=== PATIENT | male | born 1930 | race African-American/Black ===

== ENCOUNTER 2016-11-21 19:13 | Inpatient (IN) | payer MEDICARE, MEDICAID ==
[~2016-11-21] VITALS: Ht 185.4 cm; Wt 108.9 kg
[~2016-11-21 19:13] MED LIST: ASPIRIN-LOW81 MG PO; MVI WITH MINERALS ORAL; SIMVASTATIN20 MG PO; SYNTHROID100 MCG PO; TYLENOL325 MG PO; ZESTRIL10 MG PO
[2016-11-21 19:15] VITALS: BP 122/69
[2016-11-21] MEDS ORDERED: Piperacillin/Tazobactam 4.5 GM in NS 110 ML IV STA (19:21)
[2016-11-21] MEDS ORDERED: Vancomycin 1 GM in NS 275 ML IV ONE (19:30)
[2016-11-21] MEDS ORDERED: Acetaminophen 650 MG SUPP RECTAL ONE (19:30)
[2016-11-21] MEDS ORDERED: Zosyn 4.5gm inj ONE (19:49)
[2016-11-21 20:07] LABS: BASOPHILS % (AUTO) 1.2 % (0.0-2.0); LYMPHOCYTES % (AUTO) 17.6 % (20.0-45.0); MEAN CORPUSCULAR HEMOGLOBIN 28.3 PG (27.0-31.0); MEAN CORPUSCULAR HGB CONC 32.6 G/DL (32.0-36.0); MEAN CORPUSCULAR VOLUME 87 FL (80-99); MEAN PLATELET VOLUME 7.6 FL (6.5-10.1); MONOCYTES % (AUTO) 5.6 % (1.0-10.0); NEUTROPHILS % (AUTO) 74.6 % (45.0-75.0); PLATELET COUNT 204 K/UL (150-450); RED BLOOD COUNT 4.06 M/UL (4.70-6.10); RED CELL DISTRIBUTION WIDTH 18.1 % (11.6-14.8); WHITE BLOOD COUNT 8.3 K/UL (4.8-10.8)
[2016-11-21 20:16] LABS: APPEARANCE,URINE TURBID; KETONES,URINE 1+ (NEGATIVE); LEUKOCYTE ESTERASE ,URINE 3+ (NEGATIVE); NITRITE,URINE NEGATIVE (NEGATIVE); PH,URINE 5 (4.5-8.0); PROTEIN,URINE 3+ (NEGATIVE); UROBILINOGEN,URINE 1 MG/DL (0.0-1.0)
--- NOTE | 2016-11-21 20:18 | Emergency Room Report ---
History of Present Illness General Chief Complaint: Altered Level of Consciousness Source: EMS Present Illness HPI Patient brought in by paramedics. They were called because of altered mentation. They state that the last time this happened the patient was septic. The patient is unable to answer questions but does nod his head in recognition of his name. The patient has an indwelling Burton. Also has decubiti. He was last admitted here in 2010 with dehydration and UTI. Prostate CA. Functional quadriplegia. POLST states CPR but no PEG, Intubation. Limited treatment. No other history is available at this time. Allergies: Coded Allergies: No Known Allergies (Verified , 06/30/07) Patient History Past Medical History: see triage record Social History Narrative with family Reviewed Nursing Documentation: PMH: Agreed, PSxH: Agreed Nursing Documentation-PMH Hx Diabetes: Yes Review of Systems All Other Systems: limited Physical Exam Vital Signs Date Time Temp Pulse Resp B/P (MAP) Pulse Ox O2 Delivery O2 Flow Rate FiO2 11/21/16 19:10 101.5 88 30 97/57 88 Room Air Sp02 EP Interpretation: reviewed, abnormal - low as interpreted by me General Appearance: lethargic, Chronically Ill Head: normocephalic Eyes: bilateral eye normal inspection, bilateral eye PERRL ENT: moist mucus membranes Neck: supple Respiratory: lungs clear, normal breath sounds Cardiovascular #1: regular rate, rhythm Cardiovascular #2: 2+ radial (R) Gastrointestinal: normal inspection, normal bowel sounds, non tender, soft, no mass, non-distended, other - colostomy/ileostomy Genitourinary: other - burton Musculoskeletal: back normal Neurologic: alert, responsive, motor weakness - all extrem Psychiatric: depressed affect Skin: normal inspection, warm/dry Medical Decision Making Diagnostic Impression: Primary Impression: Severe sepsis Additional Impressions: Altered level of consciousness Hypoxia Renal insufficiency ER Course Patient presents with AMS and fever. Ddx; sepsis, pneumonia, UTI, AMI amongst others. Evaluation with BC, lactate, CXR, EKG and other labs. Complicated patient unable to give history. As febrile will treat with tylenol and initiate fluid bolus. EKG with strain. CXR increased frazier (not chf) with L effusion and atelectasis Hypoxia improved withoxygen. Urine with pyuria. Antibiotics started to cover this (as well as possible pneumonia). Labs with some renal insufficiency. Elevated BNP. Still needs fluids. Transiently low blood pressure. Better with fluids. Improved with treatment. Multiple organs involved with infection. Nature of hypoxia unclear. Possible infiltrate L. Elevated BNP but not significant on CXR. Admitted Telemetry Dr. Sanchez. Laboratory Tests Test 11/21/16 19:38 11/22/16 00:11 11/22/16 01:34 White Blood Count 8.3 K/UL (4.8-10.8) Red Blood Count 4.06 M/UL (4.70-6.10) L Hemoglobin 11.5 G/DL (14.2-18.0) L Hematocrit 35.2 % (42.0-52.0) L Mean Corpuscular Volume 87 FL (80-99) Mean Corpuscular Hemoglobin 28.3 PG (27.0-31.0) Mean Corpuscular Hemoglobin Concent 32.6 G/DL (32.0-36.0) Red Cell Distribution Width 18.1 % (11.6-14.8) H Platelet Count 204 K/UL (150-450) Mean Platelet Volume 7.6 FL (6.5-10.1) Neutrophils (%) (Auto) 74.6 % (45.0-75.0) Lymphocytes (%) (Auto) 17.6 % (20.0-45.0) L Monocytes (%) (Auto) 5.6 % (1.0-10.0) Eosinophils (%) (Auto) 1.0 % (0.0-3.0) Basophils (%) (Auto) 1.2 % (0.0-2.0) Prothrombin Time 11.4 SEC (9.30-11.50) Prothrombin Time INR 1.1 (0.9-1.1) PTT 32 SEC (23-33) Urine Color Yellow Urine Appearance Turbid Urine pH 5 (4.5-8.0) Urine Specific [place] 1.020 (1.005-1.035) Urine Protein 3+ (NEGATIVE) H Urine Glucose (UA) Negative (NEGATIVE) Urine Ketones 1+ (NEGATIVE) H Urine Occult Blood 5+ (NEGATIVE) H Urine Nitrite Negative (NEGATIVE) Urine Bilirubin 1+ (NEGATIVE) H Urine Ictotest Negative Urine Urobilinogen 1 MG/DL (0.0-1.0) H Urine Leukocyte Esterase 3+ (NEGATIVE) H Urine RBC 5-10 /HPF (0 - 0) H Urine WBC Tntc /HPF (0 - 0) H Urine Squamous Epithelial Cells None /LPF (NONE/OCC) Urine Bacteria Many /HPF (NONE) H Sodium Level 136 mEQ/L (135-145) Potassium Level 5.2 mEQ/L (3.4-4.9) H Chloride Level 100 mEQ/L (98-107) Carbon Dioxide Level 24 mEQ/L (20-30) Anion Gap 12 (5-15) Blood Urea Nitrogen 42 mg/dL (7-23) H Creatinine 1.4 mg/dL (0.7-1.2) H Estimate Glomerular Filtration Rate mL/min (>60) Glucose Level 177 mg/dL (74-106) H Lactic Acid Level 1.90 mmol/L (0.66-2.22) Calcium Level 8.7 mg/dL (8.6-10.2) Total Bilirubin 0.5 mg/dL (0.0-1.2) Aspartate Amino Transferase (AST) 19 U/L (5-40) Alanine Aminotransferase (ALT) 18 U/L (3-41) Alkaline Phosphatase 104 U/L (40-129) Total Creatine Kinase 17 U/L (38-174) L Troponin I < 0.30 ng/mL (<=0.30) Pro-B-Type Natriuretic Peptide 35967 pg/mL (0-450) H Total Protein 7.3 g/dL (6.6-8.7) Albumin 2.9 g/dL (3.5-5.2) L Globulin 4.4 g/dL Albumin/Globulin Ratio 0.6 (1.0-2.7) L Arterial Blood pH 7.160 (7.350-7.450) 7.180 (7.350-7.450) Arterial Blood Partial Pressure CO2 65.3 mmHg (35.0-45.0) *H 57.8 mmHg (35.0-45.0) *H Arterial Blood Partial Pressure O2 321.5 mmHg (75.0-100.0) H 106.8 mmHg (75.0-100.0) H Arterial Blood HCO3 22.8 mmol/L (22.0-26.0) 21.1 mmol/L (22.0-26.0) L Arterial Blood Oxygen Saturation 99.0 % (92.0-98.0) H 95.6 % (92.0-98.0) Arterial Blood Base Excess -6.4 -7.5 Han Test N/a N/a EKG Diagnostic Results Rate: normal Rhythm: NSR ST Segments: no acute changes Rhythm Strip Diag. Results EP Interpretation: yes Rhythm: NSR, no PVC's, no ectopy Chest X-Ray Diagnostic Results Chest X-Ray Diagnostic Results : Chest X-Ray Ordered: Yes # of Views/Limited/Complete: 1 View Indication: Other EP Interpretation: Yes Interpretation: no pneumothorax, other - increased frazier bilat, cor large, increase L base, possible effusion Impression: Other Interpreting ER Provider: Signed Omkar Marquis MD Last Vital Signs Date Time Temp Pulse Resp B/P (MAP) Pulse Ox O2 Delivery O2 Flow Rate FiO2 11/22/16 00:45 102 29 2.0 40 11/22/16 00:44 Facial 11/22/16 00:00 96.0 114/75 92 Status: improved Disposition: ADMITTED INPATIENT Condition: Serious Omkar Marquis M.D. Nov 21, 2016 20:18
[2016-11-21 20:20] LABS: ICTOTEST NEGATIVE
[2016-11-21 20:28] LABS: BACTERIA,URINE MANY /HPF; INR 1.1 (0.9-1.1); PROTHROMBIN TIME 11.4 SEC (9.30-11.50); WBC,URINE TNTC /HPF (0 - 0)
[2016-11-21 20:31] LABS: TROPONIN I < 0.30 ng/mL (<=0.30)
[2016-11-21 20:34] LABS: ALANINE AMINOTRANSFERASE 18 U/L (3-41); ALBUMIN/GLOBULIN RATIO 0.6 (1.0-2.7); ANION GAP 12 (5-15); ASPARTATE AMINO TRANSFERASE 19 U/L (5-40); CALCIUM 8.7 mg/dL (8.6-10.2); CARBON DIOXIDE 24 mEQ/L (20-30); CHLORIDE 100 mEQ/L (98-107); CREATININE 1.4 mg/dL (0.7-1.2); HEMOLYSIS 3; POTASSIUM 5.2 mEQ/L (3.4-4.9); SODIUM 136 mEQ/L (135-145); TOTAL PROTEIN 7.3 g/dL (6.6-8.7)
[2016-11-21 21:15] VITALS: BP 98/75
[2016-11-21] MEDS ORDERED: Milk of Magnesia 30ml Ud ORAL PRN (21:15)
[2016-11-21] MEDS ORDERED: Vancomycin 1gm inj IVPB ONE (21:56)
[2016-11-21] MEDS ORDERED: Lisinopril 10mg tab ORAL SCH (22:30)
[2016-11-21] MEDS ORDERED: D5NS 1,000 ML IV SCH (22:30)
[2016-11-21 22:37] VITALS: BP 93/76
[2016-11-22] VITALS (21 sets, daily range): BP systolic 77–163; BP diastolic 45–115
[2016-11-22 00:31] LABS: ABG BASE EXCESS -6.4; ABG PCO2 65.3 mmHg (35.0-45.0)
[2016-11-22 02:12] LABS: ABG BASE EXCESS -7.5; ABG PCO2 57.8 mmHg (35.0-45.0)
[2016-11-22] MEDS ORDERED: 1/2 NS IV SCH (02:30)
[2016-11-22] MEDS ORDERED: SODIUM ACETATE IV SCH (02:30)
[2016-11-22] MEDS ORDERED: Sodium Bicarbonate 50 ML in 1/2 NS 1000ml 1,000 ML IV ONE (05:00)
[2016-11-22 05:05] LABS: BASOPHILS % (AUTO) 0.9 % (0.0-2.0); EOSINOPHILS % (AUTO) 0.3 % (0.0-3.0); LYMPHOCYTES % (AUTO) 19.7 % (20.0-45.0); MEAN CORPUSCULAR HEMOGLOBIN 28.1 PG (27.0-31.0); MEAN CORPUSCULAR HGB CONC 30.6 G/DL (32.0-36.0); MEAN CORPUSCULAR VOLUME 92 FL (80-99); MEAN PLATELET VOLUME 7.1 FL (6.5-10.1); MONOCYTES % (AUTO) 8.4 % (1.0-10.0); NEUTROPHILS % (AUTO) 70.6 % (45.0-75.0); PLATELET COUNT 177 K/UL (150-450); RED BLOOD COUNT 4.01 M/UL (4.70-6.10); RED CELL DISTRIBUTION WIDTH 18.9 % (11.6-14.8)
[2016-11-22] MEDS ORDERED: Sodium Bicarbonate 50ml Carp ONE (05:12)
[2016-11-22 05:33] LABS: ALANINE AMINOTRANSFERASE 30 U/L (3-41); ALBUMIN/GLOBULIN RATIO 0.5 (1.0-2.7); ANION GAP 15 (5-15); ASPARTATE AMINO TRANSFERASE 40 U/L (5-40); CALCIUM 8.3 mg/dL (8.6-10.2); CARBON DIOXIDE 18 mEQ/L (20-30); CHLORIDE 107 mEQ/L (98-107); CREATININE 1.3 mg/dL (0.7-1.2); HEMOLYSIS 8; SODIUM 140 mEQ/L (135-145)
[2016-11-22] MEDS ORDERED: Zosyn 3.375gm inj ONE (05:36)
[2016-11-22] MEDS ORDERED: Piperacillin/Tazobactam 3.375 GM in D5W 110 ML IVPB SCH (06:00)
[2016-11-22] MEDS ORDERED: DuoNeb 0.5-3(2.5)mg/3ml neb HHN PRN (08:00)
[2016-11-22] MEDS: Aspirin EC 81mg tab ORAL SCH (08:50)
[2016-11-22] MEDS: Famotidine 20 MG/ 2ML VIAL IVP SCH ×2 (08:59→21:27)
[2016-11-22] MEDS: Heparin 5000 units/ml inj SUBQ SCH ×2 (09:04→21:28)
[2016-11-22 10:10] LABS: ABG BASE EXCESS -6.4; ABG PCO2 42.1 mmHg (35.0-45.0)
[2016-11-22 10:11] LABS: ABG ALLEN TEST POSITIVE
--- NOTE | 2016-11-22 11:03 | Wound Care Consultation ---
Wound Assessment Wound Assessment #1: Wound Number: 1 Wound Present on Admission: Yes New Wound: No Status Change of Wound: No Wound Location Body Site: other - sacrococcygeal Bradly Test: Does not Bradly Pressure Ulcer Stage: IV/unstageable - noted scattered stage 2 to surrounding tissue on left and right aspect of mid sacral wound. Wound Thickness: Full Thickness Wound Length: 6.0 Wound Width: 8.0 Wound Depth: utd Percent of Wound [place]/Red: 30 Percent of Wound Bed Yellow/Wh: 50 - scattered Percent of Wound Purple/Maroon: 20 Other Colors Identified: surrounding periwound noted with masceraated full thickness scar tissue. Wound Drainage Description: Serosanguineous Wound Drainage Amount: Moderate Wound Drainage Odor: None/Absent Tissue Surrounding Wound: Macerated Wound General Appearance: Reddened, Draining, Necrotic Wound Assessment #2: Wound Number: 2 Wound Present on Admission: Yes New Wound: No Status Change of Wound: No Wound Location Body Site: other - left aspect of sacral extending to left buttocks scattered stage 2 Wound Type: pressure ulcer Bradly Test: Does not Bradly Pressure Ulcer Stage: II Wound Thickness: Partial Thickness Percent of Wound [place]/Red: 100 - Scattered Wound Drainage Description: Serosanguineous Wound Drainage Amount: Moderate Wound Drainage Odor: None/Absent Tissue Surrounding Wound: Macerated Wound General Appearance: Reddened, Draining Wound Assessment #3: Wound Number: 3 Wound Present on Admission: Yes New Wound: No Status Change of Wound: No Wound Location Body Site Modif: left Wound Location Body Site: other - aspect of sacral extending to left buttocks Bradly Test: Does not Bradly Pressure Ulcer Stage: deep tissue injury - scattered. Wound Thickness: Full Thickness Percent of Wound Purple/Maroon: 100 Wound Drainage Amount: None Wound Drainage Odor: None/Absent Tissue Surrounding Wound: Erythemic - noted deep maroon color present. Wound Assessment #4: Wound Number: 5 Wound Present on Admission: Yes New Wound: No Status Change of Wound: No Wound Location Body Site: perineal area Wound Type: other - intertrigo Bradly Test: Does not Bradly Percent of Wound [place]/Red: 100 Wound Drainage Amount: None Wound Drainage Odor: None/Absent Tissue Surrounding Wound: Macerated - moist Wound General Appearance: Reddened, Open to air Wound Assessment #5: Wound Number: 6 Wound Present on Admission: Yes New Wound: No Status Change of Wound: No Wound Location Body Site Modif: left Wound Location Body Site: other - armpit fold Wound Type: other - intertrigo Bradly Test: Does not Bradly Percent of Wound [place]/Red: 100 Wound Drainage Amount: None Wound Drainage Odor: None/Absent Tissue Surrounding Wound: Macerated - moist Wound General Appearance: Reddened, Open to air Wound Assessment #6: Wound Number: 7 Wound Present on Admission: Yes New Wound: No Status Change of Wound: No Wound Location Body Site Modif: left, right Wound Location Body Site: breast fold Wound Type: other - intertrigo Bradly Test: Does not Bradly Percent of Wound [place]/Red: 100 Wound Drainage Amount: None Wound Drainage Odor: None/Absent Tissue Surrounding Wound: Macerated - moist Wound General Appearance: Reddened, Open to air Wound Comment #1 Sacrococcygeal pressure ulcer stage IV/unstageable , with left and right aspect of sacral scattered stage 2. #2 left aspect of sacral extending to left buttocks scattered stage 2. #3 left aspect of sacral extending to left buttocks scattered deep tissue injuries. #4 left under arm intertrigo. #5 left and right breast fold intertrigo. #6 perineal area intertrigo. Recommendation. -Local wound per protocol. -Keep skin folds clean and dry. -Apply low air loss p200 mattress for wound and skin management. -Turn and reposition. -Optimize nutrition. -Keep clean and dry. -Offload affected sites. -Offload heels and feet. -Heel protectors. -Avoid shear or friction. -Assess and follow up with MD for any further changes of condition noted to skin. YULIYA SALAZAR Nov 22, 2016 11:03
--- NOTE | 2016-11-22 11:28 | Diagnostic Imaging Report ---
Indication: Dyspnea Comparison: 11/21/2016 A single view chest radiograph was obtained. Findings: Heart is mildly enlarged but stable. Left basal atelectasis again demonstrated. 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
--- NOTE | 2016-11-22 12:39 | Infectious Diseases Prog Note ---
Assessment/Plan Assessment/Plan Full consult dictated: A) 1) uti, sepsis, ? pna, fevers, hx pna 2) pmh noted 3) allergies - negative P) 1) meropenem and vancomycin 2) check urine culture, labs and f/uc chest x-ray 3) thank you Subjective Allergies: Coded Allergies: No Known Allergies (Verified , 06/30/07) Objective Vital Signs Last 24 Hour Vital Signs Date Time Temp Pulse Resp B/P (MAP) Pulse Ox O2 Delivery O2 Flow Rate FiO2 11/22/16 12:00 30 11/22/16 12:00 97.4 72 22 80/62 100 Bi-pap 30 11/22/16 11:00 70 22 140/101 100 Bi-pap 30 11/22/16 10:55 64 14 Facial 30 11/22/16 10:00 63 20 153/95 100 Bi-pap 40 11/22/16 10:00 66 21 163/115 100 Bi-pap 40 11/22/16 09:15 62 24 Facial 40 11/22/16 09:00 65 20 129/115 100 Bi-pap 40 11/22/16 09:00 61 16 129/55 91 Bi-pap 40 11/22/16 08:00 62 11/22/16 08:00 97.4 68 16 114/96 90 Bi-pap 40 11/22/16 08:00 40 11/22/16 07:28 61 21 Facial 40 11/22/16 07:00 61 16 94/67 91 Bi-pap 40 11/22/16 06:00 72 16 99/45 91 Bi-pap 40 11/22/16 05:22 77 29 Facial 40 11/22/16 05:00 69 16 81/55 91 Bi-pap 40 11/22/16 04:53 40 11/22/16 04:00 81 11/22/16 04:00 60 16 94/75 91 Bi-pap 40 11/22/16 03:05 76 29 Facial 40 11/22/16 00:45 102 29 2.0 40 11/22/16 00:44 71 29 Facial 40 11/22/16 00:00 96.0 80 29 114/75 92 Bi-pap 11/21/16 22:37 97.9 102 32 93/76 95 Nasal Cannula 2.0 11/21/16 22:37 97.9 102 32 93/76 95 Nasal Cannula 2.0 11/21/16 22:30 65/36 11/21/16 21:15 98.0 105 28 98/75 95 Nasal Cannula 2.0 11/21/16 20:26 97.9 11/21/16 19:15 101.5 113 22 122/69 88 Room Air 11/21/16 19:10 101.5 88 30 97/57 88 Room Air Height (Feet): 6 Height (Inches): 1.00 Weight (Pounds): 220 Microbiology Date/Time Source Procedure Growth Status 11/21/16 19:38 Urine,Clean Catch Urine Culture - Preliminary Resulted 11/22/16 02:00 Sacral Wound Gram Stain - Final Resulted 11/22/16 02:00 Sacral Wound Wound Culture Pending Resulted Laboratory Tests Test 11/21/16 19:38 11/22/16 00:11 11/22/16 01:34 11/22/16 03:35 White Blood Count 8.3 K/UL (4.8-10.8) 9.0 K/UL (4.8-10.8) Red Blood Count 4.06 M/UL (4.70-6.10) L 4.01 M/UL (4.70-6.10) L Hemoglobin 11.5 G/DL (14.2-18.0) L 11.3 G/DL (14.2-18.0) L Hematocrit 35.2 % (42.0-52.0) L 36.8 % (42.0-52.0) L Mean Corpuscular Volume 87 FL (80-99) 92 FL (80-99) Mean Corpuscular Hemoglobin 28.3 PG (27.0-31.0) 28.1 PG (27.0-31.0) Mean Corpuscular Hemoglobin Concent 32.6 G/DL (32.0-36.0) 30.6 G/DL (32.0-36.0) L Red Cell Distribution Width 18.1 % (11.6-14.8) H 18.9 % (11.6-14.8) H Platelet Count 204 K/UL (150-450) 177 K/UL (150-450) Mean Platelet Volume 7.6 FL (6.5-10.1) 7.1 FL (6.5-10.1) Neutrophils (%) (Auto) 74.6 % (45.0-75.0) 70.6 % (45.0-75.0) Lymphocytes (%) (Auto) 17.6 % (20.0-45.0) L 19.7 % (20.0-45.0) L Monocytes (%) (Auto) 5.6 % (1.0-10.0) 8.4 % (1.0-10.0) Eosinophils (%) (Auto) 1.0 % (0.0-3.0) 0.3 % (0.0-3.0) Basophils (%) (Auto) 1.2 % (0.0-2.0) 0.9 % (0.0-2.0) Prothrombin Time 11.4 SEC (9.30-11.50) Prothromb Time International Ratio 1.1 (0.9-1.1) Activated Partial Thromboplast Time 32 SEC (23-33) Urine Color Yellow Urine Appearance Turbid Urine pH 5 (4.5-8.0) Urine Specific [place] 1.020 (1.005-1.035) Urine Protein 3+ (NEGATIVE) H Urine Glucose (UA) Negative (NEGATIVE) Urine Ketones 1+ (NEGATIVE) H Urine Occult Blood 5+ (NEGATIVE) H Urine Nitrite Negative (NEGATIVE) Urine Bilirubin 1+ (NEGATIVE) H Urine Ictotest Negative Urine Urobilinogen 1 MG/DL (0.0-1.0) H Urine Leukocyte Esterase 3+ (NEGATIVE) H Urine RBC 5-10 /HPF (0 - 0) H Urine WBC Tntc /HPF (0 - 0) H Urine Squamous Epithelial Cells None /LPF (NONE/OCC) Urine Bacteria Many /HPF (NONE) H Sodium Level 136 mEQ/L (135-145) 140 mEQ/L (135-145) Potassium Level 5.2 mEQ/L (3.4-4.9) H 5.0 mEQ/L (3.4-4.9) H Chloride Level 100 mEQ/L (98-107) 107 mEQ/L (98-107) Carbon Dioxide Level 24 mEQ/L (20-30) 18 mEQ/L (20-30) L Anion Gap 12 (5-15) 15 (5-15) Blood Urea Nitrogen 42 mg/dL (7-23) H 38 mg/dL (7-23) H Creatinine 1.4 mg/dL (0.7-1.2) H 1.3 mg/dL (0.7-1.2) H Estimat Glomerular Filtration Rate mL/min (>60) mL/min (>60) Glucose Level 177 mg/dL (74-106) H 146 mg/dL (74-106) H Lactic Acid Level 1.90 mmol/L (0.66-2.22) Calcium Level 8.7 mg/dL (8.6-10.2) 8.3 mg/dL (8.6-10.2) L Total Bilirubin 0.5 mg/dL (0.0-1.2) 0.4 mg/dL (0.0-1.2) Aspartate Amino Transf (AST/SGOT) 19 U/L (5-40) 40 U/L (5-40) Alanine Aminotransferase (ALT/SGPT) 18 U/L (3-41) 30 U/L (3-41) Alkaline Phosphatase 104 U/L (40-129) 103 U/L (40-129) Total Creatine Kinase 17 U/L (38-174) L Troponin I < 0.30 ng/mL (<=0.30) Pro-B-Type Natriuretic Peptide 35311 pg/mL (0-450) H Total Protein 7.3 g/dL (6.6-8.7) 7.0 g/dL (6.6-8.7) Albumin 2.9 g/dL (3.5-5.2) L 2.5 g/dL (3.5-5.2) L Globulin 4.4 g/dL 4.5 g/dL Albumin/Globulin Ratio 0.6 (1.0-2.7) L 0.5 (1.0-2.7) L Arterial Blood pH 7.160 (7.350-7.450) 7.180 (7.350-7.450) Arterial Blood Partial Pressure CO2 65.3 mmHg (35.0-45.0) *H 57.8 mmHg (35.0-45.0) *H Arterial Blood Partial Pressure O2 321.5 mmHg (75.0-100.0) H 106.8 mmHg (75.0-100.0) H Arterial Blood HCO3 22.8 mmol/L (22.0-26.0) 21.1 mmol/L (22.0-26.0) L Arterial Blood Oxygen Saturation 99.0 % (92.0-98.0) H 95.6 % (92.0-98.0) Arterial Blood Base Excess -6.4 -7.5 Han Test N/a N/a Thyroid Stimulating Hormone (TSH) 4.200 uIU/mL (0.300-4.500) Test 11/22/16 10:00 Arterial Blood pH 7.290 (7.350-7.450) Arterial Blood Partial Pressure CO2 42.1 mmHg (35.0-45.0) Arterial Blood Partial Pressure O2 205.0 mmHg (75.0-100.0) H Arterial Blood HCO3 19.8 mmol/L (22.0-26.0) L Arterial Blood Oxygen Saturation 98.6 % (92.0-98.0) H Arterial Blood Base Excess -6.4 Han Test Positive Current Medications Medications (Trade) Dose Ordered Sig/Jus Route PRN Reason Start Time Stop Time Status Last Admin Dose Admin Acetaminophen (Tylenol) 650 mg Q4H PRN ORAL Prn Headache/Temp > 101 11/21/16 21:15 12/21/16 21:14 Albuterol/ Ipratropium (DuoNeb 0.5-3(2.5)mg/3ml) 3 ml Q4H PRN HHN Shortness of Breath 11/22/16 08:00 11/27/16 07:59 Aspirin (Ecotrin) 81 mg DAILY ORAL 11/22/16 09:00 12/22/16 08:59 Atorvastatin Calcium (Lipitor) 10 mg BEDTIME ORAL 11/22/16 21:00 12/22/16 20:59 Famotidine (Pepcid I.v.) 20 mg Q12HR IVP 11/22/16 09:00 12/22/16 08:59 11/22/16 08:59 Heparin Sodium (Porcine) (Heparin 5000 units/ml) 5,000 units EVERY 12 HOURS SUBQ 11/22/16 09:00 12/22/16 08:59 11/22/16 09:04 Levothyroxine Sodium (Synthroid) 100 mcg ACBREAKFAST ORAL 11/22/16 06:30 12/22/16 06:29 Magnesium Hydroxide (Mom) 30 ml DAILYPRN PRN ORAL Constipation 11/21/16 21:15 12/21/16 21:14 Nystatin (Nystop Powder) 1 applic THREE TIMES A DAY TOPIC 11/22/16 13:00 12/22/16 12:59 Ondansetron HCl (Zofran) 4 mg Q6H PRN IVP Nausea & Vomiting 11/21/16 21:15 12/21/16 21:14 Piperacillin Sod/ Tazobactam Sod 3.375 gm/Dextrose 110 ml @ 27.5 mls/hr EVERY 8 HOURS IVPB 11/22/16 06:00 11/29/16 05:59 11/22/16 05:54 Sodium Bicarbonate 50 ml/ Sodium Chloride 1,050 ml @ 125 mls/hr Q8H24M ONCE IV 11/22/16 05:00 11/22/16 13:23 11/22/16 05:23 Vancomycin HCl (Vanco rx to dose) 1 ea DAILY PRN MISC Per rx protocol 11/21/16 21:15 12/21/16 21:14 Vancomycin HCl/ Dextrose 250 ml @ 125 mls/hr Q24H IVPB 11/22/16 22:00 11/27/16 21:59 KISHOR VALLE Nov 22, 2016 12:39
[2016-11-22] MEDS: Nystatin Powder 100,000 units/gm 15gm TOPIC SCH ×2 (13:12→17:27)
[2016-11-22] MEDS: Vancomycin 1.5gm/D5W 250ml 250 ML IVPB SCH (21:32)
[2016-11-23] VITALS (24 sets, daily range): BP systolic 95–145; BP diastolic 60–88
--- NOTE | 2016-11-23 | History and Physical Report ---
DATE OF ADMISSION: 11/22/2016 CHIEF COMPLAINT: Sepsis. HISTORY OF PRESENT ILLNESS: The patient is an 86-year-old male. He has a history of sepsis, renal insufficiency, hypothyroidism, and hypertension. He has prior history of an ileostomy. He is confused and unable to provide any history. The majority of his history is taken from review of the chart. The patient is an 86-year-old male who was brought in with complaints of altered mentation. He apparently was confused in the emergency room. He had an indwelling Rausch catheter, was also noted to have several wounds. He was diagnosed here with urinary tract infection and started on broad-spectrum IV antibiotics. He is now admitted for further evaluation and care. While on the floor, the patient became hypoxic and more short of breath, eventually required placement on BiPAP and he was transferred to intensive care unit. He opens his eyes, but does not follow any commands. I have left a message to the patient's son to get further history, but I have not received a call back yet. PAST MEDICAL HISTORY: As above. PAST SURGICAL HISTORY: Includes a history of an ileostomy. CURRENT MEDICATIONS: Reconciled and reviewed. ALLERGIES: None. SOCIAL HISTORY: There is no known history of tobacco, ethanol, or drugs. FAMILY HISTORY: Unknown. REVIEW OF SYSTEMS: From the patient is unobtainable as he is confused and lethargic. PHYSICAL EXAMINATION: VITAL SIGNS: Temperature 98 degrees, blood pressure 194/67, pulse 61, and respirations 20. GENERAL: The patient is well-developed male, in no apparent distress. He opens his eyes, but he does not follow commands. NECK: Supple. There is no jugular venous distention. HEART: Regular rate and rhythm. LUNGS: Clear. ABDOMEN: Soft, nontender, and nondistended. EXTREMITIES: Shows 1 to 2+ pitting edema. SKIN: The patient has a stage 3 to 4 sacral wound noted that appears mostly clean. LABORATORY DATA: Sodium is 136, potassium 5.2, chloride 100, bicarb 24, BUN 42, and creatinine 1.4. Lactic acid 1.9. Natriuretic peptide level 1200. CK was 71. White count 9, hemoglobin 11, hematocrit 36, and platelets 177,000. Coags are normal. UA showed too numerous to count WBCs. ASSESSMENT: This is an elderly male admitted with complaints of: 1. Sepsis secondary to urinary tract infection. 2. Respiratory failure. 3. Dehydration. 4. Sacral wounds. 5. He has a history of ileostomy. PLAN: 1. Intravenous hydration. 2. Followup chest x-ray and blood gas. 3. Continue BiPAP. 4. Broad-spectrum IV antibiotic therapy. 5. Followup pending cultures. 6. The patient's POLST from prior admission states the patient is DNI. 7. I left a message to the patient's son and awaiting the call back to update the patient's son on his status. Aamir Sanchez M.D. DR: GAEL JOB#: [id number] CC:
--- NOTE | 2016-11-23 00:30 | Consultation ---
DATE OF CONSULTATION: 11/22/2016 PULMONARY CONSULTATION CONSULTING PHYSICIAN: Atilio Salazar M.D. REFERRING PHYSICIAN: Aamir Sanchez M.D. REASON FOR CONSULTATION: Respiratory failure, BiPAP management. HISTORY OF PRESENT ILLNESS: This is an 86-year-old male, brought in by paramedics. The patient with noted with altered mental status. The patient is a limited code. The patient was seen and evaluated in the emergency room. He was noted to have concern for sepsis. Also, the patient noted to have abnormal lactic acid levels. Arterial blood gases also notable for significant acidemia with a pH of 7.18 and a pCO2 starting at 65, updated blood gases with minimal improvement at present. The patient's care discussed and reviewed. The patient also with a fever. The patient is at risk for impending respiratory failure. Further history is difficult to obtain at present. The patient is a CPR, but no plans for a gastrostomy tube or intubation. The patient had no other outstanding acute symptoms. The patient was started on intravenous antibiotics in the ICU currently and I was called to assist and evaluate. PAST MEDICAL HISTORY: Notable for UTI, functional quadriplegia, prostate cancer, and failure to thrive. MEDICATIONS: Reviewed. ALLERGIES: Reviewed. REVIEW OF SYSTEMS: Not obtainable. PHYSICAL EXAMINATION: GENERAL: A well-developed male, chronically ill. VITAL SIGNS: Blood pressure 114/96, pulse 90, respiratory rate is 16, oxygen saturation on 40% is 90%, and temperature is 97.4. HEENT: Negative. Pupils not reactive. The patient is on BiPAP mask. LUNGS: With scattered rhonchi. Moderate air entry. CARDIAC: Regular rate and rhythm. Distant without murmurs, rubs, or gallops. ABDOMEN: Soft, nontender, and nondistended. EXTREMITIES: No cyanosis or clubbing. NEUROLOGICAL: Significantly withdrawn at this time. Difficult to fully assess. SKIN: Noted. Reviewed. LABORATORY DATA: Reviewed. The pH is 7.18, pCO2 of 57, pO2 of 106, and bicarbonate 21. White count 9, hemoglobin 11.3, hematocrit 36, and platelets 177,000. Chemistries noted, potassium is 5, BUN 38, and creatinine 1.3. Albumin is 2.5. IMPRESSION: 1. Respiratory failure. 2. Acute on chronic respiratory acidosis. 3. Functional quadriplegia. 4. Prostate cancer. 5. Severe protein-calorie malnutrition. 6. As per code status, no intubation, no gastrostomy tube. 7. Possible urinary tract infection. 8. Possible sepsis. 9. Hypotension. RECOMMENDATIONS: Prognosis appears to be poor at this time. We will attempt to adjust BiPAP further and continue to monitor clinically and recommend further. The patient to receive ongoing management as outlined. We will recheck arterial blood gases in hope to see further improvement. We will also consider infusion of bicarbonate in hope to see changes in result. At present, the patient is critical and the prognosis appears to be poor. Atilio Salazar M.D. DR: SHAE JOB#: [id number] CC:
--- NOTE | 2016-11-23 04:46 | Progress Note ---
DATE: 11/22/2016 CARDIOLOGY PROGRESS NOTE SUBJECTIVE: The patient was transferred to the intensive care unit due to worsening respiratory distress. The patient continues to have episodes of hypotension. The patient did respond to fluid challenges yesterday evening. OBJECTIVE: VITAL SIGNS: Blood pressure 83/56, heart rate 58, and respiratory rate 23. GENERAL: The patient is afebrile. He is on BiPAP support. Poorly responsive. Accessory muscle use. LUNGS: Diminished breath sounds with rhonchi. HEART: Regular rhythm and rate. Normal S1 and S2 with a fourth heart sound. ABDOMEN: Soft. EXTREMITIES: There is no edema. LABORATORY DATA: White count 9 and hemoglobin 11. Sodium 140, potassium 5, bicarbonate 18, BUN 38, and creatinine is 1.3. Albumin 2.5. Lactic acid is now 1.9. ABG this morning 7.29, 42, and 205, earlier it was 7.18, 58, and 107. IMPRESSION: 1. Urinary tract infection with sepsis. 2. Shock. 3. Acute respiratory and metabolic acidosis. 4. Secondary sinus tachycardia. 5. History of prostate cancer. 6. Functional quadriplegia. 7. Dementia, recovered. 8. Lactic acidosis. 9. Severe protein-calorie malnutrition. PLAN: 1. Volume resuscitation. 2. May need pressors. 3. Do Not Intubate per POLST. 4. NG-tube for nutrition and protein supplement. 5. Broad-spectrum antibiotics. 6. BiPAP support. 7. DVT and stress ulcer prophylaxis. 8. Critical and guarded. Omkar Turk M.D. DR: EVONNE JOB#: [id number] CC:
[2016-11-23 05:11] LABS: ALANINE AMINOTRANSFERASE 28 U/L (3-41); ALBUMIN/GLOBULIN RATIO 0.6 (1.0-2.7); ANION GAP 14 (5-15); ASPARTATE AMINO TRANSFERASE 24 U/L (5-40); CALCIUM 8.5 mg/dL (8.6-10.2); CARBON DIOXIDE 21 mEQ/L (20-30); CHLORIDE 105 mEQ/L (98-107); CREATININE 1.2 mg/dL (0.7-1.2); HEMOLYSIS 1; SODIUM 140 mEQ/L (135-145); TOTAL PROTEIN 6.8 g/dL (6.6-8.7)
[2016-11-23 05:13] LABS: BASOPHILS % (AUTO) 0.9 % (0.0-2.0); EOSINOPHILS % (AUTO) 1.6 % (0.0-3.0); LYMPHOCYTES % (AUTO) 16.7 % (20.0-45.0); MEAN CORPUSCULAR HEMOGLOBIN 27.8 PG (27.0-31.0); MEAN CORPUSCULAR HGB CONC 31.3 G/DL (32.0-36.0); MEAN CORPUSCULAR VOLUME 89 FL (80-99); MEAN PLATELET VOLUME 6.8 FL (6.5-10.1); MONOCYTES % (AUTO) 7.8 % (1.0-10.0); PLATELET COUNT 189 K/UL (150-450); RED BLOOD COUNT 4.21 M/UL (4.70-6.10); RED CELL DISTRIBUTION WIDTH 19.2 % (11.6-14.8); WHITE BLOOD COUNT 7.7 K/UL (4.8-10.8)
--- NOTE | 2016-11-23 05:16 | Consultation ---
DATE OF CONSULTATION: 11/21/2016 CARDIOLOGY CONSULTATION CONSULTING PHYSICIAN: Omkar Turk M.D. REASON FOR CONSULTATION: Hypotension. HISTORY OF PRESENT ILLNESS: This is an 86-year-old male, who was brought into the emergency room by paramedics due to altered mentation. The patient was confused and altered and emergency room workup was notable for an abnormal blood gas. The patient also developed hypotension and was bolused several liters of saline. I have been asked to assist with further cardiovascular care. PAST MEDICAL HISTORY: Cerebrovascular disease with dementia, history of prostate cancer, functional quadriplegia, failure to thrive, and history of ileostomy. MEDICATIONS: Reviewed and reconciled. ALLERGIES: None known. SOCIAL HISTORY: No record of smoking, alcohol, or substance abuse. FAMILY HISTORY: Unknown. SYSTEMIC REVIEW: Not obtainable from the patient due to his lethargy. PHYSICAL EXAMINATION: VITAL SIGNS: He is afebrile and poorly responsive. Blood pressure is in 84/45 and respiratory rate 20 to 26. GENERAL: Withdrawn, lethargic, and accessory muscle use. LUNGS: Diminished breath sounds. HEART: Regular rhythm and rate. Normal S1 and S2. ABDOMEN: Soft and nontender. EXTREMITIES: With 1+ dependent edema. There is a sacral wound, stage III to IV. LABORATORY DATA: Sodium is 136, potassium 5.2, BUN 42, and creatinine 1.4. White count is 9 and hemoglobin 11. Natriuretic peptide is 1200. Urinalysis, too numerous to count white cells. Lactic acid is 1.9. DIAGNOSTIC DATA: EKG, sinus tachycardia with nonspecific ST changes. ABG, pH 7.16, pCO2, 65, and pO2 321. IMPRESSION: 1. Sepsis. 2. Shock. 3. Urinary tract infection. 4. Acute metabolic and respiratory acidosis. 5. Secondary sinus tachycardia. 6. Acute respiratory insufficiency. 7. Hypovolemia. 8. Dehydration. 9. Critical and guarded. 10. Chronic diastolic congestive heart failure. PLAN: Do not intubate. ICU monitoring. Volume resuscitation. May need pressors. Broad-spectrum antibiotics. Hold all antihypertensive. Deep venous thrombosis and stress ulcer prophylaxes. BiPAP support. Omkar Turk M.D. DR: Steven JOB#: [id number] CC:
--- NOTE | 2016-11-23 07:54 | General Progress Note ---
Assessment/Plan Problem List: (1) Sepsis ICD Codes: A41.9 - Sepsis, unspecified organism SNOMED: 85401021 (2) Renal insufficiency ICD Codes: N28.9 - Disorder of kidney and ureter, unspecified; R65.20 - Severe sepsis without septic shock SNOMED: 093208452 (3) Hypoxia ICD Codes: R09.02 - Hypoxemia; R65.20 - Severe sepsis without septic shock SNOMED: 589414126, 77703545 (4) Severe sepsis ICD Codes: A41.9 - Sepsis, unspecified organism; R65.20 - Severe sepsis without septic shock SNOMED: 63861346 (5) Altered level of consciousness ICD Codes: R40.4 - Transient alteration of awareness SNOMED: 5740476 Status: stable Assessment/Plan cont ivf monitor labs and fluid status swallow eval bipap wean per pulm wound care abx follow up cultures remains guarded DNI per son Subjective ROS Limited/Unobtainable: No Constitutional: Reports: malaise, weakness HEENT: Reports: no symptoms Cardiovascular: Reports: no symptoms Respiratory: Reports: shortness of breath, SOB at rest Gastrointestinal/Abdominal: Reports: difficulty swallowing Genitourinary: Reports: no symptoms Neurologic/Psychiatric: Reports: pre-existing deficit Endocrine: Reports: no symptoms Hematologic/Lymphatic: Reports: no symptoms Allergies: Coded Allergies: No Known Allergies (Verified , 06/30/07) All Systems: reviewed and negative except above Subjective no events. remains on bipap. BP better. no fevers. D/w son- pt has been on puree at home but has had progressive confusion for months- per son attributed to dementia. Objective Last 24 Hour Vital Signs Date Time Temp Pulse Resp B/P (MAP) Pulse Ox O2 Delivery O2 Flow Rate FiO2 11/23/16 07:00 65 19 117/79 98 Bi-pap 30 11/23/16 06:00 62 19 113/76 98 Bi-pap 30 11/23/16 05:21 59 18 Facial 30 11/23/16 05:00 59 17 116/80 98 Bi-pap 30 11/23/16 04:00 97.7 58 17 101/62 98 Bi-pap 30 11/23/16 04:00 58 11/23/16 04:00 30 11/23/16 03:00 58 21 125/74 100 Bi-pap 30 11/23/16 02:48 58 20 100 Facial 30 11/23/16 02:00 58 18 127/75 100 Bi-pap 30 11/23/16 01:29 57 18 100 Facial 30 11/23/16 01:00 58 15 110/63 100 Bi-pap 30 11/23/16 00:00 58 11/23/16 00:00 98.0 58 14 110/67 100 Bi-pap 30 11/23/16 00:00 30 11/22/16 23:20 77 18 100 Full Face 30 11/22/16 23:00 59 18 99/53 100 Bi-pap 30 11/22/16 22:00 68 17 110/73 100 Bi-pap 30 11/22/16 21:00 69 16 96/54 97 Bi-pap 30 11/22/16 20:39 66 20 100 Full Face 30 11/22/16 20:00 30 11/22/16 20:00 68 11/22/16 20:00 97.7 68 14 109/67 100 Bi-pap 30 11/22/16 19:00 71 25 102/74 98 Bi-pap 30 11/22/16 18:56 58 16 30 11/22/16 18:00 62 26 101/61 98 Bi-pap 30 11/22/16 17:00 77 26 100/70 98 Bi-pap 30 11/22/16 16:38 62 26 100 Full Face 30 11/22/16 16:00 30 11/22/16 16:00 60 23 83/56 100 Bi-pap 30 11/22/16 16:00 58 11/22/16 15:06 60 15 100 Full Face 30 11/22/16 15:00 66 23 145/90 99 Bi-pap 30 11/22/16 14:00 63 23 153/115 100 Bi-pap 30 11/22/16 13:10 69 17 Facial 30 11/22/16 13:00 67 22 77/53 100 Bi-pap 30 11/22/16 12:00 30 11/22/16 12:00 70 11/22/16 12:00 97.4 72 22 80/62 100 Bi-pap 30 11/22/16 11:00 70 22 140/101 100 Bi-pap 30 11/22/16 10:55 64 14 Facial 30 11/22/16 10:00 63 20 153/95 100 Bi-pap 40 11/22/16 10:00 66 21 163/115 100 Bi-pap 40 11/22/16 09:15 62 24 Facial 40 11/22/16 09:00 65 20 129/115 100 Bi-pap 40 11/22/16 09:00 61 16 129/55 91 Bi-pap 40 11/22/16 08:00 62 11/22/16 08:00 97.4 68 16 114/96 90 Bi-pap 40 11/22/16 08:00 40 Laboratory Tests 11/22/16 10:00: Arterial Blood pH 7.290L, Arterial Blood Partial Pressure CO2 42.1, Arterial Blood Partial Pressure O2 205.0H, Arterial Blood HCO3 19.8L, Arterial Blood Oxygen Saturation 98.6H, Arterial Blood Base Excess -6.4, Han Test Positive 11/23/16 03:55: White Blood Count 7.7, Red Blood Count 4.21L, Hemoglobin 11.7L, Hematocrit 37.4L , Mean Corpuscular Volume 89, Mean Corpuscular Hemoglobin 27.8, Mean Corpuscular Hemoglobin Concent 31.3L, Red Cell Distribution Width 19.2H, Platelet Count 189, Mean Platelet Volume 6.8, Neutrophils (%) (Auto) 73.0, Lymphocytes (%) (Auto) 16.7L, Monocytes (%) (Auto) 7.8, Eosinophils (%) (Auto) 1.6, Basophils (%) (Auto) 0.9, Sodium Level 140, Potassium Level 5.0H, Chloride Level 105, Carbon Dioxide Level 21, Anion Gap 14, Blood Urea Nitrogen 37H, Creatinine 1.2, Estimat Glomerular Filtration Rate , Glucose Level 84, Calcium Level 8.5L, Total Bilirubin 0.7, Aspartate Amino Transf (AST/SGOT) 24, Alanine Aminotransferase (ALT/SGPT) 28, Alkaline Phosphatase 73, Total Protein 6.8, Albumin 2.6L, Globulin 4.2, Albumin/Globulin Ratio 0.6L Height (Feet): 6 Height (Inches): 1.00 Weight (Pounds): 230 General Appearance: WD/WN, lethargic, confused Neck: supple Cardiovascular: normal rate, regular rhythm Respiratory/Chest: chest wall non-tender, lungs clear, normal breath sounds, no respiratory distress, no accessory muscle use Abdomen: normal bowel sounds, non tender, soft, no organomegaly Edema: mild edema Neurologic: disoriented SAM BARDALES Nov 23, 2016 07:54
--- NOTE | 2016-11-23 07:56 | Diagnostic Imaging Report ---
Indication: Dyspnea Comparison: 04/24/10 A single view chest radiograph was obtained. Findings: Mild basilar atelectasis noted on the left. Heart is enlarged. The bones are osteopenic. Impression: Mild left basal atelectasis
[2016-11-23] MEDS: Aspirin EC 81mg tab ORAL SCH (09:00)
[2016-11-23] MEDS: Heparin 5000 units/ml inj SUBQ SCH (09:00)
[2016-11-23] MEDS: Famotidine 20 MG/ 2ML VIAL IVP SCH ×2 (09:15→21:06)
[2016-11-23] MEDS: Enoxaparin 80mg Inj SUBQ SCH ×2 (09:21→21:07)
[2016-11-23] MEDS: Nystatin Powder 100,000 units/gm 15gm TOPIC SCH ×3 (09:24→18:03)
[2016-11-23 10:39] LABS: ABG ALLEN TEST POSITIVE
--- NOTE | 2016-11-23 11:58 | Diagnostic Imaging Report ---
Indication: Mental status Technique: Contiguous 5 mm thick transaxial imaging of the head obtained in a Siemens Sensation [address] scanner. Soft tissue and bone windows generated. Total Dose length Product (DLP): Seen [address] Dose Index Volume (CTDIvol): 70.38, 0.15 mGy Comparison: 10/25/2008 Findings: There is mild prominence of the ventricles, basal cisterns, and cerebral sulci consistent with atrophy. Mild, nonspecific, white matter hypoattenuation is noted throughout the brain consistent with chronic small vessel disease. There is no midline shift, edema, acute hemorrhage, mass effect, or abnormal extra-axial fluid collections. Bones and extra osseous soft tissues are unremarkable. Impression: No acute intracranial bleed, mass effect or edema. Mild atrophy of the brain. Nonspecific white matter hypoattenuation probably due to chronic small vessel disease. The CT scanner at [facility] is accredited by the [employer] and the scans are performed using dose optimization techniques as appropriate to a performed exam including Automatic Exposure control.
--- NOTE | 2016-11-23 15:07 | Infectious Diseases Prog Note ---
Assessment/Plan Assessment/Plan Full consult dictated: A) 1) gram neg, uti, sepsis, atx, fevers, hx pna, ? gram neg sacral wound infection 2) pmh noted 3) allergies - negative P) 1) meropenem and vancomycin 2) check culture and f/u labs 3) wound culture per protocol Subjective Allergies: Coded Allergies: No Known Allergies (Verified , 06/30/07) Objective Vital Signs Last 24 Hour Vital Signs Date Time Temp Pulse Resp B/P (MAP) Pulse Ox O2 Delivery O2 Flow Rate FiO2 11/23/16 14:00 79 19 128/82 100 Bi-pap 30 11/23/16 13:29 87 15 100 11/23/16 13:00 72 19 112/69 100 Bi-pap 30 11/23/16 13:00 Venturi Mask 4.0 30 11/23/16 13:00 100 Venturi Mask 4.0 30 11/23/16 12:00 87 11/23/16 12:00 98.0 87 18 145/83 100 Bi-pap 30 11/23/16 12:00 30 11/23/16 11:05 81 23 Facial 30 11/23/16 11:00 86 19 105/78 100 Bi-pap 30 11/23/16 10:00 73 19 105/65 100 Bi-pap 30 11/23/16 09:25 79 17 Facial 30 11/23/16 09:00 79 19 102/88 100 Bi-pap 30 11/23/16 08:00 97.8 78 18 112/64 100 Bi-pap 30 11/23/16 08:00 30 11/23/16 08:00 79 11/23/16 07:11 59 18 Facial 30 11/23/16 07:00 65 19 117/79 98 Bi-pap 30 11/23/16 06:00 62 19 113/76 98 Bi-pap 30 11/23/16 05:21 59 18 Facial 30 11/23/16 05:00 59 17 116/80 98 Bi-pap 30 11/23/16 04:00 97.7 58 17 101/62 98 Bi-pap 30 11/23/16 04:00 58 11/23/16 04:00 30 11/23/16 03:00 58 21 125/74 100 Bi-pap 30 11/23/16 02:48 58 20 100 Facial 30 11/23/16 02:00 58 18 127/75 100 Bi-pap 30 11/23/16 01:29 57 18 100 Facial 30 11/23/16 01:00 58 15 110/63 100 Bi-pap 30 11/23/16 00:00 58 11/23/16 00:00 98.0 58 14 110/67 100 Bi-pap 30 11/23/16 00:00 30 11/22/16 23:20 77 18 100 Full Face 30 11/22/16 23:00 59 18 99/53 100 Bi-pap 30 11/22/16 22:00 68 17 110/73 100 Bi-pap 30 11/22/16 21:00 69 16 96/54 97 Bi-pap 30 11/22/16 20:39 66 20 100 Full Face 30 11/22/16 20:00 30 11/22/16 20:00 68 11/22/16 20:00 97.7 68 14 109/67 100 Bi-pap 30 11/22/16 19:00 71 25 102/74 98 Bi-pap 30 11/22/16 18:56 58 16 30 11/22/16 18:00 62 26 101/61 98 Bi-pap 30 11/22/16 17:00 77 26 100/70 98 Bi-pap 30 11/22/16 16:38 62 26 100 Full Face 30 11/22/16 16:00 30 11/22/16 16:00 60 23 83/56 100 Bi-pap 30 11/22/16 16:00 58 11/22/16 15:06 60 15 100 Full Face 30 Height (Feet): 6 Height (Inches): 1.00 Weight (Pounds): 230 Microbiology Date/Time Source Procedure Growth Status 11/21/16 19:45 Blood Blood Culture - Preliminary NO GROWTH AFTER 24 HOURS Resulted 11/21/16 19:30 Blood Blood Culture - Preliminary NO GROWTH AFTER 24 HOURS Resulted 11/21/16 19:38 Urine,Clean Catch Urine Culture - Preliminary Gram Negative Bacillus 1 Resulted 11/22/16 02:00 Sacral Wound Gram Stain - Final Resulted 11/22/16 02:00 Wound Culture - Preliminary Gram Negative Bacillus 1 Resulted Laboratory Tests Test 11/23/16 03:55 11/23/16 10:28 White Blood Count 7.7 K/UL (4.8-10.8) Red Blood Count 4.21 M/UL (4.70-6.10) L Hemoglobin 11.7 G/DL (14.2-18.0) L Hematocrit 37.4 % (42.0-52.0) L Mean Corpuscular Volume 89 FL (80-99) Mean Corpuscular Hemoglobin 27.8 PG (27.0-31.0) Mean Corpuscular Hemoglobin Concent 31.3 G/DL (32.0-36.0) L Red Cell Distribution Width 19.2 % (11.6-14.8) H Platelet Count 189 K/UL (150-450) Mean Platelet Volume 6.8 FL (6.5-10.1) Neutrophils (%) (Auto) 73.0 % (45.0-75.0) Lymphocytes (%) (Auto) 16.7 % (20.0-45.0) L Monocytes (%) (Auto) 7.8 % (1.0-10.0) Eosinophils (%) (Auto) 1.6 % (0.0-3.0) Basophils (%) (Auto) 0.9 % (0.0-2.0) Sodium Level 140 mEQ/L (135-145) Potassium Level 5.0 mEQ/L (3.4-4.9) H Chloride Level 105 mEQ/L (98-107) Carbon Dioxide Level 21 mEQ/L (20-30) Anion Gap 14 (5-15) Blood Urea Nitrogen 37 mg/dL (7-23) H Creatinine 1.2 mg/dL (0.7-1.2) Estimat Glomerular Filtration Rate mL/min (>60) Glucose Level 84 mg/dL (74-106) Calcium Level 8.5 mg/dL (8.6-10.2) L Total Bilirubin 0.7 mg/dL (0.0-1.2) Aspartate Amino Transf (AST/SGOT) 24 U/L (5-40) Alanine Aminotransferase (ALT/SGPT) 28 U/L (3-41) Alkaline Phosphatase 73 U/L (40-129) Total Protein 6.8 g/dL (6.6-8.7) Albumin 2.6 g/dL (3.5-5.2) L Globulin 4.2 g/dL Albumin/Globulin Ratio 0.6 (1.0-2.7) L Arterial Blood pH 7.390 (7.350-7.450) Arterial Blood Partial Pressure CO2 34.0 mmHg (35.0-45.0) L Arterial Blood Partial Pressure O2 120.7 mmHg (75.0-100.0) H Arterial Blood HCO3 20.3 mmol/L (22.0-26.0) L Arterial Blood Oxygen Saturation 97.5 % (92.0-98.0) Arterial Blood Base Excess -4.0 Han Test Positive Current Medications Medications (Trade) Dose Ordered Sig/Jus Route PRN Reason Start Time Stop Time Status Last Admin Dose Admin Acetaminophen (Tylenol) 650 mg Q4H PRN ORAL Prn Headache/Temp > 101 11/21/16 21:15 12/21/16 21:14 Albuterol/ Ipratropium (DuoNeb 0.5-3(2.5)mg/3ml) 3 ml Q4H PRN HHN Shortness of Breath 11/22/16 08:00 11/27/16 07:59 Aspirin (Ecotrin) 81 mg DAILY ORAL 11/22/16 09:00 12/22/16 08:59 Atorvastatin Calcium (Lipitor) 10 mg BEDTIME ORAL 11/22/16 21:00 12/22/16 20:59 Enoxaparin Sodium (Lovenox) 80 mg EVERY 12 HOURS SUBQ 11/23/16 09:15 12/23/16 09:14 11/23/16 09:21 Famotidine (Pepcid I.v.) 20 mg Q12HR IVP 11/22/16 09:00 12/22/16 08:59 11/23/16 09:15 Levothyroxine Sodium (Synthroid) 100 mcg ACBREAKFAST ORAL 11/22/16 06:30 12/22/16 06:29 Magnesium Hydroxide (Mom) 30 ml DAILYPRN PRN ORAL Constipation 11/21/16 21:15 12/21/16 21:14 Meropenem 1 gm/ Sodium Chloride 100 ml @ 200 mls/hr EVERY 12 HOURS IVPB 11/22/16 21:00 11/27/16 20:59 11/23/16 09:15 Nystatin (Nystop Powder) 1 applic THREE TIMES A DAY TOPIC 11/22/16 13:00 12/22/16 12:59 11/23/16 12:06 Ondansetron HCl (Zofran) 4 mg Q6H PRN IVP Nausea & Vomiting 11/21/16 21:15 12/21/16 21:14 Vancomycin HCl (Vanco rx to dose) 1 ea DAILY PRN MISC Per rx protocol 11/21/16 21:15 12/21/16 21:14 Vancomycin HCl/ Dextrose 250 ml @ 125 mls/hr Q24H IVPB 11/22/16 22:00 11/27/16 21:59 11/22/16 21:32 KISHOR VALLE Nov 23, 2016 15:07
--- NOTE | 2016-11-23 16:20 | Critical Care Progress Note ---
Assessment/Plan Assessment/Plan IMPRESSION: 1. Respiratory failure. 2. Acute on chronic respiratory acidosis. 3. Functional quadriplegia. 4. Prostate cancer. 5. Severe protein-calorie malnutrition. 6. As per code status, no intubation, no gastrostomy tube. 7. Possible urinary tract infection. 8. Possible sepsis. 9. Hypotension. 10. sacral wound PLAN care noted IV antibiotics noted respiratory care BIPAP as able off care noted; monitor oxygen needs SNF meds supportive care suction aspiration precautions oxygen therapy prognosis guarded still needs ICU medications/laboratory data/nursing notes/ICU care reviewed in detail note reviewed and edited care discussed with RN and RT ICU time spent 35 minutes Critical Care - Subjective Interval Events: care noted overall improved acid base reviewed and improved ROS Limited/Unobtainable: Yes Condition: critical EKG Rhythm: Sinus Rhythm I&O: Intake and Output 11/23/16 11/24/16 19:00 07:00 Intake Total 0 ml Balance 0 ml Intake Oral 0 ml # Voids 330 Critical Care - Objective CXR: reviewed Last 24 Hour Vital Signs Date Time Temp Pulse Resp B/P (MAP) Pulse Ox O2 Delivery O2 Flow Rate FiO2 11/23/16 16:00 78 19 106/61 100 Venturi Mask 30 11/23/16 15:25 74 20 100 11/23/16 15:00 78 19 104/71 100 Venturi Mask 30 11/23/16 14:00 79 19 128/82 100 Bi-pap 30 11/23/16 13:29 87 15 100 11/23/16 13:00 72 19 112/69 100 Bi-pap 30 11/23/16 13:00 Venturi Mask 4.0 30 11/23/16 13:00 100 Venturi Mask 4.0 30 11/23/16 12:00 87 11/23/16 12:00 98.0 87 18 145/83 100 Bi-pap 30 11/23/16 12:00 30 11/23/16 11:05 81 23 Facial 30 11/23/16 11:00 86 19 105/78 100 Bi-pap 30 11/23/16 10:00 73 19 105/65 100 Bi-pap 30 11/23/16 09:25 79 17 Facial 30 11/23/16 09:00 79 19 102/88 100 Bi-pap 30 11/23/16 08:00 97.8 78 18 112/64 100 Bi-pap 30 11/23/16 08:00 30 11/23/16 08:00 79 11/23/16 07:11 59 18 Facial 30 11/23/16 07:00 65 19 117/79 98 Bi-pap 30 11/23/16 06:00 62 19 113/76 98 Bi-pap 30 11/23/16 05:21 59 18 Facial 30 11/23/16 05:00 59 17 116/80 98 Bi-pap 30 11/23/16 04:00 97.7 58 17 101/62 98 Bi-pap 30 11/23/16 04:00 58 11/23/16 04:00 30 11/23/16 03:00 58 21 125/74 100 Bi-pap 30 11/23/16 02:48 58 20 100 Facial 30 11/23/16 02:00 58 18 127/75 100 Bi-pap 30 11/23/16 01:29 57 18 100 Facial 30 11/23/16 01:00 58 15 110/63 100 Bi-pap 30 11/23/16 00:00 58 11/23/16 00:00 98.0 58 14 110/67 100 Bi-pap 30 11/23/16 00:00 30 11/22/16 23:20 77 18 100 Full Face 30 11/22/16 23:00 59 18 99/53 100 Bi-pap 30 11/22/16 22:00 68 17 110/73 100 Bi-pap 30 11/22/16 21:00 69 16 96/54 97 Bi-pap 30 11/22/16 20:39 66 20 100 Full Face 30 11/22/16 20:00 30 11/22/16 20:00 68 11/22/16 20:00 97.7 68 14 109/67 100 Bi-pap 30 11/22/16 19:00 71 25 102/74 98 Bi-pap 30 11/22/16 18:56 58 16 30 11/22/16 18:00 62 26 101/61 98 Bi-pap 30 11/22/16 17:00 77 26 100/70 98 Bi-pap 30 11/22/16 16:38 62 26 100 Full Face 30 Labs: Labs Test 11/21/16 19:38 11/22/16 00:11 11/22/16 01:34 11/22/16 03:35 White Blood Count 8.3 K/UL (4.8-10.8) 9.0 K/UL (4.8-10.8) Red Blood Count 4.06 M/UL (4.70-6.10) 4.01 M/UL (4.70-6.10) Hemoglobin 11.5 G/DL (14.2-18.0) 11.3 G/DL (14.2-18.0) Hematocrit 35.2 % (42.0-52.0) 36.8 % (42.0-52.0) Mean Corpuscular Volume 87 FL (80-99) 92 FL (80-99) Mean Corpuscular Hemoglobin 28.3 PG (27.0-31.0) 28.1 PG (27.0-31.0) Mean Corpuscular Hemoglobin Concent 32.6 G/DL (32.0-36.0) 30.6 G/DL (32.0-36.0) Red Cell Distribution Width 18.1 % (11.6-14.8) 18.9 % (11.6-14.8) Platelet Count 204 K/UL (150-450) 177 K/UL (150-450) Mean Platelet Volume 7.6 FL (6.5-10.1) 7.1 FL (6.5-10.1) Neutrophils (%) (Auto) 74.6 % (45.0-75.0) 70.6 % (45.0-75.0) Lymphocytes (%) (Auto) 17.6 % (20.0-45.0) 19.7 % (20.0-45.0) Monocytes (%) (Auto) 5.6 % (1.0-10.0) 8.4 % (1.0-10.0) Eosinophils (%) (Auto) 1.0 % (0.0-3.0) 0.3 % (0.0-3.0) Basophils (%) (Auto) 1.2 % (0.0-2.0) 0.9 % (0.0-2.0) Prothrombin Time 11.4 SEC (9.30-11.50) Prothromb Time International Ratio 1.1 (0.9-1.1) Activated Partial Thromboplast Time 32 SEC (23-33) Urine Color Yellow Urine Appearance Turbid Urine pH 5 (4.5-8.0) Urine Specific [place] 1.020 (1.005-1.035) Urine Protein 3+ (NEGATIVE) Urine Glucose (UA) Negative (NEGATIVE) Urine Ketones 1+ (NEGATIVE) Urine Occult Blood 5+ (NEGATIVE) Urine Nitrite Negative (NEGATIVE) Urine Bilirubin 1+ (NEGATIVE) Urine Ictotest Negative Urine Urobilinogen 1 MG/DL (0.0-1.0) Urine Leukocyte Esterase 3+ (NEGATIVE) Urine RBC 5-10 /HPF (0 - 0) Urine WBC Tntc /HPF (0 - 0) Urine Squamous Epithelial Cells None /LPF (NONE/OCC) Urine Bacteria Many /HPF (NONE) Sodium Level 136 mEQ/L (135-145) 140 mEQ/L (135-145) Potassium Level 5.2 mEQ/L (3.4-4.9) 5.0 mEQ/L (3.4-4.9) Chloride Level 100 mEQ/L (98-107) 107 mEQ/L (98-107) Carbon Dioxide Level 24 mEQ/L (20-30) 18 mEQ/L (20-30) Anion Gap 12 (5-15) 15 (5-15) Blood Urea Nitrogen 42 mg/dL (7-23) 38 mg/dL (7-23) Creatinine 1.4 mg/dL (0.7-1.2) 1.3 mg/dL (0.7-1.2) Estimat Glomerular Filtration Rate mL/min (>60) mL/min (>60) Glucose Level 177 mg/dL (74-106) 146 mg/dL (74-106) Lactic Acid Level 1.90 mmol/L (0.66-2.22) Calcium Level 8.7 mg/dL (8.6-10.2) 8.3 mg/dL (8.6-10.2) Total Bilirubin 0.5 mg/dL (0.0-1.2) 0.4 mg/dL (0.0-1.2) Aspartate Amino Transf (AST/SGOT) 19 U/L (5-40) 40 U/L (5-40) Alanine Aminotransferase (ALT/SGPT) 18 U/L (3-41) 30 U/L (3-41) Alkaline Phosphatase 104 U/L (40-129) 103 U/L (40-129) Total Creatine Kinase 17 U/L (38-174) Troponin I < 0.30 ng/mL (<=0.30) Pro-B-Type Natriuretic Peptide 63422 pg/mL (0-450) Total Protein 7.3 g/dL (6.6-8.7) 7.0 g/dL (6.6-8.7) Albumin 2.9 g/dL (3.5-5.2) 2.5 g/dL (3.5-5.2) Globulin 4.4 g/dL 4.5 g/dL Albumin/Globulin Ratio 0.6 (1.0-2.7) 0.5 (1.0-2.7) Arterial Blood pH 7.160 (7.350-7.450) 7.180 (7.350-7.450) Arterial Blood Partial Pressure CO2 65.3 mmHg (35.0-45.0) 57.8 mmHg (35.0-45.0) Arterial Blood Partial Pressure O2 321.5 mmHg (75.0-100.0) 106.8 mmHg (75.0-100.0) Arterial Blood HCO3 22.8 mmol/L (22.0-26.0) 21.1 mmol/L (22.0-26.0) Arterial Blood Oxygen Saturation 99.0 % (92.0-98.0) 95.6 % (92.0-98.0) Arterial Blood Base Excess -6.4 -7.5 Han Test N/a N/a Thyroid Stimulating Hormone (TSH) 4.200 uIU/mL (0.300-4.500) Test 11/22/16 10:00 11/23/16 03:55 11/23/16 10:28 Arterial Blood pH 7.290 (7.350-7.450) 7.390 (7.350-7.450) Arterial Blood Partial Pressure CO2 42.1 mmHg (35.0-45.0) 34.0 mmHg (35.0-45.0) Arterial Blood Partial Pressure O2 205.0 mmHg (75.0-100.0) 120.7 mmHg (75.0-100.0) Arterial Blood HCO3 19.8 mmol/L (22.0-26.0) 20.3 mmol/L (22.0-26.0) Arterial Blood Oxygen Saturation 98.6 % (92.0-98.0) 97.5 % (92.0-98.0) Arterial Blood Base Excess -6.4 -4.0 Han Test Positive Positive White Blood Count 7.7 K/UL (4.8-10.8) Red Blood Count 4.21 M/UL (4.70-6.10) Hemoglobin 11.7 G/DL (14.2-18.0) Hematocrit 37.4 % (42.0-52.0) Mean Corpuscular Volume 89 FL (80-99) Mean Corpuscular Hemoglobin 27.8 PG (27.0-31.0) Mean Corpuscular Hemoglobin Concent 31.3 G/DL (32.0-36.0) Red Cell Distribution Width 19.2 % (11.6-14.8) Platelet Count 189 K/UL (150-450) Mean Platelet Volume 6.8 FL (6.5-10.1) Neutrophils (%) (Auto) 73.0 % (45.0-75.0) Lymphocytes (%) (Auto) 16.7 % (20.0-45.0) Monocytes (%) (Auto) 7.8 % (1.0-10.0) Eosinophils (%) (Auto) 1.6 % (0.0-3.0) Basophils (%) (Auto) 0.9 % (0.0-2.0) Sodium Level 140 mEQ/L (135-145) Potassium Level 5.0 mEQ/L (3.4-4.9) Chloride Level 105 mEQ/L (98-107) Carbon Dioxide Level 21 mEQ/L (20-30) Anion Gap 14 (5-15) Blood Urea Nitrogen 37 mg/dL (7-23) Creatinine 1.2 mg/dL (0.7-1.2) Estimat Glomerular Filtration Rate mL/min (>60) Glucose Level 84 mg/dL (74-106) Calcium Level 8.5 mg/dL (8.6-10.2) Total Bilirubin 0.7 mg/dL (0.0-1.2) Aspartate Amino Transf (AST/SGOT) 24 U/L (5-40) Alanine Aminotransferase (ALT/SGPT) 28 U/L (3-41) Alkaline Phosphatase 73 U/L (40-129) Total Protein 6.8 g/dL (6.6-8.7) Albumin 2.6 g/dL (3.5-5.2) Globulin 4.2 g/dL Albumin/Globulin Ratio 0.6 (1.0-2.7) Objective: GENERAL: A well-developed male, chronically ill. HEENT: Negative. Pupils not reactive. The patient is on BiPAP mask. LUNGS: With some rhonchi. Moderate air entry. no wheeze CARDIAC: Regular rate and rhythm. Distant without murmurs, rubs, or gallops. ABDOMEN: Soft, nontender, and nondistended. no HSM EXTREMITIES: No cyanosis or clubbing. NEUROLOGICAL: Significantly withdrawn at this time. Difficult to fully assess. SKIN: Noted. Reviewed. Micro: Microbiology Date/Time Source Procedure Growth Status 11/21/16 19:45 Blood Blood Culture - Preliminary NO GROWTH AFTER 24 HOURS Resulted 11/21/16 19:30 Blood Blood Culture - Preliminary NO GROWTH AFTER 24 HOURS Resulted 11/21/16 19:38 Urine,Clean Catch Urine Culture - Preliminary Gram Negative Bacillus 1 Resulted 11/22/16 02:00 Sacral Wound Gram Stain - Final Resulted 11/22/16 02:00 Wound Culture - Preliminary Gram Negative Bacillus 1 Resulted NICHOLAS ROJAS Nov 23, 2016 16:20
[2016-11-23] MEDS ORDERED: 1/2 NS 1000ml IV ONE (18:04)
[2016-11-23] MEDS ORDERED: NS 275ml ONE (18:04)
[2016-11-23] MEDS ORDERED: Tubing IV Secondary IV ONE (18:04)
[2016-11-23] MEDS: Vancomycin 1.5gm/D5W 250ml 250 ML IVPB SCH (22:01)
--- NOTE | 2016-11-23 23:45 | Progress Note ---
DATE: 11/23/2016 CARDIOLOGY PROGRESS NOTE SUBJECTIVE: The patient's blood pressure has improved. He is on maintenance intravenous fluids. He continues to have respiratory distress and is on BiPAP support. OBJECTIVE: VITALS: Blood pressure 117/79, pulse 65, respirations 19, and afebrile. GENERAL: Poorly interactive. LUNGS: Diminished breath sounds. HEART: Regular rhythm and rate. Normal S1 and S2. ABDOMEN: Soft. EXTREMITIES: No edema. LABORATORY DATA: White count 7.7 and hemoglobin 11.7. Potassium 5, BUN 37, and creatinine 1.2. Albumin 2.6. ABG, pH 7.39, pCO2 34, and pO2 120. Urine culture, gram-negative bacillus. IMPRESSION: 1. Sepsis. 2. Urinary tract infection. 3. Wound infection. 4. Acute respiratory acidosis. 5. Metabolic acidosis. 6. Shock, recovered. 7. Hypovolemia, improved. PLAN: 1. Continue hydration. 2. Antimicrobials. 3. Respiratory hygiene. 4. Swallow evaluation will follow. 5. DNI per advanced directives. Omkar Turk M.D. DR: ARJUN JOB#: [id number] CC:
[2016-11-24] VITALS (20 sets, daily range): BP systolic 95–138; BP diastolic 58–100
[2016-11-24 05:14] LABS: BASOPHILS % (AUTO) 1.1 % (0.0-2.0); EOSINOPHILS % (AUTO) 2.3 % (0.0-3.0); LYMPHOCYTES % (AUTO) 16.3 % (20.0-45.0); MEAN CORPUSCULAR HEMOGLOBIN 27.4 PG (27.0-31.0); MEAN CORPUSCULAR HGB CONC 30.7 G/DL (32.0-36.0); MEAN CORPUSCULAR VOLUME 89 FL (80-99); MEAN PLATELET VOLUME 7.7 FL (6.5-10.1); MONOCYTES % (AUTO) 6.6 % (1.0-10.0); NEUTROPHILS % (AUTO) 73.7 % (45.0-75.0); PLATELET COUNT 198 K/UL (150-450); RED BLOOD COUNT 3.93 M/UL (4.70-6.10); RED CELL DISTRIBUTION WIDTH 18.5 % (11.6-14.8); WHITE BLOOD COUNT 7.2 K/UL (4.8-10.8)
[2016-11-24 05:48] LABS: ALANINE AMINOTRANSFERASE 18 U/L (3-41); ALBUMIN/GLOBULIN RATIO 0.6 (1.0-2.7); ANION GAP 13 (5-15); ASPARTATE AMINO TRANSFERASE 16 U/L (5-40); CALCIUM 8.7 mg/dL (8.6-10.2); CARBON DIOXIDE 22 mEQ/L (20-30); CHLORIDE 107 mEQ/L (98-107); CREATININE 0.9 mg/dL (0.7-1.2); HEMOLYSIS 0; POTASSIUM 4.5 mEQ/L (3.4-4.9); SODIUM 142 mEQ/L (135-145); TOTAL PROTEIN 6.2 g/dL (6.6-8.7)
--- NOTE | 2016-11-24 08:19 | General Progress Note ---
Assessment/Plan Problem List: (1) Sepsis ICD Codes: A41.9 - Sepsis, unspecified organism SNOMED: 91546236 (2) Renal insufficiency ICD Codes: N28.9 - Disorder of kidney and ureter, unspecified; R65.20 - Severe sepsis without septic shock SNOMED: 242615345 (3) Hypoxia ICD Codes: R09.02 - Hypoxemia; R65.20 - Severe sepsis without septic shock SNOMED: 507611406, 77653124 (4) Severe sepsis ICD Codes: A41.9 - Sepsis, unspecified organism; R65.20 - Severe sepsis without septic shock SNOMED: 24276671 (5) Altered level of consciousness ICD Codes: R40.4 - Transient alteration of awareness SNOMED: 8240466 Status: stable, progressing Assessment/Plan cont ivf ngt- son ok with ngt monitor labs and fluid status swallow eval resp rx follow up abg wound care abx follow up cultures remains guarded DNI per son Subjective ROS Limited/Unobtainable: Yes Constitutional: Reports: malaise, weakness HEENT: Reports: no symptoms Cardiovascular: Reports: no symptoms Respiratory: Reports: shortness of breath, sputum Gastrointestinal/Abdominal: Reports: difficulty swallowing Genitourinary: Reports: no symptoms Neurologic/Psychiatric: Reports: pre-existing deficit Endocrine: Reports: no symptoms Hematologic/Lymphatic: Reports: no symptoms Allergies: Coded Allergies: No Known Allergies (Verified , 06/30/07) All Systems: reviewed and negative except above Subjective no events. off bipap. remains lethargic. family feels pt was more alert yesterday. unable to do swallow eval due to lethargy. Objective Last 24 Hour Vital Signs Date Time Temp Pulse Resp B/P (MAP) Pulse Ox O2 Delivery O2 Flow Rate FiO2 11/24/16 08:00 58 11/24/16 07:16 4.0 30 11/24/16 07:15 100 Venturi Mask 4.0 30 11/24/16 07:00 63 17 123/71 100 Venturi Mask 30 11/24/16 06:00 60 14 132/77 100 Venturi Mask 30 11/24/16 05:33 58 11/24/16 05:00 67 30 99/58 100 Venturi Mask 30 11/24/16 04:00 30 11/24/16 04:00 98.5 55 30 121/77 100 Venturi Mask 30 11/24/16 03:00 60 28 97/59 100 Venturi Mask 30 11/24/16 02:00 67 17 110/78 100 Venturi Mask 30 11/24/16 01:00 76 17 95/62 100 Venturi Mask 30 11/24/16 00:00 30 11/24/16 00:00 63 11/24/16 00:00 97.8 67 17 111/76 100 Venturi Mask 30 11/23/16 23:00 72 17 120/74 100 Venturi Mask 30 11/23/16 22:00 65 19 109/61 100 Venturi Mask 30 11/23/16 21:00 73 21 97/67 100 Venturi Mask 30 11/23/16 20:04 100 Venturi Mask 4.0 30 11/23/16 20:04 Venturi Mask 4.0 30 11/23/16 20:00 78 11/23/16 20:00 98.5 78 29 95/60 100 Venturi Mask 30 11/23/16 20:00 30 11/23/16 19:00 72 20 109/61 100 Venturi Mask 30 11/23/16 18:00 97.8 73 39 111/73 100 Venturi Mask 30 11/23/16 17:00 67 34 107/70 100 Venturi Mask 30 11/23/16 16:50 73 16 100 11/23/16 16:00 78 19 106/61 100 Venturi Mask 30 11/23/16 16:00 30 11/23/16 16:00 79 11/23/16 15:25 74 20 100 11/23/16 15:00 78 19 104/71 100 Venturi Mask 30 11/23/16 14:00 79 19 128/82 100 Bi-pap 30 11/23/16 13:29 87 15 100 11/23/16 13:00 72 19 112/69 100 Bi-pap 30 11/23/16 13:00 Venturi Mask 4.0 30 11/23/16 13:00 100 Venturi Mask 4.0 30 11/23/16 13:00 72 19 112/69 100 Bi-pap 30 11/23/16 12:00 87 11/23/16 12:00 98.0 87 18 145/83 100 Bi-pap 30 11/23/16 12:00 30 11/23/16 11:05 81 23 Facial 30 11/23/16 11:00 86 19 105/78 100 Bi-pap 30 11/23/16 10:00 73 19 105/65 100 Bi-pap 30 11/23/16 09:25 79 17 Facial 30 11/23/16 09:00 79 19 102/88 100 Bi-pap 30 Intake and Output 11/24/16 11/25/16 19:00 07:00 Intake Total 0 ml Balance 0 ml Intake Oral 0 ml # Voids 50 # Bowel Movements 1 Laboratory Tests 11/23/16 10:28: Arterial Blood pH 7.390, Arterial Blood Partial Pressure CO2 34.0L, Arterial Blood Partial Pressure O2 120.7H, Arterial Blood HCO3 20.3L, Arterial Blood Oxygen Saturation 97.5, Arterial Blood Base Excess -4.0, Han Test Positive 11/24/16 05:00: White Blood Count 7.2, Red Blood Count 3.93L, Hemoglobin 10.8L, Hematocrit 35.1L , Mean Corpuscular Volume 89, Mean Corpuscular Hemoglobin 27.4, Mean Corpuscular Hemoglobin Concent 30.7L, Red Cell Distribution Width 18.5H, Platelet Count 198, Mean Platelet Volume 7.7, Neutrophils (%) (Auto) 73.7, Lymphocytes (%) (Auto) 16.3L, Monocytes (%) (Auto) 6.6, Eosinophils (%) (Auto) 2.3, Basophils (%) (Auto) 1.1, Sodium Level 142, Potassium Level 4.5, Chloride Level 107, Carbon Dioxide Level 22, Anion Gap 13, Blood Urea Nitrogen 31H, Creatinine 0.9, Estimat Glomerular Filtration Rate , Glucose Level 72L, Calcium Level 8.7, Total Bilirubin 0.6, Aspartate Amino Transf (AST/SGOT) 16, Alanine Aminotransferase (ALT/SGPT) 18, Alkaline Phosphatase 63, Total Protein 6.2L, Albumin 2.4L, Globulin 3.8, Albumin/Globulin Ratio 0.6L, Vancomycin Level Trough 24.0H Height (Feet): 6 Height (Inches): 1.00 Weight (Pounds): 232 Objective General Appearance: WD/WN, lethargic, confused Neck: supple Cardiovascular: normal rate, regular rhythm Respiratory/Chest: chest wall non-tender, lungs clear, normal breath sounds, no respiratory distress, no accessory muscle use Abdomen: normal bowel sounds, non tender, soft, no organomegaly Edema: mild edema Neurologic: disoriented and lethargic SAM BARDALES Nov 24, 2016 08:19
[2016-11-24 08:27] LABS: ABG ALLEN TEST POSITIVE; ABG BASE EXCESS -2.6; ABG PCO2 42.3 mmHg (35.0-45.0)
[2016-11-24] MEDS ORDERED: D5NS 1000ml IV ONE ×2 (08:40→16:20)
[2016-11-24] MEDS: Famotidine 20 MG/ 2ML VIAL IVP SCH ×2 (08:45→21:05)
[2016-11-24] MEDS: Nystatin Powder 100,000 units/gm 15gm TOPIC SCH ×3 (08:46→17:44)
[2016-11-24] MEDS: Enoxaparin 80mg Inj SUBQ SCH ×2 (08:47→21:13)
[2016-11-24] MEDS ORDERED: D5NS 1,000 ML IV SCH (09:00)
[2016-11-24] MEDS ORDERED: NS 275ml ONE (09:17)
[2016-11-24] MEDS ORDERED: Tubing IV Secondary IV ONE (09:17)
--- NOTE | 2016-11-24 09:30 | Critical Care Progress Note ---
Assessment/Plan Assessment/Plan IMPRESSION: 1. Respiratory failure. 2. Acute on chronic respiratory acidosis. 3. Functional quadriplegia. 4. Prostate cancer. 5. Severe protein-calorie malnutrition. 6. As per code status, no intubation, no gastrostomy tube. 7. Possible urinary tract infection. 8. Possible sepsis. 9. Hypotension. 10. sacral wound PLAN care noted IV antibiotics reviewed respiratory care BIPAP as able off and taper care noted; monitor oxygen needs SNF meds supportive care suction aspiration precautions oxygen therapy prognosis guarded still needs ICU for close monitoring medications/laboratory data/nursing notes/ICU care reviewed in detail note reviewed and edited care discussed with RN and RT ICU time spent 35 minutes Critical Care - Subjective Interval Events: off BIPAP stable no distress care noted and reviewed ROS Limited/Unobtainable: Yes Condition: critical I&O: Intake and Output 11/24/16 11/25/16 19:00 07:00 Intake Total 0 ml Balance 0 ml Intake Oral 0 ml # Voids 50 # Bowel Movements 1 Critical Care - Objective CXR: minimal atelectasis Last 24 Hour Vital Signs Date Time Temp Pulse Resp B/P (MAP) Pulse Ox O2 Delivery O2 Flow Rate FiO2 11/24/16 08:00 58 11/24/16 08:00 30 11/24/16 08:00 97.9 62 17 132/81 100 Venturi Mask 30 11/24/16 07:16 4.0 30 11/24/16 07:15 100 Venturi Mask 4.0 30 11/24/16 07:00 63 17 123/71 100 Venturi Mask 30 11/24/16 06:00 60 14 132/77 100 Venturi Mask 30 11/24/16 05:33 58 11/24/16 05:00 67 30 99/58 100 Venturi Mask 30 11/24/16 04:00 30 11/24/16 04:00 98.5 55 30 121/77 100 Venturi Mask 30 11/24/16 03:00 60 28 97/59 100 Venturi Mask 30 11/24/16 02:00 67 17 110/78 100 Venturi Mask 30 11/24/16 01:00 76 17 95/62 100 Venturi Mask 30 11/24/16 00:00 30 11/24/16 00:00 63 11/24/16 00:00 97.8 67 17 111/76 100 Venturi Mask 30 11/23/16 23:00 72 17 120/74 100 Venturi Mask 30 11/23/16 22:00 65 19 109/61 100 Venturi Mask 30 11/23/16 21:00 73 21 97/67 100 Venturi Mask 30 11/23/16 20:04 100 Venturi Mask 4.0 30 11/23/16 20:04 Venturi Mask 4.0 30 11/23/16 20:00 78 11/23/16 20:00 98.5 78 29 95/60 100 Venturi Mask 30 11/23/16 20:00 30 11/23/16 19:00 72 20 109/61 100 Venturi Mask 30 11/23/16 18:00 97.8 73 39 111/73 100 Venturi Mask 30 11/23/16 17:00 67 34 107/70 100 Venturi Mask 30 11/23/16 16:50 73 16 100 11/23/16 16:00 78 19 106/61 100 Venturi Mask 30 11/23/16 16:00 30 11/23/16 16:00 79 11/23/16 15:25 74 20 100 11/23/16 15:00 78 19 104/71 100 Venturi Mask 30 11/23/16 14:00 79 19 128/82 100 Bi-pap 30 11/23/16 13:29 87 15 100 11/23/16 13:00 72 19 112/69 100 Bi-pap 30 11/23/16 13:00 Venturi Mask 4.0 30 11/23/16 13:00 100 Venturi Mask 4.0 30 11/23/16 13:00 72 19 112/69 100 Bi-pap 30 11/23/16 12:00 87 11/23/16 12:00 98.0 87 18 145/83 100 Bi-pap 30 11/23/16 12:00 30 11/23/16 11:05 81 23 Facial 30 11/23/16 11:00 86 19 105/78 100 Bi-pap 30 11/23/16 10:00 73 19 105/65 100 Bi-pap 30 Labs: Labs Test 11/21/16 19:38 11/22/16 00:11 11/22/16 01:34 11/22/16 03:35 White Blood Count 8.3 K/UL (4.8-10.8) 9.0 K/UL (4.8-10.8) Red Blood Count 4.06 M/UL (4.70-6.10) 4.01 M/UL (4.70-6.10) Hemoglobin 11.5 G/DL (14.2-18.0) 11.3 G/DL (14.2-18.0) Hematocrit 35.2 % (42.0-52.0) 36.8 % (42.0-52.0) Mean Corpuscular Volume 87 FL (80-99) 92 FL (80-99) Mean Corpuscular Hemoglobin 28.3 PG (27.0-31.0) 28.1 PG (27.0-31.0) Mean Corpuscular Hemoglobin Concent 32.6 G/DL (32.0-36.0) 30.6 G/DL (32.0-36.0) Red Cell Distribution Width 18.1 % (11.6-14.8) 18.9 % (11.6-14.8) Platelet Count 204 K/UL (150-450) 177 K/UL (150-450) Mean Platelet Volume 7.6 FL (6.5-10.1) 7.1 FL (6.5-10.1) Neutrophils (%) (Auto) 74.6 % (45.0-75.0) 70.6 % (45.0-75.0) Lymphocytes (%) (Auto) 17.6 % (20.0-45.0) 19.7 % (20.0-45.0) Monocytes (%) (Auto) 5.6 % (1.0-10.0) 8.4 % (1.0-10.0) Eosinophils (%) (Auto) 1.0 % (0.0-3.0) 0.3 % (0.0-3.0) Basophils (%) (Auto) 1.2 % (0.0-2.0) 0.9 % (0.0-2.0) Prothrombin Time 11.4 SEC (9.30-11.50) Prothromb Time International Ratio 1.1 (0.9-1.1) Activated Partial Thromboplast Time 32 SEC (23-33) Urine Color Yellow Urine Appearance Turbid Urine pH 5 (4.5-8.0) Urine Specific Riddle 1.020 (1.005-1.035) Urine Protein 3+ (NEGATIVE) Urine Glucose (UA) Negative (NEGATIVE) Urine Ketones 1+ (NEGATIVE) Urine Occult Blood 5+ (NEGATIVE) Urine Nitrite Negative (NEGATIVE) Urine Bilirubin 1+ (NEGATIVE) Urine Ictotest Negative Urine Urobilinogen 1 MG/DL (0.0-1.0) Urine Leukocyte Esterase 3+ (NEGATIVE) Urine RBC 5-10 /HPF (0 - 0) Urine WBC Tntc /HPF (0 - 0) Urine Squamous Epithelial Cells None /LPF (NONE/OCC) Urine Bacteria Many /HPF (NONE) Sodium Level 136 mEQ/L (135-145) 140 mEQ/L (135-145) Potassium Level 5.2 mEQ/L (3.4-4.9) 5.0 mEQ/L (3.4-4.9) Chloride Level 100 mEQ/L (98-107) 107 mEQ/L (98-107) Carbon Dioxide Level 24 mEQ/L (20-30) 18 mEQ/L (20-30) Anion Gap 12 (5-15) 15 (5-15) Blood Urea Nitrogen 42 mg/dL (7-23) 38 mg/dL (7-23) Creatinine 1.4 mg/dL (0.7-1.2) 1.3 mg/dL (0.7-1.2) Estimat Glomerular Filtration Rate mL/min (>60) mL/min (>60) Glucose Level 177 mg/dL (74-106) 146 mg/dL (74-106) Lactic Acid Level 1.90 mmol/L (0.66-2.22) Calcium Level 8.7 mg/dL (8.6-10.2) 8.3 mg/dL (8.6-10.2) Total Bilirubin 0.5 mg/dL (0.0-1.2) 0.4 mg/dL (0.0-1.2) Aspartate Amino Transf (AST/SGOT) 19 U/L (5-40) 40 U/L (5-40) Alanine Aminotransferase (ALT/SGPT) 18 U/L (3-41) 30 U/L (3-41) Alkaline Phosphatase 104 U/L (40-129) 103 U/L (40-129) Total Creatine Kinase 17 U/L (38-174) Troponin I < 0.30 ng/mL (<=0.30) Pro-B-Type Natriuretic Peptide 38570 pg/mL (0-450) Total Protein 7.3 g/dL (6.6-8.7) 7.0 g/dL (6.6-8.7) Albumin 2.9 g/dL (3.5-5.2) 2.5 g/dL (3.5-5.2) Globulin 4.4 g/dL 4.5 g/dL Albumin/Globulin Ratio 0.6 (1.0-2.7) 0.5 (1.0-2.7) Arterial Blood pH 7.160 (7.350-7.450) 7.180 (7.350-7.450) Arterial Blood Partial Pressure CO2 65.3 mmHg (35.0-45.0) 57.8 mmHg (35.0-45.0) Arterial Blood Partial Pressure O2 321.5 mmHg (75.0-100.0) 106.8 mmHg (75.0-100.0) Arterial Blood HCO3 22.8 mmol/L (22.0-26.0) 21.1 mmol/L (22.0-26.0) Arterial Blood Oxygen Saturation 99.0 % (92.0-98.0) 95.6 % (92.0-98.0) Arterial Blood Base Excess -6.4 -7.5 Han Test N/a N/a Thyroid Stimulating Hormone (TSH) 4.200 uIU/mL (0.300-4.500) Test 11/22/16 10:00 11/23/16 03:55 11/23/16 10:28 11/24/16 05:00 Arterial Blood pH 7.290 (7.350-7.450) 7.390 (7.350-7.450) Arterial Blood Partial Pressure CO2 42.1 mmHg (35.0-45.0) 34.0 mmHg (35.0-45.0) Arterial Blood Partial Pressure O2 205.0 mmHg (75.0-100.0) 120.7 mmHg (75.0-100.0) Arterial Blood HCO3 19.8 mmol/L (22.0-26.0) 20.3 mmol/L (22.0-26.0) Arterial Blood Oxygen Saturation 98.6 % (92.0-98.0) 97.5 % (92.0-98.0) Arterial Blood Base Excess -6.4 -4.0 Han Test Positive Positive White Blood Count 7.7 K/UL (4.8-10.8) 7.2 K/UL (4.8-10.8) Red Blood Count 4.21 M/UL (4.70-6.10) 3.93 M/UL (4.70-6.10) Hemoglobin 11.7 G/DL (14.2-18.0) 10.8 G/DL (14.2-18.0) Hematocrit 37.4 % (42.0-52.0) 35.1 % (42.0-52.0) Mean Corpuscular Volume 89 FL (80-99) 89 FL (80-99) Mean Corpuscular Hemoglobin 27.8 PG (27.0-31.0) 27.4 PG (27.0-31.0) Mean Corpuscular Hemoglobin Concent 31.3 G/DL (32.0-36.0) 30.7 G/DL (32.0-36.0) Red Cell Distribution Width 19.2 % (11.6-14.8) 18.5 % (11.6-14.8) Platelet Count 189 K/UL (150-450) 198 K/UL (150-450) Mean Platelet Volume 6.8 FL (6.5-10.1) 7.7 FL (6.5-10.1) Neutrophils (%) (Auto) 73.0 % (45.0-75.0) 73.7 % (45.0-75.0) Lymphocytes (%) (Auto) 16.7 % (20.0-45.0) 16.3 % (20.0-45.0) Monocytes (%) (Auto) 7.8 % (1.0-10.0) 6.6 % (1.0-10.0) Eosinophils (%) (Auto) 1.6 % (0.0-3.0) 2.3 % (0.0-3.0) Basophils (%) (Auto) 0.9 % (0.0-2.0) 1.1 % (0.0-2.0) Sodium Level 140 mEQ/L (135-145) 142 mEQ/L (135-145) Potassium Level 5.0 mEQ/L (3.4-4.9) 4.5 mEQ/L (3.4-4.9) Chloride Level 105 mEQ/L (98-107) 107 mEQ/L (98-107) Carbon Dioxide Level 21 mEQ/L (20-30) 22 mEQ/L (20-30) Anion Gap 14 (5-15) 13 (5-15) Blood Urea Nitrogen 37 mg/dL (7-23) 31 mg/dL (7-23) Creatinine 1.2 mg/dL (0.7-1.2) 0.9 mg/dL (0.7-1.2) Estimat Glomerular Filtration Rate mL/min (>60) mL/min (>60) Glucose Level 84 mg/dL (74-106) 72 mg/dL (74-106) Calcium Level 8.5 mg/dL (8.6-10.2) 8.7 mg/dL (8.6-10.2) Total Bilirubin 0.7 mg/dL (0.0-1.2) 0.6 mg/dL (0.0-1.2) Aspartate Amino Transf (AST/SGOT) 24 U/L (5-40) 16 U/L (5-40) Alanine Aminotransferase (ALT/SGPT) 28 U/L (3-41) 18 U/L (3-41) Alkaline Phosphatase 73 U/L (40-129) 63 U/L (40-129) Total Protein 6.8 g/dL (6.6-8.7) 6.2 g/dL (6.6-8.7) Albumin 2.6 g/dL (3.5-5.2) 2.4 g/dL (3.5-5.2) Globulin 4.2 g/dL 3.8 g/dL Albumin/Globulin Ratio 0.6 (1.0-2.7) 0.6 (1.0-2.7) Vancomycin Level Trough 24.0 ug/mL (5.0-12.0) Test 11/24/16 08:20 Arterial Blood pH 7.336 (7.350-7.450) Arterial Blood Partial Pressure CO2 42.3 mmHg (35.0-45.0) Arterial Blood Partial Pressure O2 87.7 mmHg (75.0-100.0) Arterial Blood HCO3 22.2 mmol/L (22.0-26.0) Arterial Blood Oxygen Saturation 95.2 % (92.0-98.0) Arterial Blood Base Excess -2.6 Han Test Positive Objective: GENERAL: A well-developed male, chronically ill. HEENT: Negative. Pupils not reactive. The patient is currently off BiPAP mask. LUNGS: With minimal rhonchi. Moderate air entry. no wheeze CARDIAC: Regular rate and rhythm. Distant without murmurs, rubs, or gallops. ABDOMEN: Soft, nontender, and nondistended. no HSM EXTREMITIES: No cyanosis or clubbing. NEUROLOGICAL: Significantly withdrawn at this time. Difficult to fully assess. SKIN: Noted. Reviewed. reviewed and edited Micro: Microbiology Date/Time Source Procedure Growth Status 11/21/16 19:45 Blood Blood Culture - Preliminary NO GROWTH AFTER 24 HOURS Resulted 11/21/16 19:30 Blood Blood Culture - Preliminary NO GROWTH AFTER 24 HOURS Resulted 11/21/16 19:38 Urine,Clean Catch Urine Culture - Final Escherichia Coli Complete 11/22/16 02:00 Sacral Wound Gram Stain - Final Resulted 11/22/16 02:00 Wound Culture - Preliminary Pseudomonas Aeruginosa Resulted NICHOLAS ROJAS Nov 24, 2016 09:30
[2016-11-24] MEDS ORDERED: Aspirin Baby 81mg GT SCH (09:45)
[2016-11-24] MEDS ORDERED: Milk of Magnesia 30ml Ud ORAL PRN (19:00)
[2016-11-24] MEDS ORDERED: DuoNeb 0.5-3(2.5)mg/3ml neb HHN PRN (19:00)
[2016-11-24] MEDS: D5NS 1,000 ML IV SCH (19:35)
[2016-11-24] MEDS ORDERED: Milk of Magnesia 30ml Ud NG PRN (20:15)
[2016-11-24] MEDS ORDERED: Acetaminophen 650mg/20.3ml NG PRN (20:15)
[2016-11-24] MEDS ORDERED: Vancomycin 1.5gm/D5W 250ml 250 ML IVPB SCH (22:00)
[2016-11-24] MEDS: Vancomycin 1250mg/D5W 250ml IVPB SCH (23:31)
[2016-11-25] VITALS: BP 128/73
[2016-11-25 04:00] VITALS: BP 143/86
[2016-11-25 07:49] LABS: EOSINOPHILS % (AUTO) 2.3 % (0.0-3.0); LYMPHOCYTES % (AUTO) 20.5 % (20.0-45.0); MEAN CORPUSCULAR HEMOGLOBIN 28.2 PG (27.0-31.0); MEAN CORPUSCULAR HGB CONC 31.1 G/DL (32.0-36.0); MEAN CORPUSCULAR VOLUME 91 FL (80-99); MONOCYTES % (AUTO) 11.2 % (1.0-10.0); PLATELET COUNT 200 K/UL (150-450); RED BLOOD COUNT 3.77 M/UL (4.70-6.10); WHITE BLOOD COUNT 8.2 K/UL (4.8-10.8)
[2016-11-25 08:00] VITALS: BP 133/93
[2016-11-25 08:10] LABS: ALANINE AMINOTRANSFERASE 16 U/L (3-41); ALBUMIN/GLOBULIN RATIO 0.6 (1.0-2.7); ANION GAP 14 (5-15); ASPARTATE AMINO TRANSFERASE 13 U/L (5-40); CALCIUM 8.6 mg/dL (8.6-10.2); CARBON DIOXIDE 23 mEQ/L (20-30); CHLORIDE 108 mEQ/L (98-107); CREATININE 0.8 mg/dL (0.7-1.2); HEMOLYSIS 3; POTASSIUM 4.1 mEQ/L (3.4-4.9); SODIUM 145 mEQ/L (135-145); TOTAL PROTEIN 6.8 g/dL (6.6-8.7)
--- NOTE | 2016-11-25 08:10 | General Progress Note ---
Assessment/Plan Problem List: (1) Sepsis ICD Codes: A41.9 - Sepsis, unspecified organism SNOMED: 23266116 (2) Renal insufficiency ICD Codes: N28.9 - Disorder of kidney and ureter, unspecified; R65.20 - Severe sepsis without septic shock SNOMED: 002099763 (3) Hypoxia ICD Codes: R09.02 - Hypoxemia; R65.20 - Severe sepsis without septic shock SNOMED: 305187788, 64508425 (4) Severe sepsis ICD Codes: A41.9 - Sepsis, unspecified organism; R65.20 - Severe sepsis without septic shock SNOMED: 17291259 (5) Altered level of consciousness ICD Codes: R40.4 - Transient alteration of awareness SNOMED: 7972205 Assessment/Plan cont ivf ngt- son ok with ngt monitor labs and fluid status retry swallow eval. pt more alert resp rx ecoli uti- on amaya wound care abx follow up cultures remains guarded DNI per son Subjective ROS Limited/Unobtainable: Yes Constitutional: Reports: malaise, weakness HEENT: Reports: no symptoms Cardiovascular: Reports: no symptoms Respiratory: Reports: cough Gastrointestinal/Abdominal: Reports: difficulty swallowing Genitourinary: Reports: no symptoms Neurologic/Psychiatric: Reports: pre-existing deficit Endocrine: Reports: no symptoms Hematologic/Lymphatic: Reports: no symptoms Allergies: Coded Allergies: No Known Allergies (Verified , 06/30/07) All Systems: reviewed and negative except above Subjective no events. off bipap. more alert now. follows simple commands,. has ngt in place ,. Objective Last 24 Hour Vital Signs Date Time Temp Pulse Resp B/P (MAP) Pulse Ox O2 Delivery O2 Flow Rate FiO2 11/25/16 07:33 65 20 Nasal Cannula 3.0 32 11/25/16 07:32 98 Nasal Cannula 3.0 32 11/25/16 07:32 3.0 32 11/25/16 04:00 97.2 78 21 143/86 95 Nasal Cannula 2.0 11/25/16 04:00 64 11/25/16 04:00 97.2 78 21 143/86 95 Nasal Cannula 2.0 32 11/25/16 00:00 97.0 68 19 128/73 90 Nasal Cannula 2.0 11/25/16 00:00 60 11/24/16 20:00 85 11/24/16 20:00 97.0 87 20 103/66 61 Nasal Cannula 2.0 11/24/16 19:32 98 Nasal Cannula 3.0 32 11/24/16 19:32 3.0 32 11/24/16 17:00 67 23 110/66 100 Nasal Cannula 2.0 11/24/16 16:00 97.9 70 24 126/83 100 Nasal Cannula 2.0 11/24/16 16:00 65 11/24/16 15:00 70 24 126/83 100 Nasal Cannula 2.0 11/24/16 14:00 61 22 130/85 100 Nasal Cannula 2.0 11/24/16 13:00 68 17 138/83 100 Nasal Cannula 2.0 11/24/16 12:00 77 11/24/16 12:00 98.2 77 16 128/88 100 Nasal Cannula 2.0 11/24/16 11:00 76 20 135/100 100 Venturi Mask 30 11/24/16 10:00 61 22 129/79 100 Venturi Mask 30 11/24/16 09:00 58 22 110/71 100 Venturi Mask 30 Laboratory Tests 11/24/16 08:20: Arterial Blood pH 7.336L, Arterial Blood Partial Pressure CO2 42.3, Arterial Blood Partial Pressure O2 87.7, Arterial Blood HCO3 22.2, Arterial Blood Oxygen Saturation 95.2, Arterial Blood Base Excess -2.6, Han Test Positive 11/24/16 21:10: Vancomycin Level Trough 17.3H 11/25/16 06:35: White Blood Count 8.2, Red Blood Count 3.77L, Hemoglobin 10.6L, Hematocrit 34.1L , Mean Corpuscular Volume 91, Mean Corpuscular Hemoglobin 28.2, Mean Corpuscular Hemoglobin Concent 31.1L, Red Cell Distribution Width 19.0H, Platelet Count 200, Mean Platelet Volume 7.0, Neutrophils (%) (Auto) 65.0, Lymphocytes (%) (Auto) 20.5, Monocytes (%) (Auto) 11.2H, Eosinophils (%) (Auto) 2.3, Basophils (%) (Auto) 1.0, Sodium Level [Pending], Potassium Level [Pending] , Chloride Level [Pending], Carbon Dioxide Level [Pending], Blood Urea Nitrogen [Pending], Creatinine [Pending], Estimat Glomerular Filtration Rate [Pending], Glucose Level [Pending], Calcium Level [Pending], Total Bilirubin [Pending], Aspartate Amino Transf (AST/SGOT) [Pending], Alanine Aminotransferase (ALT/SGPT ) [Pending], Alkaline Phosphatase [Pending], Total Protein [Pending], Albumin [ Pending], Globulin [Pending] Height (Feet): 6 Height (Inches): 1.00 Weight (Pounds): 255 Objective General Appearance: WD/WN, lethargic, confused Neck: supple Cardiovascular: normal rate, regular rhythm Respiratory/Chest: chest wall non-tender, lungs clear, normal breath sounds, no respiratory distress, no accessory muscle use Abdomen: normal bowel sounds, non tender, soft, no organomegaly Edema: mild edema Neurologic: disoriented and lethargic SAM BARDALES Nov 25, 2016 08:10
[2016-11-25] MEDS ORDERED: Aspirin Baby 81mg GT SCH (09:00)
[2016-11-25] MEDS: Famotidine 20 MG/ 2ML VIAL IVP SCH ×2 (09:12→21:15)
[2016-11-25] MEDS: Aspirin Baby 81mg NG SCH ×2 (09:12→10:12)
[2016-11-25] MEDS: Enoxaparin 80mg Inj SUBQ SCH ×2 (09:14→21:20)
[2016-11-25] MEDS: Nystatin Powder 100,000 units/gm 15gm TOPIC SCH ×3 (09:47→18:40)
--- NOTE | 2016-11-25 09:47 | Diagnostic Imaging Report ---
Indication: Pain Technique: One view of the chest Comparison: 11/22/2016 Findings: Interim placement of a nasogastric tube, proximal port level of the gastroesophageal junction, tip at the level of the gastric fundus. Patient's chin obscures the upper mediastinum and right lung apex. There is increasing atelectasis and possibly some consolidation or pleural fluid at the left lung base. There is persistent minimal right basilar atelectasis. Heart remains borderline enlarged. Impression: Increasing left basilar pleural fluid and/or parenchymal disease, over 2 days. This agrees with the preliminary interpretation provided overnight by [facility] teleradiology service. Nasogastric tube in place, proximal port at level of the at esophageal junction. Advancement recommended. Patient's nurse notified at the time of interpretation
[2016-11-25] MEDS: Meropenem 1 GM in NS 110 ML IVPB SCH ×2 (09:48→21:17)
--- NOTE | 2016-11-25 10:38 | Critical Care Progress Note ---
Assessment/Plan Assessment/Plan IMPRESSION: 1. Respiratory failure. 2. Acute on chronic respiratory acidosis. 3. Functional quadriplegia. 4. Prostate cancer. 5. Severe protein-calorie malnutrition. 6. As per code status, no intubation, no gastrostomy tube. 7. Possible urinary tract infection. 8. Possible sepsis. 9. Hypotension. 10. sacral wound PLAN care noted IV antibiotics reviewed respiratory care BIPAP presently not needed care noted; monitor oxygen needs SNF meds supportive care suction as needed aspiration precautions oxygen therapy prognosis improved medications/laboratory data/nursing notes reviewed in detail note reviewed and edited care discussed with RN and RT Critical Care - Subjective Interval Events: transferred to [facility] care noted stable and improved o2 needs improved ROS Limited/Unobtainable: Yes EKG Rhythm: Sinus Rhythm Critical Care - Objective Last 24 Hour Vital Signs Date Time Temp Pulse Resp B/P (MAP) Pulse Ox O2 Delivery O2 Flow Rate FiO2 11/25/16 08:00 97.0 77 20 133/93 100 Nasal Cannula 3.0 11/25/16 07:33 65 20 Nasal Cannula 3.0 32 11/25/16 07:32 98 Nasal Cannula 3.0 32 11/25/16 07:32 3.0 32 11/25/16 04:00 97.2 78 21 143/86 95 Nasal Cannula 2.0 11/25/16 04:00 64 11/25/16 04:00 97.2 78 21 143/86 95 Nasal Cannula 2.0 32 11/25/16 00:00 97.0 68 19 128/73 90 Nasal Cannula 2.0 11/25/16 00:00 60 11/24/16 20:00 85 11/24/16 20:00 97.0 87 20 103/66 61 Nasal Cannula 2.0 11/24/16 19:32 98 Nasal Cannula 3.0 32 11/24/16 19:32 3.0 32 11/24/16 17:00 67 23 110/66 100 Nasal Cannula 2.0 11/24/16 16:00 97.9 70 24 126/83 100 Nasal Cannula 2.0 11/24/16 16:00 65 11/24/16 15:00 70 24 126/83 100 Nasal Cannula 2.0 11/24/16 14:00 61 22 130/85 100 Nasal Cannula 2.0 11/24/16 13:00 68 17 138/83 100 Nasal Cannula 2.0 11/24/16 12:00 77 11/24/16 12:00 98.2 77 16 128/88 100 Nasal Cannula 2.0 11/24/16 11:00 76 20 135/100 100 Venturi Mask 30 Labs: Labs Test 11/23/16 03:55 11/23/16 10:28 11/24/16 05:00 11/24/16 08:20 White Blood Count 7.7 K/UL (4.8-10.8) 7.2 K/UL (4.8-10.8) Red Blood Count 4.21 M/UL (4.70-6.10) 3.93 M/UL (4.70-6.10) Hemoglobin 11.7 G/DL (14.2-18.0) 10.8 G/DL (14.2-18.0) Hematocrit 37.4 % (42.0-52.0) 35.1 % (42.0-52.0) Mean Corpuscular Volume 89 FL (80-99) 89 FL (80-99) Mean Corpuscular Hemoglobin 27.8 PG (27.0-31.0) 27.4 PG (27.0-31.0) Mean Corpuscular Hemoglobin Concent 31.3 G/DL (32.0-36.0) 30.7 G/DL (32.0-36.0) Red Cell Distribution Width 19.2 % (11.6-14.8) 18.5 % (11.6-14.8) Platelet Count 189 K/UL (150-450) 198 K/UL (150-450) Mean Platelet Volume 6.8 FL (6.5-10.1) 7.7 FL (6.5-10.1) Neutrophils (%) (Auto) 73.0 % (45.0-75.0) 73.7 % (45.0-75.0) Lymphocytes (%) (Auto) 16.7 % (20.0-45.0) 16.3 % (20.0-45.0) Monocytes (%) (Auto) 7.8 % (1.0-10.0) 6.6 % (1.0-10.0) Eosinophils (%) (Auto) 1.6 % (0.0-3.0) 2.3 % (0.0-3.0) Basophils (%) (Auto) 0.9 % (0.0-2.0) 1.1 % (0.0-2.0) Sodium Level 140 mEQ/L (135-145) 142 mEQ/L (135-145) Potassium Level 5.0 mEQ/L (3.4-4.9) 4.5 mEQ/L (3.4-4.9) Chloride Level 105 mEQ/L (98-107) 107 mEQ/L (98-107) Carbon Dioxide Level 21 mEQ/L (20-30) 22 mEQ/L (20-30) Anion Gap 14 (5-15) 13 (5-15) Blood Urea Nitrogen 37 mg/dL (7-23) 31 mg/dL (7-23) Creatinine 1.2 mg/dL (0.7-1.2) 0.9 mg/dL (0.7-1.2) Estimat Glomerular Filtration Rate mL/min (>60) mL/min (>60) Glucose Level 84 mg/dL (74-106) 72 mg/dL (74-106) Calcium Level 8.5 mg/dL (8.6-10.2) 8.7 mg/dL (8.6-10.2) Total Bilirubin 0.7 mg/dL (0.0-1.2) 0.6 mg/dL (0.0-1.2) Aspartate Amino Transf (AST/SGOT) 24 U/L (5-40) 16 U/L (5-40) Alanine Aminotransferase (ALT/SGPT) 28 U/L (3-41) 18 U/L (3-41) Alkaline Phosphatase 73 U/L (40-129) 63 U/L (40-129) Total Protein 6.8 g/dL (6.6-8.7) 6.2 g/dL (6.6-8.7) Albumin 2.6 g/dL (3.5-5.2) 2.4 g/dL (3.5-5.2) Globulin 4.2 g/dL 3.8 g/dL Albumin/Globulin Ratio 0.6 (1.0-2.7) 0.6 (1.0-2.7) Arterial Blood pH 7.390 (7.350-7.450) 7.336 (7.350-7.450) Arterial Blood Partial Pressure CO2 34.0 mmHg (35.0-45.0) 42.3 mmHg (35.0-45.0) Arterial Blood Partial Pressure O2 120.7 mmHg (75.0-100.0) 87.7 mmHg (75.0-100.0) Arterial Blood HCO3 20.3 mmol/L (22.0-26.0) 22.2 mmol/L (22.0-26.0) Arterial Blood Oxygen Saturation 97.5 % (92.0-98.0) 95.2 % (92.0-98.0) Arterial Blood Base Excess -4.0 -2.6 Han Test Positive Positive Vancomycin Level Trough 24.0 ug/mL (5.0-12.0) Test 11/24/16 21:10 11/25/16 06:35 Vancomycin Level Trough 17.3 ug/mL (5.0-12.0) White Blood Count 8.2 K/UL (4.8-10.8) Red Blood Count 3.77 M/UL (4.70-6.10) Hemoglobin 10.6 G/DL (14.2-18.0) Hematocrit 34.1 % (42.0-52.0) Mean Corpuscular Volume 91 FL (80-99) Mean Corpuscular Hemoglobin 28.2 PG (27.0-31.0) Mean Corpuscular Hemoglobin Concent 31.1 G/DL (32.0-36.0) Red Cell Distribution Width 19.0 % (11.6-14.8) Platelet Count 200 K/UL (150-450) Mean Platelet Volume 7.0 FL (6.5-10.1) Neutrophils (%) (Auto) 65.0 % (45.0-75.0) Lymphocytes (%) (Auto) 20.5 % (20.0-45.0) Monocytes (%) (Auto) 11.2 % (1.0-10.0) Eosinophils (%) (Auto) 2.3 % (0.0-3.0) Basophils (%) (Auto) 1.0 % (0.0-2.0) Sodium Level 145 mEQ/L (135-145) Potassium Level 4.1 mEQ/L (3.4-4.9) Chloride Level 108 mEQ/L (98-107) Carbon Dioxide Level 23 mEQ/L (20-30) Anion Gap 14 (5-15) Blood Urea Nitrogen 25 mg/dL (7-23) Creatinine 0.8 mg/dL (0.7-1.2) Estimat Glomerular Filtration Rate mL/min (>60) Glucose Level 122 mg/dL (74-106) Calcium Level 8.6 mg/dL (8.6-10.2) Total Bilirubin 0.5 mg/dL (0.0-1.2) Aspartate Amino Transf (AST/SGOT) 13 U/L (5-40) Alanine Aminotransferase (ALT/SGPT) 16 U/L (3-41) Alkaline Phosphatase 66 U/L (40-129) Total Protein 6.8 g/dL (6.6-8.7) Albumin 2.7 g/dL (3.5-5.2) Globulin 4.1 g/dL Albumin/Globulin Ratio 0.6 (1.0-2.7) Objective: GENERAL: A well-developed male, chronically ill. HEENT: Negative. Pupils not reactive. The patient is currently on NC mask. LUNGS: With minimal rhonchi. Moderate air entry. no wheeze CARDIAC: Regular rate and rhythm. Distant without murmurs, rubs, or gallops. ABDOMEN: Soft, nontender, and nondistended. no HSM EXTREMITIES: No cyanosis or clubbing. NEUROLOGICAL: Significantly withdrawn at this time. Difficult to fully assess. SKIN: Noted. Reviewed. reviewed and edited NICHOLAS ROJAS Nov 25, 2016 10:38
[2016-11-25 12:00] VITALS: BP 136/86
--- NOTE | 2016-11-25 12:57 | Diagnostic Imaging Report ---
Indication: Post nasogastric tube placement Technique: Supine view of the abdomen Comparison: 10/17/2008 Findings: There is a nasogastric tube in place, tip projected at the level gastric body, in good position. Bowel gas pattern is unremarkable. There are degenerative changes of the lumbar spine. There are surgical clips in the pelvis. Impression: Satisfactory nasogastric tube placement No acute process
[2016-11-25] MEDS: D5NS 1,000 ML IV SCH (14:32)
[2016-11-25] MEDS ORDERED: Sterile Water Irrig 1000ml IRRIG ONE (15:31)
[2016-11-25] MEDS ORDERED: Tubing IV Secondary IV ONE (15:31)
[2016-11-25] MEDS ORDERED: NS 275ml ONE (15:31)
[2016-11-25] MEDS ORDERED: D5NS 1000ml IV ONE (15:31)
--- NOTE | 2016-11-25 15:31 | Infectious Diseases Prog Note ---
Assessment/Plan Assessment/Plan A) 1) e.coli uti, sepsis, atx, fevers, hx pna, pseudomonas/e.coli sacral wound infection, ? aspiration pna/hap pna - clinically improved 2) htn, hypothyroidism, ileostomy, cva, dementia, prostate ca, qp, ftt 3) allergies - negative, fh-nc, sh-negative, mar noted, 4) notes and records reviewed 5) d/w RN and son P) 1) meropenem and vancomycin for now 2) watch labs, check sc, chest f/u chest x-ray 3) wound culture per protocol 4) continue treatment per primary and consultants 5) orders entered and noted Subjective Constitutional: Denies: fever HEENT: Denies: congestion Respiratory: Denies: shortness of breath Cardiovascular: Denies: chest pain Gastrointestinal/Abdominal: Reports: other - + burton, Denies: nausea, vomiting , diarrhea Genitourinary: Reports: other Neurologic: Denies: headache Psychiatric: Reports: no symptoms Skin: Denies: rash Hematologic: Denies: bleeding Musculoskeletal: Denies: pain Allergies: Coded Allergies: No Known Allergies (Verified , 06/30/07) Objective Vital Signs Last 24 Hour Vital Signs Date Time Temp Pulse Resp B/P (MAP) Pulse Ox O2 Delivery O2 Flow Rate FiO2 11/25/16 12:00 97.2 78 21 136/86 99 Nasal Cannula 3.0 11/25/16 08:00 97.0 77 20 133/93 100 Nasal Cannula 3.0 11/25/16 08:00 60 11/25/16 07:33 65 20 Nasal Cannula 3.0 32 11/25/16 07:32 98 Nasal Cannula 3.0 32 11/25/16 07:32 3.0 32 11/25/16 04:00 97.2 78 21 143/86 95 Nasal Cannula 2.0 11/25/16 04:00 64 11/25/16 04:00 97.2 78 21 143/86 95 Nasal Cannula 2.0 32 11/25/16 00:00 97.0 68 19 128/73 90 Nasal Cannula 2.0 11/25/16 00:00 60 11/24/16 20:00 85 11/24/16 20:00 97.0 87 20 103/66 61 Nasal Cannula 2.0 11/24/16 19:32 98 Nasal Cannula 3.0 32 11/24/16 19:32 3.0 32 11/24/16 17:00 67 23 110/66 100 Nasal Cannula 2.0 11/24/16 16:00 97.9 70 24 126/83 100 Nasal Cannula 2.0 11/24/16 16:00 65 Height (Feet): 6 Height (Inches): 1.00 Weight (Pounds): 255 General Appearance: no acute distress HEENT: normocephalic, atraumatic, anicteric, mucous membranes moist, EOMI, pharynx normal, supple, no JVD Respiratory/Chest: crackles/rales, rhonchi - bilaterally Cardiovascular: normal rate, regular rhythm, no gallop/murmur, no JVD Abdomen: normal bowel sounds, soft, non tender, no organomegaly, non distended , other - ileostomy Genitourinary: other - + burton - urine cloudy Extremities: no cyanosis Skin: no rash 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 This agrees with the preliminary interpretation provided overnight by [facility] teleradiology service. Microbiology Date/Time Source Procedure Growth Status 11/21/16 19:45 Blood Blood Culture - Preliminary NO GROWTH AFTER 72 HOURS Resulted 11/21/16 21:30 Nasal Nares MRSA Culture - Final NO METHICILLIN RESISTANT STAPH AUREUS... Complete 11/21/16 19:38 Urine,Clean Catch Urine Culture - Final Escherichia Coli Complete 11/22/16 02:00 Sacral Wound Gram Stain - Final Complete 11/22/16 02:00 Wound Culture - Final Pseudomonas Aeruginosa Escherichia Coli Diphtheroids Complete Laboratory Tests Test 11/24/16 21:10 11/25/16 06:35 Vancomycin Level Trough 17.3 ug/mL (5.0-12.0) H White Blood Count 8.2 K/UL (4.8-10.8) Red Blood Count 3.77 M/UL (4.70-6.10) L Hemoglobin 10.6 G/DL (14.2-18.0) L Hematocrit 34.1 % (42.0-52.0) L Mean Corpuscular Volume 91 FL (80-99) Mean Corpuscular Hemoglobin 28.2 PG (27.0-31.0) Mean Corpuscular Hemoglobin Concent 31.1 G/DL (32.0-36.0) L Red Cell Distribution Width 19.0 % (11.6-14.8) H Platelet Count 200 K/UL (150-450) Mean Platelet Volume 7.0 FL (6.5-10.1) Neutrophils (%) (Auto) 65.0 % (45.0-75.0) Lymphocytes (%) (Auto) 20.5 % (20.0-45.0) Monocytes (%) (Auto) 11.2 % (1.0-10.0) H Eosinophils (%) (Auto) 2.3 % (0.0-3.0) Basophils (%) (Auto) 1.0 % (0.0-2.0) Sodium Level 145 mEQ/L (135-145) Potassium Level 4.1 mEQ/L (3.4-4.9) Chloride Level 108 mEQ/L (98-107) H Carbon Dioxide Level 23 mEQ/L (20-30) Anion Gap 14 (5-15) Blood Urea Nitrogen 25 mg/dL (7-23) H Creatinine 0.8 mg/dL (0.7-1.2) Estimat Glomerular Filtration Rate mL/min (>60) Glucose Level 122 mg/dL (74-106) H Calcium Level 8.6 mg/dL (8.6-10.2) Total Bilirubin 0.5 mg/dL (0.0-1.2) Aspartate Amino Transf (AST/SGOT) 13 U/L (5-40) Alanine Aminotransferase (ALT/SGPT) 16 U/L (3-41) Alkaline Phosphatase 66 U/L (40-129) Total Protein 6.8 g/dL (6.6-8.7) Albumin 2.7 g/dL (3.5-5.2) L Globulin 4.1 g/dL Albumin/Globulin Ratio 0.6 (1.0-2.7) L Current Medications Medications (Trade) Dose Ordered Sig/Jus Route PRN Reason Start Time Stop Time Status Last Admin Dose Admin Acetaminophen (Tylenol) 650 mg Q4HR PRN NG Mild Pain/Temp > 100.5 11/24/16 20:15 12/24/16 20:14 Albuterol/ Ipratropium (DuoNeb 0.5-3(2.5)mg/3ml) 3 ml Q4H PRN HHN Shortness of Breath 11/24/16 19:00 11/27/16 18:59 Aspirin (ASA) 81 mg DAILY NG 11/25/16 09:00 12/25/16 08:59 11/25/16 09:12 Atorvastatin Calcium (Lipitor) 10 mg BEDTIME NG 11/24/16 21:00 12/24/16 20:59 11/24/16 21:06 Dextrose/Sodium Chloride 1,000 ml @ 50 mls/hr Q20H IV 11/24/16 18:00 12/24/16 08:59 11/25/16 14:32 Enoxaparin Sodium (Lovenox) 80 mg EVERY 12 HOURS SUBQ 11/24/16 21:00 12/23/16 09:14 11/25/16 09:14 Famotidine (Pepcid I.v.) 20 mg Q12HR IVP 11/24/16 21:00 12/22/16 08:59 11/25/16 09:12 Levothyroxine Sodium (Synthroid) 100 mcg ACBREAKFAST NG 11/25/16 06:30 12/25/16 06:29 11/25/16 06:06 Magnesium Hydroxide (Mom) 30 ml DAILYPRN PRN NG Constipation 11/24/16 20:15 12/24/16 20:14 Meropenem 1 gm/ Sodium Chloride 110 ml @ 220 mls/hr EVERY 12 HOURS IVPB 11/25/16 10:00 11/30/16 09:59 11/25/16 09:48 Nystatin (Nystop Powder) 1 applic THREE TIMES A DAY TOPIC 11/25/16 09:00 12/25/16 08:59 11/25/16 13:18 Ondansetron HCl (Zofran) 4 mg Q6H PRN IVP Nausea & Vomiting 11/24/16 19:00 12/21/16 18:59 Vancomycin HCl (Vanco rx to dose) 1 ea DAILY PRN MISC Per rx protocol 11/24/16 19:00 12/24/16 18:59 Vancomycin HCl/ Dextrose 250 ml @ 166.667 mls/hr Q24H IVPB 11/24/16 23:00 11/29/16 22:59 11/24/16 23:31 KISHOR VALLE Nov 25, 2016 15:31
[2016-11-25 16:00] VITALS: BP 136/92
--- NOTE | 2016-11-25 16:52 | Diagnostic Imaging Report ---
APPROVED REPORT CPT Code: 13460 Present Symptoms Shortness of breath Comments: R/O DVT. BILATERAL: Imaging reveals a patent deep venous system bilaterally. There is no evidence of thrombus within the femoral, popliteal or tibial segments. The greater saphenous veins are also within normal limits. Doppler indicates normal spontaneous flow within these segments.
[2016-11-25 20:04] VITALS: BP 150/89
[2016-11-25] MEDS: Vancomycin 1250mg/D5W 250ml IVPB SCH (23:33)
[2016-11-25] MEDS: NovoLOG Insulin Flexpen SUBQ SCH (23:51)
[2016-11-26] VITALS (7 sets, daily range): BP systolic 130–150; BP diastolic 71–116
[2016-11-26] MEDS: NovoLOG Insulin Flexpen SUBQ SCH ×3 (05:58→17:56)
[2016-11-26 06:56] LABS: BASOPHILS % (AUTO) 1.6 % (0.0-2.0); EOSINOPHILS % (AUTO) 3.2 % (0.0-3.0); LYMPHOCYTES % (AUTO) 23.4 % (20.0-45.0); MEAN CORPUSCULAR HEMOGLOBIN 27.5 PG (27.0-31.0); MEAN CORPUSCULAR HGB CONC 30.1 G/DL (32.0-36.0); MEAN CORPUSCULAR VOLUME 91 FL (80-99); MEAN PLATELET VOLUME 7.6 FL (6.5-10.1); MONOCYTES % (AUTO) 10.1 % (1.0-10.0); NEUTROPHILS % (AUTO) 61.6 % (45.0-75.0); PLATELET COUNT 197 K/UL (150-450); RED BLOOD COUNT 4.43 M/UL (4.70-6.10); RED CELL DISTRIBUTION WIDTH 19.3 % (11.6-14.8); WHITE BLOOD COUNT 6.1 K/UL (4.8-10.8)
[2016-11-26 07:19] LABS: ALANINE AMINOTRANSFERASE 15 U/L (3-41); ALBUMIN/GLOBULIN RATIO 0.5 (1.0-2.7); ANION GAP 13 (5-15); ASPARTATE AMINO TRANSFERASE 17 U/L (5-40); CALCIUM 9.1 mg/dL (8.6-10.2); CARBON DIOXIDE 24 mEQ/L (20-30); CHLORIDE 107 mEQ/L (98-107); CREATININE 0.6 mg/dL (0.7-1.2); HEMOLYSIS 17; POTASSIUM 4.5 mEQ/L (3.4-4.9); SODIUM 144 mEQ/L (135-145); TOTAL PROTEIN 7.8 g/dL (6.6-8.7)
[2016-11-26] MEDS: Famotidine 20 MG/ 2ML VIAL IVP SCH (08:43)
[2016-11-26] MEDS: Meropenem 1 GM in NS 110 ML IVPB SCH ×2 (08:44→20:43)
[2016-11-26] MEDS: Nystatin Powder 100,000 units/gm 15gm TOPIC SCH ×3 (08:44→17:57)
[2016-11-26] MEDS: Enoxaparin 80mg Inj SUBQ SCH ×2 (08:47→20:46)
[2016-11-26] MEDS: D5NS 1,000 ML IV SCH ×2 (10:15→20:07)
--- NOTE | 2016-11-26 11:17 | Infectious Diseases Prog Note ---
Assessment/Plan Assessment/Plan A) 1) e.coli uti, sepsis, atx, fevers, hx pna, pseudomonas/e.coli sacral wound infection, ? aspiration pna/hap pna - clinically improved - last chest x-ray worse 2) htn, hypothyroidism, ileostomy, cva, dementia, prostate ca, qp, ftt 3) allergies - negative, fh-nc, sh-negative, mar noted, 4) notes and records reviewed 5) d/w RN and son P) 1) meropenem and vancomycin for now 2) watch labs, check sc, chest f/u chest x-ray 3) wound culture per protocol 4) continue treatment per primary and consultants 5) orders entered and noted 6) telemetry care Subjective Constitutional: Denies: fever HEENT: Denies: congestion Respiratory: Denies: shortness of breath Cardiovascular: Denies: chest pain Gastrointestinal/Abdominal: Denies: nausea, vomiting, diarrhea Genitourinary: Reports: other - + burton Neurologic: Denies: confusion Psychiatric: Denies: depression Skin: Denies: rash Hematologic: Denies: bleeding Musculoskeletal: Denies: pain Allergies: Coded Allergies: No Known Allergies (Verified , 06/30/07) Objective Vital Signs Last 24 Hour Vital Signs Date Time Temp Pulse Resp B/P (MAP) Pulse Ox O2 Delivery O2 Flow Rate FiO2 11/26/16 08:41 97.2 75 22 134/86 92 Bi-pap 11/26/16 08:10 58 16 100 3.0 11/26/16 08:00 40 11/26/16 08:00 58 11/26/16 06:44 Bi-pap 40 11/26/16 06:44 100 Bi-pap 40 11/26/16 06:44 66 17 40 11/26/16 06:44 66 17 100 Facial 40 11/26/16 04:38 58 16 100 Facial 40 11/26/16 04:30 40 11/26/16 04:00 97.5 49 22 140/90 74 Nasal Cannula 2.0 11/26/16 04:00 65 11/26/16 00:00 68 11/26/16 00:00 97.5 75 21 130/75 96 Nasal Cannula 3.0 32 11/26/16 00:00 97.5 75 21 130/75 91 Nasal Cannula 3.0 11/25/16 20:04 97.0 78 17 150/89 97 Nasal Cannula 3.0 11/25/16 20:00 68 11/25/16 19:30 72 20 Nasal Cannula 3.0 32 11/25/16 19:30 96 Nasal Cannula 3.0 32 11/25/16 19:30 Nasal Cannula 3.0 32 11/25/16 16:00 76 11/25/16 16:00 97.0 77 22 136/92 99 Nasal Cannula 3.0 11/25/16 12:00 97.2 78 21 136/86 99 Nasal Cannula 3.0 11/25/16 12:00 70 Height (Feet): 6 Height (Inches): 1.00 Weight (Pounds): 249 General Appearance: no acute distress HEENT: normocephalic, atraumatic, anicteric, mucous membranes moist, EOMI, pharynx normal, supple, no JVD Respiratory/Chest: no respiratory distress, no accessory muscle use, crackles/ rales, rhonchi - bilaterally Cardiovascular: normal rate, regular rhythm, no gallop/murmur, no JVD Abdomen: normal bowel sounds, soft, non tender, no organomegaly, non distended Genitourinary: other - + burton - urine clearer Extremities: no cyanosis Skin: no rash 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 This agrees with the preliminary interpretation provided overnight by [facility] teleradiology service. Microbiology Date/Time Source Procedure Growth Status 11/21/16 19:45 Blood Blood Culture - Preliminary NO GROWTH AFTER 4 DAYS Resulted 11/21/16 21:30 Nasal Nares MRSA Culture - Final NO METHICILLIN RESISTANT STAPH AUREUS... Complete 11/21/16 19:38 Urine,Clean Catch Urine Culture - Final Escherichia Coli Complete 11/22/16 02:00 Sacral Wound Gram Stain - Final Complete 11/22/16 02:00 Wound Culture - Final Pseudomonas Aeruginosa Escherichia Coli Diphtheroids Complete Laboratory Tests Test 11/26/16 06:10 White Blood Count 6.1 K/UL (4.8-10.8) Red Blood Count 4.43 M/UL (4.70-6.10) L Hemoglobin 12.2 G/DL (14.2-18.0) L Hematocrit 40.5 % (42.0-52.0) L Mean Corpuscular Volume 91 FL (80-99) Mean Corpuscular Hemoglobin 27.5 PG (27.0-31.0) Mean Corpuscular Hemoglobin Concent 30.1 G/DL (32.0-36.0) L Red Cell Distribution Width 19.3 % (11.6-14.8) H Platelet Count 197 K/UL (150-450) Mean Platelet Volume 7.6 FL (6.5-10.1) Neutrophils (%) (Auto) 61.6 % (45.0-75.0) Lymphocytes (%) (Auto) 23.4 % (20.0-45.0) Monocytes (%) (Auto) 10.1 % (1.0-10.0) H Eosinophils (%) (Auto) 3.2 % (0.0-3.0) H Basophils (%) (Auto) 1.6 % (0.0-2.0) Sodium Level 144 mEQ/L (135-145) Potassium Level 4.5 mEQ/L (3.4-4.9) Chloride Level 107 mEQ/L (98-107) Carbon Dioxide Level 24 mEQ/L (20-30) Anion Gap 13 (5-15) Blood Urea Nitrogen 20 mg/dL (7-23) Creatinine 0.6 mg/dL (0.7-1.2) L Estimat Glomerular Filtration Rate mL/min (>60) Glucose Level 112 mg/dL (74-106) H Calcium Level 9.1 mg/dL (8.6-10.2) Total Bilirubin 0.5 mg/dL (0.0-1.2) Aspartate Amino Transf (AST/SGOT) 17 U/L (5-40) Alanine Aminotransferase (ALT/SGPT) 15 U/L (3-41) Alkaline Phosphatase 77 U/L (40-129) Total Protein 7.8 g/dL (6.6-8.7) Albumin 2.9 g/dL (3.5-5.2) L Globulin 4.9 g/dL Albumin/Globulin Ratio 0.5 (1.0-2.7) L Current Medications Medications (Trade) Dose Ordered Sig/Jus Route PRN Reason Start Time Stop Time Status Last Admin Dose Admin Acetaminophen (Tylenol) 650 mg Q4HR PRN NG Mild Pain/Temp > 100.5 11/24/16 20:15 12/24/16 20:14 Albuterol/ Ipratropium (DuoNeb 0.5-3(2.5)mg/3ml) 3 ml Q4H PRN HHN Shortness of Breath 11/24/16 19:00 11/27/16 18:59 Aspirin (ASA) 81 mg DAILY NG 11/25/16 09:00 12/25/16 08:59 11/25/16 09:12 Atorvastatin Calcium (Lipitor) 10 mg BEDTIME NG 11/24/16 21:00 12/24/16 20:59 11/25/16 21:15 Dextrose (Dextrose 50%) STAT PRN IV Hypoglycemia 11/25/16 20:15 12/25/16 20:14 Dextrose/Sodium Chloride 1,000 ml @ 50 mls/hr Q20H IV 11/24/16 18:00 12/24/16 08:59 11/26/16 10:15 Enoxaparin Sodium (Lovenox) 80 mg EVERY 12 HOURS SUBQ 11/24/16 21:00 12/23/16 09:14 11/26/16 08:47 Famotidine (Pepcid I.v.) 20 mg Q12HR IVP 11/24/16 21:00 12/22/16 08:59 11/26/16 08:43 Insulin Aspart (NovoLOG) EVERY 6 HOURS SUBQ 11/26/16 00:00 12/26/16 00:00 Levothyroxine Sodium (Synthroid) 100 mcg ACBREAKFAST NG 11/25/16 06:30 12/25/16 06:29 11/26/16 06:53 Magnesium Hydroxide (Mom) 30 ml DAILYPRN PRN NG Constipation 11/24/16 20:15 12/24/16 20:14 Meropenem 1 gm/ Sodium Chloride 110 ml @ 220 mls/hr EVERY 12 HOURS IVPB 11/25/16 10:00 11/30/16 09:59 11/26/16 08:44 Nystatin (Nystop Powder) 1 applic THREE TIMES A DAY TOPIC 11/25/16 09:00 12/25/16 08:59 11/26/16 08:44 Ondansetron HCl (Zofran) 4 mg Q6H PRN IVP Nausea & Vomiting 11/24/16 19:00 12/21/16 18:59 Vancomycin HCl (Vanco rx to dose) 1 ea DAILY PRN MISC Per rx protocol 11/24/16 19:00 12/24/16 18:59 Vancomycin HCl/ Dextrose 250 ml @ 166.667 mls/hr Q24H IVPB 11/24/16 23:00 11/29/16 22:59 11/25/16 23:33 KISHOR VALLE Nov 26, 2016 11:17
--- NOTE | 2016-11-26 12:27 | Critical Care Progress Note ---
Assessment/Plan Assessment/Plan IMPRESSION: 1. Respiratory failure. 2. Acute on chronic respiratory acidosis. 3. Functional quadriplegia. 4. Prostate cancer. 5. Severe protein-calorie malnutrition. 6. As per code status, no intubation, no gastrostomy tube. 7. Possible urinary tract infection. 8. Possible sepsis. 9. Hypotension. 10. sacral wound PLAN care noted IV antibiotics reviewed respiratory care BIPAP presently not needed and comfortable off care noted; monitor oxygen needs SNF meds supportive care suction as needed aspiration precautions oxygen therapy taper to off prognosis improved and hope to dc to snf soon medications/laboratory data/nursing notes reviewed in detail note reviewed and edited care discussed with RN and RT Critical Care - Subjective Interval Events: care noted and reviewed no distress EKG Rhythm: Sinus Rhythm I&O: Intake and Output 11/26/16 11/27/16 19:00 07:00 Intake Total 50 ml Balance 50 ml IV Total 50 ml # Bowel Movements 1 Critical Care - Objective Last 24 Hour Vital Signs Date Time Temp Pulse Resp B/P (MAP) Pulse Ox O2 Delivery O2 Flow Rate FiO2 11/26/16 11:31 97.5 58 18 150/116 100 Nasal Cannula 11/26/16 08:41 97.2 75 22 134/86 92 Bi-pap 11/26/16 08:10 58 16 100 3.0 11/26/16 08:00 40 11/26/16 08:00 58 11/26/16 06:44 Bi-pap 40 11/26/16 06:44 100 Bi-pap 40 11/26/16 06:44 66 17 40 11/26/16 06:44 66 17 100 Facial 40 11/26/16 04:38 58 16 100 Facial 40 11/26/16 04:30 40 11/26/16 04:00 97.5 49 22 140/90 74 Nasal Cannula 2.0 11/26/16 04:00 65 11/26/16 00:00 68 11/26/16 00:00 97.5 75 21 130/75 96 Nasal Cannula 3.0 32 11/26/16 00:00 97.5 75 21 130/75 91 Nasal Cannula 3.0 11/25/16 20:04 97.0 78 17 150/89 97 Nasal Cannula 3.0 11/25/16 20:00 68 11/25/16 19:30 72 20 Nasal Cannula 3.0 32 11/25/16 19:30 96 Nasal Cannula 3.0 32 11/25/16 19:30 Nasal Cannula 3.0 32 11/25/16 16:00 76 11/25/16 16:00 97.0 77 22 136/92 99 Nasal Cannula 3.0 Labs: Labs Test 11/24/16 05:00 11/24/16 08:20 11/24/16 21:10 11/25/16 06:35 White Blood Count 7.2 K/UL (4.8-10.8) 8.2 K/UL (4.8-10.8) Red Blood Count 3.93 M/UL (4.70-6.10) 3.77 M/UL (4.70-6.10) Hemoglobin 10.8 G/DL (14.2-18.0) 10.6 G/DL (14.2-18.0) Hematocrit 35.1 % (42.0-52.0) 34.1 % (42.0-52.0) Mean Corpuscular Volume 89 FL (80-99) 91 FL (80-99) Mean Corpuscular Hemoglobin 27.4 PG (27.0-31.0) 28.2 PG (27.0-31.0) Mean Corpuscular Hemoglobin Concent 30.7 G/DL (32.0-36.0) 31.1 G/DL (32.0-36.0) Red Cell Distribution Width 18.5 % (11.6-14.8) 19.0 % (11.6-14.8) Platelet Count 198 K/UL (150-450) 200 K/UL (150-450) Mean Platelet Volume 7.7 FL (6.5-10.1) 7.0 FL (6.5-10.1) Neutrophils (%) (Auto) 73.7 % (45.0-75.0) 65.0 % (45.0-75.0) Lymphocytes (%) (Auto) 16.3 % (20.0-45.0) 20.5 % (20.0-45.0) Monocytes (%) (Auto) 6.6 % (1.0-10.0) 11.2 % (1.0-10.0) Eosinophils (%) (Auto) 2.3 % (0.0-3.0) 2.3 % (0.0-3.0) Basophils (%) (Auto) 1.1 % (0.0-2.0) 1.0 % (0.0-2.0) Sodium Level 142 mEQ/L (135-145) 145 mEQ/L (135-145) Potassium Level 4.5 mEQ/L (3.4-4.9) 4.1 mEQ/L (3.4-4.9) Chloride Level 107 mEQ/L (98-107) 108 mEQ/L (98-107) Carbon Dioxide Level 22 mEQ/L (20-30) 23 mEQ/L (20-30) Anion Gap 13 (5-15) 14 (5-15) Blood Urea Nitrogen 31 mg/dL (7-23) 25 mg/dL (7-23) Creatinine 0.9 mg/dL (0.7-1.2) 0.8 mg/dL (0.7-1.2) Estimat Glomerular Filtration Rate mL/min (>60) mL/min (>60) Glucose Level 72 mg/dL (74-106) 122 mg/dL (74-106) Calcium Level 8.7 mg/dL (8.6-10.2) 8.6 mg/dL (8.6-10.2) Total Bilirubin 0.6 mg/dL (0.0-1.2) 0.5 mg/dL (0.0-1.2) Aspartate Amino Transf (AST/SGOT) 16 U/L (5-40) 13 U/L (5-40) Alanine Aminotransferase (ALT/SGPT) 18 U/L (3-41) 16 U/L (3-41) Alkaline Phosphatase 63 U/L (40-129) 66 U/L (40-129) Total Protein 6.2 g/dL (6.6-8.7) 6.8 g/dL (6.6-8.7) Albumin 2.4 g/dL (3.5-5.2) 2.7 g/dL (3.5-5.2) Globulin 3.8 g/dL 4.1 g/dL Albumin/Globulin Ratio 0.6 (1.0-2.7) 0.6 (1.0-2.7) Vancomycin Level Trough 24.0 ug/mL (5.0-12.0) 17.3 ug/mL (5.0-12.0) Arterial Blood pH 7.336 (7.350-7.450) Arterial Blood Partial Pressure CO2 42.3 mmHg (35.0-45.0) Arterial Blood Partial Pressure O2 87.7 mmHg (75.0-100.0) Arterial Blood HCO3 22.2 mmol/L (22.0-26.0) Arterial Blood Oxygen Saturation 95.2 % (92.0-98.0) Arterial Blood Base Excess -2.6 Han Test Positive Test 11/26/16 06:10 White Blood Count 6.1 K/UL (4.8-10.8) Red Blood Count 4.43 M/UL (4.70-6.10) Hemoglobin 12.2 G/DL (14.2-18.0) Hematocrit 40.5 % (42.0-52.0) Mean Corpuscular Volume 91 FL (80-99) Mean Corpuscular Hemoglobin 27.5 PG (27.0-31.0) Mean Corpuscular Hemoglobin Concent 30.1 G/DL (32.0-36.0) Red Cell Distribution Width 19.3 % (11.6-14.8) Platelet Count 197 K/UL (150-450) Mean Platelet Volume 7.6 FL (6.5-10.1) Neutrophils (%) (Auto) 61.6 % (45.0-75.0) Lymphocytes (%) (Auto) 23.4 % (20.0-45.0) Monocytes (%) (Auto) 10.1 % (1.0-10.0) Eosinophils (%) (Auto) 3.2 % (0.0-3.0) Basophils (%) (Auto) 1.6 % (0.0-2.0) Sodium Level 144 mEQ/L (135-145) Potassium Level 4.5 mEQ/L (3.4-4.9) Chloride Level 107 mEQ/L (98-107) Carbon Dioxide Level 24 mEQ/L (20-30) Anion Gap 13 (5-15) Blood Urea Nitrogen 20 mg/dL (7-23) Creatinine 0.6 mg/dL (0.7-1.2) Estimat Glomerular Filtration Rate mL/min (>60) Glucose Level 112 mg/dL (74-106) Calcium Level 9.1 mg/dL (8.6-10.2) Total Bilirubin 0.5 mg/dL (0.0-1.2) Aspartate Amino Transf (AST/SGOT) 17 U/L (5-40) Alanine Aminotransferase (ALT/SGPT) 15 U/L (3-41) Alkaline Phosphatase 77 U/L (40-129) Total Protein 7.8 g/dL (6.6-8.7) Albumin 2.9 g/dL (3.5-5.2) Globulin 4.9 g/dL Albumin/Globulin Ratio 0.5 (1.0-2.7) Objective: GENERAL: A well-developed male, chronically ill. HEENT: Negative. Pupils not reactive. The patient is currently on NC mask. LUNGS: With minimal rhonchi. Moderate air entry. no wheeze CARDIAC: Regular rate and rhythm. Distant without murmurs, rubs, or gallops. ABDOMEN: Soft, nontender, and nondistended. no HSM EXTREMITIES: No cyanosis or clubbing. NEUROLOGICAL: Significantly withdrawn at this time. Difficult to fully assess. SKIN: Noted. Reviewed. reviewed and edited Accucheck: 80 NICHOLAS ROJAS Nov 26, 2016 12:27
--- NOTE | 2016-11-26 19:27 | General Progress Note ---
Assessment/Plan Problem List: (1) Sepsis ICD Codes: A41.9 - Sepsis, unspecified organism SNOMED: 39399104 (2) Renal insufficiency ICD Codes: N28.9 - Disorder of kidney and ureter, unspecified; R65.20 - Severe sepsis without septic shock SNOMED: 105118311 (3) Hypoxia ICD Codes: R09.02 - Hypoxemia; R65.20 - Severe sepsis without septic shock SNOMED: 308363583, 99717885 (4) Severe sepsis ICD Codes: A41.9 - Sepsis, unspecified organism; R65.20 - Severe sepsis without septic shock SNOMED: 46130796 (5) Altered level of consciousness ICD Codes: R40.4 - Transient alteration of awareness SNOMED: 7536009 Status: stable, progressing Assessment/Plan improving ngt/feeds, monitor residuals monitor labs and fluid status retry swallow eval. pt more alert resp rx ecoli uti- on amaya/vanco wound care abx follow up cultures remains guarded DNI per son Subjective ROS Limited/Unobtainable: Yes Constitutional: Reports: malaise, weakness HEENT: Reports: no symptoms Cardiovascular: Reports: no symptoms Respiratory: Reports: cough Gastrointestinal/Abdominal: Reports: difficulty swallowing Genitourinary: Reports: no symptoms Neurologic/Psychiatric: Reports: pre-existing deficit Endocrine: Reports: no symptoms Hematologic/Lymphatic: Reports: anemia Allergies: Coded Allergies: No Known Allergies (Verified , 06/30/07) All Systems: reviewed and negative except above Subjective no events. off bipap. no sob. alert. still with ngt. tolerating feeds. on iv abx. getting wound care. Objective Last 24 Hour Vital Signs Date Time Temp Pulse Resp B/P (MAP) Pulse Ox O2 Delivery O2 Flow Rate FiO2 11/26/16 16:00 40 11/26/16 16:00 62 11/26/16 15:34 98.1 66 18 138/71 98 Nasal Cannula 11/26/16 14:23 147/72 11/26/16 12:52 60 11/26/16 12:00 40 11/26/16 11:31 97.5 58 18 150/116 100 Nasal Cannula 11/26/16 08:41 97.2 75 22 134/86 92 Bi-pap 11/26/16 08:10 58 16 100 3.0 11/26/16 08:00 40 11/26/16 08:00 58 11/26/16 06:44 Bi-pap 40 11/26/16 06:44 100 Bi-pap 40 11/26/16 06:44 66 17 40 11/26/16 06:44 66 17 100 Facial 40 11/26/16 04:38 58 16 100 Facial 40 11/26/16 04:30 40 11/26/16 04:00 97.5 49 22 140/90 74 Nasal Cannula 2.0 11/26/16 04:00 65 11/26/16 00:00 68 11/26/16 00:00 97.5 75 21 130/75 96 Nasal Cannula 3.0 32 11/26/16 00:00 97.5 75 21 130/75 91 Nasal Cannula 3.0 11/25/16 20:04 97.0 78 17 150/89 97 Nasal Cannula 3.0 11/25/16 20:00 68 11/25/16 19:30 72 20 Nasal Cannula 3.0 32 11/25/16 19:30 96 Nasal Cannula 3.0 32 11/25/16 19:30 Nasal Cannula 3.0 32 Intake and Output 11/26/16 11/27/16 19:00 07:00 Intake Total 820 ml Balance 820 ml Free Water 100 ml IV Total 620 ml Tube Feeding 100 ml # Bowel Movements 1 Laboratory Tests 11/26/16 06:10: White Blood Count 6.1, Red Blood Count 4.43L, Hemoglobin 12.2L, Hematocrit 40.5L , Mean Corpuscular Volume 91, Mean Corpuscular Hemoglobin 27.5, Mean Corpuscular Hemoglobin Concent 30.1L, Red Cell Distribution Width 19.3H, Platelet Count 197, Mean Platelet Volume 7.6, Neutrophils (%) (Auto) 61.6, Lymphocytes (%) (Auto) 23.4, Monocytes (%) (Auto) 10.1H, Eosinophils (%) (Auto) 3.2H, Basophils (%) (Auto) 1.6, Sodium Level 144, Potassium Level 4.5, Chloride Level 107, Carbon Dioxide Level 24, Anion Gap 13, Blood Urea Nitrogen 20, Creatinine 0.6L, Estimat Glomerular Filtration Rate , Glucose Level 112H, Calcium Level 9.1, Total Bilirubin 0.5, Aspartate Amino Transf (AST/SGOT) 17, Alanine Aminotransferase (ALT/SGPT) 15, Alkaline Phosphatase 77, Total Protein 7.8, Albumin 2.9L, Globulin 4.9, Albumin/Globulin Ratio 0.5L Height (Feet): 6 Height (Inches): 1.00 Weight (Pounds): 249 Objective General Appearance: WD/WN, lethargic, confused Neck: supple Cardiovascular: normal rate, regular rhythm Respiratory/Chest: chest wall non-tender, lungs clear, normal breath sounds, no respiratory distress, no accessory muscle use Abdomen: normal bowel sounds, non tender, soft, no organomegaly Edema: mild edema Neurologic: disoriented and lethargic SAM BARDALES Nov 26, 2016 19:27
[2016-11-26] MEDS: Vancomycin 1250mg/D5W 250ml IVPB SCH (23:18)
[2016-11-27 00:20] VITALS: BP 122/83
--- NOTE | 2016-11-27 04:15 | Progress Note ---
DATE: 11/26/2016 CARDIOLOGY PROGRESS NOTE SUBJECTIVE: The patient's blood pressure remained stable. He is off BiPAP support. NG-tube feedings are ongoing. A repeat swallow evaluation is planned. OBJECTIVE: VITAL SIGNS: Blood pressure 138/71, pulse 66, and respirations 18. Monitored rhythm sinus with rare atrial ectopy. LUNGS: Few rhonchi. Good breath sounds. HEART: Regular rhythm and rate. Normal S1 and S2 with a fourth heart sound. ABDOMEN: Soft. EXTREMITIES: No edema. LABORATORY DATA: White count 6.1 and hemoglobin 12.2. Sodium 144, potassium 4.5, bicarbonate 24, BUN 20, creatinine 0.6, and glucose 112. Albumin 2.9. IMPRESSION: 1. Sepsis with shock. 2. Acute respiratory failure, resolved. 3. Acute on chronic respiratory and metabolic acidosis, recovered. 4. Toxic and metabolic encephalopathies, improving. 5. Paroxysmal atrial ectopy. 6. Dementia. PLAN: 1. Nutrition by NG tube. 2. Repeat swallow evaluation. 3. Continue antibiotics. 4. DVT and stress ulcer prophylaxes. 5. Aspiration precautions. 6. Monitor volume status and cardiorenal parameters. Omkar Turk M.D. DR: ARJUN JOB#: [id number] CC:
[2016-11-27 04:25] VITALS: BP 148/81
[2016-11-27] MEDS: NovoLOG Insulin Flexpen SUBQ SCH ×5 (05:59→23:39)
[2016-11-27 08:39] VITALS: BP 159/111
[2016-11-27] MEDS: Meropenem 1 GM in NS 110 ML IVPB SCH ×2 (09:05→20:53)
[2016-11-27] MEDS: Aspirin Baby 81mg NG SCH (09:07)
[2016-11-27] MEDS: Enoxaparin 80mg Inj SUBQ SCH ×2 (09:09→20:54)
[2016-11-27] MEDS: Nystatin Powder 100,000 units/gm 15gm TOPIC SCH ×3 (09:09→17:34)
--- NOTE | 2016-11-27 10:15 | Consultation ---
DATE OF CONSULTATION: 11/23/2016 INFECTIOUS DISEASES CONSULTATION ATTENDING PHYSICIAN: Aamir Sanchez M.D. REASON FOR CONSULTATION: Gram-negative UTI, sepsis, fevers, possible gram-negative sacral wound infection, questionable pneumonia. CHIEF COMPLAINT: The patient's chief complaint coming into the hospital is sepsis. HISTORY OF PRESENT ILLNESS: This is an 86-year-old male, who comes in to [facility] and was noted to have hypoxia and sepsis. The patient was febrile with altered mental status. The patient is in the ICU. The patient also had renal insufficiency. Source of sepsis is possibly multifactorial. Infectious Diseases consultation is requested. The patient was started on meropenem and vancomycin yesterday. MAR was noted. Orders were noted. Notes were reviewed. Case discussed with RN. PAST MEDICAL HISTORY: Includes history of the following: The patient has a past medical history of renal insufficiency and hypothyroidism. He has hypertension. He has history of ileostomy, anemia, elevated creatinine, and acute kidney injury. The patient has hypoxia, history of decubitus, history of dementia, prostate cancer, quadriplegia as functional, failure to thrive, history of already mentioned ileostomy and already mentioned hypertension also. History of tachycardia. Hyperlipidemia. Please see past medical history in medical order. MEDICATIONS: Upon reviewing the MAR, he is on following medications: Lovenox and Lipitor. He is on meropenem, vancomycin, and Ecotrin. He is on Pepcid, levothyroxine, acetaminophen, Zofran, and magnesium hydroxide. Please see medications in medical order. Outside medications were noted and reconciliated. ALLERGIES: No known drug allergies. No antibiotic allergies. SOCIAL HISTORY: Negative for smoking, alcohol, or drug abuse at this time. FAMILY HISTORY: Noncontributory per the records. No mention of exposure to tuberculosis or cancer. REVIEW OF SYSTEMS: Constitutional: The patient has generalized weakness and fatigue. He has a Rausch. He is currently not on pressors. He is more alert, less short of breath, still has some breathing mask. Head And Neck: No head pain or neck pain. He is overall more responsive. Pulmonary: No hemoptysis or secretions. Cardiac: No chest pain or pressure. Gastrointestinal: No nausea, vomiting, or diarrhea. Genitourinary: He has a Rausch. Urine is cloudy. Lines: Line sites are without phlebitis. Neurologic: Generalized weakness. He is responsive. He has no seizures. Extremities: No extremity pain. Skin: No rash or itching. PHYSICAL EXAMINATION: VITAL SIGNS: Temperature is 98.0 degrees, pulse rate 79, respiratory rate 19, saturation 100%, blood pressure 120/82, and FiO2 30% on BiPAP. He seemed less short of breath today. He is more alert. HEAD AND NECK: Oral exam, no thrush. Eye exam, no icterus. Normocephalic. No facial droop. No neck stiffness. Neck is supple. LUNGS: A few bilateral rhonchi. Decreased breath sounds. Questionable rales. HEART: Regular. No gallop or murmur. No friction rub. ABDOMEN: Soft. Positive bowel sounds. He has ileostomy. MUSCULOSKELETAL: No effusion, fractures. Legs without cellulitis. PERIPHERAL VASCULAR: No gangrene. SKIN: No other rash. Sacral wound is reviewed. It is mostly red, but there is some slough. LINES: Line sites without phlebitis. GENITOURINARY: He has a Rausch. Urine is cloudy. NEUROLOGIC: Generalized weakness. Opens eyes. More responsive. LABORATORY AND DIAGNOSTIC DATA: Laboratory data is as follows: Creatinine was 1.3, now it is 1.2. His LFTs were noted. The patient's white count 7.7 and hemoglobin 11.7. Urinalysis, 3+ leukocyte esterase and too many to count white blood cells. Cultures, wound culture of the sacral area has gram-negative. Blood culture is negative. Urine culture greater than 100,000 gram-negatives. Imaging studies, a CT scan has been ordered. The chest x-ray shows atelectasis in the left basilar area. ASSESSMENT AND PLAN: 1. The patient is septic with altered mental status, fevers, and systemic inflammatory response syndrome criteria. The patient had a temperature of 101 degrees, altered mental status. The patient also had elevated heart rate. The patient also has what looks like looks like gram-negative urinary tract infection and sepsis with fevers. Also, possible aspiration pneumonia with sepsis. Also, possible gram-negative sacral wound infection with sepsis. Continue antibiotics, meropenem, and vancomycin to cover sepsis and gram-negative urinary tract infection. Check final cultures. Check followup labs and chest x-ray. Continue wound care protocol. Continue antibiotics, meropenem and vancomycin pending workup. 2. Pulmonary treatment, breathing mask in the CICU care. 3. CT scan has been ordered to the chest per the RN. 4. Anemia. 5. Acute kidney injury, elevated creatinine. 6. Hypertension. 7. Hypothyroidism. 8. Hyperlipidemia. 9. No history of diabetes. 10. Ileostomy. 11. Renal insufficiency. 12. Cerebrovascular accident. 13. Dementia. 14. Prostate cancer. 15. Quadriplegia. 16. Failure to thrive. 17. Allergies are negative. 18. Family history is noncontributory. 19. Social history is negative. 20. MAR is noted. 21. Case discussed with RN. 22. Notes are reviewed. 23. Skin care protocol. 24. Continue treatment per primary consultants. Anya Luu M.D. DR: Ramon JOB#: [id number] CC:
--- NOTE | 2016-11-27 10:26 | Cardiology Report ---
APPROVED REPORT EXAM: Two-dimensional and M-mode echocardiogram with Doppler and color Doppler. INDICATION CAD M-Mode DIMENSIONS IVSd1.9 (0.7-1.1cm)Left Atrium (MM)3.4 (1.6-4.0cm) LVDd4.2 (3.5-5.6cm)Aortic Root2.0 (2.0-3.7cm) PWd1.4 (0.7-1.1cm)Aortic Cusp Exc.1.4 (1.5-2.0cm) LVDs3.2 (2.5-4.0cm) PWs0.9 cm Technically difficult study due to poor acoustical windows. Normal left ventricular chamber size, systolic function to extent visualized. Diastolic septal flattening susgestive of Right Ventricular pressure overload. Left ventricular ejection fraction grossly estimated to be 55 %. Study quality precludes accurate assessment of regional wall motion. Moderate left ventricular hypertrophy by 2-D. No evidence of pericardial effusion. Mild left atrial enlargement. Severe right atrial enlargement. Right ventricular enlargement. Focal aortic valve sclerosis with adequate cusp excursion. Thickened mitral valve leaflets with normal excursion. Mitral annulus and aortic root calcification. Pulmonic valve not well visualized. Normal tricuspid valve structure. IVC dilated at 2.8 cm without physiologic collapse suggestive of increased RA pressure. A color flow and spectral Doppler study was performed and revealed: Mild mitral regurgitation. Severe tricuspid regurgitation. Tricuspid systolic velocities suggests peak right ventricular systolic pressure of 107 mmHg, consistent with severe pulmonary hypertension.
--- NOTE | 2016-11-27 10:36 | Critical Care Progress Note ---
Assessment/Plan Assessment/Plan IMPRESSION: 1. Respiratory failure. 2. Acute on chronic respiratory acidosis. 3. Functional quadriplegia. 4. Prostate cancer. 5. Severe protein-calorie malnutrition. 6. As per code status, no intubation, no gastrostomy tube. 7. Possible urinary tract infection. 8. Possible sepsis. 9. Hypotension. 10. sacral wound PLAN care noted all noted respiratory care BIPAP presently not needed and comfortable off care noted; monitor oxygen needs SNF meds noted supportive care suction as needed aspiration precautions oxygen therapy taper to off dc planning medications/laboratory data/nursing notes reviewed in detail note reviewed and edited care discussed with RN and RT Critical Care - Subjective Interval Events: CARE REVIEWED AND DISCUSSED CONTINUED MONITORING REVIEWED ROS Limited/Unobtainable: Yes I&O: Intake and Output 11/27/16 11/28/16 19:00 07:00 Intake Total 50 ml Balance 50 ml IV Total 50 ml # Bowel Movements 1 Critical Care - Objective Last 24 Hour Vital Signs Date Time Temp Pulse Resp B/P (MAP) Pulse Ox O2 Delivery O2 Flow Rate FiO2 11/27/16 08:39 97.5 78 20 159/111 98 Nasal Cannula 4.0 11/27/16 08:00 64 11/27/16 07:38 99 Nasal Cannula 3.0 32 11/27/16 07:37 Nasal Cannula 3.0 32 11/27/16 07:37 77 18 Nasal Cannula 3.0 32 11/27/16 04:25 98.0 77 20 148/81 93 Nasal Cannula 22.0 11/27/16 04:00 64 11/27/16 00:20 97.8 75 20 122/83 98 Nasal Cannula 11/27/16 00:00 70 11/26/16 20:15 97.3 69 20 144/82 98 Nasal Cannula 2.0 11/26/16 20:10 Nasal Cannula 3.0 32 11/26/16 20:10 97 Nasal Cannula 3.0 32 11/26/16 20:09 62 18 Nasal Cannula 3.0 32 11/26/16 20:00 66 11/26/16 16:00 40 11/26/16 16:00 62 11/26/16 15:34 98.1 66 18 138/71 98 Nasal Cannula 11/26/16 14:23 147/72 11/26/16 12:52 60 11/26/16 12:00 40 11/26/16 11:31 97.5 58 18 150/116 100 Nasal Cannula Labs: Labs Test 11/24/16 21:10 11/25/16 06:35 11/26/16 06:10 Vancomycin Level Trough 17.3 ug/mL (5.0-12.0) White Blood Count 8.2 K/UL (4.8-10.8) 6.1 K/UL (4.8-10.8) Red Blood Count 3.77 M/UL (4.70-6.10) 4.43 M/UL (4.70-6.10) Hemoglobin 10.6 G/DL (14.2-18.0) 12.2 G/DL (14.2-18.0) Hematocrit 34.1 % (42.0-52.0) 40.5 % (42.0-52.0) Mean Corpuscular Volume 91 FL (80-99) 91 FL (80-99) Mean Corpuscular Hemoglobin 28.2 PG (27.0-31.0) 27.5 PG (27.0-31.0) Mean Corpuscular Hemoglobin Concent 31.1 G/DL (32.0-36.0) 30.1 G/DL (32.0-36.0) Red Cell Distribution Width 19.0 % (11.6-14.8) 19.3 % (11.6-14.8) Platelet Count 200 K/UL (150-450) 197 K/UL (150-450) Mean Platelet Volume 7.0 FL (6.5-10.1) 7.6 FL (6.5-10.1) Neutrophils (%) (Auto) 65.0 % (45.0-75.0) 61.6 % (45.0-75.0) Lymphocytes (%) (Auto) 20.5 % (20.0-45.0) 23.4 % (20.0-45.0) Monocytes (%) (Auto) 11.2 % (1.0-10.0) 10.1 % (1.0-10.0) Eosinophils (%) (Auto) 2.3 % (0.0-3.0) 3.2 % (0.0-3.0) Basophils (%) (Auto) 1.0 % (0.0-2.0) 1.6 % (0.0-2.0) Sodium Level 145 mEQ/L (135-145) 144 mEQ/L (135-145) Potassium Level 4.1 mEQ/L (3.4-4.9) 4.5 mEQ/L (3.4-4.9) Chloride Level 108 mEQ/L (98-107) 107 mEQ/L (98-107) Carbon Dioxide Level 23 mEQ/L (20-30) 24 mEQ/L (20-30) Anion Gap 14 (5-15) 13 (5-15) Blood Urea Nitrogen 25 mg/dL (7-23) 20 mg/dL (7-23) Creatinine 0.8 mg/dL (0.7-1.2) 0.6 mg/dL (0.7-1.2) Estimat Glomerular Filtration Rate mL/min (>60) mL/min (>60) Glucose Level 122 mg/dL (74-106) 112 mg/dL (74-106) Calcium Level 8.6 mg/dL (8.6-10.2) 9.1 mg/dL (8.6-10.2) Total Bilirubin 0.5 mg/dL (0.0-1.2) 0.5 mg/dL (0.0-1.2) Aspartate Amino Transf (AST/SGOT) 13 U/L (5-40) 17 U/L (5-40) Alanine Aminotransferase (ALT/SGPT) 16 U/L (3-41) 15 U/L (3-41) Alkaline Phosphatase 66 U/L (40-129) 77 U/L (40-129) Total Protein 6.8 g/dL (6.6-8.7) 7.8 g/dL (6.6-8.7) Albumin 2.7 g/dL (3.5-5.2) 2.9 g/dL (3.5-5.2) Globulin 4.1 g/dL 4.9 g/dL Albumin/Globulin Ratio 0.6 (1.0-2.7) 0.5 (1.0-2.7) Objective: GENERAL: A well-developed male, chronically ill. HEENT: Negative. Pupils not reactive. The patient is currently on NC mask. LUNGS: With minimal rhonchi without change. Moderate air entry. no wheeze CARDIAC: Regular rate and rhythm. Distant without murmurs, rubs, or gallops. ABDOMEN: Soft, nontender, and nondistended. no HSM EXTREMITIES: No cyanosis or clubbing. mild edema NEUROLOGICAL: Significantly withdrawn at this time. Difficult to fully assess. SKIN: Noted. Reviewed. reviewed and edited Accucheck: 77 NICHOLAS ROJAS Nov 27, 2016 10:36
--- NOTE | 2016-11-27 11:33 | General Progress Note ---
Assessment/Plan Problem List: (1) Sepsis ICD Codes: A41.9 - Sepsis, unspecified organism SNOMED: 80225510 (2) Renal insufficiency ICD Codes: N28.9 - Disorder of kidney and ureter, unspecified; R65.20 - Severe sepsis without septic shock SNOMED: 541486189 (3) Hypoxia ICD Codes: R09.02 - Hypoxemia; R65.20 - Severe sepsis without septic shock SNOMED: 186462216, 03198242 (4) Severe sepsis ICD Codes: A41.9 - Sepsis, unspecified organism; R65.20 - Severe sepsis without septic shock SNOMED: 81812048 (5) Altered level of consciousness ICD Codes: R40.4 - Transient alteration of awareness SNOMED: 3861682 Status: stable, progressing Assessment/Plan improving ngt/feeds, monitor residuals monitor labs and fluid status retry swallow eval. pt more alert resp rx ecoli uti- on amaya/vanco wound care abx follow up cultures improving remains guarded DNI per son Subjective ROS Limited/Unobtainable: No Constitutional: Reports: malaise, weakness HEENT: Reports: no symptoms Cardiovascular: Reports: no symptoms Respiratory: Reports: cough, shortness of breath, sputum Gastrointestinal/Abdominal: Reports: difficulty swallowing Genitourinary: Reports: no symptoms Neurologic/Psychiatric: Reports: pre-existing deficit Endocrine: Reports: no symptoms Hematologic/Lymphatic: Reports: anemia Allergies: Coded Allergies: No Known Allergies (Verified , 06/30/07) All Systems: reviewed and negative except above Subjective no events. off bipap. no sob. alert. still with ngt. tolerating feeds. on iv abx. getting wound care. pulm and id noted. Objective Last 24 Hour Vital Signs Date Time Temp Pulse Resp B/P (MAP) Pulse Ox O2 Delivery O2 Flow Rate FiO2 11/27/16 11:04 78 167/100 11/27/16 08:39 97.5 78 20 159/111 98 Nasal Cannula 4.0 11/27/16 08:00 64 11/27/16 07:38 99 Nasal Cannula 3.0 32 11/27/16 07:37 Nasal Cannula 3.0 32 11/27/16 07:37 77 18 Nasal Cannula 3.0 32 11/27/16 04:25 98.0 77 20 148/81 93 Nasal Cannula 22.0 11/27/16 04:00 64 11/27/16 00:20 97.8 75 20 122/83 98 Nasal Cannula 11/27/16 00:00 70 11/26/16 20:15 97.3 69 20 144/82 98 Nasal Cannula 2.0 11/26/16 20:10 Nasal Cannula 3.0 32 11/26/16 20:10 97 Nasal Cannula 3.0 32 11/26/16 20:09 62 18 Nasal Cannula 3.0 32 11/26/16 20:00 66 11/26/16 16:00 40 11/26/16 16:00 62 11/26/16 15:34 98.1 66 18 138/71 98 Nasal Cannula 11/26/16 14:23 147/72 11/26/16 12:52 60 11/26/16 12:00 40 Intake and Output 11/27/16 11/28/16 19:00 07:00 Intake Total 50 ml Balance 50 ml IV Total 50 ml # Bowel Movements 1 Height (Feet): 6 Height (Inches): 1.00 Weight (Pounds): 256 Objective General Appearance: WD/WN, lethargic, confused Neck: supple Cardiovascular: normal rate, regular rhythm Respiratory/Chest: chest wall non-tender, lungs clear, normal breath sounds, no respiratory distress, no accessory muscle use Abdomen: normal bowel sounds, non tender, soft, no organomegaly Edema: mild edema Neurologic: disoriented and lethargic SAM BARDALES Nov 27, 2016 11:33
[2016-11-27 11:45] VITALS: BP 157/95
--- NOTE | 2016-11-27 12:33 | Diagnostic Imaging Report ---
Indication: Dyspnea Comparison: November 24, 2016 A single view chest radiograph was obtained. Findings: Interstitial edema suspected. Heart is enlarged. There is a retrocardiac opacification again noted. Nasogastric tube is in good position. Impression: Suspect mild interstitial edema. Left basilar density nonspecific.
--- NOTE | 2016-11-27 13:35 | Wound Care Consultation ---
Wound Assessment Wound Assessment #1: Wound Number: 1 Wound Present on Admission: Yes New Wound: No Status Change of Wound: No Wound Location Body Site Modif: other - sacrococcygeal Wound Type: pressure ulcer Bradly Test: Does not Bradly Pressure Ulcer Stage: IV/unstageable Wound Thickness: Full Thickness Wound Length: 6.0 Wound Width: 8.0 Wound Depth: utd Percent of Wound [place]/Red: 50 Percent of Wound Bed Yellow/Wh: 40 - scattered Percent of Wound Purple/Maroon: 10 Wound Drainage Description: Serosanguineous Wound Drainage Amount: Moderate Wound Drainage Odor: None/Absent Tissue Surrounding Wound: Macerated Wound General Appearance: Reddened, Draining, Necrotic Wound Assessment #2: Wound Number: 2 Wound Present on Admission: Yes New Wound: No Status Change of Wound: No Wound Location Body Site Modif: left Wound Location Body Site: sacral - aspect of sacral extending to left buttocks scattered stage 2 Wound Type: pressure ulcer Bradly Test: Does not Bradly Pressure Ulcer Stage: II Wound Thickness: Partial Thickness Percent of Wound [place]/Red: 100 - scattered Wound Drainage Description: Serosanguineous Wound Drainage Amount: Moderate Wound Drainage Odor: None/Absent Tissue Surrounding Wound: Macerated Wound General Appearance: Reddened, Draining Wound Assessment #3: Wound Number: 3 Wound Present on Admission: Yes New Wound: No Status Change of Wound: No Wound Location Body Site Modif: left Wound Location Body Site: other - aspect of sacral extending to left buttocks Bradly Test: Does not Bradly Pressure Ulcer Stage: deep tissue injury Wound Thickness: Full Thickness Percent of Wound Purple/Maroon: 100 - supervisor malted milk in color appearing emerson Wound Drainage Amount: None Wound Drainage Odor: None/Absent Tissue Surrounding Wound: Intact Wound General Appearance: Reddened Wound Assessment #4: Wound Number: 4 Wound Present on Admission: Yes New Wound: No Status Change of Wound: No Wound Location Body Site: perineal area Wound Type: other - intertrigo Bradly Test: Does not Bradly Percent of Wound [place]/Red: 100 - noted supervisor malted milk in color decrease in redness Wound Drainage Amount: None Wound Drainage Odor: None/Absent Tissue Surrounding Wound: Intact Wound General Appearance: Reddened, Open to air Wound Assessment #5: Wound Number: 5 Wound Present on Admission: Yes New Wound: No Status Change of Wound: No Wound Location Body Site Modif: left Wound Location Body Site: other - armpit fold Wound Type: other - intertrigo Bradly Test: Does not Bradly Percent of Wound [place]/Red: 100 - noted skin supervisor malted milk in color,decrease in redness Wound Drainage Amount: None Wound Drainage Odor: None/Absent Tissue Surrounding Wound: Intact Wound General Appearance: Reddened, Open to air Wound Assessment #6: Wound Number: 6 Wound Present on Admission: Yes New Wound: No Status Change of Wound: No Wound Location Body Site Modif: left, right Wound Location Body Site: breast fold Wound Type: other - intertrigo Bradly Test: Does not Bradly Percent of Wound [place]/Red: 100 - decrease in redness noted ,decrease in masceration noted Wound Drainage Amount: None Wound Drainage Odor: None/Absent Tissue Surrounding Wound: Intact Wound General Appearance: Reddened, Open to air Wound Assessment #7: Wound Number: 7 Wound Present on Admission: No - patient does however have full thickness scar tissue to left malleolus site. New Wound: Yes Status Change of Wound: No Wound Location Body Site Modif: left, lateral Wound Location Body Site: malleolus/ankle Wound Type: pressure ulcer - resurfaced wound Bradly Test: Does not Bradly Pressure Ulcer Stage: IV/unstageable - unstageable. Wound Thickness: Full Thickness Wound Length: 1.0 Wound Width: 1.0 Wound Depth: utd Percent of Wound Bed Yellow/Wh: 100 Other Colors Identified: surrounding skin noted with scabs Wound Drainage Description: Serosanguineous Wound Drainage Amount: Scant Wound Drainage Odor: None/Absent Tissue Surrounding Wound: Erythemic Wound General Appearance: Reddened, Necrotic Wound Comment #1 Sacrococcygeal pressure ulcer stage IV/unstageable , with left and right aspect of sacral scattered stage 2.- noted good progress decrease in slough present increase in pink tissue to wound bed. no further deterioration. #2 left aspect of sacral extending to left buttocks scattered stage 2.- noted good progress remains pink wound bed no further deterioration. #3 left aspect of sacral extending to left buttocks scattered deep tissue injuries.- remains intact noted supervisor malted milk in color emerson color appearing. #4 left under arm intertrigo.- noted good progress decrease in redness and masceration, no further deterioration. #5 left and right breast fold intertrigo.-noted good progress decrease in redness and masceration, no further deterioration. #6 perineal area intertrigo.-noted good progress decrease in redness and masceration, no further deterioration. #7 Resurfaced unstageable pressure ulcer wound to left lateral malleolus. #8 left and right foot hyperpigmentation, dry crust to toes - keep skin clean and dry , notify MD for any changes of condition to skin. Recommendation. -Local wound per protocol. -Keep skin folds clean and dry. -Apply low air loss p200 mattress for wound and skin management. -Turn and reposition. -Optimize nutrition. -Keep clean and dry. -Offload affected sites. -Offload heels and feet. -Heel protectors. -Avoid shear or friction. -Assess and follow up with MD for any further changes of condition noted to skin. YULIYA SALAZAR Nov 27, 2016 13:35
--- NOTE | 2016-11-27 14:15 | Infectious Diseases Prog Note ---
Assessment/Plan Assessment/Plan A) 1) e.coli uti, sepsis, atx, fevers, hx pna, pseudomonas/e.coli sacral wound infection, ? aspiration pna/hap pna - clinically improved - last chest x-ray noted 2) htn, hypothyroidism, ileostomy, cva, dementia, prostate ca, qp, ftt 3) allergies - negative, fh-nc, sh-negative, mar noted, 4) notes and records reviewed 5) d/w RN and son P) 1) meropenem and vancomycin 2) watch labs, check sc if possible, check f/u chest x-ray 3) wound culture per protocol 4) continue treatment per primary and consultants 5) orders entered and noted 6) telemetry care Subjective Constitutional: Denies: fever HEENT: Denies: congestion Respiratory: Denies: shortness of breath Cardiovascular: Denies: chest pain Gastrointestinal/Abdominal: Denies: nausea, vomiting, diarrhea Genitourinary: Reports: other - + burton, Denies: dysuria, hematuria Neurologic: Denies: headache, numbness, weakness Psychiatric: Denies: depression Skin: Denies: rash Hematologic: Denies: bleeding Musculoskeletal: Denies: pain Allergies: Coded Allergies: No Known Allergies (Verified , 06/30/07) Objective Vital Signs Last 24 Hour Vital Signs Date Time Temp Pulse Resp B/P (MAP) Pulse Ox O2 Delivery O2 Flow Rate FiO2 11/27/16 12:00 64 11/27/16 11:45 97.3 68 20 157/95 100 Nasal Cannula 4.0 11/27/16 11:04 78 167/100 11/27/16 08:39 97.5 78 20 159/111 98 Nasal Cannula 4.0 11/27/16 08:00 64 11/27/16 07:38 99 Nasal Cannula 3.0 32 11/27/16 07:37 Nasal Cannula 3.0 32 11/27/16 07:37 77 18 Nasal Cannula 3.0 32 11/27/16 04:25 98.0 77 20 148/81 93 Nasal Cannula 22.0 11/27/16 04:00 64 11/27/16 00:20 97.8 75 20 122/83 98 Nasal Cannula 11/27/16 00:00 70 11/26/16 20:15 97.3 69 20 144/82 98 Nasal Cannula 2.0 11/26/16 20:10 Nasal Cannula 3.0 32 11/26/16 20:10 97 Nasal Cannula 3.0 32 11/26/16 20:09 62 18 Nasal Cannula 3.0 32 11/26/16 20:00 66 11/26/16 16:00 40 11/26/16 16:00 62 11/26/16 15:34 98.1 66 18 138/71 98 Nasal Cannula 11/26/16 14:23 147/72 Height (Feet): 6 Height (Inches): 1.00 Weight (Pounds): 256 General Appearance: no acute distress HEENT: normocephalic, atraumatic, anicteric, mucous membranes moist, EOMI, pharynx normal, supple, no JVD Respiratory/Chest: lungs clear, normal breath sounds, no respiratory distress, no accessory muscle use Cardiovascular: normal rate, regular rhythm, no gallop/murmur, no JVD Abdomen: normal bowel sounds, soft, non tender, no organomegaly, non distended Genitourinary: other - + folely - urine slt cloudy Extremities: no cyanosis Skin: no rash Neurologic/Psychiatric: 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 This agrees with the preliminary interpretation provided overnight by [facility] teleradiology service. 11/27 - Chest x-ray: Impression: Suspect mild interstitial edema. Left basilar density nonspecific. Microbiology Date/Time Source Procedure Growth Status 11/21/16 19:45 Blood Blood Culture - Final NO GROWTH AFTER 5 DAYS Complete 11/21/16 21:30 Nasal Nares MRSA Culture - Final NO METHICILLIN RESISTANT STAPH AUREUS... Complete 11/21/16 19:38 Urine,Clean Catch Urine Culture - Final Escherichia Coli Complete 11/22/16 02:00 Sacral Wound Gram Stain - Final Complete 11/22/16 02:00 Wound Culture - Final Pseudomonas Aeruginosa Escherichia Coli Diphtheroids Complete Labs Test 11/24/16 21:10 11/25/16 06:35 11/26/16 06:10 Vancomycin Level Trough 17.3 ug/mL (5.0-12.0) White Blood Count 8.2 K/UL (4.8-10.8) 6.1 K/UL (4.8-10.8) Red Blood Count 3.77 M/UL (4.70-6.10) 4.43 M/UL (4.70-6.10) Hemoglobin 10.6 G/DL (14.2-18.0) 12.2 G/DL (14.2-18.0) Hematocrit 34.1 % (42.0-52.0) 40.5 % (42.0-52.0) Mean Corpuscular Volume 91 FL (80-99) 91 FL (80-99) Mean Corpuscular Hemoglobin 28.2 PG (27.0-31.0) 27.5 PG (27.0-31.0) Mean Corpuscular Hemoglobin Concent 31.1 G/DL (32.0-36.0) 30.1 G/DL (32.0-36.0) Red Cell Distribution Width 19.0 % (11.6-14.8) 19.3 % (11.6-14.8) Platelet Count 200 K/UL (150-450) 197 K/UL (150-450) Mean Platelet Volume 7.0 FL (6.5-10.1) 7.6 FL (6.5-10.1) Neutrophils (%) (Auto) 65.0 % (45.0-75.0) 61.6 % (45.0-75.0) Lymphocytes (%) (Auto) 20.5 % (20.0-45.0) 23.4 % (20.0-45.0) Monocytes (%) (Auto) 11.2 % (1.0-10.0) 10.1 % (1.0-10.0) Eosinophils (%) (Auto) 2.3 % (0.0-3.0) 3.2 % (0.0-3.0) Basophils (%) (Auto) 1.0 % (0.0-2.0) 1.6 % (0.0-2.0) Sodium Level 145 mEQ/L (135-145) 144 mEQ/L (135-145) Potassium Level 4.1 mEQ/L (3.4-4.9) 4.5 mEQ/L (3.4-4.9) Chloride Level 108 mEQ/L (98-107) 107 mEQ/L (98-107) Carbon Dioxide Level 23 mEQ/L (20-30) 24 mEQ/L (20-30) Anion Gap 14 (5-15) 13 (5-15) Blood Urea Nitrogen 25 mg/dL (7-23) 20 mg/dL (7-23) Creatinine 0.8 mg/dL (0.7-1.2) 0.6 mg/dL (0.7-1.2) Estimat Glomerular Filtration Rate mL/min (>60) mL/min (>60) Glucose Level 122 mg/dL (74-106) 112 mg/dL (74-106) Calcium Level 8.6 mg/dL (8.6-10.2) 9.1 mg/dL (8.6-10.2) Total Bilirubin 0.5 mg/dL (0.0-1.2) 0.5 mg/dL (0.0-1.2) Aspartate Amino Transf (AST/SGOT) 13 U/L (5-40) 17 U/L (5-40) Alanine Aminotransferase (ALT/SGPT) 16 U/L (3-41) 15 U/L (3-41) Alkaline Phosphatase 66 U/L (40-129) 77 U/L (40-129) Total Protein 6.8 g/dL (6.6-8.7) 7.8 g/dL (6.6-8.7) Albumin 2.7 g/dL (3.5-5.2) 2.9 g/dL (3.5-5.2) Globulin 4.1 g/dL 4.9 g/dL Albumin/Globulin Ratio 0.6 (1.0-2.7) 0.5 (1.0-2.7) Current Medications Medications (Trade) Dose Ordered Sig/Jus Route PRN Reason Start Time Stop Time Status Last Admin Dose Admin Acetaminophen (Tylenol) 650 mg Q4HR PRN NG Mild Pain/Temp > 100.5 11/24/16 20:15 12/24/16 20:14 Albuterol/ Ipratropium (DuoNeb 0.5-3(2.5)mg/3ml) 3 ml Q4H PRN HHN Shortness of Breath 11/24/16 19:00 11/27/16 18:59 Amlodipine Besylate (Norvasc) 5 mg Q12HR NG 11/27/16 12:00 12/27/16 11:59 11/27/16 11:04 Aspirin (ASA) 81 mg DAILY NG 11/25/16 09:00 12/25/16 08:59 11/27/16 09:07 Atorvastatin Calcium (Lipitor) 10 mg BEDTIME NG 11/24/16 21:00 12/24/16 20:59 11/26/16 20:42 Clonidine HCl (Catapres) 0.1 mg Q4H PRN NG SBP > 160mmHg 11/27/16 10:15 12/27/16 10:14 Dextrose (Dextrose 50%) STAT PRN IV Hypoglycemia 11/25/16 20:15 12/25/16 20:14 11/27/16 12:07 Enoxaparin Sodium (Lovenox) 80 mg EVERY 12 HOURS SUBQ 11/24/16 21:00 12/23/16 09:14 11/27/16 09:09 Insulin Aspart (NovoLOG) EVERY 6 HOURS SUBQ 11/26/16 00:00 12/26/16 00:00 Levothyroxine Sodium (Synthroid) 100 mcg ACBREAKFAST NG 11/25/16 06:30 12/25/16 06:29 11/27/16 06:37 Magnesium Hydroxide (Mom) 30 ml DAILYPRN PRN NG Constipation 11/24/16 20:15 12/24/16 20:14 Meropenem 1 gm/ Sodium Chloride 110 ml @ 220 mls/hr EVERY 12 HOURS IVPB 11/25/16 10:00 11/30/16 09:59 11/27/16 09:05 Nystatin (Nystop Powder) 1 applic THREE TIMES A DAY TOPIC 11/25/16 09:00 12/25/16 08:59 11/27/16 12:48 Ondansetron HCl (Zofran) 4 mg Q6H PRN IVP Nausea & Vomiting 11/24/16 19:00 12/21/16 18:59 Ranitidine HCl (Zantac) 150 mg Q12HR NG 11/26/16 21:00 12/26/16 20:59 11/27/16 09:08 Vancomycin HCl (Vanco rx to dose) 1 ea DAILY PRN MISC Per rx protocol 11/24/16 19:00 12/24/16 18:59 Vancomycin HCl/ Dextrose 250 ml @ 166.667 mls/hr Q24H IVPB 11/24/16 23:00 11/29/16 22:59 11/26/16 23:18 KISHOR VALLE Nov 27, 2016 14:15
[2016-11-27 15:38] VITALS: BP 140/77
[2016-11-27 20:00] VITALS: BP 162/92
[2016-11-27] MEDS: Vancomycin 1250mg/D5W 250ml 250 ML IVPB SCH (22:42)
[2016-11-28] VITALS (7 sets, daily range): BP systolic 124–167; BP diastolic 68–96
[2016-11-28] MEDS: NovoLOG Insulin Flexpen SUBQ SCH ×3 (05:13→17:29)
[2016-11-28 07:16] LABS: BASOPHILS % (AUTO) 0.8 % (0.0-2.0); EOSINOPHILS % (AUTO) 5.2 % (0.0-3.0); LYMPHOCYTES % (AUTO) 20.2 % (20.0-45.0); MEAN CORPUSCULAR HEMOGLOBIN 27.1 PG (27.0-31.0); MEAN CORPUSCULAR HGB CONC 30.2 G/DL (32.0-36.0); MEAN CORPUSCULAR VOLUME 90 FL (80-99); MEAN PLATELET VOLUME 7.3 FL (6.5-10.1); MONOCYTES % (AUTO) 9.5 % (1.0-10.0); NEUTROPHILS % (AUTO) 64.4 % (45.0-75.0); PLATELET COUNT 205 K/UL (150-450); RED BLOOD COUNT 4.03 M/UL (4.70-6.10); RED CELL DISTRIBUTION WIDTH 18.5 % (11.6-14.8); WHITE BLOOD COUNT 6.9 K/UL (4.8-10.8)
--- NOTE | 2016-11-28 07:30 | Progress Note ---
DATE: 11/27/2016 CARDIOLOGY PROGRESS NOTE SUBJECTIVE: The patient has less congestion and shortness of breath and is more alert. He is on IV antibiotics. Blood pressure trend is increasing. OBJECTIVE: VITAL SIGNS: Blood pressure 167/100, pulse 78, and respirations 20. Monitored rhythm sinus. Rare atrial ectopy. LUNGS: Coarse breath sounds. No wheezing. CARDIAC: Regular rhythm and rate. Normal S1 and S2. ABDOMEN: Soft. EXTREMITIES: No edema. DIAGNOSTIC DATA: Chest x-ray today, left basilar density with mild interstitial edema. IMPRESSION: 1. Polymicrobial sacral wound infection. 2. Escherichia coli urinary tract infection. 3. Sepsis with shock, recovered. 4. Hypertensive heart disease with accelerated blood pressure. 5. Acute on chronic diastolic congestive heart failure. 6. Acute pulmonary embolism. PLAN: 1. Full anticoagulation. 2. Diuresis. 3. Titrate antihypertensives. 4. Antimicrobials. 5. Respiratory hygiene. Omkar Turk M.D. DR: ARJUN JOB#: [id number] CC:
[2016-11-28 07:33] LABS: ANION GAP 8 (5-15); CALCIUM 8.9 mg/dL (8.6-10.2); CARBON DIOXIDE 31 mEQ/L (20-30); CHLORIDE 101 mEQ/L (98-107); CREATININE 0.6 mg/dL (0.7-1.2); HEMOLYSIS 1; POTASSIUM 3.9 mEQ/L (3.4-4.9); SODIUM 140 mEQ/L (135-145)
[2016-11-28 08:07] LABS: MAGNESIUM 2.2 mg/dL (1.7-2.5)
[2016-11-28] MEDS: Nystatin Powder 100,000 units/gm 15gm TOPIC SCH ×3 (08:38→17:29)
[2016-11-28] MEDS: Enoxaparin 80mg Inj SUBQ SCH ×2 (08:40→21:11)
[2016-11-28] MEDS: Aspirin Baby 81mg NG SCH (08:45)
[2016-11-28] MEDS: Meropenem 1 GM in NS 110 ML IVPB SCH ×2 (08:46→21:00)
--- NOTE | 2016-11-28 09:51 | Critical Care Progress Note ---
Assessment/Plan Assessment/Plan IMPRESSION: 1. Respiratory failure. 2. Acute on chronic respiratory acidosis. 3. Functional quadriplegia. 4. Prostate cancer. 5. Severe protein-calorie malnutrition. 6. As per code status, no intubation, no gastrostomy tube. 7. Possible urinary tract infection. 8. Possible sepsis. 9. Hypotension. 10. sacral wound PLAN care noted all noted respiratory care BIPAP presently not needed and comfortable off care noted; monitor oxygen needs SNF meds noted supportive care suction as needed aspiration precautions oxygen therapy taper to off dc planning ok per pulmonary medications/laboratory data/nursing notes reviewed in detail note reviewed and edited care discussed with RN and RT Critical Care - Subjective Condition: stable EKG Rhythm: Sinus Rhythm I&O: care noted no distress no acute changes Critical Care - Objective Last 24 Hour Vital Signs Date Time Temp Pulse Resp B/P (MAP) Pulse Ox O2 Delivery O2 Flow Rate FiO2 11/28/16 08:42 70 133/86 11/28/16 08:34 97.5 70 20 133/86 100 Nasal Cannula 4.0 11/28/16 06:26 97.8 78 18 134/91 100 Nasal Cannula 4.0 32 11/28/16 04:00 77 11/28/16 04:00 97.5 76 18 167/96 100 Nasal Cannula 4.0 32 11/28/16 03:58 167/92 11/28/16 00:11 67 11/28/16 00:00 97.5 57 20 148/84 100 Nasal Cannula 4.0 32 11/27/16 20:55 69 162/74 11/27/16 20:00 97.5 69 20 162/92 100 Nasal Cannula 4.0 32 11/27/16 20:00 59 11/27/16 19:30 70 16 Nasal Cannula 3.0 32 11/27/16 19:30 97 Nasal Cannula 3.0 32 11/27/16 19:30 Nasal Cannula 3.0 32 11/27/16 16:00 64 11/27/16 15:38 97.5 63 20 140/77 99 Nasal Cannula 4.0 11/27/16 12:00 64 11/27/16 11:45 97.3 68 20 157/95 100 Nasal Cannula 4.0 11/27/16 11:04 78 167/100 Labs: Labs Test 11/26/16 06:10 11/28/16 04:35 White Blood Count 6.1 K/UL (4.8-10.8) 6.9 K/UL (4.8-10.8) Red Blood Count 4.43 M/UL (4.70-6.10) 4.03 M/UL (4.70-6.10) Hemoglobin 12.2 G/DL (14.2-18.0) 10.9 G/DL (14.2-18.0) Hematocrit 40.5 % (42.0-52.0) 36.3 % (42.0-52.0) Mean Corpuscular Volume 91 FL (80-99) 90 FL (80-99) Mean Corpuscular Hemoglobin 27.5 PG (27.0-31.0) 27.1 PG (27.0-31.0) Mean Corpuscular Hemoglobin Concent 30.1 G/DL (32.0-36.0) 30.2 G/DL (32.0-36.0) Red Cell Distribution Width 19.3 % (11.6-14.8) 18.5 % (11.6-14.8) Platelet Count 197 K/UL (150-450) 205 K/UL (150-450) Mean Platelet Volume 7.6 FL (6.5-10.1) 7.3 FL (6.5-10.1) Neutrophils (%) (Auto) 61.6 % (45.0-75.0) 64.4 % (45.0-75.0) Lymphocytes (%) (Auto) 23.4 % (20.0-45.0) 20.2 % (20.0-45.0) Monocytes (%) (Auto) 10.1 % (1.0-10.0) 9.5 % (1.0-10.0) Eosinophils (%) (Auto) 3.2 % (0.0-3.0) 5.2 % (0.0-3.0) Basophils (%) (Auto) 1.6 % (0.0-2.0) 0.8 % (0.0-2.0) Sodium Level 144 mEQ/L (135-145) 140 mEQ/L (135-145) Potassium Level 4.5 mEQ/L (3.4-4.9) 3.9 mEQ/L (3.4-4.9) Chloride Level 107 mEQ/L (98-107) 101 mEQ/L (98-107) Carbon Dioxide Level 24 mEQ/L (20-30) 31 mEQ/L (20-30) Anion Gap 13 (5-15) 8 (5-15) Blood Urea Nitrogen 20 mg/dL (7-23) 15 mg/dL (7-23) Creatinine 0.6 mg/dL (0.7-1.2) 0.6 mg/dL (0.7-1.2) Estimat Glomerular Filtration Rate mL/min (>60) mL/min (>60) Glucose Level 112 mg/dL (74-106) 109 mg/dL (74-106) Calcium Level 9.1 mg/dL (8.6-10.2) 8.9 mg/dL (8.6-10.2) Total Bilirubin 0.5 mg/dL (0.0-1.2) Aspartate Amino Transf (AST/SGOT) 17 U/L (5-40) Alanine Aminotransferase (ALT/SGPT) 15 U/L (3-41) Alkaline Phosphatase 77 U/L (40-129) Total Protein 7.8 g/dL (6.6-8.7) Albumin 2.9 g/dL (3.5-5.2) Globulin 4.9 g/dL Albumin/Globulin Ratio 0.5 (1.0-2.7) Magnesium Level 2.2 mg/dL (1.7-2.5) Pro-B-Type Natriuretic Peptide 3288 pg/mL (0-450) Objective: GENERAL: A well-developed male, chronically ill. HEENT: Negative. Pupils not reactive. The patient is currently on NC mask. LUNGS: With minimal rhonchi without change. Moderate air entry. no wheeze CARDIAC: Regular rate and rhythm. Distant without murmurs, rubs, or gallops. ABDOMEN: Soft, nontender, and nondistended. no HSM EXTREMITIES: No cyanosis or clubbing. mild edema NEUROLOGICAL: Significantly withdrawn at this time. Difficult to fully assess. SKIN: Noted. Reviewed. reviewed and edited Accucheck: 91 NICHOLAS ROJAS Nov 28, 2016 09:51
--- NOTE | 2016-11-28 20:16 | General Progress Note ---
Assessment/Plan Problem List: (1) Sepsis ICD Codes: A41.9 - Sepsis, unspecified organism SNOMED: 78307296 (2) Renal insufficiency ICD Codes: N28.9 - Disorder of kidney and ureter, unspecified; R65.20 - Severe sepsis without septic shock SNOMED: 183071782 (3) Hypoxia ICD Codes: R09.02 - Hypoxemia; R65.20 - Severe sepsis without septic shock SNOMED: 575457848, 86739416 (4) Severe sepsis ICD Codes: A41.9 - Sepsis, unspecified organism; R65.20 - Severe sepsis without septic shock SNOMED: 41543406 (5) Altered level of consciousness ICD Codes: R40.4 - Transient alteration of awareness SNOMED: 8743766 Status: stable, not improved Assessment/Plan improving ngt/feeds, monitor residuals monitor labs and fluid status retry video swallow when pt more alert resp rx ecoli uti- on amaya/vanco wound care abx follow up cultures improving remains guarded d/w son. believes pt would not want gt if needed. he will come to the hospital to discuss options with pt wished to continue NGT feeds. he is aware pt cant be dcd home or to snf with ngt. Subjective ROS Limited/Unobtainable: Yes Constitutional: Reports: malaise, weakness HEENT: Reports: no symptoms Cardiovascular: Reports: no symptoms Respiratory: Reports: cough Gastrointestinal/Abdominal: Reports: difficulty swallowing Genitourinary: Reports: no symptoms Neurologic/Psychiatric: Reports: pre-existing deficit Endocrine: Reports: no symptoms Hematologic/Lymphatic: Reports: anemia Allergies: Coded Allergies: No Known Allergies (Verified , 06/30/07) All Systems: reviewed and negative except above Subjective no events. off bipap. no sob. alert. still with ngt. tolerating feeds. on iv abx. getting wound care. pulm and id noted. pt remains too sleepy and lethargic to cooperate with video swallow Objective Last 24 Hour Vital Signs Date Time Temp Pulse Resp B/P (MAP) Pulse Ox O2 Delivery O2 Flow Rate FiO2 11/28/16 20:10 97.4 72 21 142/85 100 Nasal Cannula 4.0 11/28/16 20:02 Nasal Cannula 3.0 32 11/28/16 20:02 98 Nasal Cannula 3.0 32 11/28/16 20:01 72 18 Nasal Cannula 3.0 32 11/28/16 16:05 97.3 78 20 137/86 99 Nasal Cannula 4.0 11/28/16 16:00 61 11/28/16 12:29 97.7 60 20 124/68 99 Nasal Cannula 4.0 11/28/16 12:00 60 11/28/16 08:42 70 133/86 11/28/16 08:34 97.5 70 20 133/86 100 Nasal Cannula 4.0 11/28/16 08:00 70 11/28/16 07:35 Nasal Cannula 4.0 36 11/28/16 07:34 100 Nasal Cannula 4.0 36 11/28/16 07:33 67 16 Nasal Cannula 4.0 36 11/28/16 06:26 97.8 78 18 134/91 100 Nasal Cannula 4.0 32 11/28/16 04:00 77 11/28/16 04:00 97.5 76 18 167/96 100 Nasal Cannula 4.0 32 11/28/16 03:58 167/92 11/28/16 00:11 67 11/28/16 00:00 97.5 57 20 148/84 100 Nasal Cannula 4.0 32 11/27/16 20:55 69 162/74 Intake and Output 11/28/16 11/29/16 19:00 07:00 Intake Total 630 ml Output Total 1200 ml Balance -570 ml Free Water 300 ml IV Total 110 ml Tube Feeding 220 ml Output Urine Total 700 ml Stool Total 500 ml # Bowel Movements 1 Laboratory Tests 11/28/16 04:35: White Blood Count 6.9, Red Blood Count 4.03L, Hemoglobin 10.9L, Hematocrit 36.3L , Mean Corpuscular Volume 90, Mean Corpuscular Hemoglobin 27.1, Mean Corpuscular Hemoglobin Concent 30.2L, Red Cell Distribution Width 18.5H, Platelet Count 205, Mean Platelet Volume 7.3, Neutrophils (%) (Auto) 64.4, Lymphocytes (%) (Auto) 20.2, Monocytes (%) (Auto) 9.5, Eosinophils (%) (Auto) 5.2H, Basophils (%) (Auto) 0.8, Sodium Level 140, Potassium Level 3.9, Chloride Level 101, Carbon Dioxide Level 31H, Anion Gap 8, Blood Urea Nitrogen 15, Creatinine 0.6L, Estimat Glomerular Filtration Rate , Glucose Level 109H, Calcium Level 8.9, Magnesium Level 2.2, Pro-B-Type Natriuretic Peptide 3288H Height (Feet): 6 Height (Inches): 1.00 Weight (Pounds): 254 Objective General Appearance: WD/WN, lethargic, confused Neck: supple Cardiovascular: normal rate, regular rhythm Respiratory/Chest: chest wall non-tender, lungs clear, normal breath sounds, no respiratory distress, no accessory muscle use Abdomen: normal bowel sounds, non tender, soft, no organomegaly Edema: mild edema Neurologic: disoriented and lethargic SAM BARDALES Nov 28, 2016 20:16
[2016-11-29] VITALS: BP 134/81
[2016-11-29] MEDS: Vancomycin 1250mg/D5W 250ml 250 ML IVPB SCH (00:31)
--- NOTE | 2016-11-29 03:45 | Progress Note ---
DATE: 11/28/2016 CARDIOLOGY PROGRESS NOTE SUBJECTIVE: The patient is on NG-tube feedings. He has not been able to participate in a swallow evaluation. The patient's blood pressure remains stable. OBJECTIVE: VITAL SIGNS: Blood pressure 142/85, pulse 72, respirations 21, and afebrile. LUNGS: Few rhonchi. HEART: Regular rhythm and rate. Normal S1 and S2. ABDOMEN: Soft. EXTREMITIES: No edema. IMPRESSION: 1. Sepsis with shock, recovered. 2. Dysphagia. 3. Acute renal failure, resolved. 4. Chronic diastolic congestive heart failure. 5. Hypertensive heart disease. 6. Metabolic encephalopathy. PLAN: 1. NG-tube feedings. 2. Family considering G-tube versus conservative management. 3. Complete antibiotics. 4. Respiratory hygiene. 5. Monitor cardiorenal parameters and volume status. Adjust accordingly with hydration as needed. 6. No additional antihypertensives presently planned. Would prefer loose blood pressure control at this time. Omkar Turk M.D. DR: ARJUN JOB#: [id number] CC:
[2016-11-29 04:00] VITALS: BP 130/80
[2016-11-29] MEDS: NovoLOG Insulin Flexpen SUBQ SCH ×5 (05:51→21:00)
[2016-11-29 08:00] VITALS: BP 149/88
[2016-11-29] MEDS: Meropenem 1 GM in NS 110 ML IVPB SCH ×2 (08:36→21:20)
[2016-11-29] MEDS: Enoxaparin 80mg Inj SUBQ SCH ×2 (08:36→21:27)
[2016-11-29] MEDS: Aspirin Baby 81mg NG SCH (08:37)
[2016-11-29] MEDS: Nystatin Powder 100,000 units/gm 15gm TOPIC SCH ×3 (08:37→17:23)
--- NOTE | 2016-11-29 08:41 | General Progress Note ---
Assessment/Plan Problem List: (1) Sepsis ICD Codes: A41.9 - Sepsis, unspecified organism SNOMED: 54926956 (2) Renal insufficiency ICD Codes: N28.9 - Disorder of kidney and ureter, unspecified; R65.20 - Severe sepsis without septic shock SNOMED: 477363928 (3) Hypoxia ICD Codes: R09.02 - Hypoxemia; R65.20 - Severe sepsis without septic shock SNOMED: 995992250, 27202310 (4) Severe sepsis ICD Codes: A41.9 - Sepsis, unspecified organism; R65.20 - Severe sepsis without septic shock SNOMED: 14881486 (5) Altered level of consciousness ICD Codes: R40.4 - Transient alteration of awareness SNOMED: 1771734 Assessment/Plan stable. lethargy not improved ngt/feeds, monitor residuals monitor labs and fluid status retry video swallow when pt more alert resp rx ecoli uti- on amaya/vanco wound care abx follow up cultures improving remains guarded d/w son. believes pt would not want gt if needed. he will come to the hospital to discuss options with pt wished to continue NGT feeds. he is aware pt cant be dcd home or to snf with ngt. Subjective ROS Limited/Unobtainable: Yes Constitutional: Reports: malaise, weakness HEENT: Reports: no symptoms Cardiovascular: Reports: no symptoms Respiratory: Reports: no symptoms Gastrointestinal/Abdominal: Reports: difficulty swallowing Genitourinary: Reports: no symptoms Neurologic/Psychiatric: Reports: pre-existing deficit Endocrine: Reports: no symptoms Hematologic/Lymphatic: Reports: anemia Allergies: Coded Allergies: No Known Allergies (Verified , 06/30/07) All Systems: reviewed and negative except above Subjective no events. no change. remains sleepy. off bipap. no sob. alert. still with ngt. tolerating feeds. on iv abx. getting wound care. pulm and id noted. pt remains too sleepy and lethargic to cooperate with video swallow. Objective Last 24 Hour Vital Signs Date Time Temp Pulse Resp B/P (MAP) Pulse Ox O2 Delivery O2 Flow Rate FiO2 11/29/16 08:36 76 149/88 11/29/16 08:00 97.0 76 18 149/88 99 Nasal Cannula 4.0 11/29/16 04:00 97.6 75 20 130/80 99 Nasal Cannula 4.0 11/29/16 04:00 75 11/29/16 00:00 97.9 76 20 134/81 100 Nasal Cannula 4.0 11/29/16 00:00 56 11/28/16 21:01 72 142/85 11/28/16 20:10 97.4 72 21 142/85 100 Nasal Cannula 4.0 11/28/16 20:02 Nasal Cannula 3.0 32 11/28/16 20:02 98 Nasal Cannula 3.0 32 11/28/16 20:01 72 18 Nasal Cannula 3.0 32 11/28/16 20:00 75 11/28/16 16:05 97.3 78 20 137/86 99 Nasal Cannula 4.0 11/28/16 16:00 61 11/28/16 12:29 97.7 60 20 124/68 99 Nasal Cannula 4.0 11/28/16 12:00 60 11/28/16 08:42 70 133/86 Height (Feet): 6 Height (Inches): 1.00 Weight (Pounds): 255 Objective General Appearance: WD/WN, lethargic, confused Neck: supple Cardiovascular: normal rate, regular rhythm Respiratory/Chest: chest wall non-tender, lungs clear, normal breath sounds, no respiratory distress, no accessory muscle use Abdomen: normal bowel sounds, non tender, soft, no organomegaly Edema: mild edema Neurologic: disoriented and lethargic SAM BARDALES Nov 29, 2016 08:41
[2016-11-29 08:51] LABS: BASOPHILS % (AUTO) 1.2 % (0.0-2.0); EOSINOPHILS % (AUTO) 5.2 % (0.0-3.0); LYMPHOCYTES % (AUTO) 21.6 % (20.0-45.0); MEAN CORPUSCULAR HEMOGLOBIN 28.4 PG (27.0-31.0); MEAN CORPUSCULAR VOLUME 92 FL (80-99); MEAN PLATELET VOLUME 7.3 FL (6.5-10.1); MONOCYTES % (AUTO) 9.2 % (1.0-10.0); NEUTROPHILS % (AUTO) 62.8 % (45.0-75.0); PLATELET COUNT 177 K/UL (150-450); RED BLOOD COUNT 3.84 M/UL (4.70-6.10); RED CELL DISTRIBUTION WIDTH 18.8 % (11.6-14.8); WHITE BLOOD COUNT 6.5 K/UL (4.8-10.8)
--- NOTE | 2016-11-29 08:55 | Critical Care Progress Note ---
Assessment/Plan Assessment/Plan IMPRESSION: 1. Respiratory failure. 2. Acute on chronic respiratory acidosis. 3. Functional quadriplegia. 4. Prostate cancer. 5. Severe protein-calorie malnutrition. 6. As per code status, no intubation, no gastrostomy tube. 7. Possible urinary tract infection. 8. Possible sepsis. 9. Hypotension. 10. sacral wound PLAN care noted all noted respiratory care BIPAP presently not needed and comfortable off care noted; monitor oxygen needs SNF meds noted supportive care suction as needed aspiration precautions oxygen therapy taper to off dc planning ok per pulmonary medications/laboratory data/nursing notes reviewed in detail note reviewed and edited care discussed with RN and RT Critical Care - Subjective Interval Events: no change overall ROS Limited/Unobtainable: Yes Critical Care - Objective Last 24 Hour Vital Signs Date Time Temp Pulse Resp B/P (MAP) Pulse Ox O2 Delivery O2 Flow Rate FiO2 11/29/16 08:36 76 149/88 11/29/16 08:00 97.0 76 18 149/88 99 Nasal Cannula 4.0 11/29/16 04:00 97.6 75 20 130/80 99 Nasal Cannula 4.0 11/29/16 04:00 75 11/29/16 00:00 97.9 76 20 134/81 100 Nasal Cannula 4.0 11/29/16 00:00 56 11/28/16 21:01 72 142/85 11/28/16 20:10 97.4 72 21 142/85 100 Nasal Cannula 4.0 11/28/16 20:02 Nasal Cannula 3.0 32 11/28/16 20:02 98 Nasal Cannula 3.0 32 11/28/16 20:01 72 18 Nasal Cannula 3.0 32 11/28/16 20:00 75 11/28/16 16:05 97.3 78 20 137/86 99 Nasal Cannula 4.0 11/28/16 16:00 61 11/28/16 12:29 97.7 60 20 124/68 99 Nasal Cannula 4.0 11/28/16 12:00 60 Objective: GENERAL: A well-developed male, chronically ill. HEENT: Negative. Pupils not reactive. The patient is currently on NC mask. LUNGS: With minimal rhonchi without change. Moderate air entry. no wheeze CARDIAC: Regular rate and rhythm. Distant without murmurs, rubs, or gallops. ABDOMEN: Soft, nontender, and nondistended. no HSM EXTREMITIES: No cyanosis or clubbing. mild edema NEUROLOGICAL: Significantly withdrawn at this time. Difficult to fully assess. SKIN: Noted. Reviewed. reviewed and edited Accucheck: 80 NICHOLAS ROJAS Nov 29, 2016 08:55
[2016-11-29 09:08] LABS: ALANINE AMINOTRANSFERASE 9 U/L (3-41); ALBUMIN/GLOBULIN RATIO 0.6 (1.0-2.7); ANION GAP 6 (5-15); ASPARTATE AMINO TRANSFERASE 11 U/L (5-40); CALCIUM 8.9 mg/dL (8.6-10.2); CARBON DIOXIDE 33 mEQ/L (20-30); CHLORIDE 101 mEQ/L (98-107); CREATININE 0.5 mg/dL (0.7-1.2); HEMOLYSIS 1; POTASSIUM 3.6 mEQ/L (3.4-4.9); SODIUM 140 mEQ/L (135-145); TOTAL PROTEIN 6.5 g/dL (6.6-8.7)
[2016-11-29 12:00] VITALS: BP 152/99
--- NOTE | 2016-11-29 12:18 | Neurology Progress Note ---
Interim History Interim History ROS Limited/Unobtainable: Yes Objective Physical Exam Last Vital Signs Date Time Temp Pulse Resp B/P (MAP) Pulse Ox O2 Delivery O2 Flow Rate FiO2 11/29/16 08:36 76 149/88 11/29/16 08:00 97.0 18 99 Nasal Cannula 4.0 11/28/16 20:02 32 Laboratory Tests Test 11/29/16 07:45 White Blood Count 6.5 K/UL (4.8-10.8) Red Blood Count 3.84 M/UL (4.70-6.10) L Hemoglobin 10.9 G/DL (14.2-18.0) L Hematocrit 35.2 % (42.0-52.0) L Mean Corpuscular Volume 92 FL (80-99) Mean Corpuscular Hemoglobin 28.4 PG (27.0-31.0) Mean Corpuscular Hemoglobin Concent 31.0 G/DL (32.0-36.0) L Red Cell Distribution Width 18.8 % (11.6-14.8) H Platelet Count 177 K/UL (150-450) Mean Platelet Volume 7.3 FL (6.5-10.1) Neutrophils (%) (Auto) 62.8 % (45.0-75.0) Lymphocytes (%) (Auto) 21.6 % (20.0-45.0) Monocytes (%) (Auto) 9.2 % (1.0-10.0) Eosinophils (%) (Auto) 5.2 % (0.0-3.0) H Basophils (%) (Auto) 1.2 % (0.0-2.0) Sodium Level 140 mEQ/L (135-145) Potassium Level 3.6 mEQ/L (3.4-4.9) Chloride Level 101 mEQ/L (98-107) Carbon Dioxide Level 33 mEQ/L (20-30) H Anion Gap 6 (5-15) Blood Urea Nitrogen 12 mg/dL (7-23) Creatinine 0.5 mg/dL (0.7-1.2) L Estimat Glomerular Filtration Rate mL/min (>60) Glucose Level 112 mg/dL (74-106) H Calcium Level 8.9 mg/dL (8.6-10.2) Total Bilirubin 0.5 mg/dL (0.0-1.2) Aspartate Amino Transf (AST/SGOT) 11 U/L (5-40) Alanine Aminotransferase (ALT/SGPT) 9 U/L (3-41) Alkaline Phosphatase 62 U/L (40-129) Total Protein 6.5 g/dL (6.6-8.7) L Albumin 2.5 g/dL (3.5-5.2) L Globulin 4.0 g/dL Albumin/Globulin Ratio 0.6 (1.0-2.7) L Impression/Recommendations Status: stable, not improved Recommendations # [id number] UNIQUE HERNANDEZ Nov 29, 2016 12:18
[2016-11-29] MEDS ORDERED: NS 275ml ONE (15:05)
[2016-11-29 16:00] VITALS: BP 146/100
--- NOTE | 2016-11-29 16:26 | Infectious Diseases Prog Note ---
Assessment/Plan Assessment/Plan A) 1) e.coli uti, sepsis, atx, fevers, hx pna, pseudomonas/e.coli sacral wound infection, ? aspiration pna/hap pna - clinically improved and stable 2) htn, hypothyroidism, ileostomy, cva, dementia, prostate ca, qp, ftt 3) allergies - negative, fh-nc, sh-negative, mar noted, 4) notes and records reviewed 5) d/w RN and son P) 1) meropenem and vancomycin x 5 days 2) watch labs and check f/u chest x-ray 3) wound culture per protocol 4) continue treatment per primary and consultants 5) orders entered and noted 6) telemetry care Subjective Constitutional: Denies: fever HEENT: Denies: congestion Respiratory: Denies: shortness of breath Cardiovascular: Denies: chest pain Gastrointestinal/Abdominal: Denies: nausea, vomiting, diarrhea Genitourinary: Reports: other - + burton Neurologic: Denies: headache Psychiatric: Denies: depression Skin: Denies: rash Hematologic: Denies: bleeding Allergies: Coded Allergies: No Known Allergies (Verified , 06/30/07) Objective Vital Signs Last 24 Hour Vital Signs Date Time Temp Pulse Resp B/P (MAP) Pulse Ox O2 Delivery O2 Flow Rate FiO2 11/29/16 12:00 69 11/29/16 12:00 96.8 77 18 152/99 99 Nasal Cannula 4.0 11/29/16 08:36 76 149/88 11/29/16 08:00 70 11/29/16 08:00 97.0 76 18 149/88 99 Nasal Cannula 4.0 11/29/16 06:47 76 17 Nasal Cannula 4.0 11/29/16 06:47 99 Nasal Cannula 4.0 11/29/16 06:47 Nasal Cannula 4.0 11/29/16 04:00 97.6 75 20 130/80 99 Nasal Cannula 4.0 11/29/16 04:00 75 11/29/16 00:00 97.9 76 20 134/81 100 Nasal Cannula 4.0 11/29/16 00:00 56 11/28/16 21:01 72 142/85 11/28/16 20:10 97.4 72 21 142/85 100 Nasal Cannula 4.0 11/28/16 20:02 Nasal Cannula 3.0 32 11/28/16 20:02 98 Nasal Cannula 3.0 32 11/28/16 20:01 72 18 Nasal Cannula 3.0 32 11/28/16 20:00 75 Height (Feet): 6 Height (Inches): 1.00 Weight (Pounds): 255 General Appearance: no acute distress HEENT: normocephalic, atraumatic, anicteric, mucous membranes moist, EOMI, pharynx normal, supple, no JVD Respiratory/Chest: lungs clear, normal breath sounds, no respiratory distress, no accessory muscle use, rhonchi - bilaterally Cardiovascular: normal rate, regular rhythm, no gallop/murmur, no JVD Abdomen: normal bowel sounds, soft, non tender, no organomegaly, non distended Genitourinary: other - + burton - urine slt cloudy Extremities: no cyanosis Skin: no rash 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 This agrees with the preliminary interpretation provided overnight by [facility] teleradiology service. 11/27 - Chest x-ray: Impression: Suspect mild interstitial edema. Left basilar density nonspecific. 11/27 - chest x-ray Impression: Suspect mild interstitial edema. Left basilar density nonspecific. Microbiology Date/Time Source Procedure Growth Status 11/21/16 19:45 Blood Blood Culture - Final NO GROWTH AFTER 5 DAYS Complete 11/21/16 21:30 Nasal Nares MRSA Culture - Final NO METHICILLIN RESISTANT STAPH AUREUS... Complete 11/21/16 19:38 Urine,Clean Catch Urine Culture - Final Escherichia Coli Complete 11/22/16 02:00 Sacral Wound Gram Stain - Final Complete 11/22/16 02:00 Wound Culture - Final Pseudomonas Aeruginosa Escherichia Coli Diphtheroids Complete Laboratory Tests Test 11/29/16 07:45 White Blood Count 6.5 K/UL (4.8-10.8) Red Blood Count 3.84 M/UL (4.70-6.10) L Hemoglobin 10.9 G/DL (14.2-18.0) L Hematocrit 35.2 % (42.0-52.0) L Mean Corpuscular Volume 92 FL (80-99) Mean Corpuscular Hemoglobin 28.4 PG (27.0-31.0) Mean Corpuscular Hemoglobin Concent 31.0 G/DL (32.0-36.0) L Red Cell Distribution Width 18.8 % (11.6-14.8) H Platelet Count 177 K/UL (150-450) Mean Platelet Volume 7.3 FL (6.5-10.1) Neutrophils (%) (Auto) 62.8 % (45.0-75.0) Lymphocytes (%) (Auto) 21.6 % (20.0-45.0) Monocytes (%) (Auto) 9.2 % (1.0-10.0) Eosinophils (%) (Auto) 5.2 % (0.0-3.0) H Basophils (%) (Auto) 1.2 % (0.0-2.0) Sodium Level 140 mEQ/L (135-145) Potassium Level 3.6 mEQ/L (3.4-4.9) Chloride Level 101 mEQ/L (98-107) Carbon Dioxide Level 33 mEQ/L (20-30) H Anion Gap 6 (5-15) Blood Urea Nitrogen 12 mg/dL (7-23) Creatinine 0.5 mg/dL (0.7-1.2) L Estimat Glomerular Filtration Rate mL/min (>60) Glucose Level 112 mg/dL (74-106) H Calcium Level 8.9 mg/dL (8.6-10.2) Total Bilirubin 0.5 mg/dL (0.0-1.2) Aspartate Amino Transf (AST/SGOT) 11 U/L (5-40) Alanine Aminotransferase (ALT/SGPT) 9 U/L (3-41) Alkaline Phosphatase 62 U/L (40-129) Total Protein 6.5 g/dL (6.6-8.7) L Albumin 2.5 g/dL (3.5-5.2) L Globulin 4.0 g/dL Albumin/Globulin Ratio 0.6 (1.0-2.7) L Current Medications Medications (Trade) Dose Ordered Sig/Jus Route PRN Reason Start Time Stop Time Status Last Admin Dose Admin Acetaminophen (Tylenol) 650 mg Q4HR PRN NG Mild Pain/Temp > 100.5 11/24/16 20:15 12/24/16 20:14 Amlodipine Besylate (Norvasc) 5 mg Q12HR NG 11/27/16 12:00 12/27/16 11:59 11/29/16 08:36 Aspirin (ASA) 81 mg DAILY NG 11/25/16 09:00 12/25/16 08:59 11/29/16 08:37 Atorvastatin Calcium (Lipitor) 10 mg BEDTIME NG 11/24/16 21:00 12/24/16 20:59 11/28/16 21:00 Clonidine HCl (Catapres) 0.1 mg Q4H PRN NG SBP > 160mmHg 11/27/16 10:15 12/27/16 10:14 11/28/16 03:58 Dextrose (Dextrose 50%) STAT PRN IV Hypoglycemia 11/25/16 20:15 12/25/16 20:14 11/27/16 12:07 Enoxaparin Sodium (Lovenox) 80 mg EVERY 12 HOURS SUBQ 11/24/16 21:00 12/23/16 09:14 11/29/16 08:36 Insulin Aspart (NovoLOG) EVERY 6 HOURS SUBQ 11/26/16 00:00 12/26/16 00:00 Levothyroxine Sodium (Synthroid) 100 mcg ACBREAKFAST NG 11/25/16 06:30 12/25/16 06:29 11/29/16 05:26 Magnesium Hydroxide (Mom) 30 ml DAILYPRN PRN NG Constipation 11/24/16 20:15 12/24/16 20:14 Meropenem 1 gm/ Sodium Chloride 110 ml @ 220 mls/hr EVERY 12 HOURS IVPB 11/25/16 10:00 12/04/16 09:59 11/29/16 08:36 Nystatin (Nystop Powder) 1 applic THREE TIMES A DAY TOPIC 11/25/16 09:00 12/25/16 08:59 11/29/16 12:04 Ondansetron HCl (Zofran) 4 mg Q6H PRN IVP Nausea & Vomiting 11/24/16 19:00 12/21/16 18:59 Ranitidine HCl (Zantac) 150 mg Q12HR NG 11/26/16 21:00 12/26/16 20:59 11/29/16 08:36 Vancomycin HCl (Vanco rx to dose) 1 ea DAILY PRN MISC Per rx protocol 11/24/16 19:00 12/24/16 18:59 Vancomycin HCl/ Dextrose 250 ml @ 166.667 mls/hr Q24H IVPB 11/27/16 23:00 12/02/16 22:59 11/29/16 00:31 KISHOR VALLE Nov 29, 2016 16:26
[2016-11-29 20:00] VITALS: BP 158/78
[2016-11-30] VITALS: BP 145/91
[2016-11-30 04:00] VITALS: BP 129/79
--- NOTE | 2016-11-30 04:45 | Progress Note ---
DATE: 11/29/2016 CARDIOLOGY PROGRESS NOTE SUBJECTIVE: The patient remains more comfortable. He is off BiPAP support with no respiratory distress. Monitored rhythm sinus with occasional atrial ectopics. OBJECTIVE: VITAL SIGNS: Blood pressure 140/88, pulse 76, and respirations 18, and afebrile. LUNGS: With diminished breath sounds. CARDIAC: Regular rhythm and rate. Normal S1 and S2. ABDOMEN: Soft. No edema. NG tube remains in place. IMPRESSION: 1. Dysphagia, recovered. 2. Shock due to sepsis from urinary tract infection. 3. Hypertensive heart disease with rising blood pressure trend. 4. Cerebrovascular disease with dementia. 5. Recovering encephalopathy. PLAN: 1. Await final decision regarding G-tube feeding. Consider pureed diet with one-to-one feeding if family declines G-tube. 2. Hold additional antihypertensives for now but continue p.r.n. therapy for blood pressure spikes. 3. Respiratory hygiene. 4. Monitor volume status. 5. Adjust IV hydration as needed. 6. DVT prophylaxis. Omkar Turk M.D. DR: ROBEL JOB#: [id number] CC:
--- NOTE | 2016-11-30 05:00 | Consultation ---
DATE OF CONSULTATION: 11/29/2016 CONSULTING PHYSICIAN: Larry Julio M.D. REFERRING PHYSICIAN: Aamir Sanchez M.D. REASON FOR CONSULTATION: Evaluation of urinary retention. HISTORY OF PRESENT ILLNESS: This is an 86-year-old gentleman who is known to me from outpatient evaluation number of years ago. He has a history of BPH, neurogenic bladder, and chronic Rausch. The patient was admitted to the hospital because of sepsis. He has a history of BPH, neurogenic bladder, and chronic Rausch catheter. Apparently, the Rausch catheter has been changed on a regular basis by home health nurses. He uses a 20-Salvadorean Rausch to prevent leakage and it is apparently changed once a week. His son requested my evaluation to see his father. Most of the history was obtained from the chart. PAST MEDICAL HISTORY: Significant for above. Also, history of hypothyroidism and hypertension. He has a history of dementia and gastroesophageal reflux disease. PAST SURGICAL HISTORY: He has a colostomy. Other surgeries are unknown. CURRENT MEDICATIONS: Here in the hospital, the patient is on insulin, Norvasc, Catapres, Zantac, meropenem, statin, aspirin, Synthroid, Lovenox, Lipitor, MOM, and Zofran. ALLERGIES: NO KNOWN DRUG ALLERGIES. SOCIAL HISTORY: Smoking history is unknown. FAMILY HISTORY: Unable to obtain. REVIEW OF SYSTEMS: Unable to obtain. PHYSICAL EXAMINATION: GENERAL: This is an elderly male, confused, in no acute distress. VITAL SIGNS: Temperature is 98.5 degrees, blood pressure 146/100, pulse 79, and respirations 18. HEENT: Normocephalic. NECK: Supple. ABDOMEN: Soft. Colostomy is in place. GENITOURINARY: Exam revealed penile edema. There is a 20-Salvadorean Rausch. Urine is na. EXTREMITIES: No clubbing or cyanosis. LABORATORY DATA: White count is 6.5, hemoglobin 10.9, and platelets are 177,000. BUN 12 and creatinine 0.5. UA showed 3+ protein, 5 to 10 RBCs, too numerous to count WBCs, many bacteria. Urine culture showed E. coli. Sensitivities were noted. DIAGNOSTIC IMAGING STUDIES: The patient's recent chest x-ray and abdominal films were reviewed. IMPRESSION: 1. Urinary retention with chronic Rausch. 2. Benign prostatic hypertrophy history. 3. Probable neurogenic bladder. 4. Hematuria. 5. Urinary tract infection and colonization. 6. Proteinuria. 7. Penile edema. PLAN AND DISCUSSION: Again as noted above, the patient does have a chronic Rausch changed on a weekly basis. I talked to the patient's son, apparently was last change about 10 days ago and is requesting to be changed again specifically with a 20-Salvadorean. As such, I personally removed the old Rausch and I placed a new 20-Salvadorean Rausch catheter. It appears to be in good position. I irrigated and it irrigates well with left gravity drainage. He is to continue with antibiotics, per recommendation of ID. Thank you, Dr. Sanchez, for asking me to see this patient in consultation. Larry Julio M.D. DR: mAauri JOB#: [id number] CC: Micah Ch M.D. Salam Alkasspooles, M.D.; Fax#: [phone] Salazar M.D.; Fax#: [phone]
[2016-11-30] MEDS: NovoLOG Insulin Flexpen SUBQ SCH ×4 (06:30→21:00)
[2016-11-30 08:00] VITALS: BP 143/85
[2016-11-30] MEDS: Aspirin Baby 81mg NG SCH (08:42)
[2016-11-30] MEDS: Nystatin Powder 100,000 units/gm 15gm TOPIC SCH ×3 (08:47→18:42)
[2016-11-30] MEDS: Meropenem 1 GM in NS 110 ML IVPB SCH ×2 (08:49→21:19)
[2016-11-30] MEDS: Enoxaparin 80mg Inj SUBQ SCH (08:50)
--- NOTE | 2016-11-30 08:53 | Critical Care Progress Note ---
Assessment/Plan Assessment/Plan IMPRESSION: 1. Respiratory failure. 2. Acute on chronic respiratory acidosis. 3. Functional quadriplegia. 4. Prostate cancer. 5. Severe protein-calorie malnutrition. 6. As per code status, no intubation, no gastrostomy tube. 7. Possible urinary tract infection. 8. Possible sepsis. 9. Hypotension. 10. sacral wound PLAN care noted all noted respiratory care pulmonary same low flow oxygen as needed SNF meds noted supportive care suction as needed aspiration precautions dc planning ok per pulmonary exam reviewed medications/laboratory data/nursing notes reviewed in detail note reviewed and edited care discussed with RN and RT Critical Care - Subjective ROS Limited/Unobtainable: Yes Condition: stable EKG Rhythm: Sinus Rhythm I&O: care noted all noted no respiratory distress Critical Care - Objective Last 24 Hour Vital Signs Date Time Temp Pulse Resp B/P (MAP) Pulse Ox O2 Delivery O2 Flow Rate FiO2 11/30/16 08:45 63 143/85 11/30/16 08:00 97.2 63 20 143/85 94 Nasal Cannula 4.0 11/30/16 04:00 79 11/30/16 04:00 98.1 83 18 129/79 97 Nasal Cannula 3.0 11/30/16 00:00 97.4 76 20 145/91 99 Nasal Cannula 3.0 11/30/16 00:00 86 11/29/16 21:23 76 139/76 11/29/16 20:00 97.3 79 20 158/78 99 Nasal Cannula 3.0 11/29/16 20:00 76 11/29/16 19:48 97 Nasal Cannula 4.0 36 11/29/16 19:48 Nasal Cannula 4.0 36 11/29/16 16:00 76 11/29/16 16:00 98.5 79 18 146/100 97 Nasal Cannula 4.0 11/29/16 12:00 69 11/29/16 12:00 96.8 77 18 152/99 99 Nasal Cannula 4.0 Objective: GENERAL: A well-developed male, chronically ill. HEENT: Negative. Pupils not reactive. The patient is currently on NC mask. LUNGS: With occasional rhonchi without change. Moderate air entry. no wheeze CARDIAC: Regular rate and rhythm. Distant without murmurs, rubs, or gallops. ABDOMEN: Soft, nontender, and nondistended. no HSM EXTREMITIES: No cyanosis or clubbing. mild edema NEUROLOGICAL: Significantly withdrawn at this time. Difficult to fully assess. SKIN: Noted. Reviewed. reviewed and edited Accucheck: 73 NICHOLAS ROJAS Nov 30, 2016 08:53
--- NOTE | 2016-11-30 09:20 | General Progress Note ---
Assessment/Plan Problem List: (1) Sepsis ICD Codes: A41.9 - Sepsis, unspecified organism SNOMED: 87408343 (2) Renal insufficiency ICD Codes: N28.9 - Disorder of kidney and ureter, unspecified; R65.20 - Severe sepsis without septic shock SNOMED: 666126665 (3) Hypoxia ICD Codes: R09.02 - Hypoxemia; R65.20 - Severe sepsis without septic shock SNOMED: 621031256, 76303375 (4) Severe sepsis ICD Codes: A41.9 - Sepsis, unspecified organism; R65.20 - Severe sepsis without septic shock SNOMED: 49748804 (5) Altered level of consciousness ICD Codes: R40.4 - Transient alteration of awareness SNOMED: 8716315 Status: stable, progressing Assessment/Plan stable. lethargy not improved encourage pos. monitor for aspiration monitor labs and fluid status resp rx ecoli uti- on amaya/vanco wound care abx improving remains guarded dc planning when abx complete. stable for snf if family agreeable Subjective ROS Limited/Unobtainable: No Constitutional: Reports: malaise, weakness HEENT: Reports: no symptoms Cardiovascular: Reports: no symptoms Respiratory: Reports: cough Gastrointestinal/Abdominal: Reports: difficulty swallowing Genitourinary: Reports: no symptoms Neurologic/Psychiatric: Reports: pre-existing deficit Endocrine: Reports: no symptoms Hematologic/Lymphatic: Reports: no symptoms Allergies: Coded Allergies: No Known Allergies (Verified , 06/30/07) All Systems: reviewed and negative except above Subjective able to complete video swallow. ST noted. NGT out. diet ordered. remains on iv abx. Objective Last 24 Hour Vital Signs Date Time Temp Pulse Resp B/P (MAP) Pulse Ox O2 Delivery O2 Flow Rate FiO2 11/30/16 08:45 63 143/85 11/30/16 08:00 97.2 63 20 143/85 94 Nasal Cannula 4.0 11/30/16 04:00 79 11/30/16 04:00 98.1 83 18 129/79 97 Nasal Cannula 3.0 11/30/16 00:00 97.4 76 20 145/91 99 Nasal Cannula 3.0 11/30/16 00:00 86 11/29/16 21:23 76 139/76 11/29/16 20:00 97.3 79 20 158/78 99 Nasal Cannula 3.0 11/29/16 20:00 76 11/29/16 19:48 97 Nasal Cannula 4.0 36 11/29/16 19:48 Nasal Cannula 4.0 36 11/29/16 16:00 76 11/29/16 16:00 98.5 79 18 146/100 97 Nasal Cannula 4.0 11/29/16 12:00 69 11/29/16 12:00 96.8 77 18 152/99 99 Nasal Cannula 4.0 Laboratory Tests 11/29/16 22:30: Vancomycin Level Trough 22.5H Height (Feet): 6 Height (Inches): 1.00 Weight (Pounds): 240 Objective General Appearance: WD/WN, lethargic, confused Neck: supple Cardiovascular: normal rate, regular rhythm Respiratory/Chest: chest wall non-tender, lungs clear, normal breath sounds, no respiratory distress, no accessory muscle use Abdomen: normal bowel sounds, non tender, soft, no organomegaly Edema: mild edema Neurologic: disoriented and lethargic SAM BARDALES Nov 30, 2016 09:20
--- NOTE | 2016-11-30 10:45 | Consultation ---
DATE OF CONSULTATION: 11/29/2016 NEUROLOGICAL CONSULTATION CONSULTING PHYSICIAN: Julian Aguilera M.D. REQUESTING PHYSICIAN: Aamir Sanchez M.D. HISTORY OF PRESENT ILLNESS: This is an 86-year-old man, seen in neurological consultation to evaluate new changes in mental status. According to the patient's son, who was present during this examination noted his baseline as being awake, alert, and talking coherently, responding to command, and asking questions. He became increasingly lethargic and was brought to this facility. The patient was on indwelling Rausch and had decubitus noted, a fever to 101.5 degrees, and blood pressure down to 97/57. He appeared to be lethargic and chronically ill. Diagnosed with severe sepsis, hypoxia, and renal failure. His blood work on admission included a CBC study with hemoglobin 11.5 and hematocrit 35.2. Coagulation panel was normal. Urinalysis with WBCs too numerous to count, leukocyte esterase 3+, ketones 1+, and protein 3+. Toxicology panel with vancomycin 24.0. Chemistry panel included a BUN of 42, creatinine 1.4, and blood sugar 177. BNP of 12,133. Normal TSH. Following admission, the patient was maintained on IV fluids, antibiotics, described being intermittently lethargic, and unresponsive. His imaging studies included a CAT scan of the brain, which revealed mild prominence of ventricles and sulci consistent with atrophy, mild white matter hypoattenuation, no evidence of acute intracranial abnormalities, no midline shift, and no hemorrhage. His initial chest x-ray, mild left basal atelectasis. His latest repeat chest x-ray suspecting mild interstitial edema, left basilar density noted being nonspecific. Echocardiogram, 55%, no mural thrombi noted. He has evidence of dysphagia, maintained on NG-tube feeding. He was unable to participate with the swallow evaluation. With this, family was considering to place him on G-tube feeding. PAST MEDICAL HISTORY: The patient has extensive medical history. This would include prostate CA with surgery 10 years ago, following which he colectomy. He remained bedridden since, being unable to move his lower extremities, and limited strength in both upper extremities. He described as being able to squeeze the hands, but not lift arms. He was diagnosed with functional quadriplegia. He has chronic respiratory failure, prostate CA, chronic anemia, CHF, and decubitus. He has ileostomy in place, kyphoscoliosis, failure to thrive, and what seems cognitive decline. MEDICATIONS: His treatment prior to admission included aspirin, Tylenol, lisinopril, Synthroid, and Zocor. SOCIAL HISTORY: The patient lives at home with the family and his daughter, who is caregiver. No evidence of alcohol or drug abuse. Nonsmoker. FAMILY HISTORY: Noncontributory. REVIEW OF SYSTEMS: Unable to obtain due to the patient's status. PHYSICAL EXAMINATION: GENERAL: A well-developed, cachectic, ill-appearing man, lying in bed with eyes closed, and with significant right neck torticollis. EXTREMITIES: Puffiness in both ankles, deformities in both feet. Arthritic changes in both knees with acute tenderness on palpation. PERIPHERAL PULSES: 1+ symmetric. NEUROLOGIC: Mental Status: The patient is arousable, opens eyes, was able to say his name, occasionally yes or no, able to follow a few simple commands. Remaining predominantly with very limited verbal output. Cranial Nerves CRANIAL NERVE II: Pupils are both responding to light and accommodation. Extraocular movement full range. Fundi poorly visualized. CRANIAL NERVE V: Normal corneal responses. CRANIAL NERVE VII: No gross asymmetry. CRANIAL NERVE VIII: Normal hearing. CRANIAL NERVES IX THROUGH XII: Tongue is in midline. Reduced gag response. MOTOR EXAMINATION: There is severe rigidity to both upper and lower extremities. No spontaneous movements noted in both lower extremities, but was able to move his hands with hand fitness director of 3/5 bilaterally. Deep tendon reflexes depressed bilaterally both biceps, triceps, and brachioradialis. Plantar response is mute. SENSORY EXAMINATION: Withdrawing to pin stimulation in both upper and lower extremities. The patient was unable to sit or stand up. IMPRESSION: 1. Chronic quadriplegia, rule out severe cervical or thoracic myelopathy. 2. Cognitive loss. 3. Transient lethargy, secondary to underlying toxic metabolic encephalopathy contributed by urosepsis and metabolic derangement. 4. Acute on chronic respiratory acidosis. 5. History of prostate cancer. 6. Dysphagia. DISCUSSION: 1. The patient presents with chronic quadriplegia with no changes in his baseline. This new event represents mental status changes, lethargy, most likely related to underlying urosepsis and metabolic derangement. 2. His mental status expected to gradually improve with the current treatment, which includes IV fluids and antibiotics. Issue of swallowing remained and a swallow study will be obtained when fully awake. 3. Hold all unessential treatment, get PT/OT for range of motion protocol. 4. At this time, I find no acute neurological abnormality. He is stable for proper placement. I discussed the patient's status with his son. Thank you for allowing me to see this interesting patient in neurological consultation. Julian Aguilera M.D. DR: Jez JOB#: [id number] CC:
--- NOTE | 2016-11-30 11:24 | Urology Progress Note ---
Assessment/Plan Assessment/Plan 1. Urinary retention with chronic Burton. 2. Benign prostatic hypertrophy history. 3. Probable neurogenic bladder. 4. Hematuria. 5. Urinary tract infection and colonization. 6. Proteinuria. 7. Penile edema. keep burton, last changed 11/29 hand irrigate PRN abx as ordered cysto later d/w pt's son Subjective Allergies: Coded Allergies: No Known Allergies (Verified , 06/30/07) Subjective all noted, new burton draining well Objective Last 24 Hour Vital Signs Date Time Temp Pulse Resp B/P (MAP) Pulse Ox O2 Delivery O2 Flow Rate FiO2 11/30/16 08:45 63 143/85 11/30/16 08:06 Nasal Cannula 4.0 36 11/30/16 08:06 98 Nasal Cannula 4.0 36 11/30/16 08:00 76 11/30/16 08:00 97.2 63 20 143/85 94 Nasal Cannula 4.0 11/30/16 04:00 79 11/30/16 04:00 98.1 83 18 129/79 97 Nasal Cannula 3.0 11/30/16 00:00 97.4 76 20 145/91 99 Nasal Cannula 3.0 11/30/16 00:00 86 11/29/16 21:23 76 139/76 11/29/16 20:00 97.3 79 20 158/78 99 Nasal Cannula 3.0 11/29/16 20:00 76 11/29/16 19:48 97 Nasal Cannula 4.0 36 11/29/16 19:48 Nasal Cannula 4.0 36 11/29/16 16:00 76 11/29/16 16:00 98.5 79 18 146/100 97 Nasal Cannula 4.0 11/29/16 12:00 69 11/29/16 12:00 96.8 77 18 152/99 99 Nasal Cannula 4.0 Intake and Output 11/30/16 12/01/16 19:00 07:00 # Bowel Movements 1 Microbiology Date/Time Source Procedure Growth Status 11/21/16 19:45 Blood Blood Culture - Final NO GROWTH AFTER 5 DAYS Complete 11/21/16 21:30 Nasal Nares MRSA Culture - Final NO METHICILLIN RESISTANT STAPH AUREUS... Complete 11/21/16 19:38 Urine,Clean Catch Urine Culture - Final Escherichia Coli Complete 11/22/16 02:00 Sacral Wound Gram Stain - Final Complete 11/22/16 02:00 Wound Culture - Final Pseudomonas Aeruginosa Escherichia Coli Diphtheroids Complete Current Medications Medications (Trade) Dose Ordered Sig/Jus Route PRN Reason Start Time Stop Time Status Last Admin Dose Admin Acetaminophen (Tylenol) 650 mg Q4HR PRN NG Mild Pain/Temp > 100.5 11/24/16 20:15 12/24/16 20:14 Amlodipine Besylate (Norvasc) 5 mg Q12HR NG 11/27/16 12:00 12/27/16 11:59 11/30/16 08:45 Aspirin (ASA) 81 mg DAILY NG 11/25/16 09:00 12/25/16 08:59 11/30/16 08:42 Atorvastatin Calcium (Lipitor) 10 mg BEDTIME NG 11/24/16 21:00 12/24/16 20:59 11/29/16 21:20 Clonidine HCl (Catapres) 0.1 mg Q4H PRN NG SBP > 160mmHg 11/27/16 10:15 12/27/16 10:14 11/28/16 03:58 Dextrose (Dextrose 50%) STAT PRN IV Hypoglycemia 11/25/16 20:15 12/25/16 20:14 11/27/16 12:07 Enoxaparin Sodium (Lovenox) 80 mg EVERY 12 HOURS SUBQ 11/24/16 21:00 12/23/16 09:14 11/30/16 08:50 Insulin Aspart (NovoLOG) AC+HS SUBQ 11/29/16 21:00 12/26/16 00:00 Levothyroxine Sodium (Synthroid) 100 mcg ACBREAKFAST NG 11/25/16 06:30 12/25/16 06:29 11/30/16 06:43 Magnesium Hydroxide (Mom) 30 ml DAILYPRN PRN NG Constipation 11/24/16 20:15 12/24/16 20:14 Meropenem 1 gm/ Sodium Chloride 110 ml @ 220 mls/hr EVERY 12 HOURS IVPB 11/25/16 10:00 12/04/16 09:59 11/30/16 08:49 Nystatin (Nystop Powder) 1 applic THREE TIMES A DAY TOPIC 11/25/16 09:00 12/25/16 08:59 11/30/16 08:47 Ondansetron HCl (Zofran) 4 mg Q6H PRN IVP Nausea & Vomiting 11/24/16 19:00 12/21/16 18:59 Ranitidine HCl (Zantac) 150 mg Q12HR NG 11/26/16 21:00 12/26/16 20:59 11/30/16 08:41 Vancomycin HCl (Vanco rx to dose) 1 ea DAILY PRN MISC Per rx protocol 11/24/16 19:00 12/24/16 18:59 Laboratory Tests 11/29/16 22:30: Vancomycin Level Trough 22.5H Height (Feet): 6 Height (Inches): 1.00 Weight (Pounds): 240 Objective exam stable TRISTIAN RIOS Nov 30, 2016 11:24
[2016-11-30 12:00] VITALS: BP 149/86
[2016-11-30 16:00] VITALS: BP 138/87
[2016-11-30 20:25] VITALS: BP 128/77
[2016-11-30] MEDS: Vancomycin 1gm/D5W 275ml IVPB SCH ×2 (23:19)
[2016-12-01] VITALS (7 sets, daily range): BP systolic 116–155; BP diastolic 76–96
--- NOTE | 2016-12-01 00:45 | Progress Note ---
DATE: 11/30/2016 CARDIOLOGY PROGRESS NOTE SUBJECTIVE: The patient was able to complete a video swallow study and is cleared for oral intake. He continues on antimicrobials for acute infection. OBJECTIVE: VITAL SIGNS: Blood pressure 143/85, pulse 63, and respiratory rate 20. No fevers. NECK: Supple. LUNGS: Clear. CARDIAC: Regular rhythm and rate. Normal S1 and S2. ABDOMEN: Soft. EXTREMITIES: No edema. LABORATORY DATA: From 11/29/2016 were reviewed. IMPRESSION: 1. Severe sepsis. 2. Urinary tract infection. 3. Dysphagia. 4. Recovered shock. 5. Hypertensive heart disease, now with stable blood pressure range. 6. Recovering encephalopathy. PLAN: 1. Oral intake. 2. Continue current antihypertensives. 3. Maintain adequate fluid hydration by oral route. 4. DVT prophylaxis. Omkar Turk M.D. DR: Eriberto JOB#: [id number] CC:
[2016-12-01] MEDS: NovoLOG Insulin Flexpen SUBQ SCH ×4 (06:23→21:00)
[2016-12-01 07:45] LABS: BASOPHILS % (AUTO) 1.1 % (0.0-2.0); EOSINOPHILS % (AUTO) 3.4 % (0.0-3.0); LYMPHOCYTES % (AUTO) 27.5 % (20.0-45.0); MEAN CORPUSCULAR HEMOGLOBIN 28.5 PG (27.0-31.0); MEAN CORPUSCULAR HGB CONC 31.9 G/DL (32.0-36.0); MEAN CORPUSCULAR VOLUME 89 FL (80-99); MEAN PLATELET VOLUME 9.4 FL (6.5-10.1); MONOCYTES % (AUTO) 9.4 % (1.0-10.0); NEUTROPHILS % (AUTO) 58.7 % (45.0-75.0); PLATELET COUNT 206 K/UL (150-450); RED BLOOD COUNT 3.93 M/UL (4.70-6.10); RED CELL DISTRIBUTION WIDTH 18.2 % (11.6-14.8); WHITE BLOOD COUNT 6.2 K/UL (4.8-10.8)
[2016-12-01 08:44] LABS: ANION GAP 8 (5-15); CARBON DIOXIDE 34 mEQ/L (20-30); CHLORIDE 100 mEQ/L (98-107); CREATININE 0.5 mg/dL (0.7-1.2); HEMOLYSIS 1; POTASSIUM 3.6 mEQ/L (3.4-4.9); SODIUM 142 mEQ/L (135-145)
--- NOTE | 2016-12-01 08:53 | General Progress Note ---
Assessment/Plan Problem List: (1) Sepsis ICD Codes: A41.9 - Sepsis, unspecified organism SNOMED: 20082384 (2) Renal insufficiency ICD Codes: N28.9 - Disorder of kidney and ureter, unspecified; R65.20 - Severe sepsis without septic shock SNOMED: 425543734 (3) Hypoxia ICD Codes: R09.02 - Hypoxemia; R65.20 - Severe sepsis without septic shock SNOMED: 716426472, [id number] (4) Severe sepsis ICD Codes: A41.9 - Sepsis, unspecified organism; R65.20 - Severe sepsis without septic shock SNOMED: 37294001 (5) Altered level of consciousness ICD Codes: R40.4 - Transient alteration of awareness SNOMED: 0732218 Status: stable, progressing Assessment/Plan stable. lethargy not improved. ?chronic encourage pos. monitor for aspiration monitor labs and fluid status resp rx ecoli uti- on amaya/vanco wound care abx improving remains guarded dc planning when abx complete. Subjective ROS Limited/Unobtainable: No Constitutional: Reports: malaise, weakness HEENT: Reports: no symptoms Cardiovascular: Reports: no symptoms Respiratory: Reports: no symptoms Gastrointestinal/Abdominal: Reports: no symptoms Genitourinary: Reports: no symptoms Neurologic/Psychiatric: Reports: pre-existing deficit Endocrine: Reports: no symptoms Hematologic/Lymphatic: Reports: anemia Allergies: Coded Allergies: No Known Allergies (Verified , 06/30/07) All Systems: reviewed and negative except above Subjective no events. resting. poor po's <25%. no sob. remains sleepy/lethargic Objective Last 24 Hour Vital Signs Date Time Temp Pulse Resp B/P (MAP) Pulse Ox O2 Delivery O2 Flow Rate FiO2 12/01/16 08:38 97.0 68 20 116/76 100 Nasal Cannula 4.0 12/01/16 04:00 97.0 75 18 146/89 100 Nasal Cannula 2.0 12/01/16 04:00 58 12/01/16 00:28 97.2 76 20 145/84 100 Nasal Cannula 2.0 12/01/16 00:00 58 11/30/16 21:19 78 147/90 11/30/16 20:25 97.2 80 20 128/77 98 Room Air 11/30/16 20:00 84 11/30/16 19:51 98 Nasal Cannula 4.0 36 11/30/16 19:51 Nasal Cannula 4.0 36 11/30/16 19:10 97 Nasal Cannula 4.0 36 11/30/16 19:10 Nasal Cannula 4.0 36 11/30/16 16:00 97.0 77 20 138/87 98 Nasal Cannula 4.0 11/30/16 16:00 77 11/30/16 12:00 97.6 62 21 149/86 98 Nasal Cannula 4.0 11/30/16 12:00 56 Intake and Output 12/01/16 12/02/16 19:00 07:00 Intake Total 120 ml Balance 120 ml Intake Oral 120 ml Laboratory Tests 12/01/16 05:25: White Blood Count 6.2, Red Blood Count 3.93L, Hemoglobin 11.2L, Hematocrit 35.1L , Mean Corpuscular Volume 89, Mean Corpuscular Hemoglobin 28.5, Mean Corpuscular Hemoglobin Concent 31.9L, Red Cell Distribution Width 18.2H, Platelet Count 206, Mean Platelet Volume 9.4, Neutrophils (%) (Auto) 58.7, Lymphocytes (%) (Auto) 27.5, Monocytes (%) (Auto) 9.4, Eosinophils (%) (Auto) 3.4H, Basophils (%) (Auto) 1.1, Sodium Level 142, Potassium Level 3.6, Chloride Level 100, Carbon Dioxide Level 34H, Anion Gap 8, Blood Urea Nitrogen 8, Creatinine 0.5L, Estimat Glomerular Filtration Rate , Glucose Level 82, Calcium Level 9.0 Height (Feet): 6 Height (Inches): 1.00 Weight (Pounds): 245 Objective General Appearance: WD/WN, lethargic, confused Neck: supple Cardiovascular: normal rate, regular rhythm Respiratory/Chest: chest wall non-tender, lungs clear, normal breath sounds, no respiratory distress, no accessory muscle use Abdomen: normal bowel sounds, non tender, soft, no organomegaly Edema: mild edema Neurologic: disoriented and lethargic SAM BARDALES Dec 01, 2016 08:53
--- NOTE | 2016-12-01 08:57 | Diagnostic Imaging Report ---
Indication: SOB Technique: XRAY CHEST 1 V. Comparison: 11/27/2016 Findings: The heart remains enlarged. Aorta is calcified. No new infiltrates are identified. There is opacification of the left lung base. Calcified nodes are noted in the aortopulmonary window. A nasogastric tube has been removed. Impression: Cardiomegaly. Removal of the nasogastric tube. Left lower lobe volume loss or infiltrate.
[2016-12-01] MEDS: Meropenem 1 GM in NS 110 ML IVPB SCH ×2 (09:21→21:11)
[2016-12-01] MEDS: Aspirin Baby 81mg NG SCH (09:21)
[2016-12-01] MEDS: Heparin 5000 units/ml inj SUBQ SCH ×2 (09:28→21:16)
[2016-12-01] MEDS: Nystatin Powder 100,000 units/gm 15gm TOPIC SCH ×3 (09:32→18:12)
--- NOTE | 2016-12-01 09:47 | Urology Progress Note ---
Assessment/Plan Assessment/Plan 1. Urinary retention with chronic Burton. 2. Benign prostatic hypertrophy history. 3. Probable neurogenic bladder. 4. Hematuria. 5. Urinary tract infection and colonization. 6. Proteinuria. 7. Penile edema. keep burton, last changed 11/29 hand irrigate PRN abx as ordered cysto later Subjective Allergies: Coded Allergies: No Known Allergies (Verified , 06/30/07) Subjective all noted Objective Last 24 Hour Vital Signs Date Time Temp Pulse Resp B/P (MAP) Pulse Ox O2 Delivery O2 Flow Rate FiO2 12/01/16 09:22 68 116/76 12/01/16 08:38 97.0 68 20 116/76 100 Nasal Cannula 4.0 12/01/16 08:04 Nasal Cannula 4.0 36 12/01/16 08:03 99 Nasal Cannula 4.0 36 12/01/16 04:00 97.0 75 18 146/89 100 Nasal Cannula 2.0 12/01/16 04:00 58 12/01/16 00:28 97.2 76 20 145/84 100 Nasal Cannula 2.0 12/01/16 00:00 58 11/30/16 21:19 78 147/90 11/30/16 20:25 97.2 80 20 128/77 98 Room Air 11/30/16 20:00 84 11/30/16 19:51 98 Nasal Cannula 4.0 36 11/30/16 19:51 Nasal Cannula 4.0 36 11/30/16 19:10 97 Nasal Cannula 4.0 36 11/30/16 19:10 Nasal Cannula 4.0 36 11/30/16 16:00 97.0 77 20 138/87 98 Nasal Cannula 4.0 11/30/16 16:00 77 11/30/16 12:00 97.6 62 21 149/86 98 Nasal Cannula 4.0 11/30/16 12:00 56 Intake and Output 12/01/16 12/02/16 19:00 07:00 Intake Total 120 ml Balance 120 ml Intake Oral 120 ml Microbiology Date/Time Source Procedure Growth Status 11/21/16 19:45 Blood Blood Culture - Final NO GROWTH AFTER 5 DAYS Complete 11/21/16 21:30 Nasal Nares MRSA Culture - Final NO METHICILLIN RESISTANT STAPH AUREUS... Complete 11/21/16 19:38 Urine,Clean Catch Urine Culture - Final Escherichia Coli Complete 11/22/16 02:00 Sacral Wound Gram Stain - Final Complete 11/22/16 02:00 Wound Culture - Final Pseudomonas Aeruginosa Escherichia Coli Diphtheroids Complete Current Medications Medications (Trade) Dose Ordered Sig/Jus Route PRN Reason Start Time Stop Time Status Last Admin Dose Admin Acetaminophen (Tylenol) 650 mg Q4HR PRN NG Mild Pain/Temp > 100.5 11/24/16 20:15 12/24/16 20:14 Amlodipine Besylate (Norvasc) 5 mg Q12HR NG 11/27/16 12:00 12/27/16 11:59 12/01/16 09:22 Aspirin (ASA) 81 mg DAILY NG 11/25/16 09:00 12/25/16 08:59 12/01/16 09:21 Atorvastatin Calcium (Lipitor) 10 mg BEDTIME NG 11/24/16 21:00 12/24/16 20:59 11/30/16 21:18 Clonidine HCl (Catapres) 0.1 mg Q4H PRN NG SBP > 160mmHg 11/27/16 10:15 12/27/16 10:14 11/28/16 03:58 Dextrose (Dextrose 50%) STAT PRN IV Hypoglycemia 11/25/16 20:15 12/25/16 20:14 11/30/16 11:38 Heparin Sodium (Porcine) (Heparin 5000 units/ml) 5,000 units EVERY 12 HOURS SUBQ 12/01/16 09:00 12/31/16 08:59 12/01/16 09:28 Insulin Aspart (NovoLOG) AC+HS SUBQ 11/29/16 21:00 12/26/16 00:00 Levothyroxine Sodium (Synthroid) 100 mcg ACBREAKFAST NG 11/25/16 06:30 12/25/16 06:29 12/01/16 06:21 Magnesium Hydroxide (Mom) 30 ml DAILYPRN PRN NG Constipation 11/24/16 20:15 12/24/16 20:14 Meropenem 1 gm/ Sodium Chloride 110 ml @ 220 mls/hr EVERY 12 HOURS IVPB 11/25/16 10:00 12/04/16 09:59 12/01/16 09:21 Nystatin (Nystop Powder) 1 applic THREE TIMES A DAY TOPIC 11/25/16 09:00 12/25/16 08:59 12/01/16 09:32 Ondansetron HCl (Zofran) 4 mg Q6H PRN IVP Nausea & Vomiting 11/24/16 19:00 12/21/16 18:59 Ranitidine HCl (Zantac) 150 mg Q12HR NG 11/26/16 21:00 12/26/16 20:59 12/01/16 09:21 Vancomycin HCl (Vanco rx to dose) 1 ea DAILY PRN MISC Per rx protocol 11/24/16 19:00 12/24/16 18:59 Vancomycin HCl 1 gm/Dextrose 275 ml @ 183.708 mls/hr Q24H IVPB 11/30/16 23:00 12/05/16 22:59 11/30/16 23:19 Laboratory Tests 12/01/16 05:25: White Blood Count 6.2, Red Blood Count 3.93L, Hemoglobin 11.2L, Hematocrit 35.1L , Mean Corpuscular Volume 89, Mean Corpuscular Hemoglobin 28.5, Mean Corpuscular Hemoglobin Concent 31.9L, Red Cell Distribution Width 18.2H, Platelet Count 206, Mean Platelet Volume 9.4, Neutrophils (%) (Auto) 58.7, Lymphocytes (%) (Auto) 27.5, Monocytes (%) (Auto) 9.4, Eosinophils (%) (Auto) 3.4H, Basophils (%) (Auto) 1.1, Sodium Level 142, Potassium Level 3.6, Chloride Level 100, Carbon Dioxide Level 34H, Anion Gap 8, Blood Urea Nitrogen 8, Creatinine 0.5L, Estimat Glomerular Filtration Rate , Glucose Level 82, Calcium Level 9.0 Height (Feet): 6 Height (Inches): 1.00 Weight (Pounds): 245 Objective exam stable TRISTIAN RIOS Dec 01, 2016 09:47
--- NOTE | 2016-12-01 10:55 | Critical Care Progress Note ---
Assessment/Plan Assessment/Plan IMPRESSION: 1. Respiratory failure. 2. Acute on chronic respiratory acidosis. 3. Functional quadriplegia. 4. Prostate cancer. 5. Severe protein-calorie malnutrition. 6. As per code status, no intubation, no gastrostomy tube. 7. Possible urinary tract infection. 8. Possible sepsis. 9. Hypotension. 10. sacral wound PLAN care noted all noted and reviewed respiratory care pulmonary same low flow oxygen as needed SNF meds noted supportive care suction as needed aspiration precautions dc planning ok per pulmonary exam reviewed medications/laboratory data/nursing notes reviewed in detail note reviewed and edited care discussed with RN and RT Critical Care - Subjective Interval Events: care noted and reviewed respiratory care noted findings reviewed Condition: stable EKG Rhythm: Sinus Rhythm I&O: Intake and Output 12/01/16 12/02/16 19:00 07:00 Intake Total 120 ml Balance 120 ml Intake Oral 120 ml # Bowel Movements 1 Critical Care - Objective Last 24 Hour Vital Signs Date Time Temp Pulse Resp B/P (MAP) Pulse Ox O2 Delivery O2 Flow Rate FiO2 12/01/16 09:22 68 116/76 12/01/16 08:38 97.0 68 20 116/76 100 Nasal Cannula 4.0 12/01/16 08:04 Nasal Cannula 4.0 36 12/01/16 08:03 99 Nasal Cannula 4.0 36 12/01/16 04:00 97.0 75 18 146/89 100 Nasal Cannula 2.0 12/01/16 04:00 58 12/01/16 00:28 97.2 76 20 145/84 100 Nasal Cannula 2.0 12/01/16 00:00 58 11/30/16 21:19 78 147/90 11/30/16 20:25 97.2 80 20 128/77 98 Room Air 11/30/16 20:00 84 11/30/16 19:51 98 Nasal Cannula 4.0 36 11/30/16 19:51 Nasal Cannula 4.0 36 11/30/16 19:10 97 Nasal Cannula 4.0 36 11/30/16 19:10 Nasal Cannula 4.0 36 11/30/16 16:00 97.0 77 20 138/87 98 Nasal Cannula 4.0 11/30/16 16:00 77 11/30/16 12:00 97.6 62 21 149/86 98 Nasal Cannula 4.0 11/30/16 12:00 56 Labs: Labs Test 11/29/16 07:45 11/29/16 22:30 12/01/16 05:25 White Blood Count 6.5 K/UL (4.8-10.8) 6.2 K/UL (4.8-10.8) Red Blood Count 3.84 M/UL (4.70-6.10) 3.93 M/UL (4.70-6.10) Hemoglobin 10.9 G/DL (14.2-18.0) 11.2 G/DL (14.2-18.0) Hematocrit 35.2 % (42.0-52.0) 35.1 % (42.0-52.0) Mean Corpuscular Volume 92 FL (80-99) 89 FL (80-99) Mean Corpuscular Hemoglobin 28.4 PG (27.0-31.0) 28.5 PG (27.0-31.0) Mean Corpuscular Hemoglobin Concent 31.0 G/DL (32.0-36.0) 31.9 G/DL (32.0-36.0) Red Cell Distribution Width 18.8 % (11.6-14.8) 18.2 % (11.6-14.8) Platelet Count 177 K/UL (150-450) 206 K/UL (150-450) Mean Platelet Volume 7.3 FL (6.5-10.1) 9.4 FL (6.5-10.1) Neutrophils (%) (Auto) 62.8 % (45.0-75.0) 58.7 % (45.0-75.0) Lymphocytes (%) (Auto) 21.6 % (20.0-45.0) 27.5 % (20.0-45.0) Monocytes (%) (Auto) 9.2 % (1.0-10.0) 9.4 % (1.0-10.0) Eosinophils (%) (Auto) 5.2 % (0.0-3.0) 3.4 % (0.0-3.0) Basophils (%) (Auto) 1.2 % (0.0-2.0) 1.1 % (0.0-2.0) Sodium Level 140 mEQ/L (135-145) 142 mEQ/L (135-145) Potassium Level 3.6 mEQ/L (3.4-4.9) 3.6 mEQ/L (3.4-4.9) Chloride Level 101 mEQ/L (98-107) 100 mEQ/L (98-107) Carbon Dioxide Level 33 mEQ/L (20-30) 34 mEQ/L (20-30) Anion Gap 6 (5-15) 8 (5-15) Blood Urea Nitrogen 12 mg/dL (7-23) 8 mg/dL (7-23) Creatinine 0.5 mg/dL (0.7-1.2) 0.5 mg/dL (0.7-1.2) Estimat Glomerular Filtration Rate mL/min (>60) mL/min (>60) Glucose Level 112 mg/dL (74-106) 82 mg/dL (74-106) Calcium Level 8.9 mg/dL (8.6-10.2) 9.0 mg/dL (8.6-10.2) Total Bilirubin 0.5 mg/dL (0.0-1.2) Aspartate Amino Transf (AST/SGOT) 11 U/L (5-40) Alanine Aminotransferase (ALT/SGPT) 9 U/L (3-41) Alkaline Phosphatase 62 U/L (40-129) Total Protein 6.5 g/dL (6.6-8.7) Albumin 2.5 g/dL (3.5-5.2) Globulin 4.0 g/dL Albumin/Globulin Ratio 0.6 (1.0-2.7) Vancomycin Level Trough 22.5 ug/mL (5.0-12.0) Objective: GENERAL: A well-developed male, chronically ill. HEENT: Negative. Pupils not reactive. The patient is currently on NC mask. LUNGS: With occasional rhonchi without change. Moderate air entry. no wheeze CARDIAC: Regular rate and rhythm. Distant without murmurs, rubs, or gallops. ABDOMEN: Soft, nontender, and nondistended. no HSM EXTREMITIES: No cyanosis or clubbing. mild edema NEUROLOGICAL: Significantly withdrawn at this time. Difficult to fully assess. SKIN: Noted. Reviewed. reviewed and edited Accucheck: 73 NICHOLAS ROJAS Dec 01, 2016 10:55
--- NOTE | 2016-12-01 14:31 | Infectious Diseases Prog Note ---
Assessment/Plan Assessment/Plan A) 1) e.coli uti, sepsis, atx, fevers, hx pna, pseudomonas/e.coli sacral wound infection, ? aspiration pna/hap pna, ?onychomycosis of toes - clinically improved and stable - consider podiatry evaluation of toes 2) htn, hypothyroidism, ileostomy, cva, dementia, prostate ca, qp, ftt 3) allergies - negative, fh-nc, sh-negative, mar noted, 4) notes and records reviewed 5) d/w RN and son P) 1) meropenem and vancomycin x 3 days more 2) watch labs and check f/u chest x-ray 3) wound culture per protocol 4) continue treatment per primary and consultants 5) orders entered and noted 6) telemetry care 7) d/w pharmacy Subjective Constitutional: Denies: fever HEENT: Denies: congestion Respiratory: Denies: shortness of breath Cardiovascular: Denies: chest pain Gastrointestinal/Abdominal: Denies: nausea, vomiting, diarrhea Genitourinary: Reports: other - + burton Neurologic: Denies: headache Psychiatric: Denies: depression Skin: Denies: rash Hematologic: Denies: bleeding Musculoskeletal: Reports: pain Allergies: Coded Allergies: No Known Allergies (Verified , 06/30/07) Objective Vital Signs Last 24 Hour Vital Signs Date Time Temp Pulse Resp B/P (MAP) Pulse Ox O2 Delivery O2 Flow Rate FiO2 12/01/16 12:36 97.2 63 20 137/87 100 Nasal Cannula 4.0 12/01/16 12:00 54 12/01/16 09:22 68 116/76 12/01/16 08:38 97.0 68 20 116/76 100 Nasal Cannula 4.0 12/01/16 08:04 Nasal Cannula 4.0 36 12/01/16 08:03 99 Nasal Cannula 4.0 36 12/01/16 08:00 59 12/01/16 04:00 97.0 75 18 146/89 100 Nasal Cannula 2.0 12/01/16 04:00 58 12/01/16 00:28 97.2 76 20 145/84 100 Nasal Cannula 2.0 12/01/16 00:00 58 11/30/16 21:19 78 147/90 11/30/16 20:25 97.2 80 20 128/77 98 Room Air 11/30/16 20:00 84 11/30/16 19:51 98 Nasal Cannula 4.0 36 11/30/16 19:51 Nasal Cannula 4.0 36 11/30/16 19:10 97 Nasal Cannula 4.0 36 11/30/16 19:10 Nasal Cannula 4.0 36 11/30/16 16:00 97.0 77 20 138/87 98 Nasal Cannula 4.0 11/30/16 16:00 77 Height (Feet): 6 Height (Inches): 1.00 Weight (Pounds): 245 General Appearance: no acute distress HEENT: normocephalic, atraumatic, anicteric, EOMI, supple, no JVD Respiratory/Chest: lungs clear, normal breath sounds, no respiratory distress, no accessory muscle use Cardiovascular: normal rate, regular rhythm, no gallop/murmur, no JVD Abdomen: normal bowel sounds, soft, non tender, no organomegaly, non distended Genitourinary: other - + burton - urine slt cloudy Extremities: other - toes noted, ? 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 This agrees with the preliminary interpretation provided overnight by [facility] teleradiology service. 11/27 - Chest x-ray: Impression: Suspect mild interstitial edema. Left basilar density nonspecific. 11/27 - chest x-ray Impression: Suspect mild interstitial edema. Left basilar density nonspecific. 12/01 - chest x-ray: Impression: Cardiomegaly. Removal of the nasogastric tube. Left lower lobe volume loss or infiltrate. Microbiology Date/Time Source Procedure Growth Status 11/21/16 19:45 Blood Blood Culture - Final NO GROWTH AFTER 5 DAYS Complete 11/21/16 21:30 Nasal Nares MRSA Culture - Final NO METHICILLIN RESISTANT STAPH AUREUS... Complete 11/21/16 19:38 Urine,Clean Catch Urine Culture - Final Escherichia Coli Complete 11/22/16 02:00 Sacral Wound Gram Stain - Final Complete 11/22/16 02:00 Wound Culture - Final Pseudomonas Aeruginosa Escherichia Coli Diphtheroids Complete Laboratory Tests Test 12/01/16 05:25 White Blood Count 6.2 K/UL (4.8-10.8) Red Blood Count 3.93 M/UL (4.70-6.10) L Hemoglobin 11.2 G/DL (14.2-18.0) L Hematocrit 35.1 % (42.0-52.0) L Mean Corpuscular Volume 89 FL (80-99) Mean Corpuscular Hemoglobin 28.5 PG (27.0-31.0) Mean Corpuscular Hemoglobin Concent 31.9 G/DL (32.0-36.0) L Red Cell Distribution Width 18.2 % (11.6-14.8) H Platelet Count 206 K/UL (150-450) Mean Platelet Volume 9.4 FL (6.5-10.1) Neutrophils (%) (Auto) 58.7 % (45.0-75.0) Lymphocytes (%) (Auto) 27.5 % (20.0-45.0) Monocytes (%) (Auto) 9.4 % (1.0-10.0) Eosinophils (%) (Auto) 3.4 % (0.0-3.0) H Basophils (%) (Auto) 1.1 % (0.0-2.0) Sodium Level 142 mEQ/L (135-145) Potassium Level 3.6 mEQ/L (3.4-4.9) Chloride Level 100 mEQ/L (98-107) Carbon Dioxide Level 34 mEQ/L (20-30) H Anion Gap 8 (5-15) Blood Urea Nitrogen 8 mg/dL (7-23) Creatinine 0.5 mg/dL (0.7-1.2) L Estimat Glomerular Filtration Rate mL/min (>60) Glucose Level 82 mg/dL (74-106) Calcium Level 9.0 mg/dL (8.6-10.2) Current Medications Medications (Trade) Dose Ordered Sig/Jus Route PRN Reason Start Time Stop Time Status Last Admin Dose Admin Acetaminophen (Tylenol) 650 mg Q4HR PRN NG Mild Pain/Temp > 100.5 11/24/16 20:15 12/24/16 20:14 Amlodipine Besylate (Norvasc) 5 mg Q12HR NG 11/27/16 12:00 12/27/16 11:59 12/01/16 09:22 Aspirin (ASA) 81 mg DAILY NG 11/25/16 09:00 12/25/16 08:59 12/01/16 09:21 Atorvastatin Calcium (Lipitor) 10 mg BEDTIME NG 11/24/16 21:00 12/24/16 20:59 11/30/16 21:18 Clonidine HCl (Catapres) 0.1 mg Q4H PRN NG SBP > 160mmHg 11/27/16 10:15 12/27/16 10:14 11/28/16 03:58 Dextrose (Dextrose 50%) STAT PRN IV Hypoglycemia 11/25/16 20:15 12/25/16 20:14 11/30/16 11:38 Heparin Sodium (Porcine) (Heparin 5000 units/ml) 5,000 units EVERY 12 HOURS SUBQ 12/01/16 09:00 12/31/16 08:59 12/01/16 09:28 Insulin Aspart (NovoLOG) AC+HS SUBQ 11/29/16 21:00 12/26/16 00:00 Levothyroxine Sodium (Synthroid) 100 mcg ACBREAKFAST NG 11/25/16 06:30 12/25/16 06:29 12/01/16 06:21 Magnesium Hydroxide (Mom) 30 ml DAILYPRN PRN NG Constipation 11/24/16 20:15 12/24/16 20:14 Meropenem 1 gm/ Sodium Chloride 110 ml @ 220 mls/hr EVERY 12 HOURS IVPB 11/25/16 10:00 12/04/16 09:59 12/01/16 09:21 Nystatin (Nystop Powder) 1 applic THREE TIMES A DAY TOPIC 11/25/16 09:00 12/25/16 08:59 12/01/16 09:32 Ondansetron HCl (Zofran) 4 mg Q6H PRN IVP Nausea & Vomiting 11/24/16 19:00 12/21/16 18:59 Ranitidine HCl (Zantac) 150 mg Q12HR NG 11/26/16 21:00 12/26/16 20:59 12/01/16 09:21 Vancomycin HCl (Vanco rx to dose) 1 ea DAILY PRN MISC Per rx protocol 11/24/16 19:00 12/24/16 18:59 Vancomycin HCl 1 gm/Dextrose 275 ml @ 183.708 mls/hr Q24H IVPB 11/30/16 23:00 12/05/16 22:59 11/30/16 23:19 KISHOR VALLE Dec 01, 2016 14:31
[2016-12-01] MEDS ORDERED: Tubing IV Secondary IV ONE (15:39)
[2016-12-01] MEDS ORDERED: D5NS 1000ml IV ONE (15:39)
[2016-12-01] MEDS ORDERED: NS 275ml ONE (15:39)
[2016-12-01] MEDS ORDERED: Sterile Water Irrig 1000ml IRRIG ONE (15:39)
[2016-12-01] MEDS: Vancomycin 1gm/D5W 275ml IVPB SCH ×2 (22:59)
--- NOTE | 2016-12-02 03:00 | Progress Note ---
DATE: 12/01/2016 CARDIOLOGY PROGRESS NOTE SUBJECTIVE: The patient has poor oral intake. No shortness of breath. He is frequently lethargic and sleepy. He continues on antibiotics. Monitored rhythm, sinus with rare atrial ectopics. OBJECTIVE: VITAL SIGNS: Blood pressure is 116/76, pulse 68, respiratory rate 20, and afebrile. NECK: Supple. LUNGS: Clear other than few rhonchi. CARDIAC: Regular rhythm and rate. Normal S1 and S2 with a fourth heart sound. ABDOMEN: Soft. EXTREMITIES: There is no edema. LABORATORY DATA: White count is 6.2 and hemoglobin 11.2. Sodium is 142, potassium 3.6, bicarbonate 34, BUN 8, and creatinine 0.5. DIAGNOSTIC DATA: Chest x-ray today reveals cardiomegaly, left lower lobe infiltrate versus atelectasis. IMPRESSION: 1. Sepsis. 2. Urinary tract infection, possible nosocomial pneumonia. 3. Hypertensive heart disease. 4. Ileostomy. 5. Cerebrovascular accident with dementia. 6. Hypothyroidism, on replacement therapy. 7. Metabolic and toxic encephalopathy, slowly improving. PLAN: 1. Continue antibiotics. 2. Respiratory hygiene. 3. Volume support. 4. Encourage oral intake. 5. Respiratory hygiene. 6. Deep venous thrombosis and stress ulcer prophylaxes. 7. Discontinue cardiac monitoring. Omkar Turk M.D. DR: Steven JOB#: [id number] CC:
[2016-12-02 03:47] VITALS: BP 152/88
[2016-12-02] MEDS: NovoLOG Insulin Flexpen SUBQ SCH ×4 (06:30→20:52)
[2016-12-02 08:34] VITALS: BP 138/78
[2016-12-02] MEDS ORDERED: Nystatin Powder 100,000 units/gm 15gm TOPIC SCH (09:00)
[2016-12-02] MEDS: Nystatin Powder 100,000 units/gm 15gm TOPIC SCH ×3 (09:00→17:11)
[2016-12-02] MEDS ORDERED: Heparin 5000 units/ml inj SUBQ SCH (09:00)
[2016-12-02] MEDS ORDERED: Meropenem 1 GM in NS 110 ML IVPB SCH (09:00)
[2016-12-02] MEDS ORDERED: Aspirin Baby 81mg NG SCH (09:00)
[2016-12-02] MEDS ORDERED: Acetaminophen 650mg/20.3ml NG PRN ×2 (09:00)
--- NOTE | 2016-12-02 09:10 | Urology Progress Note ---
Assessment/Plan Assessment/Plan 1. Urinary retention with chronic Burton. 2. Benign prostatic hypertrophy history. 3. Probable neurogenic bladder. 4. Hematuria. 5. Urinary tract infection and colonization. 6. Proteinuria. 7. Penile edema. keep burton, last changed 11/29 hand irrigate PRN abx as ordered cysto later consider recheck urine cx Subjective Allergies: Coded Allergies: No Known Allergies (Verified , 06/30/07) Subjective all noted Objective Last 24 Hour Vital Signs Date Time Temp Pulse Resp B/P (MAP) Pulse Ox O2 Delivery O2 Flow Rate FiO2 12/02/16 08:34 97.3 57 20 138/78 98 Nasal Cannula 3.0 12/02/16 08:00 77 12/02/16 04:00 78 12/02/16 03:47 98.1 78 22 152/88 94 Room Air 4.0 12/02/16 00:00 77 12/01/16 23:57 98.6 77 20 155/96 98 Nasal Cannula 4.0 12/01/16 21:13 80 139/86 12/01/16 20:15 97.8 79 21 151/89 97 Nasal Cannula 4.0 12/01/16 20:00 78 12/01/16 19:50 97 Nasal Cannula 4.0 36 12/01/16 19:50 Nasal Cannula 4.0 36 12/01/16 16:00 60 12/01/16 15:53 97.0 63 20 135/82 99 Nasal Cannula 4.0 12/01/16 12:36 97.2 63 20 137/87 100 Nasal Cannula 4.0 12/01/16 12:00 54 12/01/16 09:22 68 116/76 Intake and Output 12/02/16 12/03/16 19:00 07:00 Intake Total 25 ml Balance 25 ml Intake Oral 25 ml Microbiology Date/Time Source Procedure Growth Status 11/21/16 19:45 Blood Blood Culture - Final NO GROWTH AFTER 5 DAYS Complete 11/21/16 21:30 Nasal Nares MRSA Culture - Final NO METHICILLIN RESISTANT STAPH AUREUS... Complete 11/21/16 19:38 Urine,Clean Catch Urine Culture - Final Escherichia Coli Complete 11/22/16 02:00 Sacral Wound Gram Stain - Final Complete 11/22/16 02:00 Wound Culture - Final Pseudomonas Aeruginosa Escherichia Coli Diphtheroids Complete Current Medications Medications (Trade) Dose Ordered Sig/Jus Route PRN Reason Start Time Stop Time Status Last Admin Dose Admin Acetaminophen (Tylenol) 650 mg Q4HR PRN NG Mild Pain/Temp > 100.5 12/02/16 09:00 12/24/16 20:14 Amlodipine Besylate (Norvasc) 5 mg Q12HR NG 12/02/16 09:00 12/27/16 11:59 Aspirin (ASA) 81 mg DAILY NG 12/02/16 09:00 12/25/16 08:59 Atorvastatin Calcium (Lipitor) 10 mg BEDTIME NG 12/02/16 21:00 12/24/16 20:59 Clonidine HCl (Catapres) 0.1 mg Q4H PRN NG SBP > 160mmHg 12/02/16 10:15 12/27/16 10:14 Dextrose (Dextrose 50%) STAT PRN IV Hypoglycemia 12/02/16 20:15 12/25/16 20:14 Heparin Sodium (Porcine) (Heparin 5000 units/ml) 5,000 units EVERY 12 HOURS SUBQ 12/02/16 09:00 12/31/16 08:59 Insulin Aspart (NovoLOG) AC+HS SUBQ 12/02/16 11:30 12/26/16 00:00 Levothyroxine Sodium (Synthroid) 100 mcg ACBREAKFAST NG 12/03/16 06:30 12/25/16 06:29 Magnesium Hydroxide (Mom) 30 ml DAILYPRN PRN NG Constipation 12/02/16 20:15 12/24/16 20:14 Meropenem 1 gm/ Sodium Chloride 110 ml @ 220 mls/hr EVERY 12 HOURS IVPB 12/02/16 09:00 12/04/16 09:59 Nystatin (Nystop Powder) 1 applic THREE TIMES A DAY TOPIC 12/02/16 09:00 12/25/16 08:59 Ondansetron HCl (Zofran) 4 mg Q6H PRN IVP Nausea & Vomiting 12/02/16 13:00 12/21/16 18:59 Ranitidine HCl (Zantac) 150 mg Q12HR NG 12/02/16 09:00 12/26/16 20:59 Vancomycin HCl (Vanco rx to dose) 1 ea DAILY PRN MISC Per rx protocol 12/02/16 09:00 12/24/16 18:59 Vancomycin HCl 1 gm/Dextrose 275 ml @ 183.708 mls/hr Q24H IVPB 12/02/16 23:00 12/05/16 22:59 Height (Feet): 6 Height (Inches): 1.00 Weight (Pounds): 240 Objective exam stable TRISTIAN RIOS Dec 02, 2016 09:10
[2016-12-02 09:13] VITALS: BP 133/81
[2016-12-02] MEDS: Meropenem 1 GM in NS 110 ML IVPB SCH ×2 (09:24→20:35)
--- NOTE | 2016-12-02 09:32 | General Progress Note ---
Assessment/Plan Problem List: (1) Sepsis ICD Codes: A41.9 - Sepsis, unspecified organism SNOMED: 90630793 (2) Renal insufficiency ICD Codes: N28.9 - Disorder of kidney and ureter, unspecified; R65.20 - Severe sepsis without septic shock SNOMED: 675371963 (3) Hypoxia ICD Codes: R09.02 - Hypoxemia; R65.20 - Severe sepsis without septic shock SNOMED: 704504868, 15458582 (4) Severe sepsis ICD Codes: A41.9 - Sepsis, unspecified organism; R65.20 - Severe sepsis without septic shock SNOMED: 64708785 (5) Altered level of consciousness ICD Codes: R40.4 - Transient alteration of awareness SNOMED: 9866818 Status: stable, unchanged Assessment/Plan stable. lethargy improving encourage pos. monitor for aspiration monitor labs and fluid status resp rx ecoli uti- on amaya/vanco 2 more days wound care abx improving remains guarded podiatry consult called d/w dtr at the bedside. refusing gt or snf placement dc planning when abx complete- saturday Subjective ROS Limited/Unobtainable: Yes Constitutional: Reports: malaise, weakness HEENT: Reports: no symptoms Cardiovascular: Reports: no symptoms Respiratory: Reports: no symptoms Gastrointestinal/Abdominal: Reports: poor appetite Genitourinary: Reports: no symptoms Neurologic/Psychiatric: Reports: pre-existing deficit Endocrine: Reports: no symptoms Hematologic/Lymphatic: Reports: anemia Allergies: Coded Allergies: No Known Allergies (Verified , 06/30/07) All Systems: reviewed and negative except above Subjective no events. resting. poor po's <25%. no sob. more alert. denies cp/sob. not hungry Objective Last 24 Hour Vital Signs Date Time Temp Pulse Resp B/P (MAP) Pulse Ox O2 Delivery O2 Flow Rate FiO2 12/02/16 09:13 97.3 69 21 133/81 100 Nasal Cannula 2.0 12/02/16 08:34 97.3 57 20 138/78 98 Nasal Cannula 3.0 12/02/16 08:00 77 12/02/16 04:00 78 12/02/16 03:47 98.1 78 22 152/88 94 Room Air 4.0 12/02/16 00:00 77 12/01/16 23:57 98.6 77 20 155/96 98 Nasal Cannula 4.0 12/01/16 21:13 80 139/86 12/01/16 20:15 97.8 79 21 151/89 97 Nasal Cannula 4.0 12/01/16 20:00 78 12/01/16 19:50 97 Nasal Cannula 4.0 36 12/01/16 19:50 Nasal Cannula 4.0 36 12/01/16 16:00 60 12/01/16 15:53 97.0 63 20 135/82 99 Nasal Cannula 4.0 12/01/16 12:36 97.2 63 20 137/87 100 Nasal Cannula 4.0 12/01/16 12:00 54 Intake and Output 12/02/16 12/03/16 19:00 07:00 Intake Total 25 ml Balance 25 ml Intake Oral 25 ml Height (Feet): 6 Height (Inches): 1.00 Weight (Pounds): 240 Objective General Appearance: WD/WN, confused Neck: supple Cardiovascular: normal rate, regular rhythm Respiratory/Chest: chest wall non-tender, lungs clear, normal breath sounds, no respiratory distress, no accessory muscle use Abdomen: normal bowel sounds, non tender, soft, no organomegaly Edema: mild edema. dystrophic nails Neurologic: disoriented and lethargic SAM BARDALES Dec 02, 2016 09:32
[2016-12-02] MEDS: Aspirin Baby 81mg NG SCH (09:39)
[2016-12-02] MEDS: Heparin 5000 units/ml inj SUBQ SCH ×2 (09:47→20:51)
[2016-12-02 11:30] VITALS: BP 121/76
[2016-12-02] MEDS ORDERED: NovoLOG Insulin Flexpen SUBQ SCH (11:30)
[2016-12-02 15:56] VITALS: BP 146/86
[2016-12-02 20:00] VITALS: BP 133/74
[2016-12-02] MEDS ORDERED: Milk of Magnesia 30ml Ud NG PRN ×2 (20:15)
--- NOTE | 2016-12-02 20:30 | Progress Note ---
DATE: 12/02/2016 CARDIOLOGY PROGRESS NOTE SUBJECTIVE: The patient still has poor intake. No nausea, vomiting, or shortness of breath. Family members are planning to take him home for long-term care. OBJECTIVE: VITAL SIGNS: Afebrile, blood pressure 133/81, heart rate 69, and respiratory rate 21. NECK: Supple. LUNGS: Clear. CARDIAC: Regular. Normal S1, S2. ABDOMEN: Soft. EXTREMITIES: No edema. LABORATORY DATA: Labs from 12/01/2016 were reviewed. IMPRESSION: 1. Severe protein-calorie malnutrition. 2. Sepsis. 3. Urinary tract infection. 4. Possible nosocomial pneumonia. 5. Hypertensive heart disease. 6. Ileostomy. 7. Cerebrovascular accident with dementia. 8. Recovering encephalopathy, both metabolic and toxic. PLAN OF CARE: 1. Maintain adequate intake. 2. Hydration. 3. Complete antimicrobials. 4. Skin care. 5. Respiratory hygiene. 6. Titrate antihypertensives. 7. Follow up laboratory studies. Omkar Turk M.D. DR: Yari JOB#: [id number] CC:
[2016-12-02] MEDS ORDERED: Vancomycin 1 GM in D5W 275 ML IVPB SCH (23:00)
[2016-12-02] MEDS: Vancomycin 1 GM in D5W 275 ML IVPB SCH (23:11)
[2016-12-03] VITALS: BP 150/89
[2016-12-03 04:00] VITALS: BP 137/82
[2016-12-03] MEDS: NovoLOG Insulin Flexpen SUBQ SCH ×5 (06:17→20:40)
[2016-12-03 07:28] LABS: EOSINOPHILS % (AUTO) 2.5 % (0.0-3.0); MEAN CORPUSCULAR HEMOGLOBIN 27.5 PG (27.0-31.0); MEAN CORPUSCULAR HGB CONC 31.1 G/DL (32.0-36.0); MEAN CORPUSCULAR VOLUME 88 FL (80-99); MONOCYTES % (AUTO) 9.9 % (1.0-10.0); NEUTROPHILS % (AUTO) 58.7 % (45.0-75.0); PLATELET COUNT 177 K/UL (150-450); RED BLOOD COUNT 3.97 M/UL (4.70-6.10); RED CELL DISTRIBUTION WIDTH 18.2 % (11.6-14.8); WHITE BLOOD COUNT 5.5 K/UL (4.8-10.8)
[2016-12-03 07:57] LABS: MAGNESIUM 1.4 mg/dL (1.7-2.5)
[2016-12-03 07:59] LABS: ALANINE AMINOTRANSFERASE 6 U/L (3-41); ALBUMIN/GLOBULIN RATIO 0.6 (1.0-2.7); ANION GAP 8 (5-15); ASPARTATE AMINO TRANSFERASE 14 U/L (5-40); CALCIUM 8.8 mg/dL (8.6-10.2); CARBON DIOXIDE 35 mEQ/L (20-30); CHLORIDE 98 mEQ/L (98-107); CREATININE 0.5 mg/dL (0.7-1.2); HEMOLYSIS 2; POTASSIUM 3.5 mEQ/L (3.4-4.9); SODIUM 141 mEQ/L (135-145); TOTAL PROTEIN 6.7 g/dL (6.6-8.7)
--- NOTE | 2016-12-03 08:13 | Consultation ---
Consult Note Consult Note DATE OF CONSULTATION: 12/03/16 REASON FOR CONSULT: NAIL CARE COVERING FOR: BRENDA GALVAN DPM HPI: Patient is alert but not oriented. Has difficulty providing history. Per nursing staff no overnight events. No vomiting or fevers PAST MEDICAL HISTORY: Sepsis, altered level of consciousness, renal insufficiency, CHF, PROSTATE CA Last 24 Hour Vital Signs Date Time Temp Pulse Resp B/P (MAP) Pulse Ox O2 Delivery O2 Flow Rate FiO2 12/03/16 04:00 97.9 76 20 137/82 100 Room Air 12/03/16 00:00 97.5 76 20 150/89 100 Nasal Cannula 2.0 12/02/16 20:34 80 133/74 12/02/16 20:00 97.6 80 20 133/74 98 Nasal Cannula 2.0 12/02/16 19:48 Nasal Cannula 4.0 36 12/02/16 19:48 99 Nasal Cannula 4.0 36 12/02/16 15:56 97.4 84 21 146/86 100 Nasal Cannula 2.0 12/02/16 11:30 97.5 88 21 121/76 97 Nasal Cannula 2.0 12/02/16 09:39 69 133/81 12/02/16 09:13 97.3 69 21 133/81 100 Nasal Cannula 2.0 12/02/16 08:34 97.3 57 20 138/78 98 Nasal Cannula 3.0 Laboratory Tests Test 12/03/16 05:40 White Blood Count 5.5 K/UL (4.8-10.8) Red Blood Count 3.97 M/UL (4.70-6.10) L Hemoglobin 10.9 G/DL (14.2-18.0) L Hematocrit 35.1 % (42.0-52.0) L Mean Corpuscular Volume 88 FL (80-99) Mean Corpuscular Hemoglobin 27.5 PG (27.0-31.0) Mean Corpuscular Hemoglobin Concent 31.1 G/DL (32.0-36.0) L Red Cell Distribution Width 18.2 % (11.6-14.8) H Platelet Count 177 K/UL (150-450) Mean Platelet Volume 9.0 FL (6.5-10.1) Neutrophils (%) (Auto) 58.7 % (45.0-75.0) Lymphocytes (%) (Auto) 28.0 % (20.0-45.0) Monocytes (%) (Auto) 9.9 % (1.0-10.0) Eosinophils (%) (Auto) 2.5 % (0.0-3.0) Basophils (%) (Auto) 1.0 % (0.0-2.0) Sodium Level 141 mEQ/L (135-145) Potassium Level 3.5 mEQ/L (3.4-4.9) Chloride Level 98 mEQ/L (98-107) Carbon Dioxide Level 35 mEQ/L (20-30) H Anion Gap 8 (5-15) Blood Urea Nitrogen 9 mg/dL (7-23) Creatinine 0.5 mg/dL (0.7-1.2) L Estimat Glomerular Filtration Rate mL/min (>60) Glucose Level 80 mg/dL (74-106) Calcium Level 8.8 mg/dL (8.6-10.2) Magnesium Level 1.4 mg/dL (1.7-2.5) L Total Bilirubin 0.6 mg/dL (0.0-1.2) Aspartate Amino Transf (AST/SGOT) 14 U/L (5-40) Alanine Aminotransferase (ALT/SGPT) 6 U/L (3-41) Alkaline Phosphatase 62 U/L (40-129) Pro-B-Type Natriuretic Peptide 1197 pg/mL (0-450) H Total Protein 6.7 g/dL (6.6-8.7) Albumin 2.7 g/dL (3.5-5.2) L Globulin 4.0 g/dL Albumin/Globulin Ratio 0.6 (1.0-2.7) L Microbiology Date/Time Source Procedure Growth Status 11/21/16 19:45 Blood Blood Culture - Final NO GROWTH AFTER 5 DAYS Complete 11/21/16 21:30 Nasal Nares MRSA Culture - Final NO METHICILLIN RESISTANT STAPH AUREUS... Complete 11/21/16 19:38 Urine,Clean Catch Urine Culture - Final Escherichia Coli Complete 11/22/16 02:00 Sacral Wound Gram Stain - Final Complete 11/22/16 02:00 Wound Culture - Final Pseudomonas Aeruginosa Escherichia Coli Diphtheroids Complete SOCIAL AND FAMILY HISTORY: Unable to obtain Allergies: No known Medications: Reviewed PHYSICAL EXAM: DERM: Bilateral foot with gryphotic and painful toenails with bilateral hallux nails being the worst. Patient also has a stable wound on the lateral left ankle with clean dressings NEURO: Patient reacts to sharp stimulus VASC: Pedal pulses lightly palpable MSK: Bilateral lower extremity with weakness . Assessment/Plan ASSESSMENT: - Painful mycotic toenails bilaterally - Bilateral lower extremity weakness - Left lateral ankle stable ulcer PLAN: - Debrided toenails x 10 without complications - Recommend regular nail care to avoid grossly enlarged nails that can result in complications such as ulcerations - Continue wound care for left lateral ankle ulcer - Offload heels Tejas Luevano DPM Dec 03, 2016 08:13
[2016-12-03 08:15] VITALS: BP 143/78
--- NOTE | 2016-12-03 08:40 | Critical Care Progress Note ---
Assessment/Plan Assessment/Plan IMPRESSION: 1. Respiratory failure. 2. Acute on chronic respiratory acidosis. 3. Functional quadriplegia. 4. Prostate cancer. 5. Severe protein-calorie malnutrition. 6. As per code status, no intubation, no gastrostomy tube. 7. Possible urinary tract infection. 8. Possible sepsis. 9. Hypotension. 10. sacral wound PLAN care noted all noted and reviewed respiratory care per [facility]- no intubation pulmonary same low flow oxygen as needed SNF meds noted supportive care suction as needed aspiration precautions dc planning ok per pulmonary exam reviewed medications/laboratory data/nursing notes reviewed in detail note reviewed and edited care discussed with RN and RT Critical Care - Subjective Interval Events: care noted DNI no distress ROS Limited/Unobtainable: Yes EKG Rhythm: Sinus Rhythm Critical Care - Objective Last 24 Hour Vital Signs Date Time Temp Pulse Resp B/P (MAP) Pulse Ox O2 Delivery O2 Flow Rate FiO2 12/03/16 04:00 97.9 76 20 137/82 100 Room Air 12/03/16 00:00 97.5 76 20 150/89 100 Nasal Cannula 2.0 12/02/16 20:34 80 133/74 12/02/16 20:00 97.6 80 20 133/74 98 Nasal Cannula 2.0 12/02/16 19:48 Nasal Cannula 4.0 36 12/02/16 19:48 99 Nasal Cannula 4.0 36 12/02/16 15:56 97.4 84 21 146/86 100 Nasal Cannula 2.0 12/02/16 11:30 97.5 88 21 121/76 97 Nasal Cannula 2.0 12/02/16 09:39 69 133/81 12/02/16 09:13 97.3 69 21 133/81 100 Nasal Cannula 2.0 Labs: Labs Test 12/01/16 05:25 12/03/16 05:40 White Blood Count 6.2 K/UL (4.8-10.8) 5.5 K/UL (4.8-10.8) Red Blood Count 3.93 M/UL (4.70-6.10) 3.97 M/UL (4.70-6.10) Hemoglobin 11.2 G/DL (14.2-18.0) 10.9 G/DL (14.2-18.0) Hematocrit 35.1 % (42.0-52.0) 35.1 % (42.0-52.0) Mean Corpuscular Volume 89 FL (80-99) 88 FL (80-99) Mean Corpuscular Hemoglobin 28.5 PG (27.0-31.0) 27.5 PG (27.0-31.0) Mean Corpuscular Hemoglobin Concent 31.9 G/DL (32.0-36.0) 31.1 G/DL (32.0-36.0) Red Cell Distribution Width 18.2 % (11.6-14.8) 18.2 % (11.6-14.8) Platelet Count 206 K/UL (150-450) 177 K/UL (150-450) Mean Platelet Volume 9.4 FL (6.5-10.1) 9.0 FL (6.5-10.1) Neutrophils (%) (Auto) 58.7 % (45.0-75.0) 58.7 % (45.0-75.0) Lymphocytes (%) (Auto) 27.5 % (20.0-45.0) 28.0 % (20.0-45.0) Monocytes (%) (Auto) 9.4 % (1.0-10.0) 9.9 % (1.0-10.0) Eosinophils (%) (Auto) 3.4 % (0.0-3.0) 2.5 % (0.0-3.0) Basophils (%) (Auto) 1.1 % (0.0-2.0) 1.0 % (0.0-2.0) Sodium Level 142 mEQ/L (135-145) 141 mEQ/L (135-145) Potassium Level 3.6 mEQ/L (3.4-4.9) 3.5 mEQ/L (3.4-4.9) Chloride Level 100 mEQ/L (98-107) 98 mEQ/L (98-107) Carbon Dioxide Level 34 mEQ/L (20-30) 35 mEQ/L (20-30) Anion Gap 8 (5-15) 8 (5-15) Blood Urea Nitrogen 8 mg/dL (7-23) 9 mg/dL (7-23) Creatinine 0.5 mg/dL (0.7-1.2) 0.5 mg/dL (0.7-1.2) Estimat Glomerular Filtration Rate mL/min (>60) mL/min (>60) Glucose Level 82 mg/dL (74-106) 80 mg/dL (74-106) Calcium Level 9.0 mg/dL (8.6-10.2) 8.8 mg/dL (8.6-10.2) Magnesium Level 1.4 mg/dL (1.7-2.5) Total Bilirubin 0.6 mg/dL (0.0-1.2) Aspartate Amino Transf (AST/SGOT) 14 U/L (5-40) Alanine Aminotransferase (ALT/SGPT) 6 U/L (3-41) Alkaline Phosphatase 62 U/L (40-129) Pro-B-Type Natriuretic Peptide 1197 pg/mL (0-450) Total Protein 6.7 g/dL (6.6-8.7) Albumin 2.7 g/dL (3.5-5.2) Globulin 4.0 g/dL Albumin/Globulin Ratio 0.6 (1.0-2.7) Objective: GENERAL: A well-developed male, chronically ill. HEENT: Negative. Pupils not reactive. The patient is currently on NC mask. LUNGS: With occasional rhonchi without change. Moderate air entry. no wheeze CARDIAC: Regular rate and rhythm. Distant without murmurs, rubs, or gallops. ABDOMEN: Soft, nontender, and nondistended. no HSM EXTREMITIES: No cyanosis or clubbing. mild edema NEUROLOGICAL: Significantly withdrawn at this time. Difficult to fully assess. SKIN: Noted. Reviewed. reviewed and edited Accucheck: 73 NICHOLAS ROJAS Dec 03, 2016 08:40
--- NOTE | 2016-12-03 08:55 | General Progress Note ---
Assessment/Plan Problem List: (1) Sepsis ICD Codes: A41.9 - Sepsis, unspecified organism SNOMED: 22422443 (2) Renal insufficiency ICD Codes: N28.9 - Disorder of kidney and ureter, unspecified; R65.20 - Severe sepsis without septic shock SNOMED: 488231042 (3) Hypoxia ICD Codes: R09.02 - Hypoxemia; R65.20 - Severe sepsis without septic shock SNOMED: 963970517, 24301303 (4) Severe sepsis ICD Codes: A41.9 - Sepsis, unspecified organism; R65.20 - Severe sepsis without septic shock SNOMED: 88920975 (5) Altered level of consciousness ICD Codes: R40.4 - Transient alteration of awareness SNOMED: 5778998 Status: stable, progressing Assessment/Plan stable. lethargy improving, appears to be baseline encourage pos. monitor for aspiration monitor labs and fluid status resp rx ecoli uti- on amaya/vanco 1 more days wound care abx improving remains guarded podiatry consult appreciated. fungal nails debrided d/w dtr at the bedside. refusing gt or snf placement dc planning when abx complete- saturday Subjective ROS Limited/Unobtainable: Yes Constitutional: Reports: malaise, weakness HEENT: Reports: no symptoms Cardiovascular: Reports: no symptoms Respiratory: Reports: no symptoms Gastrointestinal/Abdominal: Reports: poor fluid intake Genitourinary: Reports: no symptoms Neurologic/Psychiatric: Reports: pre-existing deficit Endocrine: Reports: no symptoms Hematologic/Lymphatic: Reports: no symptoms Allergies: Coded Allergies: No Known Allergies (Verified , 06/30/07) All Systems: reviewed and negative except above Subjective no events. resting. pos a little better. 45%. no sob. more alert. denies cp/ sob. not hungry Objective Last 24 Hour Vital Signs Date Time Temp Pulse Resp B/P (MAP) Pulse Ox O2 Delivery O2 Flow Rate FiO2 12/03/16 04:00 97.9 76 20 137/82 100 Room Air 12/03/16 00:00 97.5 76 20 150/89 100 Nasal Cannula 2.0 12/02/16 20:34 80 133/74 12/02/16 20:00 97.6 80 20 133/74 98 Nasal Cannula 2.0 12/02/16 19:48 Nasal Cannula 4.0 36 12/02/16 19:48 99 Nasal Cannula 4.0 36 12/02/16 15:56 97.4 84 21 146/86 100 Nasal Cannula 2.0 12/02/16 11:30 97.5 88 21 121/76 97 Nasal Cannula 2.0 12/02/16 09:39 69 133/81 12/02/16 09:13 97.3 69 21 133/81 100 Nasal Cannula 2.0 Laboratory Tests 12/03/16 05:40: White Blood Count 5.5, Red Blood Count 3.97L, Hemoglobin 10.9L, Hematocrit 35.1L , Mean Corpuscular Volume 88, Mean Corpuscular Hemoglobin 27.5, Mean Corpuscular Hemoglobin Concent 31.1L, Red Cell Distribution Width 18.2H, Platelet Count 177, Mean Platelet Volume 9.0, Neutrophils (%) (Auto) 58.7, Lymphocytes (%) (Auto) 28.0, Monocytes (%) (Auto) 9.9, Eosinophils (%) (Auto) 2.5, Basophils (%) (Auto) 1.0, Sodium Level 141, Potassium Level 3.5, Chloride Level 98, Carbon Dioxide Level 35H, Anion Gap 8, Blood Urea Nitrogen 9, Creatinine 0.5L, Estimat Glomerular Filtration Rate , Glucose Level 80, Calcium Level 8.8, Magnesium Level 1.4L, Total Bilirubin 0.6, Aspartate Amino Transf ( AST/SGOT) 14, Alanine Aminotransferase (ALT/SGPT) 6, Alkaline Phosphatase 62, Pro-B-Type Natriuretic Peptide 1197H, Total Protein 6.7, Albumin 2.7L, Globulin 4.0, Albumin/Globulin Ratio 0.6L Height (Feet): 6 Height (Inches): 1.00 Weight (Pounds): 236 Objective General Appearance: WD/WN, confused Neck: supple Cardiovascular: normal rate, regular rhythm Respiratory/Chest: chest wall non-tender, lungs clear, normal breath sounds, no respiratory distress, no accessory muscle use Abdomen: normal bowel sounds, non tender, soft, no organomegaly Edema: mild edema. dystrophic nails Neurologic: disoriented and lethargic SAM BARDALES Dec 03, 2016 08:55
[2016-12-03] MEDS: Heparin 5000 units/ml inj SUBQ SCH ×3 (09:00→20:40)
[2016-12-03] MEDS: Aspirin Baby 81mg NG SCH (10:17)
[2016-12-03] MEDS: Nystatin Powder 100,000 units/gm 15gm TOPIC SCH ×3 (10:47→18:27)
[2016-12-03] MEDS: Meropenem 1 GM in NS 110 ML IVPB SCH ×2 (11:34→20:31)
--- NOTE | 2016-12-03 11:54 | Urology Progress Note ---
Assessment/Plan Assessment/Plan 1. Urinary retention with chronic Burton. 2. Benign prostatic hypertrophy history. 3. Probable neurogenic bladder. 4. Hematuria. 5. Urinary tract infection and colonization. 6. Proteinuria. 7. Penile edema. keep burton, last changed 11/29 hand irrigate PRN abx as ordered cysto later consider recheck urine cx Subjective Allergies: Coded Allergies: No Known Allergies (Verified , 06/30/07) Subjective all noted Objective Last 24 Hour Vital Signs Date Time Temp Pulse Resp B/P (MAP) Pulse Ox O2 Delivery O2 Flow Rate FiO2 12/03/16 10:17 76 143/78 12/03/16 08:15 97.6 76 21 143/78 97 Nasal Cannula 2.0 12/03/16 04:00 97.9 76 20 137/82 100 Room Air 12/03/16 00:00 97.5 76 20 150/89 100 Nasal Cannula 2.0 12/02/16 20:34 80 133/74 12/02/16 20:00 97.6 80 20 133/74 98 Nasal Cannula 2.0 12/02/16 19:48 Nasal Cannula 4.0 36 12/02/16 19:48 99 Nasal Cannula 4.0 36 12/02/16 15:56 97.4 84 21 146/86 100 Nasal Cannula 2.0 Intake and Output 12/03/16 12/04/16 19:00 07:00 Intake Total 240 ml Balance 240 ml Intake Oral 240 ml # Bowel Movements 1 Microbiology Date/Time Source Procedure Growth Status 11/21/16 19:45 Blood Blood Culture - Final NO GROWTH AFTER 5 DAYS Complete 11/21/16 21:30 Nasal Nares MRSA Culture - Final NO METHICILLIN RESISTANT STAPH AUREUS... Complete 11/21/16 19:38 Urine,Clean Catch Urine Culture - Final Escherichia Coli Complete 11/22/16 02:00 Sacral Wound Gram Stain - Final Complete 11/22/16 02:00 Wound Culture - Final Pseudomonas Aeruginosa Escherichia Coli Diphtheroids Complete Current Medications Medications (Trade) Dose Ordered Sig/Jus Route PRN Reason Start Time Stop Time Status Last Admin Dose Admin Acetaminophen (Tylenol) 650 mg Q4HR PRN NG Mild Pain/Temp > 100.5 12/02/16 09:00 12/24/16 20:14 Amlodipine Besylate (Norvasc) 5 mg Q12HR NG 12/02/16 09:00 12/27/16 11:59 12/03/16 10:17 Aspirin (ASA) 81 mg DAILY NG 12/02/16 09:00 12/25/16 08:59 12/03/16 10:17 Atorvastatin Calcium (Lipitor) 10 mg BEDTIME NG 12/02/16 21:00 12/24/16 20:59 12/02/16 20:34 Clonidine HCl (Catapres) 0.1 mg Q4H PRN NG SBP > 160mmHg 12/02/16 10:15 12/27/16 10:14 Dextrose (Dextrose 50%) STAT PRN IV Hypoglycemia 12/02/16 20:15 12/25/16 20:14 Heparin Sodium (Porcine) (Heparin 5000 units/ml) 5,000 units EVERY 12 HOURS SUBQ 12/02/16 09:00 12/31/16 08:59 12/02/16 20:51 Insulin Aspart (NovoLOG) AC+HS SUBQ 12/02/16 11:30 12/26/16 00:00 12/02/16 20:52 Levothyroxine Sodium (Synthroid) 100 mcg ACBREAKFAST NG 12/03/16 06:30 12/25/16 06:29 12/03/16 06:32 Magnesium Hydroxide (Mom) 30 ml DAILYPRN PRN NG Constipation 12/02/16 20:15 12/24/16 20:14 Meropenem 1 gm/ Sodium Chloride 110 ml @ 220 mls/hr EVERY 12 HOURS IVPB 12/02/16 09:00 12/04/16 09:59 12/03/16 11:34 Nystatin (Nystop Powder) 1 applic THREE TIMES A DAY TOPIC 12/02/16 09:00 12/25/16 08:59 12/03/16 10:47 Ondansetron HCl (Zofran) 4 mg Q6H PRN IVP Nausea & Vomiting 12/02/16 13:00 12/21/16 18:59 Potassium Chloride 100 ml @ 100 mls/hr Q1H IVPB 12/03/16 11:00 12/03/16 12:59 Ranitidine HCl (Zantac) 150 mg Q12HR NG 12/02/16 09:00 12/26/16 20:59 12/03/16 10:17 Vancomycin HCl (Vanco rx to dose) 1 ea DAILY PRN MISC Per rx protocol 12/02/16 09:00 12/24/16 18:59 Vancomycin HCl 1 gm/Dextrose 275 ml @ 183.708 mls/hr Q24H IVPB 12/02/16 23:00 12/05/16 22:59 12/02/16 23:11 Laboratory Tests 12/03/16 05:40: White Blood Count 5.5, Red Blood Count 3.97L, Hemoglobin 10.9L, Hematocrit 35.1L , Mean Corpuscular Volume 88, Mean Corpuscular Hemoglobin 27.5, Mean Corpuscular Hemoglobin Concent 31.1L, Red Cell Distribution Width 18.2H, Platelet Count 177, Mean Platelet Volume 9.0, Neutrophils (%) (Auto) 58.7, Lymphocytes (%) (Auto) 28.0, Monocytes (%) (Auto) 9.9, Eosinophils (%) (Auto) 2.5, Basophils (%) (Auto) 1.0, Sodium Level 141, Potassium Level 3.5, Chloride Level 98, Carbon Dioxide Level 35H, Anion Gap 8, Blood Urea Nitrogen 9, Creatinine 0.5L, Estimat Glomerular Filtration Rate , Glucose Level 80, Calcium Level 8.8, Magnesium Level 1.4L, Total Bilirubin 0.6, Aspartate Amino Transf ( AST/SGOT) 14, Alanine Aminotransferase (ALT/SGPT) 6, Alkaline Phosphatase 62, Pro-B-Type Natriuretic Peptide 1197H, Total Protein 6.7, Albumin 2.7L, Globulin 4.0, Albumin/Globulin Ratio 0.6L Height (Feet): 6 Height (Inches): 1.00 Weight (Pounds): 236 Objective exam stable TRISTIAN RIOS Dec 03, 2016 11:54
[2016-12-03 12:12] VITALS: BP 137/86
[2016-12-03 15:55] VITALS: BP 147/87
--- NOTE | 2016-12-03 16:07 | Infectious Diseases Prog Note ---
Assessment/Plan Assessment/Plan A) 1) e.coli uti, sepsis, atx, fevers, hx pna, pseudomonas/e.coli sacral wound infection, ? aspiration pna/hap pna, ?onychomycosis of toes - clinically improved and stable - consider podiatry evaluation of toes 2) htn, hypothyroidism, ileostomy, cva, dementia, prostate ca, qp, ftt 3) allergies - negative, fh-nc, sh-negative, mar noted, 4) notes and records reviewed 5) d/w RN and son P) 1) meropenem and vancomycin x 1 day more 2) watch labs and check f/u chest x-ray 3) wound culture per protocol 4) continue treatment per primary and consultants 5) orders entered and noted 6) telemetry care 7) d/w pharmacy Subjective Constitutional: Denies: fever HEENT: Denies: congestion Respiratory: Denies: shortness of breath Gastrointestinal/Abdominal: Denies: nausea, vomiting, diarrhea Genitourinary: Reports: other - + burton Neurologic: Denies: headache Psychiatric: Denies: depression Skin: Denies: rash Hematologic: Denies: bleeding Musculoskeletal: Denies: pain Allergies: Coded Allergies: No Known Allergies (Verified , 06/30/07) Objective Vital Signs Last 24 Hour Vital Signs Date Time Temp Pulse Resp B/P (MAP) Pulse Ox O2 Delivery O2 Flow Rate FiO2 12/03/16 15:55 97.8 78 20 147/87 99 Room Air 12/03/16 12:12 97.6 77 18 137/86 96 Nasal Cannula 2.0 12/03/16 10:17 76 143/78 12/03/16 08:15 97.6 76 21 143/78 97 Nasal Cannula 2.0 12/03/16 04:00 97.9 76 20 137/82 100 Room Air 12/03/16 00:00 97.5 76 20 150/89 100 Nasal Cannula 2.0 12/02/16 20:34 80 133/74 12/02/16 20:00 97.6 80 20 133/74 98 Nasal Cannula 2.0 12/02/16 19:48 Nasal Cannula 4.0 36 12/02/16 19:48 99 Nasal Cannula 4.0 36 Height (Feet): 6 Height (Inches): 1.00 Weight (Pounds): 236 General Appearance: no acute distress HEENT: normocephalic, atraumatic, anicteric, mucous membranes moist, EOMI, pharynx normal, supple, no JVD Respiratory/Chest: lungs clear, normal breath sounds, no respiratory distress, no accessory muscle use Cardiovascular: normal rate, regular rhythm, no gallop/murmur, no JVD Abdomen: normal bowel sounds, soft, non tender, no organomegaly, non distended Genitourinary: other - no burton Extremities: no cyanosis Skin: no rash 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 This agrees with the preliminary interpretation provided overnight by [facility] teleradiology service. 11/27 - Chest x-ray: Impression: Suspect mild interstitial edema. Left basilar density nonspecific. 11/27 - chest x-ray Impression: Suspect mild interstitial edema. Left basilar density nonspecific. 12/01 - chest x-ray: Impression: Cardiomegaly. Removal of the nasogastric tube. Left lower lobe volume loss or infiltrate. Microbiology Date/Time Source Procedure Growth Status 11/21/16 19:45 Blood Blood Culture - Final NO GROWTH AFTER 5 DAYS Complete 11/21/16 21:30 Nasal Nares MRSA Culture - Final NO METHICILLIN RESISTANT STAPH AUREUS... Complete 11/21/16 19:38 Urine,Clean Catch Urine Culture - Final Escherichia Coli Complete 11/22/16 02:00 Sacral Wound Gram Stain - Final Complete 11/22/16 02:00 Wound Culture - Final Pseudomonas Aeruginosa Escherichia Coli Diphtheroids Complete Laboratory Tests Test 12/03/16 05:40 White Blood Count 5.5 K/UL (4.8-10.8) Red Blood Count 3.97 M/UL (4.70-6.10) L Hemoglobin 10.9 G/DL (14.2-18.0) L Hematocrit 35.1 % (42.0-52.0) L Mean Corpuscular Volume 88 FL (80-99) Mean Corpuscular Hemoglobin 27.5 PG (27.0-31.0) Mean Corpuscular Hemoglobin Concent 31.1 G/DL (32.0-36.0) L Red Cell Distribution Width 18.2 % (11.6-14.8) H Platelet Count 177 K/UL (150-450) Mean Platelet Volume 9.0 FL (6.5-10.1) Neutrophils (%) (Auto) 58.7 % (45.0-75.0) Lymphocytes (%) (Auto) 28.0 % (20.0-45.0) Monocytes (%) (Auto) 9.9 % (1.0-10.0) Eosinophils (%) (Auto) 2.5 % (0.0-3.0) Basophils (%) (Auto) 1.0 % (0.0-2.0) Sodium Level 141 mEQ/L (135-145) Potassium Level 3.5 mEQ/L (3.4-4.9) Chloride Level 98 mEQ/L (98-107) Carbon Dioxide Level 35 mEQ/L (20-30) H Anion Gap 8 (5-15) Blood Urea Nitrogen 9 mg/dL (7-23) Creatinine 0.5 mg/dL (0.7-1.2) L Estimat Glomerular Filtration Rate mL/min (>60) Glucose Level 80 mg/dL (74-106) Calcium Level 8.8 mg/dL (8.6-10.2) Magnesium Level 1.4 mg/dL (1.7-2.5) L Total Bilirubin 0.6 mg/dL (0.0-1.2) Aspartate Amino Transf (AST/SGOT) 14 U/L (5-40) Alanine Aminotransferase (ALT/SGPT) 6 U/L (3-41) Alkaline Phosphatase 62 U/L (40-129) Pro-B-Type Natriuretic Peptide 1197 pg/mL (0-450) H Total Protein 6.7 g/dL (6.6-8.7) Albumin 2.7 g/dL (3.5-5.2) L Globulin 4.0 g/dL Albumin/Globulin Ratio 0.6 (1.0-2.7) L Current Medications Medications (Trade) Dose Ordered Sig/Jus Route PRN Reason Start Time Stop Time Status Last Admin Dose Admin Acetaminophen (Tylenol) 650 mg Q4HR PRN NG Mild Pain/Temp > 100.5 12/02/16 09:00 12/24/16 20:14 Amlodipine Besylate (Norvasc) 5 mg Q12HR NG 9/10/17 09:00 12/27/16 11:59 12/03/16 10:17 Aspirin (ASA) 81 mg DAILY NG 12/02/16 09:00 12/25/16 08:59 12/03/16 10:17 Atorvastatin Calcium (Lipitor) 10 mg BEDTIME NG 12/02/16 21:00 12/24/16 20:59 12/02/16 20:34 Clonidine HCl (Catapres) 0.1 mg Q4H PRN NG SBP > 160mmHg 12/02/16 10:15 12/27/16 10:14 Dextrose (Dextrose 50%) STAT PRN IV Hypoglycemia 12/02/16 20:15 12/25/16 20:14 Heparin Sodium (Porcine) (Heparin 5000 units/ml) 5,000 units EVERY 12 HOURS SUBQ 12/02/16 09:00 12/31/16 08:59 12/02/16 20:51 Insulin Aspart (NovoLOG) AC+HS SUBQ 12/02/16 11:30 12/26/16 00:00 12/02/16 20:52 Levothyroxine Sodium (Synthroid) 100 mcg ACBREAKFAST NG 12/03/16 06:30 12/25/16 06:29 12/03/16 06:32 Magnesium Hydroxide (Mom) 30 ml DAILYPRN PRN NG Constipation 12/02/16 20:15 12/24/16 20:14 Meropenem 1 gm/ Sodium Chloride 110 ml @ 220 mls/hr EVERY 12 HOURS IVPB 12/02/16 09:00 12/04/16 09:59 12/03/16 11:34 Nystatin (Nystop Powder) 1 applic THREE TIMES A DAY TOPIC 12/02/16 09:00 12/25/16 08:59 12/03/16 13:48 Ondansetron HCl (Zofran) 4 mg Q6H PRN IVP Nausea & Vomiting 12/02/16 13:00 12/21/16 18:59 Ranitidine HCl (Zantac) 150 mg Q12HR NG 12/02/16 09:00 12/26/16 20:59 12/03/16 10:17 Vancomycin HCl (Vanco rx to dose) 1 ea DAILY PRN MISC Per rx protocol 12/02/16 09:00 12/24/16 18:59 Vancomycin HCl 1 gm/Dextrose 275 ml @ 183.708 mls/hr Q24H IVPB 12/02/16 23:00 12/05/16 22:59 12/02/16 23:11 KISHOR VALLE Dec 03, 2016 16:07
[2016-12-03 20:00] VITALS: BP 134/81
[2016-12-03] MEDS: Vancomycin 1 GM in D5W 275 ML IVPB SCH (23:08)
[2016-12-04] VITALS: BP 148/81
[2016-12-04 04:00] VITALS: BP 133/85
[2016-12-04] MEDS: NovoLOG Insulin Flexpen SUBQ SCH ×2 (05:47→11:19)
[2016-12-04 06:21] LABS: EOSINOPHILS % (AUTO) 3.4 % (0.0-3.0); LYMPHOCYTES % (AUTO) 25.9 % (20.0-45.0); MEAN CORPUSCULAR HEMOGLOBIN 27.7 PG (27.0-31.0); MEAN CORPUSCULAR HGB CONC 31.3 G/DL (32.0-36.0); MEAN CORPUSCULAR VOLUME 88 FL (80-99); MEAN PLATELET VOLUME 8.4 FL (6.5-10.1); MONOCYTES % (AUTO) 11.3 % (1.0-10.0); NEUTROPHILS % (AUTO) 58.5 % (45.0-75.0); PLATELET COUNT 173 K/UL (150-450); RED BLOOD COUNT 3.88 M/UL (4.70-6.10); WHITE BLOOD COUNT 5.2 K/UL (4.8-10.8)
[2016-12-04 06:42] LABS: ALANINE AMINOTRANSFERASE 7 U/L (3-41); ALBUMIN/GLOBULIN RATIO 0.6 (1.0-2.7); ANION GAP 5 (5-15); ASPARTATE AMINO TRANSFERASE 14 U/L (5-40); CALCIUM 8.8 mg/dL (8.6-10.2); CARBON DIOXIDE 37 mEQ/L (20-30); CHLORIDE 101 mEQ/L (98-107); CREATININE 0.5 mg/dL (0.7-1.2); HEMOLYSIS 0; SODIUM 143 mEQ/L (135-145); TOTAL PROTEIN 6.8 g/dL (6.6-8.7)
[2016-12-04 08:26] VITALS: BP 128/79
--- NOTE | 2016-12-04 08:34 | Critical Care Progress Note ---
Assessment/Plan Assessment/Plan IMPRESSION: 1. Respiratory failure. 2. Acute on chronic respiratory acidosis. 3. Functional quadriplegia. 4. Prostate cancer. 5. Severe protein-calorie malnutrition. 6. As per code status, no intubation, no gastrostomy tube. 7. Possible urinary tract infection. 8. Possible sepsis. 9. Hypotension. 10. sacral wound PLAN care noted all noted and reviewed respiratory care per [facility]- no intubation pulmonary same low flow oxygen as needed SNF meds noted supportive care suction as needed aspiration precautions dc planning ok per pulmonary exam reviewed plan edited medications/laboratory data/nursing notes reviewed in detail note reviewed and edited care discussed with RN and RT Critical Care - Subjective ROS Limited/Unobtainable: Yes I&O: care noted and reviewed no distress Critical Care - Objective Last 24 Hour Vital Signs Date Time Temp Pulse Resp B/P (MAP) Pulse Ox O2 Delivery O2 Flow Rate FiO2 12/04/16 08:26 97.2 65 21 128/79 98 Nasal Cannula 2.0 12/04/16 04:00 97.1 77 18 133/85 94 Nasal Cannula 2.0 12/04/16 00:00 97.5 78 19 148/81 96 Nasal Cannula 2.0 12/03/16 20:40 67 134/81 12/03/16 20:00 97.3 67 20 134/81 98 Nasal Cannula 12/03/16 19:53 Nasal Cannula 4.0 36 12/03/16 19:53 98 Nasal Cannula 4.0 36 12/03/16 15:55 97.8 78 20 147/87 99 Room Air 12/03/16 12:12 97.6 77 18 137/86 96 Nasal Cannula 2.0 12/03/16 10:17 76 143/78 Labs: Laboratory Tests Test 12/04/16 05:50 White Blood Count 5.2 K/UL (4.8-10.8) Red Blood Count 3.88 M/UL (4.70-6.10) L Hemoglobin 10.8 G/DL (14.2-18.0) L Hematocrit 34.3 % (42.0-52.0) L Mean Corpuscular Volume 88 FL (80-99) Mean Corpuscular Hemoglobin 27.7 PG (27.0-31.0) Mean Corpuscular Hemoglobin Concent 31.3 G/DL (32.0-36.0) L Red Cell Distribution Width 18.0 % (11.6-14.8) H Platelet Count 173 K/UL (150-450) Mean Platelet Volume 8.4 FL (6.5-10.1) Neutrophils (%) (Auto) 58.5 % (45.0-75.0) Lymphocytes (%) (Auto) 25.9 % (20.0-45.0) Monocytes (%) (Auto) 11.3 % (1.0-10.0) H Eosinophils (%) (Auto) 3.4 % (0.0-3.0) H Basophils (%) (Auto) 1.0 % (0.0-2.0) Sodium Level 143 mEQ/L (135-145) Potassium Level 4.0 mEQ/L (3.4-4.9) Chloride Level 101 mEQ/L (98-107) Carbon Dioxide Level 37 mEQ/L (20-30) H Anion Gap 5 (5-15) Blood Urea Nitrogen 8 mg/dL (7-23) Creatinine 0.5 mg/dL (0.7-1.2) L Estimat Glomerular Filtration Rate mL/min (>60) Glucose Level 92 mg/dL (74-106) Calcium Level 8.8 mg/dL (8.6-10.2) Total Bilirubin 0.6 mg/dL (0.0-1.2) Aspartate Amino Transf (AST/SGOT) 14 U/L (5-40) Alanine Aminotransferase (ALT/SGPT) 7 U/L (3-41) Alkaline Phosphatase 63 U/L (40-129) Total Protein 6.8 g/dL (6.6-8.7) Albumin 2.7 g/dL (3.5-5.2) L Globulin 4.1 g/dL Albumin/Globulin Ratio 0.6 (1.0-2.7) L Objective: GENERAL: A well-developed male, chronically ill. HEENT: Negative. Pupils not reactive. The patient is currently on NC mask. LUNGS: With occasional rhonchi without change. Moderate air entry. no wheeze CARDIAC: Regular rate and rhythm. Distant without murmurs, rubs, or gallops. ABDOMEN: Soft, nontender, and nondistended. no HSM EXTREMITIES: No cyanosis or clubbing. mild edema NEUROLOGICAL: Significantly withdrawn at this time. Difficult to fully assess. SKIN: Noted. Reviewed. reviewed and edited Accucheck: 79 NICHOLAS ROJAS Dec 04, 2016 08:34
[2016-12-04] MEDS ORDERED: Tubing IV Secondary IV ONE (08:44)
[2016-12-04] MEDS ORDERED: NS 550ML IV ONE (08:44)
[2016-12-04] MEDS: Meropenem 1 GM in NS 110 ML IVPB SCH (09:01)
[2016-12-04] MEDS: Aspirin Baby 81mg NG SCH (09:02)
[2016-12-04] MEDS: Nystatin Powder 100,000 units/gm 15gm TOPIC SCH ×2 (09:03→12:28)
[2016-12-04 09:23] VITALS: BP 127/71
[2016-12-04] MEDS ORDERED: RANITIDINE HCL150 MG NG (09:25)
[2016-12-04] MEDS ORDERED: NORVASC5 MG NG (09:25)
[2016-12-04] MEDS: Heparin 5000 units/ml inj SUBQ SCH (09:33)
--- NOTE | 2016-12-04 11:30 | Urology Progress Note ---
Assessment/Plan Assessment/Plan 1. Urinary retention with chronic Burton. 2. Benign prostatic hypertrophy history. 3. Probable neurogenic bladder. 4. Hematuria. 5. Urinary tract infection and colonization. 6. Proteinuria. 7. Penile edema. keep burton, last changed 11/29 hand irrigate PRN abx as ordered cysto later consider recheck urine cx Subjective Allergies: Coded Allergies: No Known Allergies (Verified , 06/30/07) Subjective all noted Objective Last 24 Hour Vital Signs Date Time Temp Pulse Resp B/P (MAP) Pulse Ox O2 Delivery O2 Flow Rate FiO2 12/04/16 11:01 87 Room Air 12/04/16 09:37 100 Room Air 12/04/16 09:23 79 127/71 12/04/16 09:02 65 128/79 12/04/16 08:26 97.2 65 21 128/79 98 Nasal Cannula 2.0 12/04/16 07:31 Nasal Cannula 4.0 36 12/04/16 07:30 98 Nasal Cannula 4.0 36 12/04/16 04:00 97.1 77 18 133/85 94 Nasal Cannula 2.0 12/04/16 00:00 97.5 78 19 148/81 96 Nasal Cannula 2.0 12/03/16 20:40 67 134/81 12/03/16 20:00 97.3 67 20 134/81 98 Nasal Cannula 12/03/16 19:53 Nasal Cannula 4.0 36 12/03/16 19:53 98 Nasal Cannula 4.0 36 12/03/16 15:55 97.8 78 20 147/87 99 Room Air 12/03/16 12:12 97.6 77 18 137/86 96 Nasal Cannula 2.0 Intake and Output 12/04/16 12/05/16 19:00 07:00 # Bowel Movements 1 Microbiology Date/Time Source Procedure Growth Status 11/21/16 19:45 Blood Blood Culture - Final NO GROWTH AFTER 5 DAYS Complete 11/21/16 21:30 Nasal Nares MRSA Culture - Final NO METHICILLIN RESISTANT STAPH AUREUS... Complete 11/21/16 19:38 Urine,Clean Catch Urine Culture - Final Escherichia Coli Complete 11/22/16 02:00 Sacral Wound Gram Stain - Final Complete 11/22/16 02:00 Wound Culture - Final Pseudomonas Aeruginosa Escherichia Coli Diphtheroids Complete Current Medications Medications (Trade) Dose Ordered Sig/Jus Route PRN Reason Start Time Stop Time Status Last Admin Dose Admin Acetaminophen (Tylenol) 650 mg Q4HR PRN NG Mild Pain/Temp > 100.5 12/02/16 09:00 12/24/16 20:14 Amlodipine Besylate (Norvasc) 5 mg Q12HR NG 12/02/16 09:00 12/27/16 11:59 12/04/16 09:02 Aspirin (ASA) 81 mg DAILY NG 12/02/16 09:00 12/25/16 08:59 12/04/16 09:02 Atorvastatin Calcium (Lipitor) 10 mg BEDTIME NG 12/02/16 21:00 12/24/16 20:59 12/03/16 20:39 Clonidine HCl (Catapres) 0.1 mg Q4H PRN NG SBP > 160mmHg 12/02/16 10:15 12/27/16 10:14 Dextrose (Dextrose 50%) STAT PRN IV Hypoglycemia 12/02/16 20:15 12/25/16 20:14 Heparin Sodium (Porcine) (Heparin 5000 units/ml) 5,000 units EVERY 12 HOURS SUBQ 12/02/16 09:00 12/31/16 08:59 12/04/16 09:33 Insulin Aspart (NovoLOG) AC+HS SUBQ 12/02/16 11:30 12/26/16 00:00 12/03/16 17:01 Levothyroxine Sodium (Synthroid) 100 mcg ACBREAKFAST NG 12/03/16 06:30 12/25/16 06:29 12/04/16 05:45 Magnesium Hydroxide (Mom) 30 ml DAILYPRN PRN NG Constipation 12/02/16 20:15 12/24/16 20:14 Nystatin (Nystop Powder) 1 applic THREE TIMES A DAY TOPIC 12/02/16 09:00 12/25/16 08:59 12/04/16 09:03 Ondansetron HCl (Zofran) 4 mg Q6H PRN IVP Nausea & Vomiting 12/02/16 13:00 12/21/16 18:59 Ranitidine HCl (Zantac) 150 mg Q12HR NG 12/02/16 09:00 12/26/16 20:59 12/04/16 09:02 Vancomycin HCl (Vanco rx to dose) 1 ea DAILY PRN MISC Per rx protocol 12/02/16 09:00 12/24/16 18:59 Vancomycin HCl 1 gm/Dextrose 275 ml @ 183.708 mls/hr Q24H IVPB 12/02/16 23:00 12/05/16 22:59 12/03/16 23:08 Laboratory Tests 12/04/16 05:50: White Blood Count 5.2, Red Blood Count 3.88L, Hemoglobin 10.8L, Hematocrit 34.3L , Mean Corpuscular Volume 88, Mean Corpuscular Hemoglobin 27.7, Mean Corpuscular Hemoglobin Concent 31.3L, Red Cell Distribution Width 18.0H, Platelet Count 173, Mean Platelet Volume 8.4, Neutrophils (%) (Auto) 58.5, Lymphocytes (%) (Auto) 25.9, Monocytes (%) (Auto) 11.3H, Eosinophils (%) (Auto) 3.4H, Basophils (%) (Auto) 1.0, Sodium Level 143, Potassium Level 4.0, Chloride Level 101, Carbon Dioxide Level 37H, Anion Gap 5, Blood Urea Nitrogen 8, Creatinine 0.5L, Estimat Glomerular Filtration Rate , Glucose Level 92, Calcium Level 8.8, Total Bilirubin 0.6, Aspartate Amino Transf (AST/SGOT) 14, Alanine Aminotransferase (ALT/SGPT) 7, Alkaline Phosphatase 63, Total Protein 6.8, Albumin 2.7L, Globulin 4.1, Albumin/Globulin Ratio 0.6L Height (Feet): 6 Height (Inches): 1.00 Weight (Pounds): 240 Objective exam stable TRISTIAN RIOS Dec 04, 2016 11:30
[2016-12-04 11:33] VITALS: BP 149/89
--- NOTE | 2016-12-04 12:34 | Diagnostic Imaging Report ---
Indication: Dyspnea Comparison: 12/01/16 A single view chest radiograph was obtained. Findings: The heart is enlarged. There is a left basilar opacification silhouetting out the left hemidiaphragm. Parenchymal density at the right lung base may be atelectasis or pneumonia. Pulmonary vascularity is within normal limits. Impression: Increased right basilar density likely atelectasis or pneumonia. Persistent left basilar density noted.
--- NOTE | 2016-12-05 12:40 | Discharge Summary ---
DATE OF ADMISSION: 11/21/2016 DATE OF DISCHARGE: 12/04/2016 ADMISSION DIAGNOSES: 1. Sepsis. 2. Renal insufficiency. 3. Hypothyroidism. 4. Hypertension. 5. Urinary tract infection. 6. History of chronic sacral wound, community-acquired. 7. History of ileostomy. DISCHARGE DIAGNOSES: 1. Sepsis. 2. Renal insufficiency. 3. Hypothyroidism. 4. Hypertension. 5. Urinary tract infection. 6. History of chronic sacral wound, community-acquired. 7. History of ileostomy. Hospital Course: The patient is an unfortunate male with a complaint of sepsis secondary to UTI. He was initially admitted to the intensive care unit. He was placed on BiPAP for hypoxemia and hypercapnia. He received broad-spectrum IV antibiotics. An NG tube was placed for NG-tube feeds as well as medications. He had gradual improvement. It was recommended by ID that the patient receive a long course of antibiotics. The patient's family declined placement to SNF to complete antibiotics. They also declined placement of the G-tube. They are well aware of the patient's poor p.o. intake and importance of nutrition for wound healing. On discharge, the patient was stable. He completed all his antibiotics. He has been instructed to follow up with his PMD in one week. Discharge Medications: Please see discharge list for discharge medications. DIET: Cardiac diet. ACTIVITIES: Ad-diana. Aamir Sanchez M.D. DR: Wiley JOB#: [id number] CC:
== END 2016-12-04 15:35 | disposition home health service (06) | DRG 871 ==
LOC: EDBD 19:13 → EDSEX 19:13 → EDBEDREQ 19:23 → EMR 19:45 → 2E 20:22 → EDBEDREQ 21:32 → 2E 23:12 → ICU 11-22 03:26 → 2E 11-24 18:10 → 4E 12-02 08:45
PROC: 5A09457 Assistance with Respiratory Ventilation, 24-96 Consecutive Hours, Continuous Positive Airway Pressure (ICD-10-PCS; principal; 2016-11-22)
DX: A41.9 Sepsis, unspecified organism (principal); E43 Unspecified severe protein-calorie malnutrition; R65.21 Severe sepsis with septic shock; I50.33 Acute on chronic diastolic (congestive) heart failure; G93.41 Metabolic encephalopathy; J96.02 Acute respiratory failure with hypercapnia; J96.01 Acute respiratory failure with hypoxia; L89.154 Pressure ulcer of sacral region, stage 4; G92 Toxic encephalopathy; E86.0 Dehydration; R53.2 Functional quadriplegia; N17.9 Acute kidney failure, unspecified; N39.0 Urinary tract infection, site not specified; F03.90 Unspecified dementia, unspecified severity, without behavioral disturbance, psychotic disturbance, mood disturbance, and anxiety; D64.9 Anemia, unspecified; E03.9 Hypothyroidism, unspecified; Z86.73 Personal history of transient ischemic attack (TIA), and cerebral infarction without residual deficits; Z85.46 Personal history of malignant neoplasm of prostate; Z68.33 Body mass index [BMI] 33.0-33.9, adult; R06.89 Other abnormalities of breathing; F01.50 Vascular dementia, unspecified severity, without behavioral disturbance, psychotic disturbance, mood disturbance, and anxiety; E86.1 Hypovolemia; E78.5 Hyperlipidemia, unspecified; R62.7 Adult failure to thrive; N40.1 Benign prostatic hyperplasia with lower urinary tract symptoms; R33.8 Other retention of urine; N31.9 Neuromuscular dysfunction of bladder, unspecified; Z43.2 Encounter for attention to ileostomy; R13.10 Dysphagia, unspecified; M41.9 Scoliosis, unspecified; I49.1 Atrial premature depolarization; B96.20 Unspecified Escherichia coli [E. coli] as the cause of diseases classified elsewhere; I11.0 Hypertensive heart disease with heart failure; B96.5 Pseudomonas (aeruginosa) (mallei) (pseudomallei) as the cause of diseases classified elsewhere
CPT/HCPCS: 36415; 36600; 70450; 71010; 74000; 74230; 80048; 80053; 80202; 81003; 82550; 82803; 82962; 83605; 83735; 83880; 84443; 84484; 85025; 85610; 85730; 87040; 87070; 87081; 87086; 87181; 87205; 93005; 93306; 93970; 94660; 94664; 94760; 99285; J1815

== ENCOUNTER 2016-12-04 21:24 | Inpatient (IN) | payer MEDICARE, MEDICAID ==
[~2016-12-04] VITALS: Ht 185.4 cm; Wt 108.9 kg
[~2016-12-04 21:24] MED LIST changes: +NORVASC5 MG NG; +RANITIDINE HCL150 MG NG
--- NOTE | 2016-12-04 21:36 | Emergency Room Report ---
History of Present Illness General Chief Complaint: Dyspnea/Respdistress Source: Family Member, Medical Record, EMS Present Illness HPI Patient is discharged from the hospital today. He was treated for pneumonia. In the past he was on BiPAP. Paramedics found that his oxygen saturation was 86 %. With 100% nonrebreather he had some improvement.. Son claims that he man junky lungs this morning. The patient has an indwelling Rausch. He has boots to protect his heels and is bedridden. He is unable to give history. Full Code per son. Here are his discharge diagnoses. 1. Sepsis. 2. Renal insufficiency. 3. Hypothyroidism. 4. Hypertension. 5. Urinary tract infection. 6. History of chronic sacral wound, community-acquired. 7. History of ileostomy. 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 Hx Diabetes: Yes Hx Cancer: Yes Hx Gastrointestinal Problems: Yes - Encepalpathy Hx Neurological Problems: No Review of Systems All Other Systems: limited Physical Exam Vital Signs Date Time Temp Pulse Resp B/P (MAP) Pulse Ox O2 Delivery O2 Flow Rate FiO2 12/04/16 21:26 98.4 118 22 127/76 94 Room Air Sp02 EP Interpretation: reviewed, abnormal - interpreted as low by me General Appearance: moderate distress, other - looks but not speak, Chronically Ill Head: normocephalic, atraumatic Eyes: bilateral eye normal inspection, bilateral eye PERRL ENT: moist mucus membranes Neck: supple Respiratory: respiratory distress - mod, accessory muscle use, rales, wheezing , expiration Cardiovascular #1: tachycardia Cardiovascular #2: 2+ radial (R) Gastrointestinal: normal inspection, non tender, no mass, non-distended, abnormal bowel sounds - decreased Musculoskeletal: back normal, decreased range of motion - atrophy Neurologic: responsive, DTRs symmetric, sensory intact, Babinski Skin: warm/dry, other - decubitus Procedures Critical Care Time Critical Care Time Total Critical Care Time: 60 min bedside evaluation and treatment excludes procedures (EKG). Reason for critical care: respiratory distress, determination level of care, repeated evaluations Possible complications: hypotension, hypertension, [place], shock, arrhythmias, metabolic acidosis, end organ damage, respiratory failure. Interventions: CPAP, fluid resuscitation, antibiotics, determination level of care, discussion with family Course: Patient with resp distress and hypoxia. O2 sats dropped and patient resp distress - BIPAP begun. BP low. Fluid resuscitation. Discussion with son regarding level care and treatment plan. Rapid a flutter treated with amiodarone. Repeat eval with improvement. See notes. Eval of resp status with ABG. Consultations: nursing staff, EMS, family, records, respiratory Performed by: Dr. Marquis Tolerated well condition = serious Medical Decision Making Diagnostic Impression: Primary Impression: Sepsis Qualified Codes: A41.9 - Sepsis, unspecified organism Additional Impressions: Pneumonia Qualified Codes: J18.9 - Pneumonia, unspecified organism UTI (urinary tract infection) Qualified Codes: T83.511A - Infection and inflammatory reaction due to indwelling urethral catheter, initial encounter; N39.0 - Urinary tract infection , site not specified Atrial flutter Qualified Codes: I48.92 - Unspecified atrial flutter ER Course The patient presents with hypoxia with a recent diagnosis of pneumonia. Differential includes recurrent pneumonia, COPD, acute myocardial infarction amongst others. We need to evaluate the patient for possible sepsis. He needs IV hydration blood cultures EKG chest x-ray and IV antibiotics. The patient will be readmitted to the hospital. He is still dyspneic at this time and hypoxic and needs BiPAP immediately. Labs with elevated WBC and lactate. Urine with WBC. CXR with infiltrates. Improved with less tachypnea with fluids and BIPAP. ABG acceptable oxygenation and pH. Initially the patient was in atrial flutter 2:1. With fluids his heart rate improved however was still in A flutter. A repeat EKG was performed. Discussed treatment with son. Amiodarone was given IV. The heart rate improved. Patient admitted to [facility] to Dr. Sanchez. Laboratory Tests Test 12/04/16 21:55 12/04/16 23:13 12/05/16 13:35 12/06/16 03:50 White Blood Count 13.5 K/UL (4.8-10.8) #H 9.6 K/UL (4.8-10.8) Red Blood Count 4.35 M/UL (4.70-6.10) L 3.50 M/UL (4.70-6.10) L Hemoglobin 12.4 G/DL (14.2-18.0) L 9.6 G/DL (14.2-18.0) L Hematocrit 39.0 % (42.0-52.0) L 30.7 % (42.0-52.0) L Mean Corpuscular Volume 90 FL (80-99) 88 FL (80-99) Mean Corpuscular Hemoglobin 28.4 PG (27.0-31.0) 27.4 PG (27.0-31.0) Mean Corpuscular Hemoglobin Concent 31.7 G/DL (32.0-36.0) L 31.3 G/DL (32.0-36.0) L Red Cell Distribution Width 19.5 % (11.6-14.8) H 18.1 % (11.6-14.8) H Platelet Count 229 K/UL (150-450) 121 K/UL (150-450) L Mean Platelet Volume 10.5 FL (6.5-10.1) H 9.4 FL (6.5-10.1) Neutrophils (%) (Auto) 89.7 % (45.0-75.0) H % (45.0-75.0) Lymphocytes (%) (Auto) 6.7 % (20.0-45.0) L % (20.0-45.0) Monocytes (%) (Auto) 2.9 % (1.0-10.0) % (1.0-10.0) Eosinophils (%) (Auto) 0.1 % (0.0-3.0) % (0.0-3.0) Basophils (%) (Auto) 0.6 % (0.0-2.0) % (0.0-2.0) Prothrombin Time 11.8 SEC (9.30-11.50) H Prothrombin Time INR 1.1 (0.9-1.1) PTT 29 SEC (23-33) Urine Color Yellow Urine Appearance Slightly cloudy Urine pH 6.5 (4.5-8.0) Urine Specific [place] 1.010 (1.005-1.035) Urine Protein 3+ (NEGATIVE) H Urine Glucose (UA) Negative (NEGATIVE) Urine Ketones 2+ (NEGATIVE) H Urine Occult Blood 5+ (NEGATIVE) H Urine Nitrite Negative (NEGATIVE) Urine Bilirubin Negative (NEGATIVE) Urine Urobilinogen 1 MG/DL (0.0-1.0) H Urine Leukocyte Esterase 3+ (NEGATIVE) H Urine RBC 10-15 /HPF (0 - 0) H Urine WBC Tntc /HPF (0 - 0) H Urine Squamous Epithelial Cells None /LPF (NONE/OCC) Urine Bacteria Moderate /HPF (NONE) H Urine Yeast Moderate /HPF (NONE) H Lactic Acid Level 4.20 mmol/L (0.66-2.22) H 4.80 mmol/L (0.66-2.22) H Sodium Level 141 mEQ/L (135-145) 137 mEQ/L (135-145) Potassium Level 3.8 mEQ/L (3.4-4.9) 3.9 mEQ/L (3.4-4.9) Chloride Level 96 mEQ/L (98-107) L 98 mEQ/L (98-107) Carbon Dioxide Level 31 mEQ/L (20-30) H 30 mEQ/L (20-30) Anion Gap 14 (5-15) 9 (5-15) Blood Urea Nitrogen 11 mg/dL (7-23) 15 mg/dL (7-23) Creatinine 0.7 mg/dL (0.7-1.2) 0.6 mg/dL (0.7-1.2) L Estimate Glomerular Filtration Rate mL/min (>60) mL/min (>60) Glucose Level 169 mg/dL (74-106) H 137 mg/dL (74-106) H Calcium Level 8.7 mg/dL (8.6-10.2) 8.6 mg/dL (8.6-10.2) Total Bilirubin 0.8 mg/dL (0.0-1.2) 0.5 mg/dL (0.0-1.2) Aspartate Amino Transferase (AST) 17 U/L (5-40) 17 U/L (5-40) Alanine Aminotransferase (ALT) 12 U/L (3-41) 11 U/L (3-41) Alkaline Phosphatase 72 U/L (40-129) 57 U/L (40-129) Total Creatine Kinase 40 U/L (38-174) Troponin I < 0.30 ng/mL (<=0.30) Pro-B-Type Natriuretic Peptide 2318 pg/mL (0-450) H 6144 pg/mL (0-450) H Total Protein 7.1 g/dL (6.6-8.7) 6.5 g/dL (6.6-8.7) L Albumin 3.0 g/dL (3.5-5.2) L 2.5 g/dL (3.5-5.2) L Globulin 4.1 g/dL 4.0 g/dL Albumin/Globulin Ratio 0.7 (1.0-2.7) L 0.6 (1.0-2.7) L Arterial Blood pH 7.480 (7.350-7.450) Arterial Blood Partial Pressure CO2 42.5 mmHg (35.0-45.0) Arterial Blood Partial Pressure O2 < 64.0 mmHg (75.0-100.0) L Arterial Blood HCO3 31.2 mmol/L (22.0-26.0) H Arterial Blood Oxygen Saturation 91.9 % (92.0-98.0) L Arterial Blood Base Excess 7.1 Han Test Positive Differential Total Cells Counted 100 Neutrophils % (Manual) 96 % (45-75) H Lymphocytes % (Manual) 3 % (20-45) L Monocytes % (Manual) 1 % (1-10) Eosinophils % (Manual) 0 % (0-3) Basophils % (Manual) 0 % (0-2) Band Neutrophils 0 % (0-8) Platelet Estimate Decreased L Platelet Morphology Normal Hypochromasia 1+ Anisocytosis 1+ Target Cells 1+ Test 12/06/16 08:16 Arterial Blood pH 7.450 (7.350-7.450) Arterial Blood Partial Pressure CO2 47.4 mmHg (35.0-45.0) H Arterial Blood Partial Pressure O2 82.1 mmHg (75.0-100.0) Arterial Blood HCO3 32.7 mmol/L (22.0-26.0) H Arterial Blood Oxygen Saturation 95.4 % (92.0-98.0) Arterial Blood Base Excess 7.8 Han Test Positive Microbiology Date/Time Source Procedure Growth Status 12/04/16 21:55 Urine,Clean Catch Urine Culture - Final Bibiana Albicans Complete EKG Diagnostic Results Rate: tachycardiac Rhythm: other ST Segments: no acute changes - a flutter with 2:1 block Other Impression 2nd EKG with A flutter - more variable block - HR 106, no ischemia Rhythm Strip Diag. Results EP Interpretation: yes Rhythm: no PVC's, no ectopy, other - ST Chest X-Ray Diagnostic Results Chest X-Ray Diagnostic Results : Chest X-Ray Ordered: Yes # of Views/Limited/Complete: 1 View Indication: Other Interpretation: no pneumothorax, other - infiltrates and effusion Impression: Other Electronically Signed by: Omkar Marquis MD Last Vital Signs Date Time Temp Pulse Resp B/P (MAP) Pulse Ox O2 Delivery O2 Flow Rate FiO2 12/05/16 03:15 113 28 95 Facial 50 12/05/16 01:30 99.1 124/91 Status: improved Disposition: ADMITTED INPATIENT Condition: Serious Omkar Marquis M.D. Dec 04, 2016 21:36
[2016-12-04] MEDS ORDERED: Vancomycin 1.5gm/D5W 250ml 325 ML IVPB ONE (21:45)
[2016-12-04] MEDS ORDERED: Cefepime HCl 2 GM in NS 110 ML IV SCH (21:45)
[2016-12-04] MEDS ORDERED: Solu-MEDROL 125mg Inj IVP ONE (21:45)
[2016-12-04] MEDS ORDERED: Ipratropium 0.02% Inh Soln 2.5ml UD HHN ONE (21:45)
[2016-12-04] MEDS: Albuterol ud Inhalation HHN SCH ×2 (22:02→22:03)
[2016-12-04 22:10] VITALS: BP 96/56
[2016-12-04] MEDS: Acetaminophen 650 MG SUPP RECTAL ONE ×2 (22:15→23:27)
[2016-12-04 22:35] LABS: APPEARANCE,URINE SLIGHTLY CLOUDY; KETONES,URINE 2+ (NEGATIVE); LEUKOCYTE ESTERASE ,URINE 3+ (NEGATIVE); NITRITE,URINE NEGATIVE (NEGATIVE); PH,URINE 6.5 (4.5-8.0); PROTEIN,URINE 3+ (NEGATIVE); UROBILINOGEN,URINE 1 MG/DL (0.0-1.0)
[2016-12-04 22:39] LABS: MEAN CORPUSCULAR HEMOGLOBIN 28.4 PG (27.0-31.0); MEAN CORPUSCULAR HGB CONC 31.7 G/DL (32.0-36.0); MEAN CORPUSCULAR VOLUME 90 FL (80-99); MEAN PLATELET VOLUME 10.5 FL (6.5-10.1); PLATELET COUNT 229 K/UL (150-450); RED BLOOD COUNT 4.35 M/UL (4.70-6.10); RED CELL DISTRIBUTION WIDTH 19.5 % (11.6-14.8); WHITE BLOOD COUNT 13.5 K/UL (4.8-10.8)
[2016-12-04 22:41] LABS: BASOPHILS % (AUTO) 0.6 % (0.0-2.0); EOSINOPHILS % (AUTO) 0.1 % (0.0-3.0); LYMPHOCYTES % (AUTO) 6.7 % (20.0-45.0); MONOCYTES % (AUTO) 2.9 % (1.0-10.0); NEUTROPHILS % (AUTO) 89.7 % (45.0-75.0)
[2016-12-04 22:47] LABS: WBC,URINE TNTC /HPF (0 - 0)
[2016-12-04 22:48] LABS: BACTERIA,URINE MODERATE /HPF; YEAST,URINE MODERATE /HPF
[2016-12-04 22:49] LABS: INR 1.1 (0.9-1.1); PROTHROMBIN TIME 11.8 SEC (9.30-11.50)
[2016-12-04 22:53] LABS: REFLEX LACTIC ACID YES OR NO YES
[2016-12-04] MEDS ORDERED: Cefepime 2gm ONE (23:17)
[2016-12-05] VITALS (7 sets, daily range): BP systolic 114–137; BP diastolic 53–91
[2016-12-05 00:08] LABS: ALANINE AMINOTRANSFERASE 12 U/L (3-41); ALBUMIN/GLOBULIN RATIO 0.7 (1.0-2.7); ANION GAP 14 (5-15); ASPARTATE AMINO TRANSFERASE 17 U/L (5-40); CALCIUM 8.7 mg/dL (8.6-10.2); CARBON DIOXIDE 31 mEQ/L (20-30); CHLORIDE 96 mEQ/L (98-107); CREATININE 0.7 mg/dL (0.7-1.2); HEMOLYSIS 2; POTASSIUM 3.8 mEQ/L (3.4-4.9); SODIUM 141 mEQ/L (135-145); TOTAL PROTEIN 7.1 g/dL (6.6-8.7); TROPONIN I < 0.30 ng/mL (<=0.30)
[2016-12-05] MEDS ORDERED: Cefepime 2gm ONE (06:58)
[2016-12-05] MEDS: D5NS 1,000 ML IV SCH ×2 (08:52→20:36)
--- NOTE | 2016-12-05 11:16 | Wound Care Consultation ---
Wound Assessment Wound Assessment #1: Wound Number: 1 Wound Present on Admission: Yes New Wound: No Status Change of Wound: No Wound Location Body Site Modif: mid Wound Location Body Site: other - sacrococcgeal Wound Type: pressure ulcer Bradly Test: Does not Bradly Pressure Ulcer Stage: IV/unstageable Wound Thickness: Full Thickness Wound Length: 6.0 Wound Width: 5.5 Wound Depth: 0.3 Percent of Wound [place]/Red: 100 Wound Drainage Description: Serosanguineous Wound Drainage Amount: Moderate Wound Drainage Odor: None/Absent Tissue Surrounding Wound: Macerated Wound General Appearance: Reddened, Draining, Muscle Visible Wound Assessment #2: Wound Number: 2 Wound Present on Admission: Yes New Wound: No Status Change of Wound: No Wound Location Body Site Modif: left Wound Location Body Site: malleolus/ankle Wound Type: pressure ulcer Bradly Test: Does not Bradly Pressure Ulcer Stage: IV/unstageable Wound Thickness: Full Thickness Wound Length: 1.5 Wound Width: 1.5 Wound Depth: utd Percent of Wound Bed Yellow/Wh: 100 Wound Drainage Description: Serosanguineous Wound Drainage Amount: Moderate Wound Drainage Odor: None/Absent Tissue Surrounding Wound: Intact Wound General Appearance: Draining, Necrotic Wound Assessment #3: Wound Number: 3 Wound Present on Admission: Yes New Wound: No Status Change of Wound: No Wound Location Body Site: perineal area Wound Type: chemical burn Bradly Test: Does not Bradly Wound Drainage Amount: None Wound Drainage Odor: None/Absent Tissue Surrounding Wound: dry flaky skin Wound Comment #1 Sacrococcygeal stage IV pressure ulcer with full thickness scar tissue. #2 Left malleolus unstageable pressure ulcer #3 Chemical on perineal area #4 Left and right ischial tuberosity with full thickness scar tissue Recommendation -Sacrococcygeal stage IV pressure ulcer with full thickness scar tissue and Left malleolus unstageable pressure ulcer, Cleanse with saline, pat dry, apply Therahoney gel to wound bed, cover with calcium alginate, secure with bordered gauze daily and PRN soiled/dislodged. -Keep clean and dry -Turn and reposition -Optimize nutrition -Offload both heels -Heel protector on both heels -Low air loss mattress -Assess and f/u accordingly for any changes GENA MUSTAFA RN Dec 05, 2016 11:16
--- NOTE | 2016-12-05 11:21 | Diagnostic Imaging Report ---
Indication: DYSPNEA Technique: One view of the chest Comparison: 15 hours earlier Findings: Patient's chin obscures the upper mediastinum. There is a left pleural effusion again demonstrated. The heart is borderline enlarged. Interstitial congestion has increased since the prior study. There is now probably pleural fluid on the right. Granulomatous lymph nodes are again demonstrated in the aortopulmonary window Impression: Stable left, new or increased right pleural effusion, over 15 hours Increasing interstitial edema Old granulomatous disease
--- NOTE | 2016-12-05 12:40 | Progress Note ---
DATE: 12/03/2016 CARDIOLOGY PROGRESS NOTE Subjective: The patient was seen and evaluated. Case was discussed with Dr. Sanchez the primary care physician. Family members have refused fpc facility or G-tube. They are expecting to take the patient home. The patient was seen by Podiatry today with debridement performed of his nails. The patient has no chest pain or shortness of breath. He is more interactive, but appetite remains fair with about 40% to 50% intake. OBJECTIVE: Vital Signs: Blood pressure 137/82, pulse 76, respirations 20, and afebrile. LUNGS: Good breath sounds. No wheezing. Heart: Regular rhythm and rate. Normal S1 and S2 with a fourth heart sound. ABDOMEN: Soft. EXTREMITIES: No edema. Laboratory Data: White count 5.5 and hemoglobin 10.9. Albumin is 2.7. BUN 9 and creatinine 0.5. IMPRESSION: 1. Recovered sepsis with shock. 2. Improved renal function following episode of acute tubular necrosis due to hypovolemia and dehydration. 3. Acute respiratory acidosis and with hypoxia, recovered. 4. Paroxysmal atrial ectopy and tachycardia, resolved. 5. Toxic and metabolic encephalopathy slowly recovering. 6. Hypertensive heart disease now with adequate blood pressure control and no clinical signs of acute congestive heart failure. PLAN: 1. Orders reviewed. 2. Discharge planning in progress. Omkar Turk M.D. DR: EVONNE JOB#: [id number] CC:
--- NOTE | 2016-12-05 13:16 | Pulmonology Progress Note ---
Assessment/Plan Assessment/Plan IMPRESSION: 1. Respiratory failure. 2. Acute on chronic respiratory acidosis. 3. Functional quadriplegia. 4. Prostate cancer. 5. Severe protein-calorie malnutrition. 6. As per code status, no intubation, no gastrostomy tube. 7. Possible urinary tract infection. 8. Possible sepsis. 9. Hypotension. 10. sacral wound PLAN care noted all noted and reviewed respiratory care per [facility]- no intubation but now full code pulmonary to continue with BIPAP low flow oxygen as needed SNF meds noted supportive care suction as needed aspiration precautions check with ABG exam reviewed medications/laboratory data/nursing notes reviewed in detail note reviewed and edited care discussed with RN and RT Subjective Allergies: Coded Allergies: No Known Allergies (Verified , 06/30/07) Subjective patient discharged and now readmitted back on BIPAP Objective Last 24 Hour Vital Signs Date Time Temp Pulse Resp B/P (MAP) Pulse Ox O2 Delivery O2 Flow Rate FiO2 12/05/16 13:04 77 14 95 Facial 40 12/05/16 12:38 84 12/05/16 12:00 97.9 93 129/77 95 12/05/16 12:00 50 12/05/16 10:34 83 24 100 Facial 40 12/05/16 08:38 83 24 100 Facial 45 12/05/16 08:00 50 12/05/16 08:00 98.1 87 114/69 97 12/05/16 07:41 90 12/05/16 07:01 92 33 98 Facial 50 12/05/16 05:49 96 29 94 Facial 50 12/05/16 04:00 98.1 106 137/60 98 12/05/16 04:00 100 12/05/16 03:15 113 28 95 Facial 50 12/05/16 01:30 40 12/05/16 01:30 99.1 105 124/91 96 12/05/16 01:25 100.2 94 34 115/53 100 40 12/05/16 01:02 98 34 100 Facial 40 12/05/16 00:59 60 12/05/16 00:54 94 25 115/53 100 Bi-pap 60 12/04/16 22:41 108 34 100 Facial 60 12/04/16 22:40 108 34 100 Bi-pap 60 12/04/16 22:10 100.2 120 27 96/56 100 Bi-pap 60 12/04/16 22:10 120 27 Bi-pap 60 12/04/16 22:01 117 29 100 Bi-pap 60 12/04/16 21:26 98.4 118 22 127/76 94 Room Air Intake and Output 12/05/16 12/06/16 19:00 07:00 Intake Total 300 ml Balance 300 ml Intake IV Total 300 ml Objective WDWN NAD reduced breath sounds bilaterally without rhonchi or wheeze [id number] without MRG NABS nontender no HSM no CC some mild edema reduced ROM nonfocal Microbiology Date/Time Source Procedure Growth Status 12/05/16 02:00 Sacral Lower Gram Stain - Final Resulted 12/05/16 02:00 Sacral Lower Wound Culture Pending Resulted Laboratory Tests 12/04/16 21:55: White Blood Count 13.5#H, Red Blood Count 4.35L, Hemoglobin 12.4L, Hematocrit 39.0L, Mean Corpuscular Volume 90, Mean Corpuscular Hemoglobin 28.4, Mean Corpuscular Hemoglobin Concent 31.7L, Red Cell Distribution Width 19.5H, Platelet Count 229, Mean Platelet Volume 10.5H, Neutrophils (%) (Auto) 89.7H, Lymphocytes (%) (Auto) 6.7L, Monocytes (%) (Auto) 2.9, Eosinophils (%) (Auto) 0.1, Basophils (%) (Auto) 0.6, Prothrombin Time 11.8H, Prothromb Time International Ratio 1.1, Activated Partial Thromboplast Time 29, Urine Color Yellow, Urine Appearance Slightly cloudy, Urine pH 6.5, Urine Specific [place] 1.010, Urine Protein 3+H, Urine Glucose (UA) Negative, Urine Ketones 2+H, Urine Occult Blood 5+H, Urine Nitrite Negative, Urine Bilirubin Negative, Urine Urobilinogen 1H, Urine Leukocyte Esterase 3+H, Urine RBC 10-15H, Urine WBC TntcH , Urine Squamous Epithelial Cells None, Urine Bacteria ModerateH, Urine Yeast ModerateH, Lactic Acid Level 4.20H 12/04/16 23:13: Lactic Acid Level 4.80H, Sodium Level 141, Potassium Level 3.8, Chloride Level 96L, Carbon Dioxide Level 31H, Anion Gap 14, Blood Urea Nitrogen 11, Creatinine 0.7, Estimat Glomerular Filtration Rate , Glucose Level 169H, Calcium Level 8.7 , Total Bilirubin 0.8, Aspartate Amino Transf (AST/SGOT) 17, Alanine Aminotransferase (ALT/SGPT) 12, Alkaline Phosphatase 72, Total Creatine Kinase 40, Troponin I < 0.30, Pro-B-Type Natriuretic Peptide 2318H, Total Protein 7.1, Albumin 3.0L, Globulin 4.1, Albumin/Globulin Ratio 0.7L Current Medications Medications (Trade) Dose Ordered Sig/Jus Route PRN Reason Start Time Stop Time Status Last Admin Dose Admin Dextrose/Sodium Chloride 1,000 ml @ 75 mls/hr [id number] IV 12/05/16 07:30 01/04/17 07:29 12/05/16 08:52 NICHOLAS ROJAS Dec 05, 2016 13:16
[2016-12-05 13:38] LABS: ABG BASE EXCESS 7.1; ABG PCO2 42.5 mmHg (35.0-45.0)
[2016-12-05 13:39] LABS: ABG ALLEN TEST POSITIVE
--- NOTE | 2016-12-05 14:35 | Cardiology Report ---
APPROVED REPORT EKG Measurement Heart [id number] Atrial flutter with variable AV block Low voltage QRS Cannot rule out Anteroseptal infarct, age undetermined Abnormal ECG
--- NOTE | 2016-12-05 15:44 | Infectious Diseases Prog Note ---
Assessment/Plan Assessment/Plan HPI: patient known to me from previous admission, returns with sepsis, leukocytosis and fevers. Asked to evaluate for abx Assessment/Plan: A) 1) sepsis, asp pna/hcap, uti, sob, leukocytosis, fevers, wound fairly clean, lactic acidosis, ? c.diff., ? fungemia 2) htn, hypothyroidism, ileostomy, cva, dementia, prostate ca, qp, ftt, dm, anemia, encephalopathy, hhd, colostomy 3) allergies - negative, fh-nc, sh-negative, mar noted, 4) notes and records reviewed 5) d/w RN P) 1) vancomycin, flagyl, cefepime, diflucan 2) check labs, cultures, chest x-ray, check c.diff. if watery stool in colostomy 3) wound culture per protocol 4) continue treatment per primary and consultants 5) orders entered and noted 6) sdu care 7) d/w Dr. Sanchez 8) thank you Subjective Constitutional: Reports: fever, fatigue, other - responsive HEENT: Reports: congestion Respiratory: Reports: shortness of breath Cardiovascular: Denies: chest pain Gastrointestinal/Abdominal: Reports: other - colostomy , Denies: nausea, vomiting Genitourinary: Reports: other - + burton Neurologic: Reports: weakness Psychiatric: Reports: no symptoms Skin: Denies: rash Hematologic: Denies: bleeding Musculoskeletal: Denies: pain Allergies: Coded Allergies: No Known Allergies (Verified , 06/30/07) Objective Vital Signs Last 24 Hour Vital Signs Date Time Temp Pulse Resp B/P (MAP) Pulse Ox O2 Delivery O2 Flow Rate FiO2 12/05/16 13:04 77 14 95 Facial 40 12/05/16 12:38 84 12/05/16 12:00 97.9 93 129/77 95 12/05/16 12:00 50 12/05/16 10:34 83 24 100 Facial 40 12/05/16 08:38 83 24 100 Facial 45 12/05/16 08:00 50 12/05/16 08:00 98.1 87 114/69 97 12/05/16 07:41 90 12/05/16 07:01 92 33 98 Facial 50 12/05/16 05:49 96 29 94 Facial 50 12/05/16 04:00 98.1 106 137/60 98 12/05/16 04:00 100 12/05/16 03:15 113 28 95 Facial 50 12/05/16 01:30 40 12/05/16 01:30 99.1 105 124/91 96 12/05/16 01:25 100.2 94 34 115/53 100 40 12/05/16 01:02 98 34 100 Facial 40 12/05/16 00:59 60 12/05/16 00:54 94 25 115/53 100 Bi-pap 60 12/04/16 22:41 108 34 100 Facial 60 12/04/16 22:40 108 34 100 Bi-pap 60 12/04/16 22:10 100.2 120 27 96/56 100 Bi-pap 60 12/04/16 22:10 120 27 Bi-pap 60 12/04/16 22:01 117 29 100 Bi-pap 60 12/04/16 21:26 98.4 118 22 127/76 94 Room Air Height (Feet): 6 Height (Inches): 1.00 Weight (Pounds): 206 General Appearance: other - + sob, + bipap HEENT: normocephalic, atraumatic, anicteric, mucous membranes moist, EOMI, supple, no JVD Respiratory/Chest: respiratory distress, decreased breath sounds, crackles/ rales, rhonchi - bilaterally Cardiovascular: normal rate, regular rhythm, regularly irregular Abdomen: normal bowel sounds, soft, non tender, no organomegaly, non distended , other - colostomy Genitourinary: other - + [place] - urine cloudy Extremities: no cyanosis Skin: no rash, other - wound clean Neurologic/Psychiatric: progressive care nurse II-XII grossly normal, alert, responsive, other - generalized weakness Lymphatic: no neck adenopathy Musculoskeletal: no effusion Objective Chest x-ray: Findings: Patient's chin obscures the upper mediastinum. There is a left pleural effusion again demonstrated. The heart is borderline enlarged. Interstitial congestion has increased since the prior study. There is now probably pleural fluid on the right. Granulomatous lymph nodes are again demonstrated in the aortopulmonary window Impression: Stable left, new or increased right pleural effusion, over 15 hours Increasing interstitial edema Old granulomatous disease Microbiology Date/Time Source Procedure Growth Status 12/05/16 02:00 Sacral Lower Gram Stain - Final Resulted 12/05/16 02:00 Sacral Lower Wound Culture Pending Resulted Laboratory Tests Test 12/04/16 21:55 12/04/16 23:13 12/05/16 13:35 White Blood Count 13.5 K/UL (4.8-10.8) #H Red Blood Count 4.35 M/UL (4.70-6.10) L Hemoglobin 12.4 G/DL (14.2-18.0) L Hematocrit 39.0 % (42.0-52.0) L Mean Corpuscular Volume 90 FL (80-99) Mean Corpuscular Hemoglobin 28.4 PG (27.0-31.0) Mean Corpuscular Hemoglobin Concent 31.7 G/DL (32.0-36.0) L Red Cell Distribution Width 19.5 % (11.6-14.8) H Platelet Count 229 K/UL (150-450) Mean Platelet Volume 10.5 FL (6.5-10.1) H Neutrophils (%) (Auto) 89.7 % (45.0-75.0) H Lymphocytes (%) (Auto) 6.7 % (20.0-45.0) L Monocytes (%) (Auto) 2.9 % (1.0-10.0) Eosinophils (%) (Auto) 0.1 % (0.0-3.0) Basophils (%) (Auto) 0.6 % (0.0-2.0) Prothrombin Time 11.8 SEC (9.30-11.50) H Prothromb Time International Ratio 1.1 (0.9-1.1) Activated Partial Thromboplast Time 29 SEC (23-33) Urine Color Yellow Urine Appearance Slightly cloudy Urine pH 6.5 (4.5-8.0) Urine Specific [place] 1.010 (1.005-1.035) Urine Protein 3+ (NEGATIVE) H Urine Glucose (UA) Negative (NEGATIVE) Urine Ketones 2+ (NEGATIVE) H Urine Occult Blood 5+ (NEGATIVE) H Urine Nitrite Negative (NEGATIVE) Urine Bilirubin Negative (NEGATIVE) Urine Urobilinogen 1 MG/DL (0.0-1.0) H Urine Leukocyte Esterase 3+ (NEGATIVE) H Urine RBC 10-15 /HPF (0 - 0) H Urine WBC Tntc /HPF (0 - 0) H Urine Squamous Epithelial Cells None /LPF (NONE/OCC) Urine Bacteria Moderate /HPF (NONE) H Urine Yeast Moderate /HPF (NONE) H Lactic Acid Level 4.20 mmol/L (0.66-2.22) H 4.80 mmol/L (0.66-2.22) H Sodium Level 141 mEQ/L (135-145) Potassium Level 3.8 mEQ/L (3.4-4.9) Chloride Level 96 mEQ/L (98-107) L Carbon Dioxide Level 31 mEQ/L (20-30) H Anion Gap 14 (5-15) Blood Urea Nitrogen 11 mg/dL (7-23) Creatinine 0.7 mg/dL (0.7-1.2) Estimat Glomerular Filtration Rate mL/min (>60) Glucose Level 169 mg/dL (74-106) H Calcium Level 8.7 mg/dL (8.6-10.2) Total Bilirubin 0.8 mg/dL (0.0-1.2) Aspartate Amino Transf (AST/SGOT) 17 U/L (5-40) Alanine Aminotransferase (ALT/SGPT) 12 U/L (3-41) Alkaline Phosphatase 72 U/L (40-129) Total Creatine Kinase 40 U/L (38-174) Troponin I < 0.30 ng/mL (<=0.30) Pro-B-Type Natriuretic Peptide 2318 pg/mL (0-450) H Total Protein 7.1 g/dL (6.6-8.7) Albumin 3.0 g/dL (3.5-5.2) L Globulin 4.1 g/dL Albumin/Globulin Ratio 0.7 (1.0-2.7) L Arterial Blood pH 7.480 (7.350-7.450) Arterial Blood Partial Pressure CO2 42.5 mmHg (35.0-45.0) Arterial Blood Partial Pressure O2 < 64.0 mmHg (75.0-100.0) L Arterial Blood HCO3 31.2 mmol/L (22.0-26.0) H Arterial Blood Oxygen Saturation 91.9 % (92.0-98.0) L Arterial Blood Base Excess 7.1 Han Test Positive Current Medications Medications (Trade) Dose Ordered Sig/Jus Route PRN Reason Start Time Stop Time Status Last Admin Dose Admin Dextrose/Sodium Chloride 1,000 ml @ 75 mls/hr [id number] IV 12/05/16 07:30 01/04/17 07:29 12/05/16 08:52 KISHOR VALLE Dec 05, 2016 15:44
--- NOTE | 2016-12-05 16:46 | Consultation ---
DATE OF CONSULTATION: 12/04/2016 CARDIOLOGY CONSULTATION: CONSULTING PHYSICIAN: Omkar Turk M.D. ATTENDING PHYSICIAN: Aamir Sanchez M.D. REASON FOR CONSULTATION: Hypoxia and acute respiratory distress. History Of Present Illness: This 86-year-old male was recently discharged from the hospital after treatment for sepsis due to urinary tract infection and pneumonia. He also had acute respiratory acidosis and hypoxia. He was discharged home, but returned today with recurrent shortness of breath and congestion as well as severe hypoxia. He was seen in the emergency room. Hospitalization initiated. Past Medical History: Includes pulmonary hypertension, COPD, dysphagia, dementia, paroxysmal atrial ectopy, prostatic hypertrophy with history of urinary retention, functional quadriplegia, cerebrovascular disease with dementia, history of prostate cancer, and history of ileostomy. ALLERGIES: None. FAMILY HISTORY: Noncontributory. SOCIAL HISTORY: MEDICATIONS: Reviewed and reconciled. Review Of Systems: Not obtainable from the patient at this time. Pertinent records from recent hospital stay were reviewed and outlined above. PHYSICAL EXAMINATION: Vital Signs: Afebrile, blood pressure 127/76, pulse 118, respirations 22, and oxygen saturation 94%. Lungs: Coarse breath sounds. Scattered rhonchi and rales. Accessory muscle use. HEART: Regular rhythm. Rapid rate. Normal S1 and S2. ABDOMEN: Soft. EXTREMITIES: No edema. Rausch catheter in place. Laboratory And Diagnostic Data: Chest x-ray reveals right greater than left infiltrate. White count 13.5 and hemoglobin 12.4. Sodium 141, potassium 3.8, bicarbonate 31, BUN 11, and creatinine 0.7. Pro-natriuretic peptide 2300. Albumin 3.0. Troponin negative. Lactic acid 4.8. IMPRESSION: 1. Acute respiratory insufficiency. 2. Aspiration pneumonia. 3. Hypoxia. 4. probable acute respiratory acidosis. 5. Acute diastolic congestive heart failure. 6. Mild protein-calorie malnutrition. 7. Leukocytosis. 8. Secondary sinus tachycardia. PLAN: 1. BiPAP support. 2. Oxygenation. 3. Bronchodilators. 4. Panculture. 5. Broad-spectrum antibiotics. 6. N.p.o. 7. DVT prophylaxis. 8. Check venous duplex scan to evaluate for source of pulmonary emboli. 9. Hold diuresis at this time. 10. Repeat chest radiograph. 11. We will follow and make further recommendations based on daily clinical course. Omkar Turk M.D. DR: EVONNE JOB#: [id number] CC:
--- NOTE | 2016-12-05 17:16 | History and Physical Report ---
DATE OF ADMISSION: 12/04/2016 Chief Complaint: Respiratory failure, sepsis, and urinary tract infection. History Of Present Illness: The patient is a pleasant but unfortunate 86-year-old male. He had a prolonged hospitalization for respiratory failure, sepsis, and shock. He was just discharged from a custodial facility but upon returning home, the patient's family noted that he was short of breath. He was brought back to the emergency room [place] [id number]. He was hypoxic and placed on BiPAP. He did have evidence of urinary tract infection. Of note, he completed his antibiotic therapy. His last dose was on the date of discharge. The white count was noted to be 13,000. Natriuretic peptide level was 23. Lactic acid level is 4.8. Chest x-ray in the emergency room showed right basilar density consistent with possible pneumonia. The patient has been pancultured, is now admitted for further evaluation and care. He is currently on BiPAP. He is awake, alert, does respond to some simple questions and commands. Past Medical History: Significant history of stroke, pneumonia, dysphagia, history of atrial fibrillation and atrial flutter, history of sepsis, history of chronic sacral decubitus ulcer, hypertension, hypothyroidism, hyperlipidemia, and peripheral artery disease. PAST SURGICAL HISTORY: None. CURRENT MEDICATIONS: Reconciled and reviewed. ALLERGIES: None. FAMILY HISTORY: None. Social History: There is no known history of tobacco, ethanol, or drugs. REVIEW OF SYSTEMS: From the patient is unobtainable. PHYSICAL EXAMINATION: Vital Signs: Temperature 97.5, blood pressure 149/89, pulse of 85, and respirations 21. General: The patient is a well-developed male, in no apparent distress, on BiPAP and is awake and follow simple commands. NECK: Supple. HEART: Regular rate and rhythm. LUNGS: Significant for few rhonchi. ABDOMEN: Soft, nontender, and nondistended. Extremities: Without clubbing or cyanosis. The patient has stage IV sacral wound. Laboratory and Diagnostic Data: Labs white count was 13,000, hemoglobin 12. Sodium 141. Lactic acid was 4.8. Natriuretic peptide was 2300. UA showed too numerous to count WBCs. Chest x-ray showed left basilar infiltrates. Assessment: This is a very pleasant unfortunate male with history of dementia, pneumonia, sepsis, peripheral artery disease, paroxysmal atrial fibrillation, hypertension, admitted with respiratory failure secondary to pneumonia, urinary tract infection, and sepsis. 1. Pneumonia. 2. Respiratory failure. 3. Sepsis. 4. Urinary tract infection. 5. Atrial fibrillation. 6. Anemia. 7. History of chronic sacral wound. 8. Hypertension. 9. Dysphasia. Plan: NPO. Repeat swallow evaluation. Broad-spectrum antibiotic therapy. Continue respiratory treatments. Continue wound care. Frequent turning. ID, Pulmonary, and Cardiology consultation will be obtained. Aamir Sanchez M.D. DR: GAEL JOB#: [id number] CC:
[2016-12-05] MEDS: metroNIDAZOLE 500mg 100 ML IVPB SCH ×2 (17:19→23:32)
[2016-12-05] MEDS: Vancomycin 1gm/D5W 275ml IVPB SCH ×2 (17:41)
--- NOTE | 2016-12-05 23:30 | Consultation ---
DATE OF CONSULTATION: 12/05/2016 REFERRING PHYSICIAN: Aamir Sanchez M.D. CONSULTING PHYSICIAN: Larry Julio M.D. REASON FOR CONSULTATION: Followup of UTI and urinary retention. History Of Present Illness: This is an unfortunate 86-year-old gentleman. He is known to me from recent evaluation. The patient has a history of BPH, neurogenic bladder, chronic indwelling Rausch, and UTIs. I saw the patient last week at which time I personally exchanged his Rausch catheter six days ago, 20-Icelandic Rausch catheter was placed and the patient was discharged from the hospital yesterday. However, he was readmitted to the hospital because of respiratory failure, shortness of breath, and was noted to have UTI again. Rausch catheter is still indwelling and it has been draining well. Past Medical History: Significant for above. He also has a history of hypothyroidism, hypertension, dementia, and gastroesophageal reflux disease. Past Surgical History: He has a colostomy. Other surgeries are unknown. Medications: Current medications here in the hospital, the patient is on fluconazole, vancomycin, metronidazole, and cefepime. ALLERGIES: No known drug allergies. Social History: He lives at home. He has a supportive son. Smoking history is unknown. FAMILY HISTORY: Unable to obtain. REVIEW OF SYSTEMS: Unable to obtain. PHYSICAL EXAMINATION: GENERAL: An elderly male. He is on BiPAP. Vital Signs: Temperature is 98.2 degrees, blood pressure is 120/80, pulse is 82, and respirations 14. HEENT: Normocephalic. NECK: Supple. ABDOMEN: Soft. Colostomy is in place. Genitourinary: He has penile edema. A 20-Icelandic Rausch catheter is in place. Urine is na. EXTREMITIES: No clubbing or cyanosis. Laboratory Data: His BUN 11, creatinine 0.7, and potassium 3.8. White count is 13.5, hemoglobin 12.4, and platelets are 229,000. UA showed 3+ protein, 10 to 15 RBCs, too numerous to count WBCs, moderate bacteria and yeast. Repeat urine culture is pending. His urine culture from last week showed E. coli. Diagnostic Imaging Studies: The patient had a chest x-ray, which showed pleural perfusion, there are no renal imaging studies. IMPRESSION: 1. History of urinary retention with chronic Rausch. 2. Benign prostatic hypertrophy history. 3. Probable neurogenic bladder. 4. Hematuria. 5. Urinary tract infection and probable colonization. 6. Proteinuria. 7. Mild penile edema. Plan And Discussion: Again, the patient does have a chronic Rausch. It was changed recently about six days ago. His urine is probably likely colonized. I would agree with antibiotics as ordered. We will follow up on results of repeat urine cultures and he can keep his catheter indwelling for now as it is relatively fresh and was just placed six days ago. It will be irrigated on a p.r.n. basis and we will plan on changing the Rausch catheter again soon in the near future. Thank you, Dr. Sanchez for asking me to see this patient in consultation. Larry Julio M.D. DR: Kelly JOB#: [id number] CC:
[2016-12-06] VITALS (7 sets, daily range): BP systolic 123–140; BP diastolic 78–96
--- NOTE | 2016-12-06 05:15 | Progress Note ---
DATE: 12/05/2016 CARDIOLOGY PROGRESS NOTE Subjective: The patient has less congestion. Still not comfortable with his breathing and appeared short of breath. OBJECTIVE: VITAL SIGNS: Blood pressure 125/81, pulse 77, and respirations 20. LUNGS: Bilateral breath sounds. Scattered rhonchi and rales. HEART: Regular rhythm and rate. Normal S1 and S2. ABDOMEN: Soft. EXTREMITIES: No edema. LABORATORY DATA: ABG 7.48, 42, and 64. IMPRESSION: 1. Urinary tract infection. 2. Nosocomial pneumonia. 3. Sepsis. 4. Acute respiratory insufficiency. 5. Hypoxia. 6. Acute diastolic congestive heart failure. 7. Secondary sinus tachycardia. 8. Quadriparesis. 9. Dementia. 10. Dysphagia. PLAN: 1. Antibiotics. 2. Respiratory hygiene and oxygenation. 3. Recheck chest x-ray and natriuretic peptide assay. 4. Reassess for diuresis. 5. DVT prophylaxis. Omkar Turk M.D. DR: EVONNE JOB#: [id number] CC:
[2016-12-06 05:36] LABS: MEAN CORPUSCULAR HEMOGLOBIN 27.4 PG (27.0-31.0); MEAN CORPUSCULAR HGB CONC 31.3 G/DL (32.0-36.0); MEAN CORPUSCULAR VOLUME 88 FL (80-99); MEAN PLATELET VOLUME 9.4 FL (6.5-10.1); PLATELET COUNT 121 K/UL (150-450); RED CELL DISTRIBUTION WIDTH 18.1 % (11.6-14.8); WHITE BLOOD COUNT 9.6 K/UL (4.8-10.8)
[2016-12-06 05:40] LABS: ALANINE AMINOTRANSFERASE 11 U/L (3-41); ALBUMIN/GLOBULIN RATIO 0.6 (1.0-2.7); ASPARTATE AMINO TRANSFERASE 17 U/L (5-40); CALCIUM 8.6 mg/dL (8.6-10.2); CARBON DIOXIDE 30 mEQ/L (20-30); CHLORIDE 98 mEQ/L (98-107); CREATININE 0.6 mg/dL (0.7-1.2); HEMOLYSIS 9; SODIUM 137 mEQ/L (135-145); TOTAL PROTEIN 6.5 g/dL (6.6-8.7)
[2016-12-06] MEDS: Vancomycin 1gm/D5W 275ml IVPB SCH ×4 (06:12→18:01)
[2016-12-06 06:18] LABS: ANION GAP 9 (5-15); POTASSIUM 3.9 mEQ/L (3.4-4.9)
[2016-12-06] MEDS: metroNIDAZOLE 500mg 100 ML IVPB SCH ×3 (08:00→23:26)
--- NOTE | 2016-12-06 08:16 | General Progress Note ---
Assessment/Plan Problem List: (1) Altered level of consciousness ICD Codes: R40.4 - Transient alteration of awareness SNOMED: 2043319 (2) Atrial flutter ICD Codes: I48.92 - Unspecified atrial flutter SNOMED: 2631042 (3) Sepsis ICD Codes: A41.9 - Sepsis, unspecified organism SNOMED: 27163128 (4) UTI (urinary tract infection) ICD Codes: N39.0 - Urinary tract infection, site not specified SNOMED: 04396032 (5) Pneumonia ICD Codes: J18.9 - Pneumonia, unspecified organism SNOMED: 848024419 Status: stable, progressing Assessment/Plan wean bipap resp care monitor abg monitor cxr dc ivf abx per id follow up cultures swallow eval repeat duplex legs Subjective ROS Limited/Unobtainable: Yes Constitutional: Reports: malaise, weakness HEENT: Reports: no symptoms Cardiovascular: Reports: no symptoms Respiratory: Reports: cough, shortness of breath Gastrointestinal/Abdominal: Reports: difficulty swallowing Genitourinary: Reports: no symptoms Neurologic/Psychiatric: Reports: pre-existing deficit Endocrine: Reports: no symptoms Hematologic/Lymphatic: Reports: no symptoms Allergies: Coded Allergies: No Known Allergies (Verified , 06/30/07) All Systems: reviewed and negative except above Subjective no events. more alert. on bipap. follows simple commands,. Objective Last 24 Hour Vital Signs Date Time Temp Pulse Resp B/P (MAP) Pulse Ox O2 Delivery O2 Flow Rate FiO2 12/06/16 07:02 72 20 95 Facial 40 12/06/16 05:09 73 22 99 Facial 40 12/06/16 04:00 40 12/06/16 04:00 98.2 20 123/78 12/06/16 03:24 76 12/06/16 03:20 61 15 99 Facial 40 12/06/16 01:06 75 20 97 Facial 40 12/06/16 00:01 40 12/06/16 00:00 77 12/06/16 00:00 98.4 20 125/81 99 12/05/16 23:45 77 19 100 Facial 40 12/05/16 21:05 78 21 97 Facial 40 12/05/16 20:00 97.1 77 121/80 99 12/05/16 20:00 40 12/05/16 20:00 78 12/05/16 19:18 77 22 98 Facial 40 12/05/16 17:12 80 14 100 Facial 40 12/05/16 16:30 98.2 12/05/16 16:06 82 12/05/16 16:00 50 12/05/16 16:00 99.1 78 129/80 96 12/05/16 15:38 78 14 100 Facial 40 12/05/16 13:04 77 14 95 Facial 40 12/05/16 12:38 84 12/05/16 12:00 97.9 93 129/77 95 12/05/16 12:00 50 12/05/16 10:34 83 24 100 Facial 40 12/05/16 08:38 83 24 100 Facial 45 Laboratory Tests 12/05/16 13:35: Arterial Blood pH 7.480H, Arterial Blood Partial Pressure CO2 42.5, Arterial Blood Partial Pressure O2 < 64.0L, Arterial Blood HCO3 31.2H, Arterial Blood Oxygen Saturation 91.9L, Arterial Blood Base Excess 7.1, Han Test Positive 12/06/16 03:50: White Blood Count 9.6, Red Blood Count 3.50L, Hemoglobin 9.6L, Hematocrit 30.7L , Mean Corpuscular Volume 88, Mean Corpuscular Hemoglobin 27.4, Mean Corpuscular Hemoglobin Concent 31.3L, Red Cell Distribution Width 18.1H, Platelet Count 121L, Mean Platelet Volume 9.4, Neutrophils (%) (Auto) , Lymphocytes (%) (Auto) , Monocytes (%) (Auto) , Eosinophils (%) (Auto) , Basophils (%) (Auto) , Neutrophils % (Manual) [Pending], Lymphocytes % (Manual) [Pending], Platelet Estimate [Pending], Platelet Morphology [Pending], Sodium Level 137, Potassium Level 3.9, Chloride Level 98, Carbon Dioxide Level 30, Anion Gap 9, Blood Urea Nitrogen 15, Creatinine 0.6L, Estimat Glomerular Filtration Rate , Glucose Level 137H, Calcium Level 8.6, Total Bilirubin 0.5, Aspartate Amino Transf (AST/SGOT) 17, Alanine Aminotransferase (ALT/SGPT) 11, Alkaline Phosphatase 57, Pro-B-Type Natriuretic Peptide 6144H, Total Protein 6.5L, Albumin 2.5L, Globulin 4.0, Albumin/Globulin Ratio 0.6L Height (Feet): 6 Height (Inches): 1.00 Weight (Pounds): 206 General Appearance: WD/WN, alert Neck: supple Cardiovascular: regular rhythm Respiratory/Chest: chest wall non-tender, lungs clear, normal breath sounds Abdomen: normal bowel sounds, non tender, soft, no organomegaly Edema: no edema noted Arm (L), no edema noted Arm (R), no edema noted Leg (L), no edema noted Leg (R), no edema noted Pedal (L), no edema noted Pedal (R), no edema noted Generalized Neurologic: alert, responsive SAM BARDALES Dec 06, 2016 08:16
[2016-12-06] MEDS ORDERED: Heparin 5000 units/ml inj SUBQ SCH (09:00)
[2016-12-06 09:38] LABS: ANISOCYTOSIS 1+; BAND NEUTROPHILS % (MANUAL) 0 % (0-8); BASOPHILS % (MANUAL) 0 % (0-2); EOSINOPHILS % (MANUAL) 0 % (0-3); LYMPHOCYTES % (MANUAL) 3 % (20-45); NEUTROPHILS % (MANUAL) 96 % (45-75); PLATELET ESTIMATE DECREASED; PLATELET MORPHOLOGY NORMAL; TARGET CELLS 1+; TOTAL CELLS COUNTED 100
[2016-12-06 09:39] LABS: HYPOCHROMASIA 1+
[2016-12-06 10:02] LABS: ABG PCO2 47.4 mmHg (35.0-45.0)
[2016-12-06 10:03] LABS: ABG ALLEN TEST POSITIVE; ABG BASE EXCESS 7.8
--- NOTE | 2016-12-06 14:00 | Diagnostic Imaging Report ---
Indication: Dyspnea Comparison: 12/04/16 A single view chest radiograph was obtained. Findings: Heart is enlarged. There is left basilar opacification which may be due to a pleural effusion or parenchymal disease. Bones are osteopenic. Interstitial edema may be slightly improved since the last study. Impression: Probable improvement in interstitial edema Persistent retrocardiac opacification likely on the basis of pleural effusion and/or parenchymal disease
--- NOTE | 2016-12-06 14:56 | Pulmonology Progress Note ---
Assessment/Plan Assessment/Plan IMPRESSION: 1. Respiratory failure. 2. Acute on chronic respiratory acidosis. 3. Functional quadriplegia. 4. Prostate cancer. 5. Severe protein-calorie malnutrition. 6. As per code status, no intubation, no gastrostomy tube. 7. Possible urinary tract infection. 8. Possible sepsis. 9. Hypotension. 10. sacral wound PLAN care noted all noted and reviewed respiratory care per [facility]- no intubation but now full code try off BIPAP and check ABG low flow oxygen as needed SNF meds noted supportive care suction as needed aspiration precautions check ABG exam reviewed will followup on testing and recommend medications/laboratory data/nursing notes reviewed in detail note reviewed and edited care discussed with RN and RT Subjective ROS Limited/Unobtainable: Yes Allergies: Coded Allergies: No Known Allergies (Verified , 06/30/07) Subjective patient discharged and now readmitted back on BIPAP AND COMFORTABLE Objective Last 24 Hour Vital Signs Date Time Temp Pulse Resp B/P (MAP) Pulse Ox O2 Delivery O2 Flow Rate FiO2 12/06/16 12:50 75 22 98 Facial 40 12/06/16 12:00 40 12/06/16 12:00 80 12/06/16 11:50 97.4 102 15 133/91 100 Bi-pap 40 12/06/16 10:30 81 20 95 Facial 40 12/06/16 08:30 78 20 96 Facial 40 12/06/16 08:00 97.4 70 19 127/84 99 Bi-pap 40 12/06/16 08:00 40 12/06/16 08:00 69 12/06/16 07:02 72 20 95 Facial 40 12/06/16 05:09 73 22 99 Facial 40 12/06/16 04:00 40 12/06/16 04:00 98.2 20 123/78 12/06/16 03:24 76 12/06/16 03:20 61 15 99 Facial 40 12/06/16 01:06 75 20 97 Facial 40 12/06/16 00:01 40 12/06/16 00:00 77 12/06/16 00:00 98.4 20 125/81 99 12/05/16 23:45 77 19 100 Facial 40 12/05/16 21:05 78 21 97 Facial 40 12/05/16 20:00 97.1 77 121/80 99 12/05/16 20:00 40 12/05/16 20:00 78 12/05/16 19:18 77 22 98 Facial 40 12/05/16 17:12 80 14 100 Facial 40 12/05/16 16:30 98.2 12/05/16 16:06 82 12/05/16 16:00 50 12/05/16 16:00 99.1 78 129/80 96 12/05/16 15:38 78 14 100 Facial 40 Intake and Output 12/06/16 12/07/16 19:00 07:00 Intake Total 466.250 ml Balance 466.250 ml Intake IV Total 466.250 ml Objective WDWN NAD reduced breath sounds bilaterally without rhonchi or wheeze [id number] without MRG NABS nontender no HSM no CC some mild edema reduced ROM nonfocal Microbiology Date/Time Source Procedure Growth Status 12/04/16 21:55 Blood Blood Culture - Preliminary NO GROWTH AFTER 24 HOURS Resulted 12/04/16 21:40 Blood Blood Culture - Preliminary NO GROWTH AFTER 24 HOURS Resulted 12/06/16 01:20 Sputum Induced Gram Stain - Final Resulted 12/06/16 01:20 Sputum Induced Sputum Culture Pending Resulted 12/04/16 21:55 Urine,Clean Catch Urine Culture - Final Bibiana Albicans Complete 12/05/16 02:00 Sacral Lower Gram Stain - Final Resulted 12/05/16 02:00 Sacral Lower Wound Culture - Preliminary Resulted Laboratory Tests 12/06/16 03:50: White Blood Count 9.6, Red Blood Count 3.50L, Hemoglobin 9.6L, Hematocrit 30.7L , Mean Corpuscular Volume 88, Mean Corpuscular Hemoglobin 27.4, Mean Corpuscular Hemoglobin Concent 31.3L, Red Cell Distribution Width 18.1H, Platelet Count 121L, Mean Platelet Volume 9.4, Neutrophils (%) (Auto) , Lymphocytes (%) (Auto) , Monocytes (%) (Auto) , Eosinophils (%) (Auto) , Basophils (%) (Auto) , Differential Total Cells Counted 100, Neutrophils % ( Manual) 96H, Lymphocytes % (Manual) 3L, Monocytes % (Manual) 1, Eosinophils % ( Manual) 0, Basophils % (Manual) 0, Band Neutrophils 0, Platelet Estimate DecreasedL, Platelet Morphology Normal, Hypochromasia 1+, Anisocytosis 1+, Target Cells 1+, Sodium Level 137, Potassium Level 3.9, Chloride Level 98, Carbon Dioxide Level 30, Anion Gap 9, Blood Urea Nitrogen 15, Creatinine 0.6L, Estimat Glomerular Filtration Rate , Glucose Level 137H, Calcium Level 8.6, Total Bilirubin 0.5, Aspartate Amino Transf (AST/SGOT) 17, Alanine Aminotransferase (ALT/SGPT) 11, Alkaline Phosphatase 57, Pro-B-Type Natriuretic Peptide 6144H, Total Protein 6.5L, Albumin 2.5L, Globulin 4.0, Albumin/Globulin Ratio 0.6L 12/06/16 08:16: Arterial Blood pH 7.450, Arterial Blood Partial Pressure CO2 47.4H, Arterial Blood Partial Pressure O2 82.1, Arterial Blood HCO3 32.7H, Arterial Blood Oxygen Saturation 95.4, Arterial Blood Base Excess 7.8, Han Test Positive Current Medications Medications (Trade) Dose Ordered Sig/Jus Route PRN Reason Start Time Stop Time Status Last Admin Dose Admin Cefepime HCl 2 gm/ Dextrose 100 ml @ 200 mls/hr Q12HR@0500,1700 IVPB 12/05/16 17:15 12/12/16 17:14 12/06/16 05:07 Dextrose/Sodium Chloride 1,000 ml @ 75 mls/hr [id number] IV 12/06/16 15:00 01/05/17 14:59 Fluconazole/ Sodium Chloride 100 ml @ 100 mls/hr Q24H IV 12/05/16 18:30 12/12/16 18:29 12/05/16 18:46 Heparin Sodium (Porcine) (Heparin 5000 units/ml) 5,000 units EVERY 12 HOURS SUBQ 12/06/16 21:00 01/05/17 20:59 Metronidazole 100 ml @ 100 mls/hr Q8HR@0000,0800,1600 IVPB 12/05/16 17:30 12/12/16 17:29 12/06/16 08:00 Vancomycin HCl (Vanco rx to dose) 1 ea DAILY PRN MISC Per rx protocol 12/05/16 15:45 01/04/17 15:44 Vancomycin HCl 1 gm/Dextrose 275 ml @ 183.708 mls/hr Q12HR@0600,1800 IVPB 12/05/16 18:00 12/10/16 17:59 12/06/16 06:12 NICHOLAS ROJAS Dec 06, 2016 14:56
[2016-12-06] MEDS ORDERED: D5NS 1,000 ML IV SCH (15:00)
--- NOTE | 2016-12-06 16:58 | Urology Progress Note ---
Assessment/Plan Assessment/Plan 1. History of urinary retention with chronic Burton. 2. Benign prostatic hypertrophy history. 3. Probable neurogenic bladder. 4. Hematuria. 5. Urinary tract infection and probable colonization. 6. Proteinuria. 7. Mild penile edema. keep burton indwelling diflucan added monitor clinically Subjective Allergies: Coded Allergies: No Known Allergies (Verified , 06/30/07) Subjective all noted, weaning bipap Objective Last 24 Hour Vital Signs Date Time Temp Pulse Resp B/P (MAP) Pulse Ox O2 Delivery O2 Flow Rate FiO2 12/06/16 16:33 72 20 95 Facial 40 12/06/16 16:12 104 12/06/16 16:00 97.9 74 16 137/96 100 Bi-pap 40 12/06/16 16:00 40 12/06/16 14:55 80 20 96 Facial 40 12/06/16 12:50 75 22 98 Facial 40 12/06/16 12:00 40 12/06/16 12:00 80 12/06/16 11:50 97.4 102 15 133/91 100 Bi-pap 40 12/06/16 10:30 81 20 95 Facial 40 12/06/16 08:30 78 20 96 Facial 40 12/06/16 08:00 97.4 70 19 127/84 99 Bi-pap 40 12/06/16 08:00 40 12/06/16 08:00 69 12/06/16 07:02 72 20 95 Facial 40 12/06/16 05:09 73 22 99 Facial 40 12/06/16 04:00 40 12/06/16 04:00 98.2 20 123/78 12/06/16 03:24 76 12/06/16 03:20 61 15 99 Facial 40 12/06/16 01:06 75 20 97 Facial 40 12/06/16 00:01 40 12/06/16 00:00 77 12/06/16 00:00 98.4 20 125/81 99 12/05/16 23:45 77 19 100 Facial 40 12/05/16 21:05 78 21 97 Facial 40 12/05/16 20:00 97.1 77 121/80 99 12/05/16 20:00 40 12/05/16 20:00 78 12/05/16 19:18 77 22 98 Facial 40 12/05/16 17:12 80 14 100 Facial 40 Intake and Output 12/06/16 12/07/16 19:00 07:00 Intake Total 466.250 ml Balance 466.250 ml Intake IV Total 466.250 ml Microbiology Date/Time Source Procedure Growth Status 12/04/16 21:55 Blood Blood Culture - Preliminary NO GROWTH AFTER 24 HOURS Resulted 12/06/16 01:20 Sputum Induced Gram Stain - Final Resulted 12/06/16 01:20 Sputum Induced Sputum Culture Pending Resulted 12/04/16 21:55 Urine,Clean Catch Urine Culture - Final Bibiana Albicans Complete 12/05/16 02:00 Sacral Lower Gram Stain - Final Resulted 12/05/16 02:00 Sacral Lower Wound Culture - Preliminary Resulted Current Medications Medications (Trade) Dose Ordered Sig/Jus Route PRN Reason Start Time Stop Time Status Last Admin Dose Admin Cefepime HCl 2 gm/ Dextrose 100 ml @ 200 mls/hr Q12HR@0500,1700 IVPB 12/05/16 17:15 12/12/16 17:14 12/06/16 05:07 Dextrose/Sodium Chloride 1,000 ml @ 75 mls/hr [id number] IV 12/06/16 15:00 01/05/17 14:59 12/06/16 15:00 Fluconazole/ Sodium Chloride 100 ml @ 100 mls/hr Q24H IV 12/05/16 18:30 12/12/16 18:29 12/05/16 18:46 Heparin Sodium (Porcine) (Heparin 5000 units/ml) 5,000 units EVERY 12 HOURS SUBQ 12/06/16 21:00 01/05/17 20:59 Metronidazole 100 ml @ 100 mls/hr Q8HR@0000,0800,1600 IVPB 12/05/16 17:30 12/12/16 17:29 12/06/16 16:00 Vancomycin HCl (Vanco rx to dose) 1 ea DAILY PRN MISC Per rx protocol 12/05/16 15:45 01/04/17 15:44 Vancomycin HCl 1 gm/Dextrose 275 ml @ 183.708 mls/hr Q12HR@0600,1800 IVPB 12/05/16 18:00 12/10/16 17:59 12/06/16 06:12 Laboratory Tests 12/06/16 03:50: White Blood Count 9.6, Red Blood Count 3.50L, Hemoglobin 9.6L, Hematocrit 30.7L , Mean Corpuscular Volume 88, Mean Corpuscular Hemoglobin 27.4, Mean Corpuscular Hemoglobin Concent 31.3L, Red Cell Distribution Width 18.1H, Platelet Count 121L, Mean Platelet Volume 9.4, Neutrophils (%) (Auto) , Lymphocytes (%) (Auto) , Monocytes (%) (Auto) , Eosinophils (%) (Auto) , Basophils (%) (Auto) , Differential Total Cells Counted 100, Neutrophils % ( Manual) 96H, Lymphocytes % (Manual) 3L, Monocytes % (Manual) 1, Eosinophils % ( Manual) 0, Basophils % (Manual) 0, Band Neutrophils 0, Platelet Estimate DecreasedL, Platelet Morphology Normal, Hypochromasia 1+, Anisocytosis 1+, Target Cells 1+, Sodium Level 137, Potassium Level 3.9, Chloride Level 98, Carbon Dioxide Level 30, Anion Gap 9, Blood Urea Nitrogen 15, Creatinine 0.6L, Estimat Glomerular Filtration Rate , Glucose Level 137H, Calcium Level 8.6, Total Bilirubin 0.5, Aspartate Amino Transf (AST/SGOT) 17, Alanine Aminotransferase (ALT/SGPT) 11, Alkaline Phosphatase 57, Pro-B-Type Natriuretic Peptide 6144H, Total Protein 6.5L, Albumin 2.5L, Globulin 4.0, Albumin/Globulin Ratio 0.6L 12/06/16 08:16: Arterial Blood pH 7.450, Arterial Blood Partial Pressure CO2 47.4H, Arterial Blood Partial Pressure O2 82.1, Arterial Blood HCO3 32.7H, Arterial Blood Oxygen Saturation 95.4, Arterial Blood Base Excess 7.8, Han Test Positive Height (Feet): 6 Height (Inches): 1.00 Weight (Pounds): 206 Objective exam stable TRISTIAN RIOS Dec 06, 2016 16:57
[2016-12-06] MEDS: Heparin 5000 units/ml inj SUBQ SCH (21:25)
[2016-12-07] MEDS: D5NS 1,000 ML IV SCH ×2 (02:00→22:13)
[2016-12-07 04:00] VITALS: BP 122/72
[2016-12-07 04:31] LABS: BASOPHILS % (AUTO) 0.7 % (0.0-2.0); EOSINOPHILS % (AUTO) 0.2 % (0.0-3.0); LYMPHOCYTES % (AUTO) 14.7 % (20.0-45.0); MEAN CORPUSCULAR HEMOGLOBIN 28.1 PG (27.0-31.0); MEAN CORPUSCULAR HGB CONC 32.2 G/DL (32.0-36.0); MEAN CORPUSCULAR VOLUME 87 FL (80-99); MEAN PLATELET VOLUME 9.6 FL (6.5-10.1); MONOCYTES % (AUTO) 4.5 % (1.0-10.0); NEUTROPHILS % (AUTO) 79.9 % (45.0-75.0); PLATELET COUNT 151 K/UL (150-450); RED BLOOD COUNT 3.96 M/UL (4.70-6.10); RED CELL DISTRIBUTION WIDTH 18.2 % (11.6-14.8); WHITE BLOOD COUNT 7.7 K/UL (4.8-10.8)
[2016-12-07 04:48] LABS: ALANINE AMINOTRANSFERASE 10 U/L (3-41); ALBUMIN/GLOBULIN RATIO 0.6 (1.0-2.7); ANION GAP 10 (5-15); ASPARTATE AMINO TRANSFERASE 15 U/L (5-40); CALCIUM 8.7 mg/dL (8.6-10.2); CARBON DIOXIDE 29 mEQ/L (20-30); CHLORIDE 99 mEQ/L (98-107); CREATININE 0.6 mg/dL (0.7-1.2); HEMOLYSIS 7; POTASSIUM 4.1 mEQ/L (3.4-4.9); SODIUM 138 mEQ/L (135-145); TOTAL PROTEIN 7.2 g/dL (6.6-8.7)
--- NOTE | 2016-12-07 05:30 | Progress Note ---
DATE: 12/06/2016 CARDIOLOGY PROGRESS NOTE Subjective: The patient remains congested. He is requiring [id number] respiratory therapy. Monitored rhythm sinus and sinus tachycardia with atrial ectopy. OBJECTIVE: Vital Signs: Blood pressure 133/91, pulse 102, and respiratory rate 15. LUNGS: Bilateral breath sounds with rhonchi. Heart: Regular rhythm. Rapid rate. Normal S1 and S2 with a fourth heart sound. ABDOMEN: Soft. EXTREMITIES: With trace edema. Laboratory Data: White count 9.6 and hemoglobin 9.6. Pro-natriuretic peptide has increased to 6144. BUN 15 and creatinine 0.6. Albumin 2.5. ABG was pH 7.45, pCO2 47, and pO2 82. IMPRESSION: 1. Acute respiratory failure with hypoxia. 2. Healthcare-acquired pneumonia. 3. Acute on chronic diastolic congestive heart failure. 4. Paroxysmal atrial ectopy. 5. Secondary sinus tachycardia. 6. Dementia with confusion. 7. Severe protein-calorie malnutrition. PLAN: 1. Antibiotics. 2. Respiratory hygiene. 3. Bronchodilators. 4. Diuresis. 5. DVT prophylaxis. 6. Nutrition by feeding tube. 7. Aspiration precautions. Omkar Turk M.D. DR: EVONNE JOB#: [id number] CC:
[2016-12-07 07:55] VITALS: BP 134/98
[2016-12-07] MEDS: metroNIDAZOLE 500mg 100 ML IVPB SCH ×3 (08:31→23:36)
[2016-12-07] MEDS: Heparin 5000 units/ml inj SUBQ SCH (08:34)
--- NOTE | 2016-12-07 08:34 | General Progress Note ---
Assessment/Plan Problem List: (1) Altered level of consciousness ICD Codes: R40.4 - Transient alteration of awareness SNOMED: 0040705 (2) Atrial flutter ICD Codes: I48.92 - Unspecified atrial flutter SNOMED: 5282993 Qualifiers: Qualified Codes: I48.92 - Unspecified atrial flutter (3) Sepsis ICD Codes: A41.9 - Sepsis, unspecified organism SNOMED: 27031116 Qualifiers: Qualified Codes: A41.9 - Sepsis, unspecified organism (4) UTI (urinary tract infection) ICD Codes: N39.0 - Urinary tract infection, site not specified SNOMED: 80275326 Qualifiers: Qualified Codes: T83.511A - Infection and inflammatory reaction due to indwelling urethral catheter, initial encounter; N39.0 - Urinary tract infection , site not specified (5) Pneumonia ICD Codes: J18.9 - Pneumonia, unspecified organism SNOMED: 852003878 Qualifiers: Qualified Codes: J18.9 - Pneumonia, unspecified organism Status: stable, progressing Assessment/Plan wean bipap resp care monitor abg monitor cxr dc ivf abx per id follow up cultures swallow eval repeat duplex legs Subjective ROS Limited/Unobtainable: Yes Constitutional: Reports: malaise, weakness HEENT: Reports: no symptoms Cardiovascular: Reports: no symptoms Respiratory: Reports: cough, SOB at rest Gastrointestinal/Abdominal: Reports: difficulty swallowing Genitourinary: Reports: no symptoms Neurologic/Psychiatric: Reports: no symptoms Endocrine: Reports: no symptoms Hematologic/Lymphatic: Reports: no symptoms Allergies: Coded Allergies: No Known Allergies (Verified , 06/30/07) All Systems: reviewed and negative except above Subjective no events. more alert. on bipap. follows simple commands,. Objective Last 24 Hour Vital Signs Date Time Temp Pulse Resp B/P (MAP) Pulse Ox O2 Delivery O2 Flow Rate FiO2 12/07/16 08:18 97 12/07/16 07:55 96.1 20 134/98 95 Bi-pap 40 12/07/16 07:33 116 20 Bi-pap 40 12/07/16 06:45 116 20 99 Facial 40 12/07/16 06:38 97.5 12/07/16 05:14 82 21 99 Facial 40 12/07/16 04:00 87 12/07/16 04:00 96.6 119 19 122/72 99 Bi-pap 40 12/07/16 04:00 40 12/07/16 03:14 80 21 99 Facial 40 12/07/16 01:25 107 20 98 Facial 40 12/07/16 00:00 40 12/06/16 23:50 117 12/06/16 23:31 97.0 114 19 136/83 100 Bi-pap 40 12/06/16 23:14 100 21 98 Facial 40 12/06/16 21:01 72 20 99 Facial 40 12/06/16 20:00 40 12/06/16 19:52 97.0 114 16 140/88 100 Bi-pap 40 12/06/16 19:24 69 24 96 Facial 40 12/06/16 19:09 113 12/06/16 16:33 72 20 95 Facial 40 12/06/16 16:12 104 12/06/16 16:00 97.9 74 16 137/96 100 Bi-pap 40 12/06/16 16:00 40 12/06/16 14:55 80 20 96 Facial 40 12/06/16 12:50 75 22 98 Facial 40 12/06/16 12:00 40 12/06/16 12:00 80 12/06/16 11:50 97.4 102 15 133/91 100 Bi-pap 40 12/06/16 10:30 81 20 95 Facial 40 Laboratory Tests 12/07/16 04:10: White Blood Count 7.7, Red Blood Count 3.96L, Hemoglobin 11.1L, Hematocrit 34.6L , Mean Corpuscular Volume 87, Mean Corpuscular Hemoglobin 28.1, Mean Corpuscular Hemoglobin Concent 32.2, Red Cell Distribution Width 18.2H, Platelet Count 151, Mean Platelet Volume 9.6, Neutrophils (%) (Auto) 79.9H, Lymphocytes (%) (Auto) 14.7L, Monocytes (%) (Auto) 4.5, Eosinophils (%) (Auto) 0.2, Basophils (%) (Auto) 0.7, Sodium Level 138, Potassium Level 4.1, Chloride Level 99, Carbon Dioxide Level 29, Anion Gap 10, Blood Urea Nitrogen 13, Creatinine 0.6L, Estimat Glomerular Filtration Rate , Glucose Level 115H, Calcium Level 8.7, Magnesium Level 1.4L, Total Bilirubin 0.8, Aspartate Amino Transf (AST/SGOT) 15, Alanine Aminotransferase (ALT/SGPT) 10, Alkaline Phosphatase 66, Total Protein 7.2, Albumin 2.8L, Globulin 4.4, Albumin/Globulin Ratio 0.6L, Vancomycin Level Trough 41.3H Height (Feet): 6 Height (Inches): 1.00 Weight (Pounds): 238 General Appearance: WD/WN, alert Neck: supple Cardiovascular: regular rhythm Respiratory/Chest: lungs clear, normal breath sounds, no respiratory distress Abdomen: normal bowel sounds, non tender, soft, no organomegaly Neurologic: rubber off II-XII grossly normal SAM BARDALES Dec 07, 2016 08:34
--- NOTE | 2016-12-07 09:07 | Urology Progress Note ---
Assessment/Plan Assessment/Plan 1. History of urinary retention with chronic Burton. 2. Benign prostatic hypertrophy history. 3. Probable neurogenic bladder. 4. Hematuria. 5. Urinary tract infection and probable colonization. 6. Proteinuria. 7. Mild penile edema. keep burton indwelling diflucan added monitor clinically check renal u/s Subjective Allergies: Coded Allergies: No Known Allergies (Verified , 06/30/07) Subjective all noted Objective Last 24 Hour Vital Signs Date Time Temp Pulse Resp B/P (MAP) Pulse Ox O2 Delivery O2 Flow Rate FiO2 12/07/16 08:18 97 12/07/16 07:55 96.1 20 134/98 95 Bi-pap 40 12/07/16 07:33 116 20 Bi-pap 40 12/07/16 06:45 116 20 99 Facial 40 12/07/16 06:38 97.5 12/07/16 05:14 82 21 99 Facial 40 12/07/16 04:00 87 12/07/16 04:00 96.6 119 19 122/72 99 Bi-pap 40 12/07/16 04:00 40 12/07/16 03:14 80 21 99 Facial 40 12/07/16 01:25 107 20 98 Facial 40 12/07/16 00:00 40 12/06/16 23:50 117 12/06/16 23:31 97.0 114 19 136/83 100 Bi-pap 40 12/06/16 23:14 100 21 98 Facial 40 12/06/16 21:01 72 20 99 Facial 40 12/06/16 20:00 40 12/06/16 19:52 97.0 114 16 140/88 100 Bi-pap 40 12/06/16 19:24 69 24 96 Facial 40 12/06/16 19:09 113 12/06/16 16:33 72 20 95 Facial 40 12/06/16 16:12 104 12/06/16 16:00 97.9 74 16 137/96 100 Bi-pap 40 12/06/16 16:00 40 12/06/16 14:55 80 20 96 Facial 40 12/06/16 12:50 75 22 98 Facial 40 12/06/16 12:00 40 12/06/16 12:00 80 12/06/16 11:50 97.4 102 15 133/91 100 Bi-pap 40 12/06/16 10:30 81 20 95 Facial 40 Microbiology Date/Time Source Procedure Growth Status 12/04/16 21:55 Blood Blood Culture - Preliminary NO GROWTH AFTER 48 HOURS Resulted 12/06/16 01:20 Sputum Induced Gram Stain - Final Resulted 12/06/16 01:20 Sputum Induced Sputum Culture Pending Resulted 12/04/16 21:55 Urine,Clean Catch Urine Culture - Final Bibiana Albicans Complete 12/05/16 02:00 Sacral Lower Gram Stain - Final Resulted 12/05/16 02:00 Sacral Lower Wound Culture - Preliminary Resulted Current Medications Medications (Trade) Dose Ordered Sig/Jus Route PRN Reason Start Time Stop Time Status Last Admin Dose Admin Cefepime HCl 2 gm/ Dextrose 100 ml @ 200 mls/hr Q12HR@0500,1700 IVPB 12/05/16 17:15 12/12/16 17:14 12/07/16 05:18 Dextrose/Sodium Chloride 1,000 ml @ 50 mls/hr Q20H IV 12/07/16 02:00 01/06/17 01:59 12/07/16 02:00 Fluconazole/ Sodium Chloride 100 ml @ 100 mls/hr Q24H IV 12/05/16 18:30 12/12/16 18:29 12/06/16 18:01 Heparin Sodium (Porcine) (Heparin 5000 units/ml) 5,000 units EVERY 12 HOURS SUBQ 12/06/16 21:00 01/05/17 20:59 12/07/16 08:34 Magnesium Sulfate 100 ml @ 100 mls/hr Q1H IVPB 12/07/16 09:00 12/07/16 11:59 UNV Metronidazole 100 ml @ 100 mls/hr Q8HR@0000,0800,1600 IVPB 12/05/16 17:30 12/12/16 17:29 12/07/16 08:31 Vancomycin HCl (Vanco rx to dose) 1 ea DAILY PRN MISC Per rx protocol 12/05/16 15:45 01/04/17 15:44 Laboratory Tests 12/07/16 04:10: White Blood Count 7.7, Red Blood Count 3.96L, Hemoglobin 11.1L, Hematocrit 34.6L , Mean Corpuscular Volume 87, Mean Corpuscular Hemoglobin 28.1, Mean Corpuscular Hemoglobin Concent 32.2, Red Cell Distribution Width 18.2H, Platelet Count 151, Mean Platelet Volume 9.6, Neutrophils (%) (Auto) 79.9H, Lymphocytes (%) (Auto) 14.7L, Monocytes (%) (Auto) 4.5, Eosinophils (%) (Auto) 0.2, Basophils (%) (Auto) 0.7, Sodium Level 138, Potassium Level 4.1, Chloride Level 99, Carbon Dioxide Level 29, Anion Gap 10, Blood Urea Nitrogen 13, Creatinine 0.6L, Estimat Glomerular Filtration Rate , Glucose Level 115H, Calcium Level 8.7, Magnesium Level 1.4L, Total Bilirubin 0.8, Aspartate Amino Transf (AST/SGOT) 15, Alanine Aminotransferase (ALT/SGPT) 10, Alkaline Phosphatase 66, Total Protein 7.2, Albumin 2.8L, Globulin 4.4, Albumin/Globulin Ratio 0.6L, Vancomycin Level Trough 41.3H Height (Feet): 6 Height (Inches): 1.00 Weight (Pounds): 238 Objective exam stable TRISTIAN RIOS Dec 07, 2016 09:07
[2016-12-07 09:17] LABS: ABG ALLEN TEST POSITIVE; ABG BASE EXCESS 8.3; ABG PCO2 46.1 mmHg (35.0-45.0)
--- NOTE | 2016-12-07 11:35 | Infectious Diseases Prog Note ---
Assessment/Plan Assessment/Plan Assessment/Plan: A) 1) sepsis, asp pna/hcap, fungal uti, sob, leukocytosis, fevers, wound fairly clean, lactic acidosis, ? c.diff., ? fungemia, wc - gram neg of sacrum 2) htn, hypothyroidism, ileostomy, cva, dementia, prostate ca, qp, ftt, dm, anemia, encephalopathy, hhd, colostomy 3) allergies - negative, fh-nc, sh-negative, mar noted, 4) notes and records reviewed 5) d/w RN P) 1) vancomycin, flagyl, cefepime, diflucan for now 2) check labs, cultures, chest x-ray, check ct chest which was done 3) wound culture per protocol 4) continue treatment per primary and consultants 5) orders entered and noted 6) sdu care Subjective Constitutional: Reports: fatigue, other - lethargic , Denies: fever HEENT: Reports: congestion - less Respiratory: Reports: shortness of breath - less, other - on vm Cardiovascular: Denies: chest pain Gastrointestinal/Abdominal: Denies: nausea, vomiting, diarrhea Genitourinary: Reports: other - + burton Neurologic: Denies: headache Psychiatric: Reports: no symptoms Skin: Denies: rash Hematologic: Denies: bleeding Musculoskeletal: Denies: pain Allergies: Coded Allergies: No Known Allergies (Verified , 06/30/07) Objective Vital Signs Last 24 Hour Vital Signs Date Time Temp Pulse Resp B/P (MAP) Pulse Ox O2 Delivery O2 Flow Rate FiO2 12/07/16 08:18 97 12/07/16 08:00 40 12/07/16 07:55 96.1 20 134/98 95 Bi-pap 40 12/07/16 07:33 116 20 Bi-pap 40 12/07/16 06:45 116 20 99 Facial 40 12/07/16 06:38 97.5 12/07/16 05:14 82 21 99 Facial 40 12/07/16 04:00 87 12/07/16 04:00 96.6 119 19 122/72 99 Bi-pap 40 12/07/16 04:00 40 12/07/16 03:14 80 21 99 Facial 40 12/07/16 01:25 107 20 98 Facial 40 12/07/16 00:00 40 12/06/16 23:50 117 12/06/16 23:31 97.0 114 19 136/83 100 Bi-pap 40 12/06/16 23:14 100 21 98 Facial 40 12/06/16 21:01 72 20 99 Facial 40 12/06/16 20:00 40 12/06/16 19:52 97.0 114 16 140/88 100 Bi-pap 40 12/06/16 19:24 69 24 96 Facial 40 12/06/16 19:09 113 12/06/16 16:33 72 20 95 Facial 40 12/06/16 16:12 104 12/06/16 16:00 97.9 74 16 137/96 100 Bi-pap 40 12/06/16 16:00 40 12/06/16 14:55 80 20 96 Facial 40 12/06/16 12:50 75 22 98 Facial 40 12/06/16 12:00 40 12/06/16 12:00 80 12/06/16 11:50 97.4 102 15 133/91 100 Bi-pap 40 Height (Feet): 6 Height (Inches): 1.00 Weight (Pounds): 238 General Appearance: other - some sob, + vm HEENT: normocephalic, atraumatic, anicteric Respiratory/Chest: crackles/rales, rhonchi - bilaterally Cardiovascular: normal peripheral pulses, normal rate, regular rhythm, no gallop/murmur, no JVD Abdomen: soft, non tender, no organomegaly, non distended Genitourinary: other - + burton - urine cloudy Extremities: no cyanosis Skin: no rash Neurologic/Psychiatric: manager learning II-XII grossly normal, alert, responsive Lymphatic: no neck adenopathy Musculoskeletal: no effusion Objective Chest x-ray: Findings: Patient's chin obscures the upper mediastinum. There is a left pleural effusion again demonstrated. The heart is borderline enlarged. Interstitial congestion has increased since the prior study. There is now probably pleural fluid on the right. Granulomatous lymph nodes are again demonstrated in the aortopulmonary window Impression: Stable left, new or increased right pleural effusion, over 15 hours Increasing interstitial edema Old granulomatous disease Chest x-ray - 12/06: Impression: Probable improvement in interstitial edema Persistent retrocardiac opacification likely on the basis of pleural effusion and/or parenchymal disease Microbiology Date/Time Source Procedure Growth Status 12/04/16 21:55 Blood Blood Culture - Preliminary NO GROWTH AFTER 48 HOURS Resulted 12/04/16 21:40 Blood Blood Culture - Preliminary NO GROWTH AFTER 48 HOURS Resulted 12/06/16 01:20 Sputum Induced Gram Stain - Final Resulted 12/06/16 01:20 Sputum Induced Sputum Culture Pending Resulted 12/05/16 02:15 Nasal Nares Left MRSA Culture - Final NO METHICILLIN RESISTANT STAPH AUREUS... Complete 12/04/16 21:55 Urine,Clean Catch Urine Culture - Final Bibiana Albicans Complete 12/05/16 02:00 Sacral Lower Gram Stain - Final Resulted 12/05/16 02:00 Wound Culture - Preliminary Gram Negative Bacillus 1 Gram Negative Bacillus 2 Bibiana Albicans Resulted Laboratory Tests Test 12/07/16 04:10 12/07/16 09:00 White Blood Count 7.7 K/UL (4.8-10.8) Red Blood Count 3.96 M/UL (4.70-6.10) L Hemoglobin 11.1 G/DL (14.2-18.0) L Hematocrit 34.6 % (42.0-52.0) L Mean Corpuscular Volume 87 FL (80-99) Mean Corpuscular Hemoglobin 28.1 PG (27.0-31.0) Mean Corpuscular Hemoglobin Concent 32.2 G/DL (32.0-36.0) Red Cell Distribution Width 18.2 % (11.6-14.8) H Platelet Count 151 K/UL (150-450) Mean Platelet Volume 9.6 FL (6.5-10.1) Neutrophils (%) (Auto) 79.9 % (45.0-75.0) H Lymphocytes (%) (Auto) 14.7 % (20.0-45.0) L Monocytes (%) (Auto) 4.5 % (1.0-10.0) Eosinophils (%) (Auto) 0.2 % (0.0-3.0) Basophils (%) (Auto) 0.7 % (0.0-2.0) Sodium Level 138 mEQ/L (135-145) Potassium Level 4.1 mEQ/L (3.4-4.9) Chloride Level 99 mEQ/L (98-107) Carbon Dioxide Level 29 mEQ/L (20-30) Anion Gap 10 (5-15) Blood Urea Nitrogen 13 mg/dL (7-23) Creatinine 0.6 mg/dL (0.7-1.2) L Estimat Glomerular Filtration Rate mL/min (>60) Glucose Level 115 mg/dL (74-106) H Calcium Level 8.7 mg/dL (8.6-10.2) Magnesium Level 1.4 mg/dL (1.7-2.5) L Total Bilirubin 0.8 mg/dL (0.0-1.2) Aspartate Amino Transf (AST/SGOT) 15 U/L (5-40) Alanine Aminotransferase (ALT/SGPT) 10 U/L (3-41) Alkaline Phosphatase 66 U/L (40-129) Total Protein 7.2 g/dL (6.6-8.7) Albumin 2.8 g/dL (3.5-5.2) L Globulin 4.4 g/dL Albumin/Globulin Ratio 0.6 (1.0-2.7) L Vancomycin Level Trough 41.3 ug/mL (5.0-12.0) H Arterial Blood pH 7.470 (7.350-7.450) Arterial Blood Partial Pressure CO2 46.1 mmHg (35.0-45.0) H Arterial Blood Partial Pressure O2 129.3 mmHg (75.0-100.0) H Arterial Blood HCO3 32.9 mmol/L (22.0-26.0) H Arterial Blood Oxygen Saturation 97.4 % (92.0-98.0) Arterial Blood Base Excess 8.3 Han Test Positive Current Medications Medications (Trade) Dose Ordered Sig/Jus Route PRN Reason Start Time Stop Time Status Last Admin Dose Admin Cefepime HCl 2 gm/ Dextrose 100 ml @ 200 mls/hr Q12HR@0500,1700 IVPB 12/05/16 17:15 12/12/16 17:14 12/07/16 05:18 Dextrose/Sodium Chloride 1,000 ml @ 50 mls/hr Q20H IV 12/07/16 02:00 01/06/17 01:59 12/07/16 02:00 Fluconazole/ Sodium Chloride 100 ml @ 100 mls/hr Q24H IV 12/05/16 18:30 12/12/16 18:29 12/06/16 18:01 Heparin Sodium (Porcine) (Heparin 5000 units/ml) 5,000 units EVERY 12 HOURS SUBQ 12/06/16 21:00 01/05/17 20:59 12/07/16 08:34 Magnesium Sulfate 100 ml @ 100 mls/hr Q1H IVPB 12/07/16 09:30 12/07/16 12:29 12/07/16 10:48 Metronidazole 100 ml @ 100 mls/hr Q8HR@0000,0800,1600 IVPB 12/05/16 17:30 12/12/16 17:29 12/07/16 08:31 Vancomycin HCl (Vanco rx to dose) 1 ea DAILY PRN MISC Per rx protocol 12/05/16 15:45 01/04/17 15:44 KISHOR VALLE Dec 07, 2016 11:35
[2016-12-07 12:00] VITALS: BP 134/83
--- NOTE | 2016-12-07 12:46 | Diagnostic Imaging Report ---
ndication: Chest pain Technique: IV administration nonionic contrast. Spiral acquisitions obtained from the lung bases to the lung apices. Multiplanar and 3-D reconstructions were generated. Total dose length product 1364 mGycm. CTDIvol(s) 12, 88, 39 mGy. Dose reduction achieved using automated exposure control Comparison: None Findings: There is good quality opacification of the pulmonary arteries. There is a large long linear wall wall adherent nonobstructive filling defect in the left lower lobe pulmonary artery which occupies about a third of the lumen. No other intraluminal filling defects or other findings to suggest acute pulmonary embolus are identified. The right pulmonary artery measures approximately 3 cm in diameter. The left pulmonary artery measures 3 cm in diameter. The main pulmonary artery measures 3.6 cm in diameter. There is cardiomegaly. This is predominantly due to right atrial dilatation. No definite right ventricular dilatation is demonstrated. There is reflux into the hepatic veins and inferior vena cava, which are somewhat distended. No thoracic aortic aneurysm or dissection. There are moderate-sized bilateral pleural effusions. These result in compressive atelectasis of portions of the lower lobes. There are bilateral peripheral bullae or blebs. Some groundglass opacity in the posterior left upper lobe likely reflects atelectasis. The esophagus is distended with gas proximally. It is normal caliber distally. No mediastinal or hilar mass or adenopathy. Grossly unremarkable thyroid. No axillary or chest wall mass or adenopathy. There is generalized very mild edema of the chest wall soft tissues. There is bilateral gynecomastia. There is smooth thoracic kyphosis, without focal compression fracture. There is degenerative change of the thoracic spine Included upper abdominal anatomy is remarkable for a 2.4 cm cyst within the right hepatic lobe. There is some edema of the mesenteric and retroperitoneal fat. There is hypertrophy of the left adrenal. Impression: Positive for large but nonobstructive embolus within the left lower lobe pulmonary artery. Suspect that this represents a subacute embolus. Cardiomegaly, predominantly due to right atrial dilatation. There is evidence of central venous hypertension Dilatation of the pulmonary arteries consistent with pulmonary arterial hypertension Moderate-sized bilateral pleural effusions. Resultant compressive atelectatic changes of the lower lobes Bilateral peripheral bullae or blebs Generalized mild edema of the subcutaneous fat Distended proximal esophagus. Suspect due to esophageal dysmotility Bilateral gynecomastia Thoracic kyphosis, no evidence of compression fracture Incidental finding of 2.4 cm cyst in the right hepatic lobe The CT scanner at [facility] is accredited by the [employer] and the scans are performed using protocols designed to limit radiation exposure to as low as reasonably achievable to attain images of sufficient resolution adequate for diagnostic evaluation.
[2016-12-07] MEDS ORDERED: Heparin 25,000u/D5W 500ml 500 ML IV SCH (13:30)
--- NOTE | 2016-12-07 14:28 | Pulmonology Progress Note ---
Assessment/Plan Assessment/Plan IMPRESSION: 1. Respiratory failure. 2. Acute on chronic respiratory acidosis. 3. Functional quadriplegia. 4. Prostate cancer. 5. Severe protein-calorie malnutrition. 6. As per code status, no intubation, no gastrostomy tube. 7. Possible urinary tract infection. 8. Possible sepsis. 9. Hypotension. 10. sacral wound 11. pleural effusions 12. PE PLAN care noted all noted and reviewed respiratory care as is per PULST- no intubation but now full code try off BIPAP and check ABG low flow oxygen as needed SNF meds noted supportive care suction as needed aspiration precautions check ABG for change exam reviewed IV heparin consider tap if not improved medications/laboratory data/nursing notes reviewed in detail note reviewed and edited care discussed with RN and RT Subjective ROS Limited/Unobtainable: Yes Allergies: Coded Allergies: No Known Allergies (Verified , 06/30/07) Subjective on BIPAP AND COMFORTABLE Has CTPA and diagnosed with PE also with pleural effusions Objective Last 24 Hour Vital Signs Date Time Temp Pulse Resp B/P (MAP) Pulse Ox O2 Delivery O2 Flow Rate FiO2 12/07/16 12:00 97.7 115 18 134/83 94 12/07/16 08:18 97 12/07/16 08:00 40 12/07/16 07:55 96.1 20 134/98 95 Bi-pap 40 12/07/16 07:33 116 20 Bi-pap 40 12/07/16 06:45 116 20 99 Facial 40 12/07/16 06:38 97.5 12/07/16 05:14 82 21 99 Facial 40 12/07/16 04:00 87 12/07/16 04:00 96.6 119 19 122/72 99 Bi-pap 40 12/07/16 04:00 40 12/07/16 03:14 80 21 99 Facial 40 12/07/16 01:25 107 20 98 Facial 40 12/07/16 00:00 40 12/06/16 23:50 117 12/06/16 23:31 97.0 114 19 136/83 100 Bi-pap 40 12/06/16 23:14 100 21 98 Facial 40 12/06/16 21:01 72 20 99 Facial 40 12/06/16 20:00 40 12/06/16 19:52 97.0 114 16 140/88 100 Bi-pap 40 12/06/16 19:24 69 24 96 Facial 40 12/06/16 19:09 113 12/06/16 16:33 72 20 95 Facial 40 12/06/16 16:12 104 12/06/16 16:00 97.9 74 16 137/96 100 Bi-pap 40 12/06/16 16:00 40 12/06/16 14:55 80 20 96 Facial 40 Intake and Output 12/07/16 12/08/16 19:00 07:00 Intake Total 275 ml Balance 275 ml Intake IV Total 275 ml Objective WDWN NAD reduced breath sounds bilaterally without rhonchi or wheeze without change [id number] without MRG NABS nontender no HSM no CC some mild edema reduced ROM nonfocal Microbiology Date/Time Source Procedure Growth Status 12/04/16 21:55 Blood Blood Culture - Preliminary NO GROWTH AFTER 48 HOURS Resulted 12/04/16 21:40 Blood Blood Culture - Preliminary NO GROWTH AFTER 48 HOURS Resulted 12/06/16 01:20 Sputum Induced Gram Stain - Final Resulted 12/06/16 01:20 Sputum Induced Sputum Culture Pending Resulted 12/05/16 02:15 Nasal Nares Left MRSA Culture - Final NO METHICILLIN RESISTANT STAPH AUREUS... Complete 12/04/16 21:55 Urine,Clean Catch Urine Culture - Final Bibiana Albicans Complete 12/05/16 02:00 Sacral Lower Gram Stain - Final Resulted 12/05/16 02:00 Wound Culture - Preliminary Gram Negative Bacillus 1 Gram Negative Bacillus 2 Bibiana Albicans Resulted Laboratory Tests 12/07/16 04:10: White Blood Count 7.7, Red Blood Count 3.96L, Hemoglobin 11.1L, Hematocrit 34.6L , Mean Corpuscular Volume 87, Mean Corpuscular Hemoglobin 28.1, Mean Corpuscular Hemoglobin Concent 32.2, Red Cell Distribution Width 18.2H, Platelet Count 151, Mean Platelet Volume 9.6, Neutrophils (%) (Auto) 79.9H, Lymphocytes (%) (Auto) 14.7L, Monocytes (%) (Auto) 4.5, Eosinophils (%) (Auto) 0.2, Basophils (%) (Auto) 0.7, Sodium Level 138, Potassium Level 4.1, Chloride Level 99, Carbon Dioxide Level 29, Anion Gap 10, Blood Urea Nitrogen 13, Creatinine 0.6L, Estimat Glomerular Filtration Rate , Glucose Level 115H, Calcium Level 8.7, Magnesium Level 1.4L, Total Bilirubin 0.8, Aspartate Amino Transf (AST/SGOT) 15, Alanine Aminotransferase (ALT/SGPT) 10, Alkaline Phosphatase 66, Total Protein 7.2, Albumin 2.8L, Globulin 4.4, Albumin/Globulin Ratio 0.6L, Vancomycin Level Trough 41.3H 12/07/16 09:00: Arterial Blood pH 7.470H, Arterial Blood Partial Pressure CO2 46.1H, Arterial Blood Partial Pressure O2 129.3H, Arterial Blood HCO3 32.9H, Arterial Blood Oxygen Saturation 97.4, Arterial Blood Base Excess 8.3, Han Test Positive 12/07/16 13:40: Activated Partial Thromboplast Time 39H Current Medications Medications (Trade) Dose Ordered Sig/Jus Route PRN Reason Start Time Stop Time Status Last Admin Dose Admin Cefepime HCl 2 gm/ Dextrose 100 ml @ 200 mls/hr Q12HR@0500,1700 IVPB 12/05/16 17:15 12/12/16 17:14 12/07/16 05:18 Dextrose/Sodium Chloride 1,000 ml @ 50 mls/hr Q20H IV 12/07/16 02:00 01/06/17 01:59 12/07/16 02:00 Fluconazole/ Sodium Chloride 100 ml @ 100 mls/hr Q24H IV 12/05/16 18:30 12/12/16 18:29 12/06/16 18:01 Heparin Sodium/ Dextrose 500 ml @ 38.894 mls/ hr adjust per protocol IV 12/07/16 13:30 01/06/17 13:29 12/07/16 13:38 Metronidazole 100 ml @ 100 mls/hr Q8HR@0000,0800,1600 IVPB 12/05/16 17:30 12/12/16 17:29 12/07/16 08:31 Vancomycin HCl (Vanco rx to dose) 1 ea DAILY PRN MISC Per rx protocol 12/05/16 15:45 01/04/17 15:44 NICHOLAS ROJAS Dec 07, 2016 14:28
[2016-12-07 16:00] VITALS: BP 137/85
[2016-12-07 20:00] VITALS: BP 128/83
[2016-12-08] VITALS: BP 136/95
[2016-12-08] MEDS: Heparin 25,000u/D5W 500ml 500 ML IV SCH ×3 (01:54→13:51)
[2016-12-08] MEDS: Metoprolol 5mg/5ml Inj IVPB SCH ×4 (02:44→22:07)
[2016-12-08 04:00] VITALS: BP 126/78
--- NOTE | 2016-12-08 07:00 | Progress Note ---
DATE: 12/07/2016 CARDIOLOGY PROGRESS NOTE Subjective: The patient was noted to have acute pulmonary embolus by CT angiogram of the chest. He continues to have congestion and shortness of breath. He is on IV anticoagulation. OBJECTIVE: Vital Signs: Blood pressure 134/83, pulse 115, and respiratory rate 18, and afebrile. LUNGS: Bilateral breath sounds with rhonchi. HEART: Regular rhythm. Rapid rate. Normal S1 and S2. ABDOMEN: Soft. EXTREMITIES: Trace edema. Laboratory Data: Sodium is 138, potassium 4.1, bicarbonate 29, BUN 13, and creatinine 0.6. Magnesium 1.4. Albumin 2.8. ABG, pH 7.47, pCO2 46, and pO2 129. White count 7.7 and hemoglobin 11.1. IMPRESSION: 1. Acute pulmonary embolus. 2. Acute diastolic congestive heart failure. 3. Sinus tachycardia. 4. Paroxysmal atrial ectopy. 5. Urinary tract infection. 6. Paroxysmal atrial flutter. PLAN: 1. Full anticoagulation. 2. IV magnesium. 3. Respiratory hygiene. 4. Bronchodilators and IV antibiotics. 5. Add beta-helga therapy. Omkar Turk M.D. DR: EVONNE JOB#: [id number] CC:
[2016-12-08 07:53] VITALS: BP 132/81
[2016-12-08] MEDS: metroNIDAZOLE 500mg 100 ML IVPB SCH ×3 (08:52→23:38)
--- NOTE | 2016-12-08 09:33 | Pulmonology Progress Note ---
Assessment/Plan Assessment/Plan IMPRESSION: 1. Respiratory failure. 2. Acute on chronic respiratory acidosis. 3. Functional quadriplegia. 4. Prostate cancer. 5. Severe protein-calorie malnutrition. 6. As per code status, no intubation, no gastrostomy tube. 7. Possible urinary tract infection. 8. Possible sepsis. 9. Hypotension. 10. sacral wound 11. pleural effusions 12. PE PLAN care noted all noted and reviewed respiratory care as is per PULST- no intubation but now full code try off BIPAP and check ABG low flow oxygen as needed SNF meds noted supportive care suction as needed aspiration precautions check ABG for change exam reviewed IV heparin consider tap if not improved will followup imaging medications/laboratory data/nursing notes reviewed in detail note reviewed and edited care discussed with RN and RT Subjective ROS Limited/Unobtainable: Yes Allergies: Coded Allergies: No Known Allergies (Verified , 06/30/07) Subjective unable comfortable exam without change Objective Last 24 Hour Vital Signs Date Time Temp Pulse Resp B/P (MAP) Pulse Ox O2 Delivery O2 Flow Rate FiO2 12/08/16 08:41 76 132/81 12/08/16 08:00 76 12/08/16 07:53 96.4 79 19 132/81 100 Venturi Mask 45 12/08/16 04:00 97.5 66 18 126/78 100 Venturi Mask 45 12/08/16 04:00 103 12/08/16 04:00 40 12/08/16 02:44 95 136/95 12/08/16 00:00 95 12/08/16 00:00 40 12/08/16 00:00 97.5 95 20 136/95 100 Venturi Mask 45 12/07/16 20:00 97.3 103 20 128/83 100 Venturi Mask 45 12/07/16 20:00 115 12/07/16 16:00 40 12/07/16 16:00 97.2 75 20 137/85 99 Venturi Mask 45 12/07/16 15:34 77 12/07/16 12:18 110 12/07/16 12:00 97.7 115 18 134/83 94 12/07/16 12:00 40 Intake and Output 12/08/16 12/09/16 19:00 07:00 Intake Total 100 ml Balance 100 ml Intake IV Total 100 ml Objective WDWN NAD reduced breath sounds bilaterally without rhonchi or wheeze without change [id number] without MRG NABS nontender no HSM no CC some mild edema reduced ROM nonfocal Microbiology Date/Time Source Procedure Growth Status 12/06/16 01:20 Sputum Induced Gram Stain - Final Complete 12/06/16 01:20 Sputum Culture - Final Bibiana Albicans Complete Laboratory Tests 12/07/16 13:40: Activated Partial Thromboplast Time 39H 12/07/16 21:55: Activated Partial Thromboplast Time > 150*H 12/08/16 08:10: Activated Partial Thromboplast Time [Pending] Current Medications Medications (Trade) Dose Ordered Sig/Jus Route PRN Reason Start Time Stop Time Status Last Admin Dose Admin Cefepime HCl 2 gm/ Dextrose 100 ml @ 200 mls/hr Q12HR@0500,1700 IVPB 12/05/16 17:15 12/12/16 17:14 12/08/16 04:34 Dextrose/Sodium Chloride 1,000 ml @ 50 mls/hr Q20H IV 12/07/16 02:00 01/06/17 01:59 12/07/16 22:13 Fluconazole/ Sodium Chloride 100 ml @ 100 mls/hr Q24H IV 12/05/16 18:30 12/12/16 18:29 12/07/16 18:52 Heparin Sodium/ Dextrose 500 ml @ 30.251 mls/ hr adjust per protocol IV 12/07/16 23:30 01/06/17 13:29 12/08/16 05:28 Magnesium Sulfate 100 ml @ 100 mls/hr Q1H IVPB 12/08/16 09:00 12/08/16 10:59 12/08/16 07:49 Metoprolol Tartrate (Lopressor) 5 mg Q6H IVPB 12/08/16 03:00 01/07/17 02:59 12/08/16 08:41 Metronidazole 100 ml @ 100 mls/hr Q8HR@0000,0800,1600 IVPB 12/05/16 17:30 12/12/16 17:29 12/08/16 08:52 Vancomycin HCl (Vanco rx to dose) 1 ea DAILY PRN MISC Per rx protocol 12/05/16 15:45 01/04/17 15:44 NICHOLAS ROJAS Dec 08, 2016 09:33
--- NOTE | 2016-12-08 09:50 | General Progress Note ---
Assessment/Plan Problem List: (1) Altered level of consciousness ICD Codes: R40.4 - Transient alteration of awareness SNOMED: 0308951 (2) Atrial flutter ICD Codes: I48.92 - Unspecified atrial flutter SNOMED: 7428925 Qualifiers: Qualified Codes: I48.92 - Unspecified atrial flutter (3) Sepsis ICD Codes: A41.9 - Sepsis, unspecified organism SNOMED: 23064978 Qualifiers: Qualified Codes: A41.9 - Sepsis, unspecified organism (4) UTI (urinary tract infection) ICD Codes: N39.0 - Urinary tract infection, site not specified SNOMED: 42504308 Qualifiers: Qualified Codes: T83.511A - Infection and inflammatory reaction due to indwelling urethral catheter, initial encounter; N39.0 - Urinary tract infection , site not specified (5) Pneumonia ICD Codes: J18.9 - Pneumonia, unspecified organism SNOMED: 909113049 Qualifiers: Qualified Codes: J18.9 - Pneumonia, unspecified organism Status: stable, progressing Assessment/Plan wean o2 resp care monitor abg monitor cxr dc ivf abx per id follow up cultures swallow eval iv heparin drip d/w dtr at the bedside Subjective ROS Limited/Unobtainable: No Constitutional: Reports: malaise, weakness HEENT: Reports: no symptoms Cardiovascular: Reports: no symptoms Respiratory: Reports: no symptoms Gastrointestinal/Abdominal: Reports: difficulty swallowing Genitourinary: Reports: no symptoms Neurologic/Psychiatric: Reports: pre-existing deficit Endocrine: Reports: no symptoms Hematologic/Lymphatic: Reports: no symptoms Allergies: Coded Allergies: No Known Allergies (Verified , 06/30/07) All Systems: reviewed and negative except above Subjective no events. more alert. off bipap. follows simple commands and more alert. family prefers not to have ngt Objective Last 24 Hour Vital Signs Date Time Temp Pulse Resp B/P (MAP) Pulse Ox O2 Delivery O2 Flow Rate FiO2 12/08/16 08:41 76 132/81 12/08/16 08:00 76 12/08/16 07:53 96.4 79 19 132/81 100 Venturi Mask 45 12/08/16 04:00 97.5 66 18 126/78 100 Venturi Mask 45 12/08/16 04:00 103 12/08/16 04:00 40 12/08/16 02:44 95 136/95 12/08/16 00:00 95 12/08/16 00:00 40 12/08/16 00:00 97.5 95 20 136/95 100 Venturi Mask 45 12/07/16 20:00 97.3 103 20 128/83 100 Venturi Mask 45 12/07/16 20:00 115 12/07/16 16:00 40 12/07/16 16:00 97.2 75 20 137/85 99 Venturi Mask 45 12/07/16 15:34 77 12/07/16 12:18 110 12/07/16 12:00 97.7 115 18 134/83 94 12/07/16 12:00 40 Intake and Output 12/08/16 12/09/16 19:00 07:00 Intake Total 100 ml Balance 100 ml Intake IV Total 100 ml Laboratory Tests 12/07/16 13:40: Activated Partial Thromboplast Time 39H 12/07/16 21:55: Activated Partial Thromboplast Time > 150*H 12/08/16 08:10: Activated Partial Thromboplast Time [Pending] Height (Feet): 6 Height (Inches): 1.00 Weight (Pounds): 238 Objective General Appearance: WD/WN, alert Neck: supple Cardiovascular: regular rhythm Respiratory/Chest: lungs clear, normal breath sounds, no respiratory distress Abdomen: normal bowel sounds, non tender, soft, no organomegaly 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
--- NOTE | 2016-12-08 10:01 | Urology Progress Note ---
Assessment/Plan Assessment/Plan 1. History of urinary retention with chronic Burton. 2. Benign prostatic hypertrophy history. 3. Probable neurogenic bladder. 4. Hematuria. 5. Urinary tract infection and probable colonization. 6. Proteinuria. 7. Mild penile edema. keep burton indwelling diflucan added monitor clinically f/u on renal u/s d/w Dr. Sanchez d/w pt's daughter Subjective Allergies: Coded Allergies: No Known Allergies (Verified , 06/30/07) Subjective all noted Objective Last 24 Hour Vital Signs Date Time Temp Pulse Resp B/P (MAP) Pulse Ox O2 Delivery O2 Flow Rate FiO2 12/08/16 08:41 76 132/81 12/08/16 08:00 76 12/08/16 07:53 96.4 79 19 132/81 100 Venturi Mask 45 12/08/16 04:00 97.5 66 18 126/78 100 Venturi Mask 45 12/08/16 04:00 103 12/08/16 04:00 40 12/08/16 02:44 95 136/95 12/08/16 00:00 95 12/08/16 00:00 40 12/08/16 00:00 97.5 95 20 136/95 100 Venturi Mask 45 12/07/16 20:00 97.3 103 20 128/83 100 Venturi Mask 45 12/07/16 20:00 115 12/07/16 16:00 40 12/07/16 16:00 97.2 75 20 137/85 99 Venturi Mask 45 12/07/16 15:34 77 12/07/16 12:18 110 12/07/16 12:00 97.7 115 18 134/83 94 12/07/16 12:00 40 Intake and Output 12/08/16 12/09/16 19:00 07:00 Intake Total 250 ml Balance 250 ml Intake IV Total 250 ml Microbiology Date/Time Source Procedure Growth Status 12/04/16 21:55 Blood Blood Culture - Preliminary NO GROWTH AFTER 48 HOURS Resulted 12/06/16 01:20 Sputum Induced Gram Stain - Final Complete 12/06/16 01:20 Sputum Culture - Final Bibiana Albicans Complete 12/04/16 21:55 Urine,Clean Catch Urine Culture - Final Bibiana Albicans Complete 12/05/16 02:00 Sacral Lower Gram Stain - Final Resulted 12/05/16 02:00 Wound Culture - Preliminary Providencia Stuartii Gram Negative Bacillus 2 Bibiana Albicans Resulted Current Medications Medications (Trade) Dose Ordered Sig/Jus Route PRN Reason Start Time Stop Time Status Last Admin Dose Admin Cefepime HCl 2 gm/ Dextrose 100 ml @ 200 mls/hr Q12HR@0500,1700 IVPB 12/05/16 17:15 12/12/16 17:14 12/08/16 04:34 Dextrose/Sodium Chloride 1,000 ml @ 50 mls/hr Q20H IV 12/07/16 02:00 01/06/17 01:59 12/07/16 22:13 Fluconazole/ Sodium Chloride 100 ml @ 100 mls/hr Q24H IV 12/05/16 18:30 12/12/16 18:29 12/07/16 18:52 Heparin Sodium/ Dextrose 500 ml @ 30.251 mls/ hr adjust per protocol IV 12/07/16 23:30 01/06/17 13:29 12/08/16 05:28 Magnesium Sulfate 100 ml @ 100 mls/hr Q1H IVPB 12/08/16 09:00 12/08/16 10:59 12/08/16 07:49 Metoprolol Tartrate (Lopressor) 5 mg Q6H IVPB 12/08/16 03:00 01/07/17 02:59 12/08/16 08:41 Metronidazole 100 ml @ 100 mls/hr Q8HR@0000,0800,1600 IVPB 12/05/16 17:30 12/12/16 17:29 12/08/16 08:52 Vancomycin HCl (Vanco rx to dose) 1 ea DAILY PRN MISC Per rx protocol 12/05/16 15:45 01/04/17 15:44 Laboratory Tests 12/07/16 13:40: Activated Partial Thromboplast Time 39H 12/07/16 21:55: Activated Partial Thromboplast Time > 150*H 12/08/16 08:10: Activated Partial Thromboplast Time [Pending] Height (Feet): 6 Height (Inches): 1.00 Weight (Pounds): 238 Objective exam stable CTA chest noted renal u/s pending TRISTIAN RIOS Dec 08, 2016 10:01
--- NOTE | 2016-12-08 11:19 | Diagnostic Imaging Report ---
Indication:Elevated Bun and Creatinine. Technique: Grayscale and duplex Doppler imaging of the kidneys performed. Comparison: None Findings: The size, contour, and echogenicity of the right kidney is within normal limits. There is a cyst in the right kidney measuring approximately 2 cm. A larger right renal cyst demonstrated in the upper pole measuring 6 cm. The left kidney is not seen. Right kidney measures 9.5 cm in length. There is no hydronephrosis. The IVC and urinary bladder are unremarkable. Impression: Right renal cysts. Absent left kidney
[2016-12-08 11:51] VITALS: BP 128/81
--- NOTE | 2016-12-08 11:52 | Diagnostic Imaging Report ---
Indication: NG tube Comparison: None Single view of the abdomen obtained NG tube is projected over the left side of abdomen. The side-port is within the stomach. Bowel gas pattern is nonspecific. Vascular calcifications noted. The bones appear osteopenic. Surgical clips noted in the pelvis. Impression: NG tube in good position
[2016-12-08 16:00] VITALS: BP 114/68
[2016-12-08] MEDS ORDERED: Tubing IV Secondary IV ONE (16:11)
[2016-12-08] MEDS ORDERED: NS 275ml ONE (16:11)
[2016-12-08] MEDS ORDERED: D5NS 1000ml IV ONE (16:11)
[2016-12-08] MEDS: Vancomycin 1gm/D5W 275ml IVPB SCH ×2 (17:10)
[2016-12-08] MEDS: D5NS 1,000 ML IV SCH (17:10)
[2016-12-08 20:00] VITALS: BP 131/79
[2016-12-08] MEDS ORDERED: Heparin 25,000u/D5W 500ml 500 ML IV SCH (22:45)
[2016-12-09] VITALS: BP 129/99
[2016-12-09] MEDS: D5NS 1,000 ML IV SCH (01:47)
[2016-12-09] MEDS: Metoprolol 5mg/5ml Inj IVPB SCH ×4 (02:36→21:17)
[2016-12-09 04:00] VITALS: BP 119/50
[2016-12-09 05:25] LABS: BASOPHILS % (AUTO) 0.5 % (0.0-2.0); EOSINOPHILS % (AUTO) 3.2 % (0.0-3.0); LYMPHOCYTES % (AUTO) 17.1 % (20.0-45.0); MEAN CORPUSCULAR HEMOGLOBIN 27.3 PG (27.0-31.0); MEAN CORPUSCULAR HGB CONC 31.1 G/DL (32.0-36.0); MEAN CORPUSCULAR VOLUME 88 FL (80-99); MEAN PLATELET VOLUME 10.4 FL (6.5-10.1); MONOCYTES % (AUTO) 9.1 % (1.0-10.0); NEUTROPHILS % (AUTO) 70.2 % (45.0-75.0); PLATELET COUNT 123 K/UL (150-450); RED BLOOD COUNT 3.45 M/UL (4.70-6.10); RED CELL DISTRIBUTION WIDTH 17.7 % (11.6-14.8)
[2016-12-09] MEDS ORDERED: Heparin 25,000u/D5W 500ml 500 ML IV SCH ×3 (06:15→13:45)
--- NOTE | 2016-12-09 07:00 | Progress Note ---
DATE: 12/08/2016 CARDIOLOGY PROGRESS NOTE Subjective: The patient is more alert and interactive. Less congested. Monitor sinus, sinus tachycardia. Paroxysmal atrial flutter. OBJECTIVE: Vital Signs: Blood pressure 132/81, pulse 76, and respiratory rate 19. LUNGS: Coarse breath sounds. Scattered rhonchi. HEART: Regular rhythm and rate. Normal S1 and S2. ABDOMEN: Soft. EXTREMITIES: Trace edema. Laboratory Data: White count 7.7 and hemoglobin 11.1. BUN 13 and creatinine 0.6. Magnesium is 2.2. Albumin is 2.8. IMPRESSION: 1. Acute pulmonary embolus. 2. Acute on chronic respiratory insufficiency. 3. Acute on chronic diastolic congestive heart failure. 4. Paroxysmal atrial fibrillation. 5. Urinary tract infection with sepsis. 6. Dysphagia. 7. Chronic encephalopathy. PLAN: 1. Aspiration precautions. 2. NG-tube feedings. 3. Full anticoagulation. 4. Respiratory hygiene. 5. Monitor volume status. 6. Replace electrolytes as needed. 7. Follow up laboratory studies. 8. Remains serious and tenuous with guarded prognosis. Omkar Turk M.D. DR: EVONNE JOB#: [id number] CC:
[2016-12-09 07:49] LABS: ANION GAP 16 (5-15); CALCIUM 8.1 mg/dL (8.6-10.2); CARBON DIOXIDE 27 mEQ/L (20-30); CHLORIDE 93 mEQ/L (98-107); CREATININE 0.7 mg/dL (0.7-1.2); HEMOLYSIS 1; POTASSIUM 3.1 mEQ/L (3.4-4.9); SODIUM 136 mEQ/L (135-145)
--- NOTE | 2016-12-09 07:51 | General Progress Note ---
Assessment/Plan Problem List: (1) Altered level of consciousness ICD Codes: R40.4 - Transient alteration of awareness SNOMED: 1649892 (2) Atrial flutter ICD Codes: I48.92 - Unspecified atrial flutter SNOMED: 3710672 Qualifiers: Qualified Codes: I48.92 - Unspecified atrial flutter (3) Sepsis ICD Codes: A41.9 - Sepsis, unspecified organism SNOMED: 67503540 Qualifiers: Qualified Codes: A41.9 - Sepsis, unspecified organism (4) UTI (urinary tract infection) ICD Codes: N39.0 - Urinary tract infection, site not specified SNOMED: 67486558 Qualifiers: Qualified Codes: T83.511A - Infection and inflammatory reaction due to indwelling urethral catheter, initial encounter; N39.0 - Urinary tract infection , site not specified (5) Pneumonia ICD Codes: J18.9 - Pneumonia, unspecified organism SNOMED: 556559116 Qualifiers: Qualified Codes: J18.9 - Pneumonia, unspecified organism Status: stable Assessment/Plan wean o2 resp care monitor abg monitor cxr abx per id follow up cultures swallow eval tomorrow iv heparin drip for now. if pt able to swallow ok can start on noac d/w dtr at the bedside Subjective ROS Limited/Unobtainable: No Constitutional: Reports: malaise, weakness HEENT: Reports: no symptoms Cardiovascular: Reports: no symptoms Respiratory: Reports: cough Gastrointestinal/Abdominal: Reports: difficulty swallowing Genitourinary: Reports: no symptoms Neurologic/Psychiatric: Reports: pre-existing deficit Endocrine: Reports: no symptoms Hematologic/Lymphatic: Reports: no symptoms Allergies: Coded Allergies: No Known Allergies (Verified , 06/30/07) All Systems: reviewed and negative except above Subjective no events. only in venti mask. now with ngt and feeds. on heparin drip. Objective Last 24 Hour Vital Signs Date Time Temp Pulse Resp B/P (MAP) Pulse Ox O2 Delivery O2 Flow Rate FiO2 12/09/16 04:00 97.5 72 18 119/50 100 Venturi Mask 45 12/09/16 04:00 117 12/09/16 02:36 72 119/50 12/09/16 00:00 97.2 80 18 129/99 100 Venturi Mask 45 12/09/16 00:00 70 12/08/16 22:07 75 131/79 12/08/16 20:00 73 12/08/16 20:00 97.4 78 20 131/79 100 Venturi Mask 45 12/08/16 16:00 71 12/08/16 16:00 97.0 74 18 114/68 100 Venturi Mask 45 12/08/16 15:17 71 128/81 12/08/16 12:00 71 12/08/16 11:51 96.4 78 19 128/81 100 Venturi Mask 45 12/08/16 08:41 76 132/81 12/08/16 08:00 76 12/08/16 07:53 96.4 79 19 132/81 100 Venturi Mask 45 Laboratory Tests 12/08/16 11:30: Activated Partial Thromboplast Time > 150*H, Magnesium Level 2.2 12/08/16 15:05: Random Vancomycin Level 17.5 12/08/16 20:30: Activated Partial Thromboplast Time > 150*H 12/09/16 05:00: Activated Partial Thromboplast Time > 150*H, White Blood Count 6.0, Red Blood Count 3.45L, Hemoglobin 9.4L, Hematocrit 30.2L, Mean Corpuscular Volume 88, Mean Corpuscular Hemoglobin 27.3, Mean Corpuscular Hemoglobin Concent 31.1L, Red Cell Distribution Width 17.7H, Platelet Count 123L, Mean Platelet Volume 10.4H, Neutrophils (%) (Auto) 70.2, Lymphocytes (%) (Auto) 17.1L, Monocytes (%) (Auto) 9.1, Eosinophils (%) (Auto) 3.2H, Basophils (%) (Auto) 0.5, Sodium Level [Pending], Potassium Level [Pending], Chloride Level [Pending], Carbon Dioxide Level [Pending], Blood Urea Nitrogen [Pending], Creatinine [Pending], Estimat Glomerular Filtration Rate [Pending], Glucose Level [Pending], Calcium Level [ Pending], Pro-B-Type Natriuretic Peptide 83294A Height (Feet): 6 Height (Inches): 1.00 Weight (Pounds): 238 Objective General Appearance: WD/WN, alert. venti mask. 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
[2016-12-09 08:00] VITALS: BP 131/61
[2016-12-09] MEDS ORDERED: KCl 10% 40mEq/30ml liquid NG ONE ×2 (08:00→23:00)
[2016-12-09] MEDS: metroNIDAZOLE 500mg 100 ML IVPB SCH ×2 (08:30→15:04)
--- NOTE | 2016-12-09 09:02 | Urology Progress Note ---
Assessment/Plan Assessment/Plan 1. History of urinary retention with chronic Burton. 2. Benign prostatic hypertrophy history. 3. Probable neurogenic bladder. 4. Hematuria. 5. Urinary tract infection and probable colonization. 6. Proteinuria. 7. Mild penile edema. 8. Renal cyst 9. Solitary right kidney. keep burton indwelling diflucan added monitor clinically Subjective Allergies: Coded Allergies: No Known Allergies (Verified , 06/30/07) Subjective all noted Objective Last 24 Hour Vital Signs Date Time Temp Pulse Resp B/P (MAP) Pulse Ox O2 Delivery O2 Flow Rate FiO2 12/09/16 08:31 71 131/61 12/09/16 08:00 97.3 71 18 131/61 99 Venturi Mask 45 12/09/16 04:00 97.5 72 18 119/50 100 Venturi Mask 45 12/09/16 04:00 117 12/09/16 02:36 72 119/50 12/09/16 00:00 97.2 80 18 129/99 100 Venturi Mask 45 12/09/16 00:00 70 12/08/16 22:07 75 131/79 12/08/16 20:00 73 12/08/16 20:00 97.4 78 20 131/79 100 Venturi Mask 45 12/08/16 16:00 71 12/08/16 16:00 97.0 74 18 114/68 100 Venturi Mask 45 12/08/16 15:17 71 128/81 12/08/16 12:00 71 12/08/16 11:51 96.4 78 19 128/81 100 Venturi Mask 45 Intake and Output 12/09/16 12/10/16 19:00 07:00 Intake Total 50 ml Balance 50 ml IV Total 50 ml Microbiology Date/Time Source Procedure Growth Status 12/04/16 21:55 Blood Blood Culture - Preliminary NO GROWTH AFTER 4 DAYS Resulted 12/06/16 01:20 Sputum Induced Gram Stain - Final Complete 12/06/16 01:20 Sputum Culture - Final Bibiana Albicans Complete 12/04/16 21:55 Urine,Clean Catch Urine Culture - Final Bibiana Albicans Complete 12/05/16 02:00 Sacral Lower Gram Stain - Final Resulted 12/05/16 02:00 Wound Culture - Preliminary Providencia Stuartii Gram Negative Bacillus 2 Bibiana Albicans Resulted Current Medications Medications (Trade) Dose Ordered Sig/Jus Route PRN Reason Start Time Stop Time Status Last Admin Dose Admin Cefepime HCl 2 gm/ Dextrose 100 ml @ 200 mls/hr Q12HR@0500,1700 IVPB 12/05/16 17:15 12/12/16 17:14 12/09/16 05:12 Fluconazole/ Sodium Chloride 100 ml @ 100 mls/hr Q24H IV 12/05/16 18:30 12/12/16 18:29 12/08/16 18:50 Heparin Sodium/ Dextrose 500 ml @ 4.322 mls/ hr adjust per protocol IV 12/09/16 07:15 01/08/17 07:14 Metoprolol Tartrate (Lopressor) 5 mg Q6H IVPB 12/08/16 03:00 01/07/17 02:59 12/09/16 08:31 Metronidazole 100 ml @ 100 mls/hr Q8HR@0000,0800,1600 IVPB 12/05/16 17:30 12/12/16 17:29 12/09/16 08:30 Vancomycin HCl (Vanco rx to dose) 1 ea DAILY PRN MISC Per rx protocol 12/05/16 15:45 01/04/17 15:44 Vancomycin HCl 1 gm/Dextrose 275 ml @ 183.708 mls/hr Q24H IVPB 12/08/16 18:00 12/13/16 17:59 12/08/16 17:10 Laboratory Tests 12/08/16 11:30: Activated Partial Thromboplast Time > 150*H, Magnesium Level 2.2 12/08/16 15:05: Random Vancomycin Level 17.5 12/08/16 20:30: Activated Partial Thromboplast Time > 150*H 12/09/16 05:00: Activated Partial Thromboplast Time > 150*H, White Blood Count 6.0, Red Blood Count 3.45L, Hemoglobin 9.4L, Hematocrit 30.2L, Mean Corpuscular Volume 88, Mean Corpuscular Hemoglobin 27.3, Mean Corpuscular Hemoglobin Concent 31.1L, Red Cell Distribution Width 17.7H, Platelet Count 123L, Mean Platelet Volume 10.4H, Neutrophils (%) (Auto) 70.2, Lymphocytes (%) (Auto) 17.1L, Monocytes (%) (Auto) 9.1, Eosinophils (%) (Auto) 3.2H, Basophils (%) (Auto) 0.5, Sodium Level 136, Potassium Level 3.1L, Chloride Level 93L, Carbon Dioxide Level 27, Anion Gap 16H, Blood Urea Nitrogen 14, Creatinine 0.7, Estimat Glomerular Filtration Rate , Glucose Level 325H, Calcium Level 8.1L, Pro-B-Type Natriuretic Peptide 05809K Height (Feet): 6 Height (Inches): 1.00 Weight (Pounds): 238 Objective exam stable CTA chest noted renal u/s noted TRISTIAN RIOS Dec 09, 2016 09:02
[2016-12-09] MEDS ORDERED: Tubing IV Secondary IV ONE (09:54)
[2016-12-09] MEDS ORDERED: D5NS 1000ml IV ONE (09:54)
--- NOTE | 2016-12-09 10:13 | Pulmonology Progress Note ---
Assessment/Plan Assessment/Plan IMPRESSION: 1. Respiratory failure. 2. Acute on chronic respiratory acidosis. 3. Functional quadriplegia. 4. Prostate cancer. 5. Severe protein-calorie malnutrition. 6. As per code status, no intubation, no gastrostomy tube. 7. Possible urinary tract infection. 8. Possible sepsis. 9. Hypotension. 10. sacral wound 11. pleural effusions 12. PE PLAN care noted all noted and reviewed respiratory care as is per [facility]- no intubation but now full code monitor off BIPAP and check ABG PRN low flow oxygen as needed SNF meds noted supportive care suction as needed aspiration precautions IV heparin consider tap if not improved will followup imaging today medications/laboratory data/nursing notes reviewed in detail note reviewed and edited care discussed with RN and RT Subjective ROS Limited/Unobtainable: Yes Allergies: Coded Allergies: No Known Allergies (Verified , 06/30/07) Subjective unable comfortable on ventimask exam without change from prior day Objective Last 24 Hour Vital Signs Date Time Temp Pulse Resp B/P (MAP) Pulse Ox O2 Delivery O2 Flow Rate FiO2 12/09/16 08:31 71 131/61 12/09/16 08:00 63 12/09/16 08:00 97.3 71 18 131/61 99 Venturi Mask 45 12/09/16 04:00 97.5 72 18 119/50 100 Venturi Mask 45 12/09/16 04:00 117 12/09/16 02:36 72 119/50 12/09/16 00:00 97.2 80 18 129/99 100 Venturi Mask 45 12/09/16 00:00 70 12/08/16 22:07 75 131/79 12/08/16 20:00 73 12/08/16 20:00 97.4 78 20 131/79 100 Venturi Mask 45 12/08/16 16:00 71 12/08/16 16:00 97.0 74 18 114/68 100 Venturi Mask 45 12/08/16 15:17 71 128/81 12/08/16 12:00 71 12/08/16 11:51 96.4 78 19 128/81 100 Venturi Mask 45 Intake and Output 12/09/16 12/10/16 19:00 07:00 Intake Total 50 ml Balance 50 ml IV Total 50 ml Objective WDWN NAD reduced breath sounds bilaterally without rhonchi or wheeze without change [id number] without MRG NABS nontender no HSM no CC some mild edema reduced ROM nonfocal reviewed and edited Laboratory Tests 12/08/16 11:30: Activated Partial Thromboplast Time > 150*H, Magnesium Level 2.2 12/08/16 15:05: Random Vancomycin Level 17.5 12/08/16 20:30: Activated Partial Thromboplast Time > 150*H 12/09/16 05:00: Activated Partial Thromboplast Time > 150*H, White Blood Count 6.0, Red Blood Count 3.45L, Hemoglobin 9.4L, Hematocrit 30.2L, Mean Corpuscular Volume 88, Mean Corpuscular Hemoglobin 27.3, Mean Corpuscular Hemoglobin Concent 31.1L, Red Cell Distribution Width 17.7H, Platelet Count 123L, Mean Platelet Volume 10.4H, Neutrophils (%) (Auto) 70.2, Lymphocytes (%) (Auto) 17.1L, Monocytes (%) (Auto) 9.1, Eosinophils (%) (Auto) 3.2H, Basophils (%) (Auto) 0.5, Sodium Level 136, Potassium Level 3.1L, Chloride Level 93L, Carbon Dioxide Level 27, Anion Gap 16H, Blood Urea Nitrogen 14, Creatinine 0.7, Estimat Glomerular Filtration Rate , Glucose Level 325H, Calcium Level 8.1L, Pro-B-Type Natriuretic Peptide 21610E Current Medications Medications (Trade) Dose Ordered Sig/Jus Route PRN Reason Start Time Stop Time Status Last Admin Dose Admin Cefepime HCl 2 gm/ Dextrose 100 ml @ 200 mls/hr Q12HR@0500,1700 IVPB 12/05/16 17:15 12/12/16 17:14 12/09/16 05:12 Fluconazole/ Sodium Chloride 100 ml @ 100 mls/hr Q24H IV 12/05/16 18:30 12/12/16 18:29 12/08/16 18:50 Heparin Sodium/ Dextrose 500 ml @ 4.322 mls/ hr adjust per protocol IV 12/09/16 07:15 01/08/17 07:14 Metoprolol Tartrate (Lopressor) 5 mg Q6H IVPB 12/08/16 03:00 01/07/17 02:59 12/09/16 08:31 Metronidazole 100 ml @ 100 mls/hr Q8HR@0000,0800,1600 IVPB 12/05/16 17:30 12/12/16 17:29 12/09/16 08:30 Vancomycin HCl (Vanco rx to dose) 1 ea DAILY PRN MISC Per rx protocol 12/05/16 15:45 01/04/17 15:44 Vancomycin HCl 1 gm/Dextrose 275 ml @ 183.708 mls/hr Q24H IVPB 12/08/16 18:00 12/13/16 17:59 12/08/16 17:10 NICHOLAS ROJAS Dec 09, 2016 10:13
--- NOTE | 2016-12-09 11:49 | Diagnostic Imaging Report ---
Indication: Dyspnea Comparison: 12/06/16 A single view chest radiograph was obtained. Findings: Cardiomegaly is present. There is retrocardiac opacification again noted unchanged. Mild interstitial edema suspected at the current time. The bones are osteopenic. Impression: Mild interstitial edema suspected. Persistent left basilar opacification. No pleural effusion and/or parenchymal disease suspected.
[2016-12-09 11:59] VITALS: BP 122/87
[2016-12-09] MEDS ORDERED: Heparin 5000 units/ml inj IV ONE (13:45)
[2016-12-09 13:48] LABS: ABG ALLEN TEST POSITIVE; ABG BASE EXCESS 4.2; ABG PCO2 43.4 mmHg (35.0-45.0)
[2016-12-09 16:00] VITALS: BP 151/88
--- NOTE | 2016-12-09 16:14 | Infectious Diseases Prog Note ---
Assessment/Plan Assessment/Plan Assessment/Plan: A) 1) sepsis, asp pna/hcap, fungal uti, sob, leukocytosis, fevers, wound fairly clean, lactic acidosis, ? c.diff., ? fungemia, wc - providencia 2) ct scan c/w pulmonary embolus - patient on iv heparin 3) htn, hypothyroidism, ileostomy, cva, dementia, prostate ca, qp, ftt, dm, anemia, encephalopathy, hhd, colostomy 4) allergies - negative, fh-nc, sh-negative, mar noted, 5) notes and records reviewed 6) d/w RN P) 1) vancomycin, flagyl, cefepime and diflucan, well covered with abx 2) check labs and chest x-ray 3) wound culture per protocol 4) continue treatment per primary and consultants 5) orders entered and noted 6) sdu care Subjective Constitutional: Reports: fatigue, other - on bipap, more alert , Denies: fever HEENT: Reports: congestion Respiratory: Reports: shortness of breath Cardiovascular: Denies: chest pain Gastrointestinal/Abdominal: Denies: nausea, vomiting, diarrhea Genitourinary: Reports: other - + burton Neurologic: Denies: headache Psychiatric: Denies: depression Skin: Denies: rash Hematologic: Denies: bleeding Musculoskeletal: Denies: pain Allergies: Coded Allergies: No Known Allergies (Verified , 06/30/07) Objective Vital Signs Last 24 Hour Vital Signs Date Time Temp Pulse Resp B/P (MAP) Pulse Ox O2 Delivery O2 Flow Rate FiO2 12/09/16 15:30 67 20 94 Facial 90 12/09/16 15:04 84 122/87 12/09/16 13:56 84 20 90 Facial 100 12/09/16 12:00 103 12/09/16 11:59 96.6 78 18 122/87 99 Venturi Mask 45 12/09/16 08:31 71 131/61 12/09/16 08:00 63 12/09/16 08:00 97.3 71 18 131/61 99 Venturi Mask 45 12/09/16 04:00 97.5 72 18 119/50 100 Venturi Mask 45 12/09/16 04:00 117 12/09/16 02:36 72 119/50 12/09/16 00:00 97.2 80 18 129/99 100 Venturi Mask 45 12/09/16 00:00 70 12/08/16 22:07 75 131/79 12/08/16 20:00 73 12/08/16 20:00 97.4 78 20 131/79 100 Venturi Mask 45 Height (Feet): 6 Height (Inches): 1.00 Weight (Pounds): 238 General Appearance: other - + bipap HEENT: normocephalic, atraumatic, anicteric, supple, no JVD Respiratory/Chest: decreased breath sounds, crackles/rales, rhonchi - bilaterally, other - + bipap Cardiovascular: normal rate, regular rhythm, no gallop/murmur, no JVD Abdomen: normal bowel sounds, soft, non tender, no organomegaly, non distended Genitourinary: other - + burton - urine cloudy Extremities: no cyanosis Skin: no rash 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 There is a left pleural effusion again demonstrated. The heart is borderline enlarged. Interstitial congestion has increased since the prior study. There is now probably pleural fluid on the right. Granulomatous lymph nodes are again demonstrated in the aortopulmonary window Impression: Stable left, new or increased right pleural effusion, over 15 hours Increasing interstitial edema Old granulomatous disease Chest x-ray - 12/06: Impression: Probable improvement in interstitial edema Persistent retrocardiac opacification likely on the basis of pleural effusion and/or parenchymal disease CT - c/w pulmonary embolus Microbiology Date/Time Source Procedure Growth Status 12/04/16 21:55 Blood Blood Culture - Preliminary NO GROWTH AFTER 4 DAYS Resulted 12/06/16 01:20 Sputum Induced Gram Stain - Final Complete 12/06/16 01:20 Sputum Culture - Final Bibiana Albicans Complete 12/04/16 21:55 Urine,Clean Catch Urine Culture - Final Bibiana Albicans Complete 12/05/16 02:00 Sacral Lower Gram Stain - Final Complete 12/05/16 02:00 Wound Culture - Final Providencia Stuartii Bibiana Albicans Complete Laboratory Tests Test 12/08/16 20:30 12/09/16 05:00 12/09/16 13:10 12/09/16 13:40 Activated Partial Thromboplast Time > 150 SEC (23-33) *H > 150 SEC (23-33) *H 40 SEC (23-33) H White Blood Count 6.0 K/UL (4.8-10.8) Red Blood Count 3.45 M/UL (4.70-6.10) L Hemoglobin 9.4 G/DL (14.2-18.0) L Hematocrit 30.2 % (42.0-52.0) L Mean Corpuscular Volume 88 FL (80-99) Mean Corpuscular Hemoglobin 27.3 PG (27.0-31.0) Mean Corpuscular Hemoglobin Concent 31.1 G/DL (32.0-36.0) L Red Cell Distribution Width 17.7 % (11.6-14.8) H Platelet Count 123 K/UL (150-450) L Mean Platelet Volume 10.4 FL (6.5-10.1) H Neutrophils (%) (Auto) 70.2 % (45.0-75.0) Lymphocytes (%) (Auto) 17.1 % (20.0-45.0) L Monocytes (%) (Auto) 9.1 % (1.0-10.0) Eosinophils (%) (Auto) 3.2 % (0.0-3.0) H Basophils (%) (Auto) 0.5 % (0.0-2.0) Sodium Level 136 mEQ/L (135-145) Potassium Level 3.1 mEQ/L (3.4-4.9) L Chloride Level 93 mEQ/L (98-107) L Carbon Dioxide Level 27 mEQ/L (20-30) Anion Gap 16 (5-15) H Blood Urea Nitrogen 14 mg/dL (7-23) Creatinine 0.7 mg/dL (0.7-1.2) Estimat Glomerular Filtration Rate mL/min (>60) Glucose Level 325 mg/dL (74-106) H Calcium Level 8.1 mg/dL (8.6-10.2) L Pro-B-Type Natriuretic Peptide 88284 pg/mL (0-450) H Arterial Blood pH 7.440 (7.350-7.450) Arterial Blood Partial Pressure CO2 43.4 mmHg (35.0-45.0) Arterial Blood Partial Pressure O2 64.0 mmHg (75.0-100.0) L Arterial Blood HCO3 28.8 mmol/L (22.0-26.0) H Arterial Blood Oxygen Saturation 75.5 % (92.0-98.0) L Arterial Blood Base Excess 4.2 Han Test Positive Current Medications Medications (Trade) Dose Ordered Sig/Jus Route PRN Reason Start Time Stop Time Status Last Admin Dose Admin Cefepime HCl 2 gm/ Dextrose 100 ml @ 200 mls/hr Q12HR@0500,1700 IVPB 12/05/16 17:15 12/12/16 17:14 12/09/16 05:12 Fluconazole/ Sodium Chloride 100 ml @ 100 mls/hr Q24H IV 12/05/16 18:30 12/12/16 18:29 12/08/16 18:50 Heparin Sodium/ Dextrose 500 ml @ 12.655 mls/ hr adjust per protocol IV 12/09/16 13:45 01/08/17 07:14 12/09/16 14:01 Metoprolol Tartrate (Lopressor) 5 mg Q6H IVPB 12/08/16 03:00 01/07/17 02:59 12/09/16 15:04 Metronidazole 100 ml @ 100 mls/hr Q8HR@0000,0800,1600 IVPB 12/05/16 17:30 12/12/16 17:29 12/09/16 15:04 Vancomycin HCl (Vanco rx to dose) 1 ea DAILY PRN MISC Per rx protocol 12/05/16 15:45 01/04/17 15:44 Vancomycin HCl 1 gm/Dextrose 275 ml @ 183.708 mls/hr Q24H IVPB 12/08/16 18:00 12/13/16 17:59 12/08/16 17:10 KISHOR VALLE Dec 09, 2016 16:14
[2016-12-09] MEDS: Vancomycin 1gm/D5W 275ml IVPB SCH ×2 (17:09)
[2016-12-09] MEDS: Enoxaparin 80mg Inj SUBQ SCH (17:53)
[2016-12-09 20:00] VITALS: BP 130/79
[2016-12-09] MEDS: metroNIDAZOLE 500mg tab ORAL SCH (21:47)
--- NOTE | 2016-12-09 23:13 | Diagnostic Imaging Report ---
APPROVED REPORT CPT Code: 87833 Present Symptoms Shortness of breath BILATERAL: Imaging reveals a patent deep venous system bilaterally. There is no evidence of thrombus within the femoral, popliteal or tibial segments. The greater saphenous veins are also within normal limits. Doppler indicates normal spontaneous flow within these segments.
[2016-12-10] VITALS (7 sets, daily range): BP systolic 104–132; BP diastolic 56–78
[2016-12-10] MEDS: Metoprolol Tartrate 50mg tab ORAL SCH ×3 (03:21→20:32)
--- NOTE | 2016-12-10 05:15 | Progress Note ---
DATE: 12/09/2016 CARDIOLOGY PROGRESS NOTE Subjective: Still with episodes of congestion. He remains on a Ventimask. He is poorly responsive. OBJECTIVE: Vital Signs: Blood pressure is 131/61, pulse 71, respirations 18, afebrile. LUNGS: Coarse breath sounds with rhonchi. Cardiac: Regular rhythm and rate. Normal S1, S2 with a 1/6 apical murmur. ABDOMEN: Soft. EXTREMITIES: With trace dependent edema. Laboratory Data: Urine was positive for Bibiana albicans. White count 6, hemoglobin 9.4. Sodium 136, potassium 3.1, bicarbonate 27, chloride 93, BUN 14, creatinine 0.7, and glucose 325. Pronatriuretic peptide is now over 10,000. IMPRESSION: 1. Respiratory failure. 2. Pneumonia. 3. Dysphagia/aspiration. 4. Acute on chronic diastolic congestive heart failure. 5. Paroxysmal atrial fibrillation. 6. Acute pulmonary embolus. Plan: IV fluids were discontinued. Diuresis is added. Full anticoagulation was continued. Switched to Lovenox in view of labile PTT reading. Maintain beta-blockade by IV route. Transition from IV beta-helga to NG-tube route. Omkar Turk M.D. DR: ANABEL/MALLORY JOB#: [id number] CC:
[2016-12-10] MEDS: metroNIDAZOLE 500mg tab ORAL SCH ×3 (05:56→21:07)
[2016-12-10 07:40] LABS: ANION GAP 15 (5-15); CALCIUM 10.6 mg/dL (8.6-10.2); CARBON DIOXIDE 25 mEQ/L (20-30); CHLORIDE 98 mEQ/L (98-107); CREATININE 0.9 mg/dL (0.7-1.2); HEMOLYSIS 6; SODIUM 138 mEQ/L (135-145)
--- NOTE | 2016-12-10 08:21 | General Progress Note ---
Assessment/Plan Problem List: (1) Altered level of consciousness ICD Codes: R40.4 - Transient alteration of awareness SNOMED: 5361314 (2) Atrial flutter ICD Codes: I48.92 - Unspecified atrial flutter SNOMED: 5644300 Qualifiers: Qualified Codes: I48.92 - Unspecified atrial flutter (3) Sepsis ICD Codes: A41.9 - Sepsis, unspecified organism SNOMED: 28426509 Qualifiers: Qualified Codes: A41.9 - Sepsis, unspecified organism (4) UTI (urinary tract infection) ICD Codes: N39.0 - Urinary tract infection, site not specified SNOMED: 18346842 Qualifiers: Qualified Codes: T83.511A - Infection and inflammatory reaction due to indwelling urethral catheter, initial encounter; N39.0 - Urinary tract infection , site not specified (5) Pneumonia ICD Codes: J18.9 - Pneumonia, unspecified organism SNOMED: 176384439 Qualifiers: Qualified Codes: J18.9 - Pneumonia, unspecified organism Status: stable, unchanged Assessment/Plan wean o2/bipap resp care monitor abg- pending for today monitor cxr diuresis per cards abx per id follow up cultures swallow eval today iv heparin drip for now. if pt able to swallow ok can start on noac d/w dtr at the bedside Subjective ROS Limited/Unobtainable: No Constitutional: Reports: malaise, weakness HEENT: Reports: no symptoms Cardiovascular: Reports: no symptoms Respiratory: Reports: cough, shortness of breath Gastrointestinal/Abdominal: Reports: difficulty swallowing Genitourinary: Reports: no symptoms Neurologic/Psychiatric: Reports: no symptoms Endocrine: Reports: no symptoms Hematologic/Lymphatic: Reports: anemia Allergies: Coded Allergies: No Known Allergies (Verified , 06/30/07) All Systems: reviewed and negative except above Subjective no events. back on bipap/. given lasix x 1 yesterday. labs reviewed. Objective Last 24 Hour Vital Signs Date Time Temp Pulse Resp B/P (MAP) Pulse Ox O2 Delivery O2 Flow Rate FiO2 12/10/16 07:00 75 30 92 Facial 90 12/10/16 06:00 90 12/10/16 05:14 86 27 92 Facial 90 12/10/16 04:00 96.8 76 18 112/78 95 Bi-pap 90 12/10/16 04:00 91 9/18/17 03:30 80 29 91 Facial 90 12/10/16 03:21 76 112/78 12/10/16 01:00 60 20 92 Facial 90 12/10/16 00:00 97.2 72 18 105/60 98 Bi-pap 90 12/10/16 00:00 72 12/09/16 23:24 73 24 92 Facial 90 12/09/16 21:30 71 22 94 Facial 90 12/09/16 21:17 79 130/79 12/09/16 20:00 90 12/09/16 20:00 74 12/09/16 20:00 97.3 70 18 130/79 100 Bi-pap 90 12/09/16 19:31 70 20 100 Facial 90 12/09/16 16:45 73 20 99 Facial 90 12/09/16 16:00 97.2 74 18 151/88 100 Bi-pap 90 12/09/16 16:00 75 12/09/16 16:00 90 12/09/16 15:30 67 20 94 Facial 90 12/09/16 15:04 84 122/87 12/09/16 13:56 84 20 90 Facial 100 12/09/16 12:00 103 12/09/16 11:59 96.6 78 18 122/87 99 Venturi Mask 45 12/09/16 08:31 71 131/61 Laboratory Tests 12/09/16 13:10: Activated Partial Thromboplast Time 40H 12/09/16 13:40: Arterial Blood pH 7.440, Arterial Blood Partial Pressure CO2 43.4, Arterial Blood Partial Pressure O2 64.0L, Arterial Blood HCO3 28.8H, Arterial Blood Oxygen Saturation 75.5L, Arterial Blood Base Excess 4.2, Han Test Positive 12/10/16 03:25: Magnesium Level 2.0 12/10/16 03:55: Sodium Level 138, Potassium Level 4.0, Chloride Level 98, Carbon Dioxide Level 25, Anion Gap 15, Blood Urea Nitrogen 21, Creatinine 0.9, Estimat Glomerular Filtration Rate , Glucose Level 85#, Calcium Level 10.6#H Height (Feet): 6 Height (Inches): 1.00 Weight (Pounds): 238 Objective General Appearance: WD/WN, alert. on bipap.. +ngt Neck: supple Cardiovascular: regular rhythm. 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
[2016-12-10] MEDS: Enoxaparin 80mg Inj SUBQ SCH ×2 (08:44→21:00)
[2016-12-10] MEDS ORDERED: Fluconazole 100mg tab ORAL SCH (09:00)
--- NOTE | 2016-12-10 09:01 | Pulmonology Progress Note ---
Assessment/Plan Assessment/Plan IMPRESSION: 1. Respiratory failure. 2. Acute on chronic respiratory acidosis. 3. Functional quadriplegia. 4. Prostate cancer. 5. Severe protein-calorie malnutrition. 6. As per code status, no intubation, no gastrostomy tube. 7. Possible urinary tract infection. 8. Possible sepsis. 9. Hypotension. 10. sacral wound 11. pleural effusions 12. PE PLAN care noted all noted and reviewed respiratory care as is per [facility]- no intubation but now full code monitor off BIPAP and check ABG PRN low flow oxygen as needed SNF meds noted supportive care suction as needed aspiration precautions IV heparin hold tap with improved imaging medications/laboratory data/nursing notes reviewed in detail note reviewed and edited care discussed with RN and RT Subjective ROS Limited/Unobtainable: Yes Allergies: Coded Allergies: No Known Allergies (Verified , 06/30/07) Subjective unable comfortable on ventimask exam without change from prior day oxygen needs improved Objective Last 24 Hour Vital Signs Date Time Temp Pulse Resp B/P (MAP) Pulse Ox O2 Delivery O2 Flow Rate FiO2 12/10/16 08:51 96.4 90 18 132/56 92 Bi-pap 90 12/10/16 08:40 68 132/56 12/10/16 08:39 73 25 92 Facial 90 12/10/16 07:00 75 30 92 Facial 90 12/10/16 06:00 90 12/10/16 05:14 86 27 92 Facial 90 12/10/16 04:00 96.8 76 18 112/78 95 Bi-pap 90 12/10/16 04:00 91 12/10/16 03:30 80 29 91 Facial 90 12/10/16 03:21 76 112/78 12/10/16 01:00 60 20 92 Facial 90 12/10/16 00:00 97.2 72 18 105/60 98 Bi-pap 90 12/10/16 00:00 72 12/09/16 23:24 73 24 92 Facial 90 12/09/16 21:30 71 22 94 Facial 90 12/09/16 21:17 79 130/79 12/09/16 20:00 90 12/09/16 20:00 74 12/09/16 20:00 97.3 70 18 130/79 100 Bi-pap 90 12/09/16 19:31 70 20 100 Facial 90 12/09/16 16:45 73 20 99 Facial 90 12/09/16 16:00 97.2 74 18 151/88 100 Bi-pap 90 12/09/16 16:00 75 12/09/16 16:00 90 12/09/16 15:30 67 20 94 Facial 90 12/09/16 15:04 84 122/87 12/09/16 13:56 84 20 90 Facial 100 12/09/16 12:00 103 12/09/16 11:59 96.6 78 18 122/87 99 Venturi Mask 45 Objective WDWN NAD reduced breath sounds bilaterally without rhonchi or wheeze without change [id number] without MRG NABS nontender no HSM no CC some mild edema reduced ROM nonfocal reviewed and edited Laboratory Tests 12/09/16 13:10: Activated Partial Thromboplast Time 40H 12/09/16 13:40: Arterial Blood pH 7.440, Arterial Blood Partial Pressure CO2 43.4, Arterial Blood Partial Pressure O2 64.0L, Arterial Blood HCO3 28.8H, Arterial Blood Oxygen Saturation 75.5L, Arterial Blood Base Excess 4.2, Han Test Positive 12/10/16 03:25: Magnesium Level 2.0 12/10/16 03:55: Sodium Level 138, Potassium Level 4.0, Chloride Level 98, Carbon Dioxide Level 25, Anion Gap 15, Blood Urea Nitrogen 21, Creatinine 0.9, Estimat Glomerular Filtration Rate , Glucose Level 85#, Calcium Level 10.6#H Current Medications Medications (Trade) Dose Ordered Sig/Jus Route PRN Reason Start Time Stop Time Status Last Admin Dose Admin Cefepime HCl 2 gm/ Dextrose 100 ml @ 200 mls/hr Q12HR@0500,1700 IVPB 12/05/16 17:15 12/12/16 17:14 12/10/16 05:56 Enoxaparin Sodium (Lovenox) 80 mg EVERY 12 HOURS SUBQ 12/09/16 18:00 01/08/17 17:59 12/10/16 08:44 Fluconazole (Diflucan) 200 mg DAILY ORAL 12/10/16 09:00 12/17/16 08:59 12/10/16 08:36 Metoprolol Tartrate (Lopressor) 50 mg Q12HR ORAL 12/09/16 23:00 01/08/17 22:59 12/10/16 08:40 Metronidazole (Flagyl) 500 mg EVERY 8 HOURS ORAL 12/09/16 22:00 12/16/16 21:59 12/10/16 05:56 Vancomycin HCl (Vanco rx to dose) 1 ea DAILY PRN MISC Per rx protocol 12/05/16 15:45 01/04/17 15:44 Vancomycin HCl 1 gm/Dextrose 275 ml @ 183.708 mls/hr Q24H IVPB 12/08/16 18:00 12/13/16 17:59 12/09/16 17:09 NICHOLAS ROJAS Dec 10, 2016 09:01
--- NOTE | 2016-12-10 09:18 | Urology Progress Note ---
Assessment/Plan Assessment/Plan 1. History of urinary retention with chronic Burton. 2. Benign prostatic hypertrophy history. 3. Probable neurogenic bladder. 4. Hematuria. 5. Urinary tract infection and probable colonization. 6. Proteinuria. 7. Mild penile edema. 8. Renal cyst 9. Solitary right kidney. keep burton indwelling I personally changed burton, new 20f cath placed position is satisfactory, irrigates well diflucan added monitor clinically d/w pt's son Subjective Allergies: Coded Allergies: No Known Allergies (Verified , 06/30/07) Subjective all noted Objective Last 24 Hour Vital Signs Date Time Temp Pulse Resp B/P (MAP) Pulse Ox O2 Delivery O2 Flow Rate FiO2 12/10/16 08:51 96.4 90 18 132/56 92 Bi-pap 90 12/10/16 08:40 68 132/56 12/10/16 08:39 73 25 92 Facial 90 12/10/16 07:00 75 30 92 Facial 90 12/10/16 06:00 90 12/10/16 05:14 86 27 92 Facial 90 12/10/16 04:00 96.8 76 18 112/78 95 Bi-pap 90 12/10/16 04:00 91 12/10/16 03:30 80 29 91 Facial 90 12/10/16 03:21 76 112/78 12/10/16 01:00 60 20 92 Facial 90 12/10/16 00:00 97.2 72 18 105/60 98 Bi-pap 90 12/10/16 00:00 72 12/09/16 23:24 73 24 92 Facial 90 12/09/16 21:30 71 22 94 Facial 90 12/09/16 21:17 79 130/79 12/09/16 20:00 90 12/09/16 20:00 74 12/09/16 20:00 97.3 70 18 130/79 100 Bi-pap 90 12/09/16 19:31 70 20 100 Facial 90 12/09/16 16:45 73 20 99 Facial 90 12/09/16 16:00 97.2 74 18 151/88 100 Bi-pap 90 12/09/16 16:00 75 12/09/16 16:00 90 12/09/16 15:30 67 20 94 Facial 90 12/09/16 15:04 84 122/87 12/09/16 13:56 84 20 90 Facial 100 12/09/16 12:00 103 12/09/16 11:59 96.6 78 18 122/87 99 Venturi Mask 45 Microbiology Date/Time Source Procedure Growth Status 12/04/16 21:55 Blood Blood Culture - Final NO GROWTH AFTER 5 DAYS Complete 12/06/16 01:20 Sputum Induced Gram Stain - Final Complete 12/06/16 01:20 Sputum Culture - Final Bibiana Albicans Complete 12/04/16 21:55 Urine,Clean Catch Urine Culture - Final Bibiana Albicans Complete 12/05/16 02:00 Sacral Lower Gram Stain - Final Complete 12/05/16 02:00 Wound Culture - Final Providencia Stuartii Bibiana Albicans Complete Current Medications Medications (Trade) Dose Ordered Sig/Jus Route PRN Reason Start Time Stop Time Status Last Admin Dose Admin Cefepime HCl 2 gm/ Dextrose 100 ml @ 200 mls/hr Q12HR@0500,1700 IVPB 12/05/16 17:15 12/12/16 17:14 12/10/16 05:56 Enoxaparin Sodium (Lovenox) 80 mg EVERY 12 HOURS SUBQ 12/09/16 18:00 01/08/17 17:59 12/10/16 08:44 Fluconazole (Diflucan) 200 mg DAILY ORAL 12/10/16 09:00 12/17/16 08:59 12/10/16 08:36 Metoprolol Tartrate (Lopressor) 50 mg Q12HR ORAL 12/09/16 23:00 01/08/17 22:59 12/10/16 08:40 Metronidazole (Flagyl) 500 mg EVERY 8 HOURS ORAL 12/09/16 22:00 12/16/16 21:59 12/10/16 05:56 Vancomycin HCl (Vanco rx to dose) 1 ea DAILY PRN MISC Per rx protocol 12/05/16 15:45 01/04/17 15:44 Vancomycin HCl 1 gm/Dextrose 275 ml @ 183.708 mls/hr Q24H IVPB 12/08/16 18:00 12/13/16 17:59 12/09/16 17:09 Laboratory Tests 12/09/16 13:10: Activated Partial Thromboplast Time 40H 12/09/16 13:40: Arterial Blood pH 7.440, Arterial Blood Partial Pressure CO2 43.4, Arterial Blood Partial Pressure O2 64.0L, Arterial Blood HCO3 28.8H, Arterial Blood Oxygen Saturation 75.5L, Arterial Blood Base Excess 4.2, Han Test Positive 12/10/16 03:25: Magnesium Level 2.0 12/10/16 03:55: Sodium Level 138, Potassium Level 4.0, Chloride Level 98, Carbon Dioxide Level 25, Anion Gap 15, Blood Urea Nitrogen 21, Creatinine 0.9, Estimat Glomerular Filtration Rate , Glucose Level 85#, Calcium Level 10.6#H Height (Feet): 6 Height (Inches): 1.00 Weight (Pounds): 238 Objective exam stable CTA chest noted renal u/s noted TRISTIAN RIOS Dec 10, 2016 09:18
[2016-12-10 09:50] LABS: ABG ALLEN TEST POSITIVE
[2016-12-10 09:51] LABS: ABG BASE EXCESS -3.2; ABG PCO2 38.4 mmHg (35.0-45.0)
[2016-12-10] MEDS ORDERED: NS 275ml ONE (11:18)
[2016-12-10 12:29] LABS: ABG PCO2 45.9 mmHg (35.0-45.0)
[2016-12-10 12:30] LABS: ABG ALLEN TEST POSITIVE; ABG BASE EXCESS -3.3
--- NOTE | 2016-12-10 14:01 | Diagnostic Imaging Report ---
Indication: DYSPNEA Technique: One view of the chest Comparison: 12/09/2016 Findings: Patient's chin obscures the entire upper mediastinum, most of both lung apices, particular the right. Per technologist, patient was contracted and unable to extend neck. There is markedly increased opacification of the left hemithorax, likely reflecting increased left pleural fluid, now likely occupying over 50% of the left hemithorax. This the visualized portions of the right lung are clear. There is slight blunting of the right costophrenic angle. Nasogastric tube is again demonstrated, tip projecting beyond the edge of the image. Impression: Somewhat limited exam, as described Markedly increased opacification left hemithorax, likely reflecting increased large left pleural effusion. Suspect trace right pleural effusion.
--- NOTE | 2016-12-10 16:10 | Cardiology Report ---
APPROVED REPORT EXAM: Two-dimensional and M-mode echocardiogram with Doppler and color Doppler. INDICATION Congestive Heart Failure M-Mode DIMENSIONS IVSd1.0 (0.7-1.1cm)Left Atrium (MM)3.1 (1.6-4.0cm) LVDd3.5 (3.5-5.6cm)Aortic Root2.9 (2.0-3.7cm) PWd1.2 (0.7-1.1cm)Aortic Cusp Exc.1.8 (1.5-2.0cm) LVDs1.5 (2.5-4.0cm) PWs2.1 cm Normal left ventricular chamber size, systolic function and wall motion. Left ventricular ejection fraction estimated to be 60-65 %. Mild left ventricular hypertrophy. Large posterior pericardial effusion. Mild left atrial and right ventricular enlargement by 2D. Moderate right atrial enlargement by 2D. D-shape, presence of RV overload. Focal aortic valve sclerosis with adequate cusp excursion. Thickened mitral valve leaflets with normal excursion. Mild mitral annulus and aortic root calcification. Pulmonic valve is well visualized. Normal tricuspid valve structure. IVC is dilated at 2.6cm with no physiological collapse. RA pressure of 20mmHg. A color flow and spectral Doppler study was performed and revealed: No mitral regurgitation. Mitral diastolic dysfunction can not obtainable due to arrhythmia. Severe tricuspid regurgitation. Tricuspid systolic velocities suggests peak right ventricular systolic pressure of 79 mmHg Consistent with severe pulmonary hypertension.
[2016-12-10] MEDS ORDERED: Tubing IV Secondary IV ONE (21:46)
--- NOTE | 2016-12-11 05:30 | Progress Note ---
DATE: 12/10/2016 CARDIOLOGY PROGRESS NOTE Subjective: Condition mostly unchanged. The patient remains with episodes of atrial flutter/fibrillation. He continues to have congestion. He has been receiving diuretics. He remains on full anticoagulation with Lovenox. He is on respiratory therapy. Chest x-rays revealed decreased effusion and thoracentesis has been deferred. OBJECTIVE: Vital Signs: Blood pressure 132/56, pulse 90, and respiratory rate 18. LUNGS: Coarse breath sounds with few rhonchi. HEART: Irregularly irregular rhythm. Normal S1 and S2. ABDOMEN: Soft. EXTREMITIES: Trace edema. Laboratory And Diagnostic Data: ABG, pH 7.31, pCO2 36 and pO2 61. Potassium is 4, BUN 21 and creatinine 0.9. IMPRESSION: 1. Chronic encephalopathy. 2. Paroxysmal atrial fibrillation/flutter. 3. Recovering sepsis status post shock. 4. Urinary tract infection. 5. Pneumonia. 6. Pulmonary embolus. 7. Acute on chronic diastolic congestive heart failure. 8. Dysphagia. 9. Moderate protein-calorie malnutrition. 10. Acute on chronic respiratory acidosis. PLAN: 1. Continue antibiotics. 2. Respiratory hygiene. 3. Full anticoagulation. 4. Diuresis. 5. Swallow evaluation. 6. May need BiPAP support to optimize acid-base parameters. Omkar Turk M.D. DR: KATE JOB#: [id number] CC:
[2016-12-11] MEDS ORDERED: Vancomycin 750mg/NS 250ml IVPB SCH (06:00)
--- NOTE | 2016-12-11 06:23 | Emergency Room Report ---
History of Present Illness General Chief Complaint: Dyspnea/Respdistress Source: Family Member, Medical Record, EMS Present Illness HPI Is an 86-year-old male who was admitted to the hospital for sepsis and hyperkalemia. He was a DO NOT RESUSCITATE in Comfort Care. ULCIUS JERRY was called because he went into asystole. His son change his mind wanted everything to be done at the last minute. I responded to the code. Code was unsuccessful after 3 rounds of epinephrine. Patient also received bicarbonate and calcium chloride. Patient was intubated. Code was called at 2147. She pronounced at that time. Son at bedside. Allergies: Coded Allergies: No Known Allergies (Verified , 06/30/07) Patient History Past Medical History: see triage record, old chart reviewed Nursing Documentation-PMH Hx Cardiac Problems: Yes Hx Hypertension: Yes Hx COPD: Yes Hx Diabetes: Yes Hx Cancer: Yes Hx Gastrointestinal Problems: Yes Hx Neurological Problems: Yes Hx Dementia: Yes Review of Systems All Other Systems: limited - Secondary to cardiac arrest Physical Exam Vital Signs Date Time Temp Pulse Resp B/P (MAP) Pulse Ox O2 Delivery O2 Flow Rate FiO2 12/04/16 21:26 98.4 118 22 127/76 94 Room Air 12/04/16 22:01 60 General Appearance: severe distress Head: normocephalic, atraumatic ENT: moist mucus membranes Neck: other - Patient is stiff with neck bent forward Respiratory: other - No respiration. -assisted breathin by respiratory Cardiovascular #1: other - No pulse without CPR Gastrointestinal: non tender Musculoskeletal: other - No edema Neurologic: other - Unresponsive Skin: normal color Procedures Critical Care Time Critical Care Time Critical care is mandated in this patient who presented with cardiac arrest and CODE BLUE. Patient require my urgent intervention to attenuate the risks of metabolic collapse which may lead to cardiovascular collapse and . Critical care time is 35 minutes excluding any reportable procedure. Critical care time included evaluation, multiple reevaluation, looking at old charts, interpreting laboratory and diagnostic data, discussing case with patient and family and consultants, and charting. CPR/Code Blue CPR/Code Blue Narrative please see code sheet for full information. Intubation Intubation : Consent: Emergent Intubation Method: orotracheal Tube Size (cm): 7.5 Breath Sounds after Intubation: equal Intubation Complications: no complications Post Intubation Xray: No Attempts: One Patient Tolerated: Well Complications: None Medical Decision Making Diagnostic Impression: Primary Impression: Sepsis Qualified Codes: A41.9 - Sepsis, unspecified organism Additional Impressions: Atrial flutter UTI (urinary tract infection) Pneumonia Cardiac arrest ER Course This only patient has a complicated medical history. He was admitted for sepsis and renal failure. He was a DO NOT RESUSCITATE with comfort care only. He suffered a cardiac arrest and went to asystole. A CODE BLUE was called because his son change his mind and everything to be done at the last minute. On my arrival patient was getting CPR. He was unresponsive. No spontaneous heart rate. He received a total of 3 rounds of epinephrine. Also received calcium chloride and bicarbonate. I proceeded to intubate him. He remained in asystole and the code was called at 2145. I contacted Dr. Turk to let him know of the outcome. Last Vital Signs Date Time Temp Pulse Resp B/P (MAP) Pulse Ox O2 Delivery O2 Flow Rate FiO2 12/10/16 20:32 80 104/63 12/10/16 19:59 97.2 18 85 Bi-pap 96 Disposition: Condition: Referrals: SAM BARDALES (PCP) SHEELA VELASQUEZ M.D. Dec 11, 2016 06:23
--- NOTE | 2016-12-11 11:26 | Discharge Summary ---
Discharge Summary Hospital Course Date of Admission Dec 04, 2016 at 22:30 Date of Discharge Dec 10, 2016 at 21:47 Admitting Diagnosis HYPOXIA,PNEUMONIA HPI Siva Gracia is a 86 year old male who was admitted on Dec 04, 2016 at 22: 30 for Hypoxia,Pneumonia Hospital Course summary #[id number] Discharge Discharge Disposition Patient Discharge Diagnoses: Discharge Instructions Discharge Instructions Special Instructions I have been assigned to complete a D/C Summary on this account. I was not involved in the patient management Wendy Ruiz NP (Vanchtein) Dec 11, 2016 11:26
--- NOTE | 2016-12-12 11:01 | Discharge Summary 2 SIG ---
SUMMARY DATE OF ADMISSION: 12/04/2016 DATE OF EXPIRATION: 12/10/2016 Reason For Admission: 86-year-old male with history of stroke, pneumonia, dysphagia, atrial fibrillation/atrial flutter, sepsis, chronic sacral decubitus ulcer, hypertension, hypothyroidism, and prostate cancer, presented with respiratory failure, evidence of sepsis and urinary tract infection. WBC- 13.5. Lactic acid- 4.2. Troponin was negative. Urinalysis with evidence of UTI. Pro BNP -2300. Chest x-ray with left basal infiltrate. The patient was hypoxemic upon presentation, pulse oximetry was 86% on room air as per paramedics. Initially placed on 100% non-rebreather mask. , The patient was tachycardic- 118, tachypneic -22. Afterwards, placed on BiPAP. ABG showed acceptable oxygenation. ECG with atrial flutter 2 to 1 block,tachycardia-118, repeated ECG still atrial flutter, more variable block, tachycardia -103. Blood pressure was stable. The patient was admitted for further management. ADMITTING DIAGNOSES: 1. Acute hypoxemic respiratory failure requiring BiPAP. 2. Sepsis. 3. Pneumonia. 4. Urinary tract infection. 5. Atrial fibrillation/atrial flutter 6. Hypertension. 7. Dysphagia. 8. Sacral decubitus stage IV, present on admission. 9. Anemia. Hospital Course: The patient was admitted. The patient was NPO. Cardiology, pulmonology, and ID consults were requested. The patient was started on broad-spectrum antibiotics. Sputum culture was positive for Bibiana. Urine culture was positive for Bibiana. Blood culture was negative. Wound culture was positive for Providencia and Bibiana. Per ID, wound was fairly clean. The patient was on antibiotic as per ID specialist management. Deicer Repairer Pneumatic closely followed. The patient was on the BiPAP. Pulmonary toilet provided as needed. Patient was unable to be weaned from the BiPAP. Venous duplex of bilateral lower extremities was negative. However, CTA of the thorax revealed evidence of large nonobstructive emboli within the left lower lobe pulmonary artery. The patient was started on heparin drip. Subsequently, heparin drip was switched to Lovenox every 12 hours as per Cardiology management. Monotype Mechanic closely followed the patient. The patient initially was on the IV fluids, which subsequently were discontinued and the patient was started on diuresis. Echocardiogram revealed ejection fraction of 60% to 65% and right ventricular systolic pressure of 79 consistent with severe pulmonary hypertension as well as evidence of diastolic dysfunction. The patient was on diuresis. Intake and output, renal parameters, and electrolytes were closely monitored. Rate control achieved with beta helga, initially intravenously, then via NG tube. Anticoagulation for atrial fibrillation and pulmonary emboli switched as mentioned above from heparin to Lovenox. Chest x-ray was followed up by marine gear keeper. Chest x-ray initially showed interstitial edema. Followup chest x-ray also showed left pleural effusion. Per pulmonology notes of 12/10/2016, chest x-ray showed improvement and thoracentesis was on hold. Swallow evaluation was not done since the patient still had NG tube and was on BiPAP. Per speech therapist, hold oral trials for now until on the BiPAP. Hemoglobin and hematocrit were closely monitored and remained on the baseline. Wound care was provided as per wound care nurse recommendation. Urology consult was requested due to the chronic Rausch catheter, history of prostate cancer, and urinary retention. Urologist was in agreement with antibiotic treatment. Urologist subsequently changed Rausch catheter with recommendations to irrigate as needed and r change catheter periodically. According to initial POLST, the patient was do not intubate status, but limited interventions with CPR were accepted. On 12/10/2016 at 2137 hours, respiratory therapist was refitted BiPAP mask while the patient suddenly started to desaturate. The patient became bradycardic in the 20s. Rapid response team was called initially since initial POLST stated CPR only, but do not intubate. However, the son, who was at the bedside, changed code status immediately to full code ( son had the durable power of police officer). Subsequently, Code Blue was called. The patient was intubated. Three rounds of epinephrine were given. The patient also received 1 ampule of bicarbonate and 1 ampule of calcium chloride. Resuscitative efforts were unsuccessful. The patient was pronounced at 2147 hours on 12/10/2016. Cause of was cardiopulmonary arrest. FINAL DIAGNOSES: 1. Acute hypoxemic respiratory failure requiring BiPAP. 2. Sepsis. 3. Urinary tract infection. 4. Pneumonia (aspiration versus healthcare-associated pneumonia). 5. Acute on chronic respiratory acidosis. 6. Chronic encephalopathy. 7. Paroxysmal atrial fibrillation/atrial flutter. 8. Acute pulmonary emboli. 9. Acute on chronic diastolic congestive heart failure. 10. Severe pulmonary hypertension. 11. Severe protein-calorie malnutrition. 12. Functional quadriplegia. 13. Prostate cancer. 14. Dysphagia. 15. Anemia. 16. Hypertension. 17. Sacral decubitus stage IV, present on admission. Aamir Sanchez M.D. I have been assigned to dictate discharge summary on this account and I was not involved in the patient's management. Wendy McgregorGeneva General Hospitalmiguelina N.PGilberto DR: AMANDO JOB#: [id number] CC: LIZ
== END 2016-12-10 21:47 | disposition expired | DRG 871 ==
LOC: EDBD 21:24 → EDUNIT# 21:24 → EMR 21:56 → 2W 22:30 → EDBEDREQ 22:58 → 2W 12-05 00:24
PROC: 5A09457 Assistance with Respiratory Ventilation, 24-96 Consecutive Hours, Continuous Positive Airway Pressure (ICD-10-PCS; principal; 2016-12-04)
PROC: 5A09457 Assistance with Respiratory Ventilation, 24-96 Consecutive Hours, Continuous Positive Airway Pressure (ICD-10-PCS; 2016-12-09)
DX: A41.9 Sepsis, unspecified organism (principal); J69.0 Pneumonitis due to inhalation of food and vomit; I26.99 Other pulmonary embolism without acute cor pulmonale; J96.01 Acute respiratory failure with hypoxia; R65.21 Severe sepsis with septic shock; G93.40 Encephalopathy, unspecified; E43 Unspecified severe protein-calorie malnutrition; L89.154 Pressure ulcer of sacral region, stage 4; G92 Toxic encephalopathy; I50.33 Acute on chronic diastolic (congestive) heart failure; J18.9 Pneumonia, unspecified organism; R53.2 Functional quadriplegia; N39.0 Urinary tract infection, site not specified; Z51.5 Encounter for palliative care; I27.2 Other secondary pulmonary hypertension; C61 Malignant neoplasm of prostate; J44.9 Chronic obstructive pulmonary disease, unspecified; F01.50 Vascular dementia, unspecified severity, without behavioral disturbance, psychotic disturbance, mood disturbance, and anxiety; Z43.3 Encounter for attention to colostomy; R13.10 Dysphagia, unspecified; N31.9 Neuromuscular dysfunction of bladder, unspecified; N40.1 Benign prostatic hyperplasia with lower urinary tract symptoms; R33.8 Other retention of urine; E03.9 Hypothyroidism, unspecified; I10 Essential (primary) hypertension; K21.9 Gastro-esophageal reflux disease without esophagitis; Z66 Do not resuscitate; I49.1 Atrial premature depolarization; I11.0 Hypertensive heart disease with heart failure
CPT/HCPCS: 36415; 36600; 71010; 71275; 74000; 76775; 80048; 80053; 80202; 81003; 82550; 82803; 83605; 83735; 83880; 84484; 85007; 85025; 85610; 85730; 87040; 87070; 87081; 87086; 87181; 87205; 92950; 93005; 93306; 93970; 94640; 94660; 94664; 99285; J0282